=== PATIENT | female | born 1995 | race Caucasian/White ===

== ENCOUNTER 2022-12-05 21:29 | Outpatient (REF) | payer OTHER, SELFPAY ==
[2022-12-10 13:07] LABS: Age Gdln ACOG Testing Note (.); HPV Aptima Negative (Negative); IGP, rfx Aptima HPV ASCU Note (.)
== END 2022-12-05 21:30 | disposition home or self-care (01) ==
LOC: LAB 21:29
PROVIDERS: Obstetrics & Gynecology; PCP Family Medicine; Visit Provider Family Medicine
DX: Z01.419 Encounter for gynecological examination (general) (routine) without abnormal findings (principal)
CPT/HCPCS: G0145

== ENCOUNTER 2023-05-31 14:45 | Emergency (ER) | payer OTHER, SELFPAY ==
[2023-05-31 14:54] VITALS: BP 122/94; PULSE 83; RESP 22; TEMP 36.9; O2SAT 100; BMI 24.6
--- NOTE | 2023-05-31 15:04 | US_ITS ---
The [address] [address] Patient Name: NIDHI BOLANOS MRN: [id number] date: 1995 Sex: F Assigned Patient Location: ER Current Patient Location: ER Accession/Order Number: [id number] Exam Date: 05/31/2023 15:30 Report Date: 05/31/2023 16:03 At the request of: ROCIO DUEÑAS Procedure: US OB transvaginal OB ultrasound <14 weeks 05/31/2023 3:30 PM EST: Indication: Vaginal bleeding Comparison: None Findings: Transabdominal images were performed for more global assessment of the pelvis. Transvaginal images were obtained for more detailed assessment of the uterus, ovaries and adnexa. No uterine masses identified. No intrauterine is identified. Cervical length is 3.9 cm. Right ovary measures 2.9 x 1.9 x 1.2 cm and is unremarkable. Left ovary measures 1.5 x 2.1 x 2.0 cm and is unremarkable. Color flow is detected to both ovaries. No additional adnexal masses. Moderate free fluid with debris. US/US OB transvaginal IMPRESSION: 1. An intrauterine is not identified and there is moderate free fluid in the pelvis. Differential considerations include an early intrauterine , missed or ectopic . Recommend follow up Beta-HCGs and/or ultrasounds to further evaluate, as clinically warranted. Electronically authenticated by: CARROLL RICARDO Date: 05/31/2023 16:03
--- NOTE | 2023-05-31 15:05 | ED.PREGNANC1 ---
HPI - General Chief complaint: OB/Uterine Contractions Stated complaint: ABDOMINAL PAIN Time Seen by Provider: 05/31/23 14:54 Source: patient Mode of arrival: walk-in History of Present Illness HPI Narrative: Patient is a 28-year-old female G2, P1 who presents to the emergency department with concern for miscarriage. She states she is about 5 weeks . She had no issues with her first . She states she had some cramping last night but today while at work had vaginal bleeding. She has had no fevers, vomiting. She has no severe pain at this time. No medications taken prior to arrival. Related Data Allergies Allergy/AdvReac Type Severity Reaction Status Date / Time No Known Drug Allergies Allergy Verified 05/31/23 14:59 Review of Systems ROS Constitutional Denies: fever or chills Ears, nose, mouth, and throat Denies: throat pain or nasal congestion Cardiovascular Denies: chest pain Respiratory Denies: shortness of breath or cough Gastrointestinal Reports: abdominal pain; Denies: nausea, vomiting or diarrhea Musculoskeletal Denies: back pain Integumentary/Breast Denies: rash Neurological Denies: headache Hematologic/Lymphatic Denies: easy bruising or easy bleeding Exam Narrative Exam Narrative: Gen.: Awake, alert, in no distress Head: Normocephalic, atraumatic ENT: Moist mucous membranes Respiratory: No respiratory distress Gastrointestinal: Abdomen is soft, nondistended and nontender to palpation Extremities: Moves extremities equally Psych: Tearful Neuro: No focal neuro deficit Skin: Warm, dry, intact Constitutional Vital Signs, click to edit/add: Last Vital Signs Temp 98.4 F 05/31/23 14:54 Pulse 83 05/31/23 14:54 Resp 05/31/23 14:54 BP 122/94 H 05/31/23 14:54 Pulse Ox 100 05/31/23 14:54 O2 Del Method Room Air 05/31/23 14:54 Course Vital Signs Vital signs: Vital Signs Temperature 98.4 F 05/31/23 14:54 Pulse Rate 83 05/31/23 14:54 Respiratory Rate 05/31/23 14:54 Blood Pressure 122/94 H 05/31/23 14:54 Pulse Oximetry 100 05/31/23 14:54 Oxygen Delivery Method Room Air 05/31/23 14:54 Temperature 98.4 F 05/31/23 14:54 Pulse Rate 83 02/14/24 14:54 Respiratory Rate 22 05/31/23 14:54 Blood Pressure 122/94 H 05/31/23 14:54 Pulse Oximetry 100 05/31/23 14:54 Oxygen Delivery Method Room Air 05/31/23 14:54 MDM - OB/Uterine Contractions MDM Narrative Medical decision making narrative: Lab studies show a positive blood type, quantitative hCG level is 11. Ultrasound shows no evidence of intrauterine or ectopic with free fluid, possible incomplete . Patient given instructions for miscarriage for home, she can be seen in the [facility] office tomorrow, she was instructed to call at 8 AM to be scheduled for follow-up. Return to the ER if symptoms change or worsen. Medical Records Attestation: I reviewed the patient's medical records. Lab Data Labs: Lab Results 05/31/23 05/31/23 Range/Units 15:15 15:46 WBC 8.0 (4.0-11.0) 10^3/uL RBC 3.96 L (4.20-5.40) 10^6/uL Hgb 12.6 (12.0-16.0) g/dL Hct 37.8 (36.0-48.0) % MCV 95.5 (81.0-99.0) fL MCH 31.8 (26.7-34.0) pg MCHC 33.3 (29.9-35.2) g/dL RDW 11.4 (11.0-15.0) % Plt Count 252 (150-450) 10^3/uL MPV 10.9 (9.5-13.5) fL Neut % (Auto) 66.9 (43.0-75.0) % Lymph % (Auto) 23.6 (20.5-60.0) % Randolph % (Auto) 8.1 (1.7-12.0) % Eos % (Auto) 0.6 L (0.9-7.0) % Baso % (Auto) 0.7 (0.2-2.0) % Neut # (Auto) 5.4 (1.4-6.5) 10^3/uL Lymph # (Auto) 1.9 (1.2-3.8) 10^3/uL Randolph # (Auto) 0.7 (0.3-0.8) 10^3/uL Eos # (Auto) 0.1 (0.0-0.7) 10^3/uL Baso # (Auto) 0.1 (0.0-0.1) 10^3/uL Abs Immat Gran (auto) 0.01 (0.00-0.03) 10^3/uL Imm/Tot Granulo (auto) 0.1 (0.0-0.5) % HCG, Quant 11 mIU/mL Urine Color Lt. yellow (YELLOW) Urine Clarity Clear (CLEAR) Urine pH 6.0 (5.0-9.0) Ur Specific [place] <=1.005 A (1.005-1.025) Urine Protein Negative (NEG/TRACE) mg/dL Urine Glucose (UA) Negative (NEGATIVE) mg/dL Urine Ketones Negative (NEGATIVE) mg/dL Urine Occult Blood Large A (NEGATIVE) Urine Nitrite Negative (NEGATIVE) Urine Bilirubin Negative (NEGATIVE) Urine Urobilinogen 0.2 (0.2-1.0) EU/dL Ur Leukocyte Esterase Negative (NEGATIVE) Blood Type A Positive Imaging Data US - abdomen: Attestation: I have reviewed the pertinent imaging results. Radiologist's impression: ITS Impressions Transvaginal US 05/31/23 15:04 IMPRESSION: 1. An intrauterine is not identified and there is moderate free fluid in the pelvis. Differential considerations include an early intrauterine , missed or ectopic . Recommend follow up Beta-HCGs and/or ultrasounds to further evaluate, as clinically warranted. Electronically authenticated by: CARROLLPRACHI MARTINISRAEL Date: 05/31/2023 16:03 Discharge Plan Discharge Chief Complaint: OB/Uterine Contractions Clinical Impression: Vaginal bleeding affecting early Patient Disposition: Home, Self-Care Time of Disposition Decision: 16:23 Condition: Good Instructions: Threatened Miscarriage (ED) Additional Instructions: Please call Dr. Ojeda's office tomorrow morning at 8am, Dr. Ojeda or Aida will see you tomorrow for a follow up appointment Stand Alone Forms: Portal Instructions Referrals: Zen Ojeda DO [Physician] - 06/01/23 Gal Ambrocio MD [Primary Care Provider] - 1 week
[2023-05-31 15:24] LABS: Basophils Absolute Auto 0.1 10^3/uL (0.0-0.1); Basophils Percent Auto 0.7 % (0.2-2.0); Eosinophils Absolute Auto 0.1 10^3/uL (0.0-0.7); Eosinophils Percent Auto 0.6 % (0.9-7.0); Hematocrit 37.8 % (36.0-48.0); Hemoglobin 12.6 g/dL (12.0-16.0); Immature Granulocytes Abs Auto 0.01 10^3/uL (0.00-0.03); Immature Granulocytes Pct Auto 0.1 % (0.0-0.5); Lymphocytes Absolute Auto 1.9 10^3/uL (1.2-3.8); Lymphocytes Percent Auto 23.6 % (20.5-60.0); Mean Corpuscular HGB Conc 33.3 g/dL (29.9-35.2); Mean Corpuscular Hemoglobin 31.8 pg (26.7-34.0); Mean Corpuscular Volume 95.5 fL (81.0-99.0); Mean Platelet Volume 10.9 fL (9.5-13.5); Monocytes Absolute Auto 0.7 10^3/uL (0.3-0.8); Monocytes Percent Auto 8.1 % (1.7-12.0); Neutrophils Absolute Auto 5.4 10^3/uL (1.4-6.5); Neutrophils Percent Auto 66.9 % (43.0-75.0); Platelet Count 252 10^3/uL (150-450); Red Blood Count 3.96 10^6/uL (4.20-5.40); Red Cell Distribution Width 11.4 % (11.0-15.0)
[2023-05-31 15:51] LABS: HCG Quantitative 11 mIU/mL
[2023-05-31 16:17] LABS: Bilirubin Urine NEGATIVE (NEGATIVE); Blood Urine LARGE (NEGATIVE); Clarity Urine CLEAR (CLEAR); Color Urine LT. YELLOW (YELLOW); Glucose Urine UA NEGATIVE (NEGATIVE); Ketones Urine NEGATIVE (NEGATIVE); Leukocyte Esterase Urine NEGATIVE (NEGATIVE); Nitrite Urine NEGATIVE (NEGATIVE); Protein Urine NEGATIVE (NEG/TRACE); Specific Gravity Urine <=1.005 (1.005-1.025); Urobilinogen Urine 0.2 EU/dL (0.2-1.0)
[2023-05-31 16:21] LABS: Urine Microscopic Indicated YES
[2023-05-31 16:28] LABS: Bacteria Urine NONE SEEN #/HPF (NONE SEEN); Cast Seen? NONE SEEN #/LPF (NONE SEEN); Crystals Seen? None Seen #/HPF (None Seen); Mucus Urine NONE SEEN (NONE SEEN); Squamous Epithelial Cell Urine RARE #/LPF (NONE/RARE); Urine Culture Indicated NO; WBC Urine NONE SEEN #/HPF (NONE SEEN)
== END 2023-05-31 16:34 | disposition home or self-care (01) ==
PROVIDERS: Physician Assistant; Emergency Provider Emergency Medicine; PCP Family Medicine
DX: O20.9 Hemorrhage in early pregnancy, unspecified (principal); Z3A.01 Less than 8 weeks gestation of pregnancy
CPT/HCPCS: 36415; 76817; 81001; 84702; 85025; 86900; 86901; 99285

== ENCOUNTER 2023-06-07 10:34 | Outpatient (OUT) | payer OTHER, SELFPAY ==
--- OUTSIDE RECORDS SUMMARY | 2023-06-07 10:37 | XMS_ITS | CCD ---
Demographics Address [address] [place] [address] Preferred Language en Marital Status Single Moravian Affiliation Unknown Race White Ethnic Group Not or Lati no Author Name Unknown Address [address] [facility] [address] [place] [address] Organization [facility] Care Team Providers Care Manager Transition Name Role Phone Veronica Murphy Primary Care Physician NGUYỄN, DR SAFIA Pichardo Admitting Unavailable WEST, DR SAFIA Pichardo Attending Unavailable HOY ., DR MARTIN Primary Care Unavailable WEST, DR SAFIA Pichardo Consulting Unavailable WEST, DR SAFIA Pichardo Admitting Unavailable WEST, DR SAFIA Pichardo Attending Unavailable HOY ., DR MARTIN Primary Care Unavailable WEST, DR SAFIA Pichardo Consulting Unavailable LOLLY ., DR MARTIN Admitting Unavailable HOY ., DR MARTIN Attending Unavailable HOY ., DR MARTIN Primary Care Unavailable HOY ., DR MARTIN Consulting Unavailable GABRIELLE SESAY Attending Unavailable Problems Active Problems Problem Classification Problem Date Documented Da te Episodic/Chronic Mood disorders (2 sources) Mood disorder 09-22-2021 Chronic Other and unspecified benign neoplasm (1 source) Melanocytic nevus; Translations: [Melanocytic nevi, unspecified] Onset: 10-06-2021 Episodic Other nervous system disorders (3 sources) Skin sensation disturbance; Translations: [Unspecified disturbances of skin sensation] Onset: 10-06-2021 Episodic Other skin disorders (2 sources) Change in skin lesion 10-06-2021 Episodic Unclassified (2 sources) Body mass index 20-24 - normal 10-06-2021 Unclassified (3 sources) COUGH, UNSPECIFIED; Translations: [COUGH, UNSPECIFIED] Onset: 04-03-2022 Unclassified (1 source) CONTACT W/AND (SUSP) EXPOS COVID-19; Translations: [CONTACT W/AND (SUSP) EXPOS COVID-19] Onset: 04-03-2022 Past or Other Problems Problem Classification Problem Date Documented Da te Episodic/Chronic Unclassified (1 source) COUGH, UNSPECIFIED; Translations: [COUGH, UNSPECIFIED] Onset: 03-31-2022 Results Test Name Value Interpretation Reference Range Facil ity [facility]-17 SARS-CoV-2 (COVID-19) RNA LYNDSEY+probe Ql (Unsp spec) Not detected Normal NOT DETECTED [facility] Comment on above: Result Comment: This test is not yet approved or cleared by the [place] FDA. When there are no FDA-approved or cleared tests available, and other criteria are met, FDA can make tests available under an emergency access mechanism called an Emergency Use Authorization (EUA). The EUA for this test is supported by the Dental Hygienist of Health and Human Service's (HHS's) declaration that circumstances exist to justify the emergency use of in vitro diagnostics for the detection and/or diagnosis of the virus that causes COVID-19. This EUA will remain in effect (meaning this test can be used) for the duration of the COVID-19 declaration justifying emergency of IVDs, unless it is terminated or revoked by FDA (after which the test may no longer be used). When diagnostic testing is negative, the possibility of a false negative should be considered in the context of a patient's recent exposures and the presence of clinical signs and symptoms consistent with SARS-CoV-2. Performed By: #### C VDTBH #### [facility] [address] [place] [address] Dr. Radha Rucker INFLUENZA A AND B AGon 03-31 [facility] SEE BELOW Normal [facility] Comment on above: Result Comment: Nega tive for Flu A protein angiten. Infection due to Flu A cannot be ruled out. Flu A angiten in the sample may be below the detection limit of the test. Performed By: #### I NFLUAB #### [facility] [address] [place] [address] Dr. [facility] Normal [facility] Comment on above: Result Comment: Nega tive for Flu B protein antigen. Infection due to Flu B cannot be ruled out. Flu B antigen in the sample may be below the detection limit of the test. Performed By: #### I NFLUAB #### [facility] [address] [place] [address] Dr. Radha Rucker INFLUENZA A AG Negative Normal NEGATIVE SEE COMMENT [facility] Comment on above: Performed By: #### I NFLUAB #### [facility] [address] [address] [address] Radha Rucker INFLUENZA B AG Negative Normal NEGATIVE SEE COMMENT [facility] Comment on above: Performed By: #### I NFLUAB #### [facility] [address] [address] [address] Radha Rucker INTERNAL CONTROLS Within Normal Limits Normal Wi thin Normal Limits [facility] Comment on above: Performed By: #### I NFLUAB #### [facility] [address] [address] [address] Radha Rucker General Surgery Office/Clini c Noteon 11-01-2021 General Surgery Office/Clinic Note Chief Complaint in-office excisional biopsy HPI Staff Presents for in-office excisional biopsy LLQ abdomen. History of Present Illness patient here for excisional biopsy LLQ/flank skin lesion; no changes since recent evaluation. Review of Systems ROS - Provider Constitutional: no fever, no sweats, no weight loss. Eyes: no glasses, no blurred vision, no visual loss. ENMT: no dentures, no hoarseness, no swallowing difficulties, no hearing loss, no ear infection(s), no nose bleeds. Cardiovascular: normal blood pressure, no chest pain, regular heartbeat, no heart murmur. Respiratory: no shortness of breath, no cough, no asthma, no wheezing. Gastrointestinal: no nausea, no vomiting, no diarrhea, no constipation, no blood in stool, no change in bowel habits, no abdominal pain, no hepatitis. Genitourinary: no kidney stones, no urine infection, no dysuria. Musculoskeletal: no pain, no weakness. Skin: no changing moles, no rash, yes skin lumps. Neurologic: no seizures, no epilepsy, no headache. Psychiatric: no emotional or psychiatric problem. Heme/Lymph: no bleeding problems, no anemia, no blood clots, no transfusions. Allergy/Immunologic: no swollen lymph nodes/glands, no IV drug abuse. Other: Additional ROS info: Except as noted in the above Review of Systems and in the History of Present Illness, all other systems have been reviewed and are negative or noncontributory. Physical Exam skin: left flank with 7 x 4 mm pigmented lesion with central raised component, no ulceration or bleeding. Procedure patient brought to the procedure room, placed in supine position, area prepped and draped in sterile fashion; anesthetized with 1 % lidocaine; lesion excised in elliptical fashion down to subcutaneous fat; total length 1.2 cm; closed with interrupted 4-0 nylon sutures; tolerated well; ebl < 2 ml; sterile dressing applied. Assessment/Plan 1. Changing nevus (D22.9: Melanocytic nevi, unspecified) excised under local anesthesia, tolerated well; suture removal in 7-10 days, call with problems/questions. Follow-up No qualifying data available Problem List/Past Medical History Ongoing BMI 24.0-24.9, adult Changing nevus Disturbance of skin sensation Mood disorder Historical No qualifying data Procedure/Surgical History Tonsillectomy. Medications No active medications Allergies No Known Allergies No Known Medication Allergies Social History Alcohol - Denies Alcohol Use, 10/06/2021 Substance Abuse - Denies Substance Abuse, 10/06/2021 Tobacco Never (less than 100 in lifetime) Tobacco Use:. Never Smokeless Tobacco Use:., 10/06/2021 Family History Cardiac arrhythmia: Father. Normal [facility] Comment on above: Result Comment: Elec tronically Signed By: ROSLYN DIAMOND, Philippe Ramirez\.br\Date and Time Signed: 11/01/21 09:55 EDT Pathology Noteon 11-01-2021 Pathology Note [id number] .00CD:127 Normal [facility] Ambulatory Visit Summaryon 0 10-27-2021 Ambulatory Visit Summary ROXANALARRY NIDHI JAY :1995 Visit Date:10/27/2021 Ambulatory Visit Instructions Your Care Team Attending Physician - ROSLYN DIAMOND, Philippe Ramirez Primary Care Physician - Veronica Murphy MD Procedures Performed Tonsillectomy. Allergies No Known Allergies No Known Medication Allergies Problems Ongoing - Any problem that you are currently receiving treatment for. BMI 24.0-24.9, adult Changing nevus Disturbance of skin sensation Mood disorder [facility] Pre-Certification Formon Pre-Certification Form [id number]# 1.00CD:127 [facility] Ambulatory Visit Summaryon 0 10-06-2021 Ambulatory Visit Summary NIDHI BOLANOS :1995 Visit Date:10/06/2021 Ambulatory Visit Instructions Your Care Team Attending Physician - Philippe MCGOWAN MD Primary Care Physician - Lolly DIAMOND, Veronica Procedures Performed Tonsillectomy. Discharge Vitals Heart Rate (Peripheral) 72 Respiratory Rate 16 Blood Pressure 106/66 Height 162.5 cm Height 162.5 cm Weight 64.0 kg Weight 64 kg BMI 24.24 What to do next Scheduled Follow-Up Appointments Monday 1:40 PM EDT With: ROSLYN DIAMOND, Philippe Ramirez Where: General Surgery Nill/Said [facility] Physician Referralon 022 Physician Referral [id number] .00CD:127 [facility] Vital Signs Date Time Vital Sign Value Performing Clinician Debrai ivan 10-06-2021 15:25-0400 Blood Pressure Location Philippe MCGOWAN [facility] [place] 10-06-2021 15:25-0400 Diastolic blood pressure 66 mm[Hg] Philippe MCGOWAN General Surgery [facility] 10-06-2021 15:25-0400 Heart rate 72 /min Philippe MCCARTNEYL General Surgery [facility] 10-06-2021 15:25-0400 Respiratory rate 16 /min Philippe MCCARTNEYL [facility] [place] 10-06-2021 15:25-0400 Systolic blood pressure 106 mm[Hg] Philippe MCGOWAN General Surgery [facility] Encounters Encounter Date Encounter Type Care Provider Facility Start: 05-08-2023 End: 05-08-2023 ambulatory GABRIELLE SESAY Not Available Start: 06-09-[address] SAFIA ADRIAN Facilit y:[facility] Start: 03-31-2022 End: 03-31-[address] VERONICA MUPRHY . Facility:[facility] Start: 10-27-2021 End: 10-27-2021 Patient encounter procedure Philippe James NILL General Surgery Nill/Said [facility] Start: 10-06-2021 End: 10-06-2021 Patient encounter procedure Philippe Ramirez NILL General Surgery Nill/Said [place] Start: 06-28-2021 End: 10-21-[address] SAFIA ADRIAN Facility:[facility] Procedures Date Procedure Procedure Detail Performing Clinician Tonsillectomy Philippe SHERRILLTahir Payers Date Payer Category Payer Medicaid [id number] 1995 Unknown [id number] [id number] 1995 Unknown [id number] [id number] [id number] 1995 Unknown [id number] [id number] [id number] 1995 Unknown [id number] [id number] 1961 Self-pay [id number] 1961 Unknown [id number] Social History Date Type Detail Facility Start: 10-06-2021 Tobacco smoking status Never s moked tobacco (finding) [facility] [place] Tobacco smoking status Never Gener al [facility] [place] Sex Assigned At Female Genera l Surgery [facility] Functional Status Date Assessment Result Facility 10-06-2021 Functional Status N/A General [facility] [place] Clinical Note 10-06-2021 Note Date & Type Note Facility 10-06-2021 Note Chief Complaint consultation for nevus HPI Staff 26 year old female presents on consultation from Dr. Murphy for nevus. Reports long standing history of nevus to left flank. Over the past one-two years, has increased in size and became tender with friction from clothing. History of Present Illness 26 yo female with h/o enlarging, irritated nevus left lower quadrant; present for many years, but has increased in size over last year and become more raised, no ulceration or bleeding; no personal or fmhx of skin cancer or melanoma; no asa or NSAID use; no tobacco use. Review of Systems PHQ Score Initial Depression Screen Score: 0 ROS - Provider Constitutional: no fever, no sweats, no weight loss. Eyes: no glasses, no blurred vision, no visual loss. ENMT: no dentures, no hoarseness, no swallowing difficulties, no hearing loss, no ear infection(s), no nose bleeds. Cardiovascular: normal blood pressure, no chest pain, regular heartbeat, no heart murmur. Respiratory: no shortness of breath, no cough, no asthma, no wheezing. Gastrointestinal: no nausea, no vomiting, no diarrhea, no constipation, no blood in stool, no change in bowel habits, no abdominal pain, no hepatitis. Genitourinary: no kidney stones, no urine infection, no dysuria. Musculoskeletal: no pain, no weakness. Skin: yes changing moles, no rash, no skin lumps. Neurologic: no seizures, no epilepsy, no headache. Psychiatric: no emotional or psychiatric problem. Heme/Lymph: no bleeding problems, no anemia, no blood clots, no transfusions. Allergy/Immunologic: no swollen lymph nodes/glands, no IV drug abuse. Other: Additional ROS info: Except as noted in the above Review of Systems and in the History of Present Illness, all other systems have been reviewed and are negative or noncontributory. Physical Exam Vitals & Measurements HR: 72(Peripheral) RR: 16 BP: 106/66 HT: 162.5 cm HT: 162.5 cm WT: 64.0 kg WT: 64 kg BMI: 24.24 HEENT: normal conjunctiva, sclera clear, no scleral icterus, EOM intact, PERRLA, oral mucosa moist without lesions. Neck: trachea midline, no mass, symmetric, no thyromegaly or nodules, no adenopathy Lymphatic: no cervical adenopathy, Musculoskeletal: normal gait, digits and nails without infection, nodes, cyanosis, clubbing. Skin: no rashes, 7 x 4 mm nevus with 4 mm raised area; no ulceration, uniform border and pigmentaiton, no ulcers, no subcutaneous nodules, induration. Psychiatric/Neuro: oriented to time, place, person, judgement normal, affect appropriate for age, insight intact, no focal deficits. Tests: review of old records completed, Discussed surgical options, risks, and possible complications with patient.! Assessment/Plan 1. Changing nevus (D22.9: Melanocytic nevi, unspecified) plan excisional biopsy under local anesthesia in the office for definitive diagnosis and treatment, informed consent obtained. 2. Disturbance of skin sensation (R20.9: Unspecified disturbances of skin sensation) see # 1 Follow-up No qualifying data available Problem List/Past Medical History Ongoing BMI 24.0-24.9, adult Changing nevus Disturbance of skin sensation Mood disorder Historical No qualifying data Procedure/Surgical History Tonsillectomy. Medications No active medications Allergies No Known Allergies No Known Medication Allergies Social History Alcohol - Denies Alcohol Use, 10/06/2021 Substance Abuse - Denies Substance Abuse, 10/06/2021 Tobacco Never (less than 100 in lifetime) Tobacco Use:. Never Smokeless Tobacco Use:., 10/06/2021 Family History Cardiac arrhythmia: Father. [facility] Comment on above: Result Comment: Elec tronically Signed By: Philippe MCGOWAN MD\.br\Date and Time Signed: 10/06/21 16:57 EDT Evaluation + Plan note Note Date & Type Note Facility Evaluation + Plan note Future Appointments Appointment Date:10/27/2021 01:40:00 PM Scheduled Provider:Philippe MCGOWAN MD Location:[facility] Appointment Type: Procedure 30 General [facility] [place] Hospital course Narrative Note Date & Type Note Facility Hospital course Narrative No data available for this section General Surgery [place] [facility] Discharge instructions Note Date & Type Note Facility Hospital Discharge instructions No data available for this section General Surgery [place] Progress note Note Date & Type Note Facility Progress note No data available for this section General Surgery [facility] Summary Purpose Family History No Family History Records FoundNo Family History Records FoundNo Family History Records Found Advance Directives No Advanced Directives Records FoundNo Advanced Directives Records FoundNo Advanced Directives Records Found Additional Source Comments Care Team (unrecognized sect ion and content) Personnel Name: Veronica Murphy MD Address: [address] [place] [address] Personnel Name: Veronica Murphy MD Address: [address] [place], [place] [id number]- INFORMATION SOURCE (unrecogn ized section and content) DATE CREATED AUTHOR [facility]/02/2021 [facility] DATE CREATED AUTHOR AUTHOR'S ORGANIZ ATION 06/10/2022 [facility] DATE CREATED AUTHOR AUTHOR'S ORGANIZ ATION 05/09/2023 [facility] EPIC FOR RECORDS PERTAINING TO PATIENTS WHO ARE OR HAVE BEEN ENROLLED IN A CHEMICAL DEPENDENCY/SUBSTANCEABUSE PROGRAM, SOME INFORMATION MAY BE OMITTED. This clinical summary was aggregated from multiple sources. Caution should be exercised in using it in the provision of clinical care. This summary normalizes information from multiple sources, and as a consequence, information in this document may materially change the coding, format and clinical context of patient data. In addition, data may be omitted in some cases. CLINICAL DECISIONS SHOULD BE BASED ON THE PRIMARY CLINICAL RECORDS. [facility]. provides no warranty or guarantee of the accuracy or completeness of information in this document.
[2023-06-07 11:42] LABS: HCG Quantitative <1 mIU/mL
== END 2023-06-07 10:35 | disposition home or self-care (01) ==
PROVIDERS: PCP Family Medicine; Visit Provider Obstetrics & Gynecology
DX: O20.9 Hemorrhage in early pregnancy, unspecified (principal)
CPT/HCPCS: 36415; 84702

== ENCOUNTER 2023-11-11 10:21 | Outpatient (OUT) | payer OTHER, SELFPAY ==
--- OUTSIDE RECORDS SUMMARY | 2023-11-11 10:24 | XMS_ITS | CCD ---
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 Name Role Phone Veronica Murphy Primary Care Physician NGUYỄN, DR SAFIA Pichardo Admitting Unavailable WEST, DR SAFIA Pichardo Attending Unavailable HOY ., DR MARTIN Primary Care Unavailable WEST, DR SAFIA Pichardo Consulting Unavailable WEST, DR SAFIA Pichardo Admitting Unavailable WEST, DR SAFIA Pichardo Attending Unavailable HOY ., DR MARTIN Primary Care Unavailable WEST, DR SAFIA Pichardo Consulting Unavailable GISSELLEY ., DR MARTIN Admitting Unavailable HOY ., [...] Interpretation Reference Range Facil ity Covid-19 PCR (CVDTB)on 03-17 SARS-CoV-2 (COVID-19) RNA LYNDSEY+probe Ql (Unsp spec) Not detected Normal NOT DETECTED [facility] Comment on above: Result Comment: This test is not yet approved or cleared by the [place] FDA. When there are no FDA-approved or cleared tests available, and other criteria are met, FDA can make tests available under an emergency access mechanism called an Emergency Use Authorization (EUA). The EUA for this test is supported by the [place] of Health and Human Service's (HHS's) declaration [...] SARS-CoV-2. Performed By: #### C VDTBH #### [facility] [address] [place] [address] Dr. Radha Rucker INFLUENZA A AND B AGon 03-31 [facility] SEE BELOW Normal [facility] Comment on above: Result Comment: Nega tive for Flu A protein angiten. Infection due to Flu A cannot be ruled out. Flu A angiten in the sample may be below the detection limit of the test. Performed By: #### I NFLUAB #### [facility] [address] [place] [address] Dr. Rad[facility]ucker [facility] SEE BELOW Normal [facility] Comment on above: Result Comment: Nega tive for Flu B protein antigen. Infection due to Flu B cannot be ruled out. Flu B antigen in the sample may be below the detection limit of the test. Performed By: #### I NFLUAB #### [facility] [address] [place] [address] Dr. Radha Rucker INFLUENZA A AG Negative Normal NEGATIVE SEE COMMENT [facility] Comment on above: Performed By: #### I NFLUAB #### [facility] [address] [address] [address] Radha Rucker INFLUENZA B AG Negative Normal NEGATIVE SEE COMMENT [facility] Comment on above: Performed By: #### I NFLUAB #### [facility] [address] [address] [address] Radha Rucker INTERNAL CONTROLS Within Normal Limits Normal Wi thin Normal Limits [facility] Comment on above: Performed By: #### I NFLUAB #### [facility] [address] [address] [address] Radha Rucker General Surgery Office/Clini c [...] 10/06/2021 Family History Cardiac arrhythmia: Father. Normal [facility] Comment on above: Result Comment: Elec tronically Signed By: ROSLYN DIAMOND, Philippe Ramirez\.br\Date and Time Signed: 11/01/21 09:55 EDT Pathology Noteon 11-01-2021 Pathology Note [id number] .00CD:127 Normal [facility] Ambulatory Visit Summaryon 0 10-27-2021 Ambulatory Visit Summary NIDHI BOLANOS :1995 Visit Date:10/27/2021 Ambulatory Visit Instructions Your Care Team Attending Physician - ROSLYN DIAMOND, Philippe Ramirez Primary Care Physician - Veronica Murphy MD Procedures Performed Tonsillectomy. Allergies No Known Allergies No Known Medication Allergies Problems Ongoing - Any problem that you are currently receiving treatment for. BMI 24.0-24.9, adult Changing nevus Disturbance of skin sensation Mood disorder [facility] Pre-Certification Formon Pre-Certification Form [id number]# 1.00CD:127 [facility] Ambulatory Visit Summaryon 0 10-06-2021 Ambulatory Visit Summary NIDHI BOLANOS :1995 Visit Date:10/06/2021 Ambulatory Visit Instructions Your Care Team Attending Physician - ROSLYN DIAMOND, Philippe Ramirez Primary Care Physician - Lolly DIAMOND, Veronica Procedures Performed Tonsillectomy. Discharge Vitals Heart Rate (Peripheral) 72 Respiratory Rate 16 Blood Pressure 106/66 Height 162.5 cm Height 162.5 cm Weight 64.0 kg Weight 64 kg BMI 24.24 What to do next Scheduled Follow-Up Appointments Monday 1:40 PM EDT With: ROSLYN DIAMOND, Philippe Ramirez Where: General Surgery Nill/Said [place] [facility] Physician Referralon 022 Physician Referral [id number] .00CD:127 [facility] Vital Signs Date Time Vital Sign Value Performing Clinician Day [place] 10-06-2021 15:25-0400 Blood Pressure Location Philippe NILL [facility] [place] 10-06-2021 15:25-0400 Diastolic blood pressure 66 mm[Hg] Philippe NILL [facility] [place] 10-06-2021 15:25-0400 Heart rate 72 /min Philippe NILL General [facility] [place] 10-06-2021 15:25-0400 Respiratory rate 16 /min Philippe NILL General Surgery [place] 10-06-2021 15:25-0400 Systolic blood pressure 106 mm[Hg] Philippe NILL General Surgery [place] Encounters Encounter Date Encounter Type Care Provider Facility Start: 05-08-2023 End: 05-08-2023 ambulatory GABRIELLE SHAMA Not Available Start: 06-09-[address] SAFIA ADRIAN Facilit y:[facility] Start: 03-31-2022 End: 03-31-[address] VERONICA MURPHY . Facility:[facility] Start: 10-27-2021 End: 10-27-2021 Patient encounter procedure Philippe MCGOWAN General Surgery Nill/Said [place] Start: 10-06-2021 End: 10-06-2021 Patient encounter procedure Philippe MCGOWAN General Surgery N[place]/Said [place] Start: 06-28-2021 End: 10-21-[address] SAFIA ADRIAN Facility:[facility] Procedures Date Procedure Procedure Detail Performing Clinician Tonsillectomy Philippe MCGOWAN Payers Date Payer Category Payer Medicaid [id number] 1995 Unknown [id number] 2.16.84 [id number] 1995 Unknown [id number] 2.16.84 [id number] 1995 Unknown [id number] 2.16.84 [id number] 1995 Unknown [id number] 2.16.84 [id number] 1961 Self-pay [id number] 1961 Unknown [id number] Social History Date Type Detail Facility Start: 10-06-2021 Tobacco smoking status Never s moked tobacco (finding) General Surgery [place] Tobacco smoking status Never Gener al Surgery [place] Sex Assigned At Female Genera l Surgery [place] Functional Status Date Assessment Result Facility 10-06-2021 Functional Status N/A General [facility] [place] Clinical Note 10-06-2021 Note Date & Type [...] Use:., 10/06/2021 Family History Cardiac arrhythmia: Father. [facility] Comment on above: Result Comment: Elec tronically Signed By: Philippe MCGOWAN MD\.br\Date and Time Signed: 10/06/21 16:57 EDT Evaluation + Plan note Note Date & Type Note Facility Evaluation + Plan note Future Appointments Appointment Date:10/27/2021 01:40:00 PM Scheduled Provider:Philippe MCGOWAN MD Location:[facility] Appointment Type: Procedure 30 General Surgery [place] Hospital course Narrative Note Date & Type Note Facility Hospital course Narrative No data available for this section General Surgery [place] Hospital Discharge instructions Note Date & Type Note Facility Hospital Discharge instructions No data available for this section General Surgery [place] Progress note Note Date & Type Note [...] content) Personnel Name: Veronica Murphy MD Address: [address] [place] [address] Personnel Name: Veronica Murphy MD Address: [address] [place] [address] INFORMATION SOURCE (unrecogn ized section and content) DATE CREATED AUTHOR 11/02/2021 [facility] DATE CREATED AUTHOR AUTHOR'S ORGANIZ ATION 06/10/2022 [facility] DATE CREATED AUTHOR AUTHOR'S ORGANIZ ATION 05/09/2023 [facility]ists EPIC FOR RECORDS PERTAINING TO PATIENTS [...] BE BASED ON THE PRIMARY CLINICAL RECORDS. [facility]. provides no warranty or guarantee of the accuracy or completeness of information in this document.
[2023-11-11 11:23] LABS: HCG Quantitative 45647 mIU/mL
== END 2023-11-11 10:22 | disposition home or self-care (01) ==
LOC: LAB 10:21
PROVIDERS: PCP Family Medicine; Visit Provider Obstetrics & Gynecology
DX: N92.6 Irregular menstruation, unspecified (principal)
CPT/HCPCS: 36415; 84702

== ENCOUNTER 2023-11-13 08:57 | Outpatient (OUT) | payer OTHER, SELFPAY ==
--- OUTSIDE RECORDS SUMMARY | 2023-11-13 09:02 | XMS_ITS | CCD ---
Demographics Address [address] [place] [address] Preferred Language en Marital Status Single Judaism Affiliation Unknown Race White Ethnic Group Not or Lati no Author Organization [facility] Care Team Providers Care Wrapper Caser Name Role Phone Veronica Murphy Primary Care [...] spec) Not detected Normal NOT DETECTED [facility] Comment on above: Result Comment: This test is not yet approved or cleared by the [place] FDA. When there are no FDA-approved or cleared tests available, and other criteria are met, FDA can make tests available under an emergency access mechanism called an Emergency Use Authorization (EUA). The EUA for this test is supported by the [place] of Health and Human Service's (HHS's) declaration [...] SARS-CoV-2. Performed By: #### C VDTBH #### [facility] [address] [place] [address] Dr. Radha Rucker INFLUENZA A AND B AGon 03-31 [facility] SEE BELOW Normal [facility] Comment on above: Result Comment: Nega tive for Flu A protein angiten. Infection due to Flu A cannot be ruled out. Flu A angiten in the sample may be below the detection limit of the test. Performed By: #### I NFLUAB #### [facility] [address] [place] [address] Dr. [facility] Normal [facility] Comment on above: Result Comment: Nega tive for Flu B protein antigen. Infection due to Flu B cannot be ruled out. Flu B antigen in the sample may be below the detection limit of the test. Performed By: #### I NFLUAB #### [facility] [address] [place] [address] Dr. Radha Rucker INFLUENZA A AG Negative Normal NEGATIVE SEE COMMENT [facility] Comment on above: Performed By: #### I NFLUAB #### [facility] [address] [address] [address] Radha Rucker INFLUENZA B AG Negative Normal NEGATIVE SEE COMMENT [facility] Comment on above: Performed By: #### I NFLUAB #### [facility] [address] [address] [address] Radha Rucker INTERNAL CONTROLS Within Normal Limits Normal Wi thin Normal Limits [facility] Comment on above: Performed By: #### I NFLUAB #### [facility] [address] [address] [address] Radha Rucker General Surgery Office/Clini c [...] History Cardiac arrhythmia: Father. Normal [facility] Comment on above: Result Comment: Elec tronically Signed By: ROSLYN DIAMOND, Philippe Ramirez\.br\Date and Time Signed: 11/01/21 09:55 EDT Pathology Noteon 11-01-2021 Pathology Note [id number] .00CD:[address] [facility] Ambulatory Visit Summaryon 0 10-27-2021 Ambulatory [...] nevus Disturbance of skin sensation Mood disorder [facility] Pre-Certification Formon Pre-Certification Form [id number]# 1.00CD:127 [facility] Ambulatory Visit Summaryon 0 10-06-2021 Ambulatory Visit [...] DIAMOND, Philippe Ramirez Where: General Surgery Nill/Said [place] [facility] Physician Referralon 022 Physician Referral [id number] .00CD:127 [facility] Vital Signs Date Time Vital Sign Value Performing Clinician Day love 10-06-2021 15:25-0400 Blood Pressure Location Philippe NILL General [facility] [place] 10-06-2021 15:25-0400 Diastolic blood pressure 66 mm[Hg] Philippe NILL General Surgery [place] 10-06-2021 15:25-0400 Heart rate 72 /min Philippe NILL General Surgery [place] 10-06-2021 15:25-0400 Respiratory rate 16 /min Philippe NILL General Surgery [place] 10-06-2021 15:25-0400 Systolic blood pressure 106 mm[Hg] Philippe NILL General Surgery [place] Encounters Encounter Date Encounter Type Care Provider [...] MCGOWAN Payers Date Payer Category Payer Medicaid [id number] 1995 Unknown [id number] 2.16.84 [id number] 1995 Unknown [id number] 2.16.84 [id number] 1995 Unknown [id number] 2.16.84 [id number] 1995 Unknown [id number] 2.16.84 [id number] 1961 Self-pay [id number] 1961 Unknown [id number] Social History Date Type Detail Facility Start: 10-06-2021 Tobacco smoking status Never s moked tobacco (finding) General Surgery [place] Tobacco smoking status Never Gener al Surgery [place] Sex Assigned At Female Genera l Surgery [place] Functional Status Date Assessment Result Facility 10-06-2021 [...] Family History Cardiac arrhythmia: Father. [facility] Comment on above: Result Comment: Elec tronically Signed By: Philippe MCGOWAN MD\.br\Date and Time Signed: 10/06/21 16:57 EDT Evaluation + Plan note Note Date & Type Note Facility Evaluation + Plan note Future Appointments Appointment Date:10/27/2021 01:40:00 PM Scheduled Provider:Philippe MCGOWAN MD Location:[facility] Appointment Type: Procedure 30 General Surgery [place] Hospital course Narrative Note Date & Type Note Facility Hospital course Narrative No data available for this section General Surgery [place] Hospital Discharge instructions Note Date & Type Note Facility Hospital Discharge instructions No data available for this section General Surgery [place] Progress note Note Date & Type Note [...] content) Personnel Name: Veronica Murphy MD Address: [address] [place] [address] Personnel Name: Veronica Murphy MD Address: [address] [place] [address] INFORMATION SOURCE (unrecogn ized section and content) DATE CREATED AUTHOR 11/02/2021 [facility] DATE CREATED AUTHOR AUTHOR'S ORGANIZ ATION 06/10/2022 [facility] DATE CREATED AUTHOR AUTHOR'S ORGANIZ ATION 05/09/2023 [facility] EPIC FOR RECORDS PERTAINING TO [...] BE BASED ON THE PRIMARY CLINICAL RECORDS. [facility] [employer] [facility]. provides no warranty or guarantee of the accuracy or completeness of information in this document.
[2023-11-13 10:32] LABS: HCG Quantitative 58194 mIU/mL
== END 2023-11-13 08:58 | disposition home or self-care (01) ==
LOC: LAB 08:58
PROVIDERS: PCP Family Medicine; Visit Provider Obstetrics & Gynecology
DX: N92.6 Irregular menstruation, unspecified (principal)
CPT/HCPCS: 36415; 84702

== ENCOUNTER 2023-11-15 09:35 | Outpatient (OUT) | payer OTHER, SELFPAY ==
--- OUTSIDE RECORDS SUMMARY | 2023-11-15 09:53 | XMS_ITS | CCD ---
Demographics Address [address] [place] [address] Preferred Language en Marital Status Single Jainism Affiliation Unknown Race White Ethnic Group Not or Lati no Author Organization [facility] Care Team Providers Care Supervisor Border Department Name Role Phone Veronica Murphy Primary Care Physician [phone] NGUYỄN, DR SAFIA Pichardo Admitting Unavailable WEST, [...] spec) Not detected Normal NOT DETECTED [facility] Comment on above: Result Comment: This test is not yet approved or cleared by the [place] FDA. When there are no FDA-approved or cleared tests available, and other criteria are met, FDA can make tests available under an emergency access mechanism called an Emergency Use Authorization (EUA). The EUA for this test is supported by the [place] of Health and Human Service's (HHS's) declaration [...] SARS-CoV-2. Performed By: #### C VDTBH #### [facility] [address] [place] [address] Dr. Radha Rucker INFLUENZA A AND B AGon 03-31 [facility] SEE BELOW Normal [facility] Comment on above: Result Comment: Nega tive for Flu A protein angiten. Infection due to Flu A cannot be ruled out. Flu A angiten in the sample may be below the detection limit of the test. Performed By: #### I NFLUAB #### [facility] [address] [place] [address] Dr. [facility] Normal [facility] Comment on above: Result Comment: Nega tive for Flu B protein antigen. Infection due to Flu B cannot be ruled out. Flu B antigen in the sample may be below the detection limit of the test. Performed By: #### I NFLUAB #### [facility] [address] [place] [address] Dr. Radha Rucker INFLUENZA A AG Negative Normal NEGATIVE SEE COMMENT [facility] Comment on above: Performed By: #### I NFLUAB #### [facility] [address] [address] [address] Radha Rucker INFLUENZA B AG Negative Normal NEGATIVE SEE COMMENT [facility] Comment on above: Performed By: #### I NFLUAB #### [facility] [address] [address] [address] Radha Rucker INTERNAL CONTROLS Within Normal Limits Normal Wi thin Normal Limits [facility] Comment on above: Performed By: #### I NFLUAB #### [facility] [address] [address] [address] Radha Rucker General Surgery Office/Clini c [...] 10/06/2021 Family History Cardiac arrhythmia: Father. Normal [facility] Comment on above: Result Comment: Elec tronically Signed By: ROSLYN DIAMOND, Philippe Ramirez\.br\Date and Time Signed: 11/01/21 09:55 EDT Pathology Noteon 11-01-2021 Pathology Note [id number] .00CD:[address] [facility] Ambulatory Visit Summaryon 0 10-27-2021 Ambulatory [...] nevus Disturbance of skin sensation Mood disorder [facility] Pre-Certification Formon Pre-Certification Form [id number]# 1.00CD:127 [facility] Ambulatory Visit Summaryon 0 10-06-2021 Ambulatory [...] DIAMOND, Philippe Ramirez Where: General Surgery Nill/Said [place] [facility] Physician Referralon 022 Physician Referral [id number] .00CD:127 [facility] Vital Signs Date Time Vital Sign Value Performing Clinician Day love 10-06-2021 15:25-0400 Blood Pressure Location Philippe NILL General [facility] [place] 10-06-2021 15:25-0400 Diastolic blood pressure 66 mm[Hg] Philippe NILL General Surgery [place] 10-06-2021 15:25-0400 Heart rate 72 /min Philippe NILL General Surgery [place] 10-06-2021 15:25-0400 Respiratory rate 16 /min Philippe NILL General Surgery [place] 10-06-2021 15:25-0400 Systolic blood pressure 106 mm[Hg] Philippe NILL General Surgery [place] Encounters Encounter Date Encounter Type Care Provider [...] MCGOWAN Payers Date Payer Category Payer Medicaid [id number] 1995 Unknown [id number] 2.16.84 [id number] 1995 Unknown [id number] 2.16.84 [id number] 1995 Unknown [id number] 2.16.84 [id number] 1995 Unknown [id number] 2.16.84 [id number] 1961 Self-pay [id number] 1961 Unknown [id number] Social History Date Type Detail Facility Start: 10-06-2021 Tobacco smoking status Never s moked tobacco (finding) General Surgery [place] Tobacco smoking status Never Gener al Surgery [place] Sex Assigned At Female Genera l Surgery [place] Functional Status Date Assessment Result Facility 10-06-2021 [...] Use:., 10/06/2021 Family History Cardiac arrhythmia: Father. [facility] Comment on above: Result Comment: Elec tronically Signed By: Philippe MCGOWAN MD\.br\Date and Time Signed: 10/06/21 16:57 EDT Evaluation + Plan note Note Date & Type Note Facility Evaluation + Plan note Future Appointments Appointment Date:10/27/2021 01:40:00 PM Scheduled Provider:Philippe MCGOWAN MD Location:[facility] Appointment Type: Procedure 30 General Surgery [place] Hospital course Narrative Note Date & Type Note Facility Hospital course Narrative No data available for this section General Surgery [place] [facility] Discharge instructions Note Date & Type Note Facility Hospital Discharge instructions No data available for this section General Surgery [place] Progress note Note Date & Type Note [...] content) Personnel Name: Veronica Murphy MD Address: [address] [place] [address] Personnel Name: Veronica Murphy MD Address: [address] [place] [address] INFORMATION SOURCE (unrecogn ized section and content) DATE CREATED AUTHOR 11/02/2021 [facility] DATE CREATED AUTHOR AUTHOR'S ORGANIZ ATION 06/10/2022 [facility] DATE CREATED AUTHOR AUTHOR'S ORGANIZ ATION 05/09/2023 [facility] dical Specialists EPIC FOR RECORDS PERTAINING TO [...] BE BASED ON THE PRIMARY CLINICAL RECORDS. [facility] [employer] [facility]. provides no warranty or guarantee of the accuracy or completeness of information in this document.
[2023-11-15 11:02] LABS: HCG Quantitative 73469 mIU/mL
== END 2023-11-15 09:36 | disposition home or self-care (01) ==
LOC: LAB 09:36
PROVIDERS: PCP Family Medicine; Visit Provider Obstetrics & Gynecology
DX: N92.6 Irregular menstruation, unspecified (principal)
CPT/HCPCS: 36415; 84702

== ENCOUNTER 2023-11-17 08:53 | Outpatient (OUT) | payer OTHER, SELFPAY ==
--- NOTE | 2023-11-17 08:55 | US_ITS ---
[address] [address] Patient Name: NIDHI BOLANOS MRN: [id number] date: 1995 Sex: F Assigned Patient Location: [facility] Current Patient Location: [facility] Accession/Order Number: [id number] Exam Date: 11/17/2023 08:55 Report Date: 11/17/2023 09:53 At the request of: DARIEN PELAYO Procedure: US OB transvaginal EXAMINATION: US OB transvaginal HISTORY: MISSED MENSES COMPARISON: No relevant comparison available. FINDINGS: GESTATIONAL SAC: Present and normal appearing. YOLK SAC: Present and normal appearing. POLE: Present and normal appearing. CARDIAC: Present. UTERUS: Small subchorionic hematoma. OVARIES: Right: Normal. Left: Normal. CERVIX: 4.7 cm in length and closed. CUL-DE-SAC: Normal. OTHER: None. AGE BY LMP: Unknown LMP CLARITZA BY LMP: AGE BY US CRL: 8 weeks 0 days CLARITZA BY US CRL: 06/28/2024 US/US OB transvaginal IMPRESSION: 1. Single live intrauterine 8 weeks 0 days by today's ultrasound. Electronically authenticated by: SANDRA HERNANDEZ Date: 11/17/2023 09:53
--- OUTSIDE RECORDS SUMMARY | 2023-11-17 08:59 | XMS_ITS | CCD ---
Demographics Address [address] [place] [address] Preferred Language en Marital Status Single Catholic Affiliation Unknown Race White Ethnic Group Not or Lati no Author Organization [facility] Care Team Providers Care Motion Picture Cameraman Name Role Phone Veronica Murphy Primary Care [...] spec) Not detected Normal NOT DETECTED [facility] Comment on above: Result Comment: This test is not yet approved or cleared by the [place] FDA. When there are no FDA-approved or cleared tests available, and other criteria are met, FDA can make tests available under an emergency access mechanism called an Emergency Use Authorization (EUA). The EUA for this test is supported by the Cytopathology Technologist of Health and Human Service's (HHS's) declaration [...] SARS-CoV-2. Performed By: #### C VDTBH #### [facility] [address] [place] [address] Dr. Radha Rucker INFLUENZA A AND B AGon 03-31 [facility] SEE BELOW Normal [facility] Comment on above: Result Comment: Nega tive for Flu A protein angiten. Infection due to Flu A cannot be ruled out. Flu A angiten in the sample may be below the detection limit of the test. Performed By: #### I NFLUAB #### [facility] [address] [place] [address] Dr. [facility] Normal [facility] Comment on above: Result Comment: Nega tive for Flu B protein antigen. Infection due to Flu B cannot be ruled out. Flu B antigen in the sample may be below the detection limit of the test. Performed By: #### I NFLUAB #### [facility] [address] [place] [address] Dr. Radha Rucker INFLUENZA A AG Negative Normal NEGATIVE SEE COMMENT [facility] Comment on above: Performed By: #### I NFLUAB #### [facility] [address] [address] [address] Radha Rucker INFLUENZA B AG Negative Normal NEGATIVE SEE COMMENT [facility] Comment on above: Performed By: #### I NFLUAB #### [facility] [address] [address] [address] Radha Rucker INTERNAL CONTROLS Within Normal Limits Normal Wi thin Normal Limits [facility] Comment on above: Performed By: #### I NFLUAB #### [facility] [address] [address] [address] Radha Rucker General Surgery Office/Clini c [...] 10/06/2021 Family History Cardiac arrhythmia: Father. Normal [facility] Comment on above: Result Comment: Elec tronically Signed By: ROSLYN DIAMOND, Philippe Ramirez\.br\Date and Time Signed: 11/01/21 09:55 EDT Pathology Noteon 11-01-2021 Pathology Note [id number] .00CD:127 Normal [facility] Ambulatory Visit Summaryon 0 10-27-2021 Ambulatory [...] nevus Disturbance of skin sensation Mood disorder [facility] Pre-Certification Formon Pre-Certification Form [id number]# 1.00CD:127 [facility] Ambulatory Visit Summaryon 0 10-06-2021 Ambulatory [...] DIAMOND, Philippe Ramirez Where: General Surgery Nill/Said [place] [facility] Physician Referralon 022 Physician Referral [id number] .00CD:127 [facility] Vital Signs Date Time Vital Sign Value Performing Clinician Day love 10-06-2021 15:25-0400 Blood Pressure Location Philippe NILL General Surgery [place] 10-06-2021 15:25-0400 Diastolic blood pressure 66 mm[Hg] Philippe NILL General Surgery [place] 10-06-2021 15:25-0400 Heart rate 72 /min Philippe NILL General Surgery [place] 10-06-2021 15:25-0400 Respiratory rate 16 /min Philippe NILL General Surgery [place] 10-06-2021 15:25-0400 Systolic blood pressure 106 mm[Hg] Philippe NILL General Surgery [place] Encounters Encounter Date Encounter Type Care Provider Facility Start: 05-08-2023 End: 05-08-2023 ambulatory GABRIELLE SHAMA Not Available Start: 06-09-[address] SAFIA ADRIAN Facilit y:[facility]1 Start: 03-31-2022 End: 03-31-[address] VERONICA MURPHY . Facility:[facility]1 Start: 10-27-2021 End: 10-27-2021 Patient encounter procedure Philippe MCGOWAN General Surgery Nill/Said [place] Start: 10-06-2021 End: 10-06-2021 Patient encounter procedure Philippe MCGOWAN General Surgery Nill/Said [place] Start: 06-28-2021 End: 10-21-[address] SAFIA ADRIAN Facility:[facility]1 Procedures Date Procedure Procedure Detail Performing Clinician Tonsillectomy Philpipe MCGOWAN Payers Date Payer Category Payer Medicaid [id number] 1995 Unknown [id number] 2.16.84 [id number] 1995 Unknown [id number] 2.16.84 [id number] 1993 Unknown [id number] 2.16.84 [id number] 1993 Unknown [id number] 2.16.84 [id number] 1961 Self-pay [id number] 1961 Unknown [id number] Social History Date Type Detail Facility Start: 10-06-2021 Tobacco smoking status Never s moked tobacco (finding) General Surgery [place] Tobacco smoking status Never Gener al Surgery [place] Sex Assigned At Female Genera l Surgery [...] Use:., 10/06/2021 Family History Cardiac arrhythmia: Father. [facility] Comment on above: Result Comment: Elec tronically Signed By: Philippe MCGOWAN MD\.br\Date and Time Signed: 10/06/21 16:57 EDT Evaluation + Plan note Note Date & Type Note Facility Evaluation + Plan note Future Appointments Appointment Date:10/27/2021 01:40:00 PM Scheduled Provider:Philippe MCGOWAN MD Location:[facility] Appointment Type: Procedure 30 General Surgery [place] Hospital course Narrative Note Date & Type Note Facility Hospital course Narrative No data available for this section General Surgery [place] [facility] Discharge instructions Note Date & Type Note Facility Hospital Discharge instructions No data available for this section General Surgery [place] Progress note Note Date & Type Note [...] content) Personnel Name: Veronica Murphy MD Address: [address] [place] [address] Personnel Name: Veronica Murphy MD Address: [address] [place] [address] INFORMATION SOURCE (unrecogn ized section and content) DATE CREATED AUTHOR 11/02/2021 [facility] DATE CREATED AUTHOR AUTHOR'S ORGANIZ ATION 06/10/2022 [facility] DATE CREATED AUTHOR AUTHOR'S ORGANIZ ATION 05/09/2023 [facility] EPIC FOR RECORDS PERTAINING [...] BE BASED ON THE PRIMARY CLINICAL RECORDS. [facility] [employer] [facility]. provides no warranty or guarantee of the accuracy or completeness of information in this document.
== END 2023-11-17 08:54 | disposition home or self-care (01) ==
LOC: NOMS 08:54
PROVIDERS: PCP Family Medicine; Visit Provider Obstetrics & Gynecology
DX: Z34.91 Encounter for supervision of normal pregnancy, unspecified, first trimester (principal); Z3A.08 8 weeks gestation of pregnancy; N92.6 Irregular menstruation, unspecified
CPT/HCPCS: 76817

== ENCOUNTER 2023-12-01 11:14 | Outpatient (OUT) | payer OTHER, SELFPAY ==
--- OUTSIDE RECORDS SUMMARY | 2023-12-01 11:20 | XMS_ITS | CCD ---
Author Organization [facility] Care Team Providers Care Slide Fasteners Inspector Name Role Phone Veronica Murphy Primary Care Physician NGUYỄN, DR SAFIA Pichardo Admitting Unavailable WEST, DR SAFIA Pichardo Attending Unavailable GISSELLEY ., DR MARTIN Primary Care Unavailable WEST, [...] Interpretation Reference Range Facil ity Covid-19 PCR (CVDTBH)on 03-17 SARS-CoV-2 (COVID-19) RNA LYNDSEY+probe Ql (Unsp spec) Not detected Normal NOT DETECTED [facility] Comment on above: Result Comment: This test is not yet approved or cleared by the [place] FDA. When there are no FDA-approved or cleared tests available, and other criteria are met, FDA can make tests available under an emergency access mechanism called an Emergency Use Authorization (EUA). The EUA for this test is supported by the Manager Fraud of Health and Human Service's (HHS's) declaration [...] SARS-CoV-2. Performed By: #### C VDTBH #### [facility] [address] [place] [address] Dr. Radha Rucker INFLUENZA A AND B AGon 03-31 [facility] SEE BELOW Normal [facility] Comment on above: Result Comment: Nega tive for Flu A protein angiten. Infection due to Flu A cannot be ruled out. Flu A angiten in the sample may be below the detection limit of the test. Performed By: #### I NFLUAB #### [facility] [address] [place] [address] Dr. [facility] SEE BEL[facility] Normal [facility] Comment on above: Result Comment: Nega tive for Flu B protein antigen. Infection due to Flu B cannot be ruled out. Flu B antigen in the sample may be below the detection limit of the test. Performed By: #### I NFLUAB #### [facility] [address] [place] [address] Dr. Radha Rucker INFLUENZA A AG Negative Normal NEGATIVE SEE COMMENT [facility] Comment on above: Performed By: #### I NFLUAB #### [facility] [address] [address] [address] Radha Rucker INFLUENZA B AG Negative Normal NEGATIVE SEE COMMENT [facility] Comment on above: Performed By: #### I NFLUAB #### [facility] [address] [place], [place] [address] Dr. Radha Rucker INTERNAL CONTROLS Within Normal Limits Normal Wi thin Normal Limits [facility] Comment on above: Performed By: #### I NFLUAB #### [facility] [address] [address] [address] Radha Rucker General Surgery Office/Clini c [...] Cardiac arrhythmia: Father. [facility] Comment on above: Result Comment: Elec tronically Signed By: ROSLYN DIAMOND, Philippe Ramirez\.shelly\Date and Time Signed: 11/01/21 09:55 EDT Pathology Noteon 11-01-2021 Pathology Note [id number] .00CD:[address] [facility] Ambulatory Visit Summaryon 0 10-27-2021 Ambulatory Visit Summary CICI NIDHI ANN :1995 Visit Date:10/27/2021 Ambulatory Visit Instructions Your Care Team Attending Physician - ROSLYN DIAMOND, Philippe Ramirez Primary Care Physician - Lolly DIAMOND, Veronica Procedures Performed Tonsillectomy. Allergies No Known Allergies No Known Medication Allergies Problems Ongoing - Any problem that you are currently receiving treatment for. BMI 24.0-24.9, adult Changing nevus Disturbance of skin sensation Mood disorder [facility] Pre-Certification Formon Pre-Certification Form [id number]# 1.00CD:[address] [facility] Ambulatory Visit Summaryon 0 10-06-2021 Ambulatory [...] DIAMOND, Philippe Ramirez Where: General Surgery Nill/Said [place] [facility] Physician Referralon 022 Physician Referral [id number] .00CD:[address] [facility] Vital Signs Date Time Vital Sign [...] pressure 106 mm[Hg] Philippe NILL General Surgery [place] Encounters Encounter Date Encounter Type Care Provider Facility Start: 11-17-2023 End: 11-17-2023 ambulatory GABRIELLE SESAY Not Available Start: 05-08-2023 End: 05-08-2023 ambulatory GABRIELLE SESAY Not Available Start: 06-09-[address] SAFIA ADRIAN Facilit y:[facility]1 Start: 03-31-2022 End: 03-31-[address] VERONICA MURPHY . Facility:[facility]1 Start: 10-27-2021 End: 10-27-2021 Patient encounter procedure Philippe R NILL General Surgery Nill/Said [place] Start: 10-06-2021 End: 10-06-2021 Patient encounter procedure Philippe Ramirez NILL General Surgery Nill/Said [place] Start: 06-28-2021 End: 10-21-[address] SAFIA ADRIAN Facility:[facility]1 Procedures Date Procedure Procedure Detail Performing Clinician Tonsillectomy Philippe MCCARTNEYTahir Payers Date Payer Category Payer Medicaid [id number] 1995 Unknown [id number] 2.16.84 [id number] 1995 Unknown [id number] 2.16.84 [id number] 1993 Unknown [id number] 2.16.84 [id number] 1993 Unknown [id number] 2.16.84 [id number] 1993 Unknown [id number] 2.16.84 [id number] 1961 Self-pay [id number] 1961 Unknown [id number] Social History Date Type Detail Facility Start: 10-06-2021 Tobacco smoking status Never s moked tobacco (finding) General Surgery [facility] Tobacco smoking status Never Gener al Surgery [facility] Sex Assigned At Female Genera l Surgery [facility] Functional Status Date Assessment Result Facility 10-06-2021 Functional Status N/A General Moon ashlee [facility] Clinical Note 10-06-2021 Note Date & Type [...] Use:., 10/06/2021 Family History Cardiac arrhythmia: Father. [facility] Comment on above: Result Comment: Elec tronically Signed By: Philippe MCGOWAN MD\.br\Date and Time Signed: 10/06/21 16:57 EDT Evaluation + Plan note Note Date & Type Note Facility Evaluation + Plan note Future Appointments Appointment Date:10/27/2021 01:40:00 PM Scheduled Provider:Philippe MCGOWAN MD Location:[facility] Appointment Type: Procedure 30 General Surgery [facility] course Narrative Note Date & Type Note Facility Hospital course Narrative No data available for this section [facility] Discharge instructions Note Date & Type Note Facility Hospital Discharge instructions No data available for this section General Surgery [place] Progress note Note Date & Type Note [...] content) Personnel Name: Veronica Murphy MD Address: [address] [place] [address] Personnel Name: Veronica Murphy MD Address: [address] [place] [address]- INFORMATION SOURCE (unrecogn ized section and content) DATE CREATED AUTHOR 11/02/2021 [facility] DATE CREATED AUTHOR AUTHOR'S ORGANIZ ATION 06/10/[address] [facility]ital DATE CREATED AUTHOR AUTHOR'S ORGANIZ ATION 11/19/[address] [facility] dical Specialists EPIC FOR RECORDS PERTAINING [...] BE BASED ON THE PRIMARY CLINICAL RECORDS. [facility] [employer] provides no warranty or guarantee of the accuracy or completeness of information in this document.
[2023-12-01 12:01] LABS: Basophils Absolute Auto 0.1 10^3/uL (0.0-0.1); Basophils Percent Auto 0.7 % (0.2-2.0); Eosinophils Absolute Auto 0.1 10^3/uL (0.0-0.7); Eosinophils Percent Auto 1.3 % (0.9-7.0); Hematocrit 36.7 % (36.0-48.0); Hemoglobin 12.5 g/dL (12.0-16.0); Immature Granulocytes Abs Auto 0.02 10^3/uL (0.00-0.03); Immature Granulocytes Pct Auto 0.3 % (0.0-0.5); Lymphocytes Absolute Auto 1.8 10^3/uL (1.2-3.8); Lymphocytes Percent Auto 23.1 % (20.5-60.0); Mean Corpuscular HGB Conc 34.1 g/dL (29.9-35.2); Mean Corpuscular Hemoglobin 32.1 pg (26.7-34.0); Mean Corpuscular Volume 94.1 fL (81.0-99.0); Mean Platelet Volume 11.3 fL (9.5-13.5); Monocytes Absolute Auto 0.5 10^3/uL (0.3-0.8); Monocytes Percent Auto 6.2 % (1.7-12.0); Neutrophils Absolute Auto 5.2 10^3/uL (1.4-6.5); Neutrophils Percent Auto 68.4 % (43.0-75.0); Platelet Count 239 10^3/uL (150-450); Red Cell Distribution Width 11.5 % (11.0-15.0); White Blood Count 7.6 10^3/uL (4.0-11.0)
[2023-12-01 12:31] LABS: Estimated Average Glucose 85 mg/dL; Glycohemoglobin A1C 4.6 % (4.5-6.2)
[2023-12-02 06:14] LABS: HBsAg Screen Negative (Negative); HCV Ab Non Reactive (Non Reactive); HIV Ab/p24 Ag Screen Non Reactive (Non Reactive); Rubella Antibodies, IgG 3.99 index (Immune >0.99)
[2023-12-02 10:16] LABS: Rapid Plasma Reagin, Quant Non Reactive titer (NonRea<1:1)
== END 2023-12-01 11:15 | disposition home or self-care (01) ==
PROVIDERS: PCP Family Medicine; Visit Provider Obstetrics & Gynecology
DX: Z36.0 Encounter for antenatal screening for chromosomal anomalies (principal); N92.6 Irregular menstruation, unspecified
CPT/HCPCS: 36415; 83036; 85025; 86592; 86762; 86803; 86850; 86900; 86901; 87086; 87340; 87389

== ENCOUNTER 2024-01-08 20:58 | Outpatient (REF) | payer OTHER, SELFPAY ==
--- OUTSIDE RECORDS SUMMARY | 2024-01-08 21:02 | XMS_ITS | CCD ---
Author Organization [facility] Care Team Providers Care Office Worker Name Role Phone Veronica Murphy Primary Care Physician NGUYỄN, DR SAFIA Pichardo Admitting Unavailable WEST, DR SAFIA Pichardo Attending Unavailable GISSELLEY ., DR MARTIN Primary Care Unavailable WEST, DR SAFIA [employer] Consulting Unavailable WEST, DR SAFIA Pichardo Admitting Unavailable WEST, DR SAFIA Pichardo Attending Unavailable HOY ., DR MARTIN Primary Care Unavailable WEST, DR SAFIA Pichardo Consulting Unavailable LOLLY ., DR MARTIN Admitting Unavailable HOY ., DR MARTIN Attending Unavailable HOY ., DR MARTIN Primary Care Unavailable HOY ., DR MARTIN Consulting Unavailable GABRIELLE SESAY Attending Unavailable DARIEN PELAYO Attending Unavailable Problems Active Problems Problem Classification [...] spec) Not detected Normal NOT DETECTED [facility] Comment on above: Result Comment: This test is not yet approved or cleared by the [place] FDA. When there are no FDA-approved or cleared tests available, and other criteria are met, FDA can make tests available under an emergency access mechanism called an Emergency Use Authorization (EUA). The EUA for this test is supported by the Channel Manager of Health and Human Service's (HHS's) declaration [...] SARS-CoV-2. Performed By: #### C VDTBH #### [facility] [address] [place] [address] Dr. Radha Rucker INFLUENZA A AND B AGon 03-31 [facility] SEE BELOW Normal [facility] Comment on above: Result Comment: Nega tive for Flu A protein angiten. Infection due to Flu A cannot be ruled out. Flu A angiten in the sample may be below the detection limit of the test. Performed By: #### I NFLUAB #### [facility] [address] [place] [address] Dr. Rad[facility] SEE BEL[facility] Normal [facility] Comment on above: Result Comment: Nega tive for Flu B protein antigen. Infection due to Flu B cannot be ruled out. Flu B antigen in the sample may be below the detection limit of the test. Performed By: #### I NFLUAB #### [facility] [address] [place] [address] Dr. Radha Rucker INFLUENZA A AG Negative Normal NEGATIVE SEE COMMENT [facility] Comment on above: Performed By: #### I NFLUAB #### [facility] [address] [address] [address] Radha Rucker INFLUENZA B AG Negative Normal NEGATIVE SEE COMMENT [facility] Comment on above: Performed By: #### I NFLUAB #### [facility] [address] [address] [address] Radha Rucker INTERNAL CONTROLS Within Normal Limits Normal Wi thin Normal Limits [facility] Comment on above: Performed By: #### I NFLUAB #### [facility] [address] [address] [address] Radha Rucker General Surgery Office/Clini c [...] 10/06/2021 Family History Cardiac arrhythmia: Father. Normal [facility] Comment on above: Result Comment: Elec tronically Signed By: ROSLYN DIAMOND, Philippe Ramirez\.br\Date and Time Signed: 11/01/21 09:55 EDT Pathology Noteon 11-01-2021 Pathology Note [id number] .00CD:127 Normal [facility] Ambulatory Visit Summaryon 0 10-27-2021 Ambulatory [...] nevus Disturbance of skin sensation Mood disorder [facility] Pre-Certification Formon Pre-Certification Form [id number]# 1.00CD:127 [facility] Ambulatory Visit Summaryon 0 10-06-2021 [...] Philippe Ramirez Where: General Surgery Nill/Said [place] [facility] Physician Referralon 022 Physician Referral [id number] .00CD:127 [facility] Vital Signs Date Time Vital Sign Value Performing Clinician Day love 10-06-2021 15:25-0400 Blood Pressure Location Philippe NILL General Surgery [place] 10-06-2021 15:25-0400 Diastolic blood pressure 66 mm[Hg] Philippe NILL General Surgery [place] 10-06-2021 15:25-0400 Heart rate 72 /min Philippe NILL General Surgery [place] 10-06-2021 15:25-0400 Respiratory rate 16 /min Philippe NILL General Surgery [place] 10-06-2021 15:25-0400 Systolic blood pressure 106 mm[Hg] Philippe NILL General Surgery [place] Encounters Encounter Date Encounter Type Care Provider Facility Start: 12-11-2023 End: 12-11-2023 ambulatory DARIEN ZAYASO Not Available Start: 11-17-2023 End: 11-17-2023 ambulatory GABRIELLE SESAY Not Available Start: 05-08-2023 End: 05-08-2023 ambulatory GABRIELLE SESAY Not Available Start: 06-09-[address] SAFIA ADRIAN Facilit y:[facility]1 Start: 03-31-2022 End: 03-31-[address] VERONICA MURPHY . Facility:[facility]1 Start: 10-27-2021 End: 10-27-2021 Patient encounter procedure Philippe MCGOWAN General Surgery Nill/Said [place] Start: 10-06-2021 End: 10-06-2021 Patient encounter procedure Philippe Ramirez NILTahir General Surgery Nill/Said [place] Start: 06-28-2021 End: 10-21-[address] SAFIA ADRIAN Facility:[facility]1 Procedures Date Procedure Procedure Detail Performing Clinician Tonsillectomy Philippe MCCARTNEYTahir Payers Date Payer Category Payer Medicaid [id number] 1995 Unknown [id number] 2.16.84 [id number] 1995 Unknown [id number] 2.16.84 [id number] 1993 Unknown [id number] 2.16.84 [id number] 1993 Unknown [id number] 2.16.84 [id number] 1993 Unknown [id number] 2.16.84 [id number] 1993 Unknown [id number] 2.16.84 [id number] 1961 Self-pay [id number] 1961 Unknown [id number] Social History Date Type Detail Facility Start: 10-06-2021 Tobacco smoking status Never s moked tobacco (finding) General Surgery [place] Tobacco smoking status Never Gener al Surgery [employer] Sex Assigned At Female Lia l Surgery [employer] Functional Status Date Assessment Result Facility 10-06-2021 Functional Status N/A General Moon rgery [employer] Clinical Note 10-06-2021 Note Date & Type [...] Use:., 10/06/2021 Family History Cardiac arrhythmia: Father. [facility] Comment on above: Result Comment: Elec tronically Signed By: ROSLYN DIAMOND, Philippe Green\Date and Time Signed: 10/06/21 16:57 EDT Evaluation + Plan note Note Date & Type Note Facility Evaluation + Plan note Future Appointments Appointment Date:10/27/2021 01:40:00 PM Scheduled Provider:Philippe MCGOWAN MD Location:[facility] Appointment Type: Procedure 30 General Surgery [facility] Hospital course Narrative Note Date & Type Note Facility Hospital course Narrative No data available for this section General Surgery [facility] Hospital Discharge instructions Note Date & Type [...] content) Personnel Name: Veronica Murphy MD Address: [address] [place] [address] Personnel Name: Veronica Murphy MD Address: [address] [place] [address] INFORMATION SOURCE (unrecogn ized section and content) DATE CREATED AUTHOR 11/02/2021 [facility] DATE CREATED AUTHOR AUTHOR'S ORGANIZ ATION 06/10/2022 [facility] DATE CREATED AUTHOR AUTHOR'S ORGANIZ ATION 12/12/2023 [facility] Specialists EPIC FOR RECORDS PERTAINING TO [...] BE BASED ON THE PRIMARY CLINICAL RECORDS. [facility] [employer] provides no warranty or guarantee of the accuracy or completeness of information in this document.
== END 2024-01-08 20:59 | disposition home or self-care (01) ==
LOC: LAB 20:58
PROVIDERS: PCP Family Medicine; Visit Provider Obstetrics & Gynecology
DX: Z01.419 Encounter for gynecological examination (general) (routine) without abnormal findings (principal)
CPT/HCPCS: 87624; 88175

== ENCOUNTER 2024-01-17 09:54 | Outpatient (OUT) | payer OTHER, SELFPAY ==
--- OUTSIDE RECORDS SUMMARY | 2024-01-17 10:03 | XMS_ITS | CCD ---
Author Organization [facility] Care Team Providers Care Blindmaker Name Role Phone Veronica Murphy Primary Care [...] SESAY Attending Unavailable DARIEN PELAYO Attending Unavailable DARIEN PELAYO Attending Unavailable Problems [...] Results Test Name Value Interpretation Reference Range Blanca gagnon Covid-19 PCR (CVDTBH)on 03-17 SARS-CoV-2 (COVID-19) RNA LYNDSEY+probe Ql (Unsp spec) Not detected Normal NOT DETECTED [facility] Comment on above: Result Comment: This test is not yet approved or cleared by the [place] FDA. When there are no FDA-approved or cleared tests available, and other criteria are met, FDA can make tests available under an emergency access mechanism called an Emergency Use Authorization (EUA). The EUA for this test is supported by the Court Bailiff Or Sheriff of Health and Human Service's (HHS's) declaration [...] SARS-CoV-2. Performed By: #### C VDTBH #### [facility] [address] [place] [address] Dr. Radha Rucker INFLUENZA A AND B AGon 03-31 [facility] SEE BELOW Normal [facility] Comment on above: Result Comment: Nega tive for Flu A protein angiten. Infection due to Flu A cannot be ruled out. Flu A angiten in the sample may be below the detection limit of the test. Performed By: #### I NFLUAB #### [facility] [address] [place] [address] Dr. [facility] SEE BEL[facility] Normal [facility] Comment on above: Result Comment: Nega tive for Flu B protein antigen. Infection due to Flu B cannot be ruled out. Flu B antigen in the sample may be below the detection limit of the test. Performed By: #### I NFLUAB #### [facility] [address] [place] [address] Dr. Radha Rucker INFLUENZA A AG Negative Normal NEGATIVE SEE COMMENT [facility] Comment on above: Performed By: #### I NFLUAB #### [facility] [address] [address] [address] Radha Rucker INFLUENZA B AG Negative Normal NEGATIVE SEE COMMENT [facility] Comment on above: Performed By: #### I NFLUAB #### [facility] [address] [address] [address] Radha Rucker INTERNAL CONTROLS Within Normal Limits Normal Wi thin Normal Limits [facility] Comment on above: Performed By: #### I NFLUAB #### [facility] [address] [address] [address] Radha Rucker General Surgery Office/Clini c [...] 10/06/2021 Family History Cardiac arrhythmia: Father. Normal [facility] Comment on above: Result Comment: Elec tronically Signed By: ROSLYN DIAMOND, Philippe Ramirez\.br\Date and Time Signed: 11/01/21 09:55 EDT Pathology Noteon 11-01-2021 Pathology Note [id number] .00CD:127 Normal [facility] Ambulatory Visit Summaryon 0 10-27-2021 Ambulatory [...] nevus Disturbance of skin sensation Mood disorder [facility] Pre-Certification Formon Pre-Certification Form [id number]# 1.00CD:127 [facility] Ambulatory Visit Summaryon 0 10-06-2021 Ambulatory [...] DIAMOND, Philippe Ramirez Where: General Surgery Nill/Said [place] [facility] Physician Referralon 022 Physician Referral [id number] .00CD:127 [facility] Vital Signs Date Time Vital Sign Value Performing Clinician Day love 10-06-2021 15:25-0400 Blood Pressure Location Philippe NILL General Surgery [place] 10-06-2021 15:25-0400 Diastolic blood pressure 66 mm[Hg] Philippe NILL [facility] [place] 10-06-2021 15:25-0400 Heart rate 72 /min Philippe NILL General Surgery [place] 10-06-2021 15:25-0400 Respiratory rate 16 /min Philippe NILL General Surgery [place] 10-06-2021 15:25-0400 Systolic blood pressure 106 mm[Hg] Philippe MCCARTNEYL General Surgery [place] Encounters Encounter Date Encounter Type Care Provider Facility Start: 01-08-2024 End: 01-08-2024 ambulatory DARIEN PELAYO Not Available Start: 12-11-2023 End: 12-11-2023 ambulatory DARIEN PELAYO Not Available Start: 11-17-2023 End: 11-17-2023 ambulatory GABRIELLE SESAY Not Available Start: 05-08-2023 End: 05-08-2023 ambulatory GABRIELLE SESAY Not Available Start: 06-09-[address] SAFIA ADRIAN Facilit y:[facility] Start: 03-31-2022 End: 03-31-[address] VERONICA MURPHY . Facility:[facility] Start: 10-27-2021 End: 10-27-2021 Patient encounter procedure Philippe aRmirez NILTahir General Surgery Nill/Said [place] Start: 10-06-2021 End: 10-06-2021 Patient encounter procedure Philippe MCGOWAN General Surgery Nill/Said [place] Start: 06-28-2021 End: 10-21-[address] SAFIA ADRIAN Facility:[facility] Procedures Date Procedure Procedure Detail Performing Clinician Tonsillectomy Philippe MCGOWAN Payers Date Payer Category Payer Medicaid [id number] 1995 Unknown [id number] 2.16.84 [id number] 1995 Unknown [id number] 2.16.84 [id number] 1993 Unknown [id number] 2.16.84 [id number] 1993 Unknown [id number] 2.16.84 [id number] 1993 Unknown [id number] 2.16.84 [id number] 1993 Unknown [id number] 2.16.84 [id number] 1993 Unknown [id number] 2.16.84 [id number] 1961 Self-pay [id number] 1961 Unknown [id number] Social History Date Type Detail Facility Start: 10-06-2021 Tobacco smoking status Never s moked tobacco (finding) General Surgery [facility] Tobacco smoking status Never Gener al Surgery [facility] Sex Assigned At Female Genera l Surgery [facility] Functional Status Date Assessment Result Facility 10-06-2021 Functional Status N/A General Moon rgery [employer] Clinical Note 10-06-2021 Note Date & Type [...] Use:., 10/06/2021 Family History Cardiac arrhythmia: Father. [facility] Comment on above: Result Comment: Elec tronically Signed By: Philippe MCGOWAN MD\.br\Date and Time Signed: 10/06/21 16:57 EDT Evaluation + Plan note Note Date & Type Note Facility Evaluation + Plan note Future Appointments Appointment Date:10/27/2021 01:40:00 PM Scheduled Provider:Philippe MCGOWAN MD Location:[facility] Appointment Type: Procedure 30 General Surgery [place] Hospital course Narrative Note Date & Type Note Facility Hospital course Narrative No data available for this section [facility] Discharge instructions Note Date & Type Note Facility Hospital Discharge instructions No data available for this section General Surgery [place] Progress note Note Date & Type Note Facility Progress note No data available for this section General Surgery [place] Summary Purpose Family History No Family History Records FoundNo Family History Records FoundNo Family History Records Found Advance Directives No Advanced Directives Records FoundNo Advanced Directives Records FoundNo Advanced Directives Records Found Additional Source Comments Care Team (unrecognized sect ion and content) Personnel Name: Veronica Murphy MD Address: [address] [place] [address] Personnel Name: Veronica Murphy MD Address: [address] [place] [address] INFORMATION SOURCE (unrecogn ized section and content) DATE CREATED AUTHOR 11/02/2021 [facility] DATE CREATED AUTHOR AUTHOR'S ORGANIZ ATION 06/10/2022 [facility] DATE CREATED AUTHOR AUTHOR'S ORGANIZ ATION 01/09/[address] [facility] Specialists EPIC FOR RECORDS PERTAINING [...] BE BASED ON THE PRIMARY CLINICAL RECORDS. [employer] [facility]. provides no warranty or guarantee of the accuracy or completeness of information in this document.
--- OUTSIDE RECORDS SUMMARY | 2024-01-17 10:14 | XMS_ITS | CCD ---
Author Organization [facility] Care Team Providers Care Mechanical Project Manager Name Role Phone Veronica Murphy Primary Care [...] spec) Not detected Normal NOT DETECTED [facility] Comment on above: Result Comment: This test is not yet approved or cleared by the [place] FDA. When there are no FDA-approved or cleared tests available, and other criteria are met, FDA can make tests available under an emergency access mechanism called an Emergency Use Authorization (EUA). The EUA for this test is supported by the [employer] Instructor of Health and Human Service's (HHS's) declaration [...] SARS-CoV-2. Performed By: #### C VDTBH #### [facility] [address] [place] [address] Dr. Radha Rucker INFLUENZA A AND B AGon 03-31 [facility] SEE BELOW Normal [facility] Comment on above: Result Comment: Nega tive for Flu A protein angiten. Infection due to Flu A cannot be ruled out. Flu A angiten in the sample may be below the detection limit of the test. Performed By: #### I NFLUAB #### [facility] [address] [place] [address] Dr. [facility] SEE BEL[facility] Normal [facility] Comment on above: Result Comment: Nega tive for Flu B protein antigen. Infection due to Flu B cannot be ruled out. Flu B antigen in the sample may be below the detection limit of the test. Performed By: #### I NFLUAB #### [facility] [address] [place] [address] Dr. Radha Rucker INFLUENZA A AG Negative Normal NEGATIVE SEE COMMENT [facility] Comment on above: Performed By: #### I NFLUAB #### [facility] [address] [address] [address] Radha Rucker INFLUENZA B AG Negative Normal NEGATIVE SEE COMMENT [facility] Comment on above: Performed By: #### I NFLUAB #### [facility] [address] [address] [address] Radha Rucker INTERNAL CONTROLS Within Normal Limits Normal Wi thin Normal Limits [facility] Comment on above: Performed By: #### I NFLUAB #### [facility] [address] [address] [address] Radha Rucker General Surgery Office/Clini c [...] 10/06/2021 Family History Cardiac arrhythmia: Father. Normal [facility] Comment on above: Result Comment: Elec tronically Signed By: ROSLYN DIAMOND, Philippe Ramirez\.br\Date and Time Signed: 11/01/21 09:55 EDT Pathology Noteon 11-01-2021 Pathology Note [id number] .00CD:127 Normal [facility] Ambulatory Visit Summaryon 0 10-27-2021 Ambulatory Visit [...] nevus Disturbance of skin sensation Mood disorder [facility] Pre-Certification Formon Pre-Certification Form [id number]# 1.00CD:127 [facility] Ambulatory Visit Summaryon 0 10-06-2021 [...] DIAMOND, Philippe Ramirez Where: General Surgery Nill/Said [place] [facility] Physician Referralon 022 Physician Referral [id number] .[id number]:127 [facility] Vital Signs Date Time Vital Sign Value Performing Clinician Day love 10-06-2021 15:25-0400 Blood Pressure Location Philippe NILL General Surgery [place] 10-06-2021 15:25-0400 Diastolic blood pressure 66 mm[Hg] Philippe NILL General Surgery [place] 10-06-2021 15:25-0400 Heart rate 72 /min Philippe NILL General Surgery [place] 10-06-2021 15:25-0400 Respiratory rate 16 /min Philippe NILL General Surgery [place] 10-06-2021 15:25-0400 Systolic blood pressure 106 mm[Hg] [...] 10-27-2021 End: 10-27-2021 Patient encounter procedure Philippe Ramirez NILTahir General Surgery Nill/Said [place] Start: 10-06-2021 End: 10-06-2021 Patient encounter procedure Philippe MCGOWAN General Surgery Nill/Said [place] Start: 06-28-2021 End: 10-21-[address] SAFIA ADRIAN Facility:[facility] Procedures Date Procedure Procedure Detail Performing Clinician Tonsillectomy Philippe MCGOWAN Payers Date Payer Category Payer Medicaid [id number] 1995 Unknown [id number] 2.16.84 [id number] 1995 Unknown [id number] 2.16.84 [id number] 1993 Unknown [id number] 2.16.84 [id number] 1993 Unknown [id number] 2.16.84 [id number] 1993 Unknown [id number] 2.16.84 [id number] 1993 Unknown [id number] 2.16.84 [id number] 1993 Unknown [id number] 2.16.84 [id number] 1961 Self-pay [id number] 1961 Unknown [id number] Social History Date Type Detail Facility Start: 10-06-2021 Tobacco smoking status Never s moked tobacco (finding) General Surgery [facility] Tobacco smoking status Never Gener al Surgery [facility] Sex Assigned At Female Genera l Surgery [facility] Functional Status Date Assessment Result Facility 10-06-2021 Functional Status N/A General Moon rgery [employer] Clinical Note 10-06-2021 Note Date & Type [...] Use:., 10/06/2021 Family History Cardiac arrhythmia: Father. [facility] Comment on above: Result Comment: Elec tronically Signed By: Philippe MCGOWAN MD\.br\Date and Time Signed: 10/06/21 16:57 EDT Evaluation + Plan note Note Date & Type Note Facility Evaluation + Plan note Future Appointments Appointment Date:10/27/2021 01:40:00 PM Scheduled Provider:Philippe MCGOWAN MD Location:[facility] Appointment Type: Procedure 30 General Surgery [place] Hospital course Narrative Note Date & Type Note Facility Hospital course Narrative No data available for this section [facility] Discharge instructions Note Date & Type Note Facility Hospital Discharge instructions No data available for this section General Surgery [place] Progress note Note Date & Type Note Facility Progress note No data available for this section General Surgery [place] Summary Purpose Family History No Family History Records FoundNo Family History Records FoundNo Family History Records Found Advance Directives No Advanced Directives Records FoundNo Advanced Directives Records FoundNo Advanced Directives Records Found Additional Source Comments Care Team (unrecognized sect ion and content) Personnel Name: Veronica Murphy MD Address: [address] [place] [address] Personnel Name: Veronica Murphy MD Address: [address] [place] [address] INFORMATION SOURCE (unrecogn ized section and content) DATE CREATED AUTHOR 11/02/2021 [facility] DATE CREATED AUTHOR AUTHOR'S ORGANIZ ATION 06/10/2022 [facility] DATE CREATED AUTHOR AUTHOR'S ORGANIZ ATION 01/09/2024 [facility] dical Specialists EPIC FOR RECORDS PERTAINING [...] BE BASED ON THE PRIMARY CLINICAL RECORDS. [employer] [facility]. provides no warranty or guarantee of the accuracy or completeness of information in this document.
[2024-01-19 01:12] LABS: AFP Value 37.1 ng/mL (.); Gest. Age on Collection Date 16.7 weeks (.); Gestat. Age Based On Ultrasound (.); Insulin Dep Diabetes No (.); Maternal Age At EDD 31.1 yr (.); OSBR Risk 1 IN 10000 (.); Results Report (.)
== END 2024-01-17 09:55 | disposition home or self-care (01) ==
LOC: LAB 09:54
PROVIDERS: PCP Family Medicine; Visit Provider Obstetrics & Gynecology
DX: Z34.92 Encounter for supervision of normal pregnancy, unspecified, second trimester (principal)
CPT/HCPCS: 36415; 82105

== ENCOUNTER 2024-02-02 08:50 | Outpatient (OUT) | payer OTHER, SELFPAY ==
--- OUTSIDE RECORDS SUMMARY | 2024-02-02 08:54 | XMS_ITS | CCD ---
Author Organization [facility] Care Team Providers Care Process Architect Name Role Phone Veronica Ambrocio Primary Care Physician [phone] NGUYỄN, DR SAFIA Pichardo Admitting Unavailable WEST, DR SAFIA Pichardo Attending Unavailable LOLLY ., DR MARTIN Primary Care Unavailable WEST, DR SAFIA Pichardo Consulting Unavailable WEST, DR SAFIA Pichardo Admitting Unavailable WEST, DR SAFIA Pichardo Attending Unavailable LOLLY ., DR MARTIN Primary Care Unavailable WEST, DR SAFIA Pichardo Consulting Unavailable LOLLY ., DR MARTIN Admitting Unavailable LOLLY ., DR MARTIN Attending Unavailable LOLLY ., DR MARTIN Primary Care Unavailable LOLLY ., DR MARTIN Consulting Unavailable GABRIELLE SESAY Attending Unavailable DARIEN OJEDA Attending Unavailable DARIEN OJEDA Attending Unavailable Veronica Ambrocio MD Primary Care Provider [phone] Medications Current Medications Medication Drug Class(es) Dates Sig (Normalized) Sig (Original) MV-Min-Fe Fum-FA-DHA ( 1 PO) (1 source) MV-Min- Fe Fum-FA-DHA ( 1 PO) Take by mouth Active Problems Active Problems Problem Classification Problem Date [...] Results Test Name Value Interpretation Reference Range Facility AFP, SERUM, OPEN SPINA BIFID Aon 01-19-2024 AFP MOM 1.03 . [facility] AFP VALUE 37.1 ng/mL . [facility] COMMENT: Comment . [facility] Comment on above: Gayla Latif , Ph.D., [facility] Director References: Available Upon Request. Multiples Of Median Cutoffs For AFP Elevations Vanessa 2.5 Black 2.8 IDD 2.0 Twins 4.5 Abbreviation Definitions IDD - Insulin Dep Diabetes OSBR - Open Spina Bifida Risk For further inquiries contact [facility] [facility] at [phone]. This test was developed and its performance characteristics determined by [facility]. It has not been cleared or approved by the Food and Drug Administration. Performed at: [facility] [address] [place], [place] [id number] 2Nd Grade Teacher: Uma Butler [facility], Phone: [phone] GEST. AGE ON COLLECTION DATE 16.7 . weeks [facility] GESTAT. AGE BASED ON Ultrasound . [facility] Comment on above: 15.4 on 01/08/2024 Recalculations are not recommended when gestational dating by LMP and ultrasound are within 10 days. INSULIN DEP DIABETES No . [facility] INTERPRETATION Comment . [facility] Comment on above: Interpretation: Scre en Negative This result is screen negative for OSB. The AFP MoM calculated is based on the gestational age provided. MS-AFP can identify up to 80% of open neural tube defects. Closed neural tube defects and some open defects may not be detected by this test. This test does not screen for Down Syndrome or Trisomy 18. If screening for Down Syndrome or Trisomy 18 is desired, contact [facility] to discuss available options. The [place] recommends amniocentesis be offered to women age 35 and older. [age]ARITZA [age] [facility] MULTIPLE GESTATION No . [facility] [place] [address] [place] [id number] . [facility] RACE . [facility] RESULTS Report . [facility] TEST RESULTS: Negative . [facility] care WEIGHT 152 . lbs [facility] PREGNQNCY N N ULTRASOUND [id number] 3 15 N 1 Y 152 N N N N N White/ [facility] [place] Covid-19 PCR ([facility])on 03-17 SARS-CoV-2 (COVID-19) RNA LYNDSEY+probe Ql (Unsp spec) Not detected Normal NOT DETECTED [facility] Comment on above: Result Comment: This test is not yet approved or cleared by the [place] FDA. When there are no FDA-approved or cleared tests available, and other criteria are met, FDA can make tests available under an emergency access mechanism called an Emergency Use Authorization (EUA). The EUA for this test is supported by the [place] of Health and Human Service's (HHS's) declaration [...] SARS-CoV-2. Performed By: #### C VDTBH #### [facility] [address] [place] [address] Dr. Radha Rucker INFLUENZA A AND B AGon 03-31 [facility] SEE BELOW Normal [facility] Comment on above: Result Comment: Nega tive for Flu A protein angiten. Infection due to Flu A cannot be ruled out. Flu A angiten in the sample may be below the detection limit of the test. Performed By: #### I NFLUAB #### [facility] [address] [address] [address] Rad[facility] SEE BELOW Normal [facility] Comment on above: Result Comment: Nega tive for Flu B protein antigen. Infection due to Flu B cannot be ruled out. Flu B antigen in the sample may be below the detection limit of the test. Performed By: #### I NFLUAB #### [facility] [address] [place] [address] Dr. Radha Rucker INFLUENZA A AG Negative Normal NEGATIVE SEE COMMENT [facility] Comment on above: Performed By: #### I NFLUAB #### [facility] [address] [address] [address] Radha Rucker INFLUENZA B AG Negative Normal NEGATIVE SEE COMMENT [facility] Comment on above: Performed By: #### I NFLUAB #### [facility] [address] [place] [address] Dr. Radha Rucker INTERNAL CONTROLS Within Normal Limits Normal Wi thin Normal Limits [facility] Comment on above: Performed By: #### I NFLUAB #### [facility] [address] [place] [address] Dr. Radha Rucker General Surgery Office/Clini c [...] 10/06/2021 Family History Cardiac arrhythmia: Father. Normal [facility] Comment on above: Result Comment: Elec tronically Signed By: YANIRA DIAMOND, Philippe Ramirez\.br\Date and Time Signed: 11/01/21 09:55 EDT Pathology Noteon 11-01-2021 Pathology Note [id number] .00CD:[address] [facility] Ambulatory Visit Summaryon 0 10-27-2021 Ambulatory Visit Summary NIDHI COOK :1995 Visit Date:10/27/2021 Ambulatory Visit Instructions Your Care Team Attending Physician - YANIRA DIAMOND, Philippe Ramirez Primary Care Physician - Hoy MD, Veronica Procedures Performed Tonsillectomy. Allergies No Known Allergies No Known Medication Allergies Problems Ongoing - Any problem that you are currently receiving treatment for. BMI 24.0-24.9, adult Changing nevus Disturbance of skin sensation Mood disorder [facility] Pre-Certification Formon Pre-Certification Form [id number] 1.00CD:127 [facility] Ambulatory Visit Summaryon 0 10-06-2021 Ambulatory Visit Summary NIDHI COOK JAY :1995 Visit Date:10/06/2021 Ambulatory Visit Instructions Your Care Team Attending Physician - YANIRA DIAMOND, Philippe Ramirez Primary Care Physician - Lolly DIAMOND, Veronica Procedures Performed Tonsillectomy. Discharge Vitals Heart Rate (Peripheral) 72 Respiratory Rate 16 Blood Pressure 106/66 Height 162.5 cm Height 162.5 cm Weight 64.0 kg Weight 64 kg BMI 24.24 What to do next Scheduled Follow-Up Appointments Monday 1:40 PM EDT With: YANIRA DIAMOND, Philippe Ramirez Where: General Surgery [facility] [place] [facility] Physician Referralon 022 Physician Referral [id number] .00CD:127 [facility] Vital Signs Date Time Vital Sign Value Performing Clinician Day love 10-06-2021 15:25-0400 Blood Pressure Location Philippe MCGOWAN General Surgery [facility] 10-06-2021 15:25-0400 Diastolic blood pressure 66 mm[Hg] Philippe MCGOWAN General Surgery [facility] 10-06-2021 15:25-0400 Heart rate 72 /min Philippe MCGOWAN General Surgery [facility] 10-06-2021 15:25-0400 Respiratory rate 16 /min Philippe MCGOWAN General Surgery [facility] 10-06-2021 15:25-0400 Systolic blood pressure 106 mm[Hg] Philippe YANIRA General Surgery [facility] Encounters Encounter Date Encounter Type Care Provider Facility Start: 01-17-2024 End: 01-19-2024 [facility] Result Encounter Darien Lynette DO Work Phone: [facility] Unsolicited Start: 01-17-2024 End: 01-19-2024 [facility] Result Encounter Darien Lynette DO Work Phone: [facility] Unsolicited Start: 01-08-2024 End: 01-08-2024 ambulatory DARIEN LYNETTE Not Available Start: 12-11-2023 End: 12-11-2023 ambulatory DARIEN LYNETTE Not Available Start: 11-17-2023 End: 11-17-2023 ambulatory GABRIELLE SHAMA Not Available Start: 05-08-2023 End: 05-08-2023 ambulatory GABRIELLE SHAMA Not Available Start: 06-09-[address] SAFIA ADRIAN Facilit y:[facility]1 Start: 03-31-2022 End: 03-31-[address] VERONICA AMBROCIO . Facility: Start: 10-27-2021 End: 10-27-2021 Patient encounter procedure Philippe Ramirez YANIRA General Surgery [facility] Start: 10-06-2021 End: 10-06-2021 Patient encounter procedure Philippe James MCGOWAN General Surgery [facility] Start: 06-28-2021 End: 10-21-[address] SAFIA ADRIAN Facility:[facility] Procedures Date Procedure Procedure Detail Performing Clinician Start: 01-17-2024 AFP, SERUM, OPEN SPI NA BIFIDA Darien Lynette DO Work Phone: Tonsillectomy Philippe YANIRA Plan of Treatment Date Care Activity Detail Author Start: 02-06-2024 End: 02-06-2024 Patient encounter procedure 02/06/2024 10:20 AM EDT Routine [facility] [address] [facility] [address] [place] [address] Darien Ojeda DO [address] [place] [address] [facility] Payers Date Payer Category Payer Medicaid [employer] [place] [id number] 2022-Present [address] [place] [address] [id number] 2022 Medicaid [id number] 1995 Unknown [id number] 1995 Unknown [id number] 1993 Unknown [id number] 1993 Unknown [id number] 1993 Unknown [id number] 1993 Unknown [id number] 1993 Unknown [id number] 1961 Self-pay [id number] 1961 Unknown [id number] Social History Date Type Detail Facility Start: 10-06-2021 End: 11-30-2022 Tobacco smoking status Never smoked tobacco (finding) [facility] Tobacco smoking status Never Gener [facility] Start: 05-08-2023 Sex Assigned At Female G eneral [facility] Start: 11-30-2022 Tobacco use and exposure Smokeless tobacco non-user [facility] Start: 01-08-2024 Alcoholic beverage intake Lifetime non-drinker (finding) [facility] Start: 05-08-2023 History of Social function [facility] Start: 10-06-2023 [facility] Start: 1995 Sex assigned at Female [facility] Start: 10-26-2022 Gender identity Identifies as female gender (finding) [facility] Functional Status Date Assessment Result Facility 10-06-2021 Functional Status N/A General [facility] Clinical Note 10-06-2021 Note Date & Type Note Facility 10-06-2021 Note Chief Complaint consultation for nevus HPI Staff 26 year old female presents on consultation from Dr. Ambrocio for nevus. Reports long standing history of [...] Use:., 10/06/2021 Family History Cardiac arrhythmia: Father. [facility] Comment on above: Result Comment: Elec tronically Signed By: YANIRA DIAMOND, Philippe Ramirez\.br\Date and Time Signed: 10/06/21 16:57 EDT Evaluation + Plan note Note Date & Type Note Facility Evaluation + Plan note Future Appointments Appointment Date:10/27/2021 01:40:00 PM Scheduled Provider:Philippe MCGOWAN MD Location:[facility] Appointment Type: Procedure 30 General Surgery [facility] Hospital course Narrative Note Date & Type Note Facility Hospital course Narrative No data available for this section [facility] Discharge instructions Note Date & Type Note Facility Hospital Discharge instructions No data available for this section General [facility] Progress note Note Date & Type Note Facility Progress note No data available for this section [facility] Summary Purpose Family History No Family History Records FoundNo Family History Records FoundNo Family History Records Found Advance Directives No Advanced Directives Records FoundNo Advanced Directives Records FoundNo Advanced Directives Records Found Additional Source Comments Care Team (unrecognized sect ion and content) Process Architect Relationship Specialty Start Date End Date Veronica Ambrocio MD [address] [place] [address] PCP - General Family Medicine 12/05/22 INFORMATION SOURCE (unrecogn ized section and content) DATE CREATED AUTHOR 11/02/2021 [facility] DATE CREATED AUTHOR AUTHOR'S ORGANIZ ATION 06/10/2022 [facility] DATE CREATED AUTHOR AUTHOR'S ORGANIZ ATION 01/09/2024 [facility] EPIC FOR RECORDS PERTAINING TO [...] BE BASED ON THE PRIMARY CLINICAL RECORDS. [facility]. provides no warranty or guarantee of the accuracy or completeness of information in this document.
--- NOTE | 2024-02-02 08:59 | US_ITS ---
[address] [address] Patient Name: NIDHI BOLANOS MRN: [id number] date: 1995 Sex: F Assigned Patient Location: US Current Patient Location: US Accession/Order Number: [id number] Exam Date: 02/02/2024 09:05 Report Date: 02/02/2024 12:05 At the request of: DARIEN PELAYO Procedure: US OB cervical length EXAMINATION: US OB anatomy, US OB cervical length HISTORY: anatomic screening COMPARISON: No relevant comparison available. TECHNIQUE: Transabdominal sonographic examination was performed for obstetrical and evaluation. FINDINGS: Number: 1 Heart Rate: 142.86 bpm H.B. /min Amniotic Fluid Volume: Subjectively normal presentation: Cephalic presentation, longitudinal lie Placental Location: POSTERIOR, grade 0. The placental edge is 2.2 cm from the internal os Cervix Length: 5.66 cm , closed Normal anatomy: Lateral ventricles, cerebellum, posterior fossa, nose, lips, orbits, four-chamber heart, RVOT, LVOT, diaphragm, stomach, kidneys, abdominal cord insertion, bladder, umbilical arteries, three-vessel cord, spine, extremities BIOMETRY: BPD: 4.34 cm; 19 weeks 1 day; 57 % HC: 15.85 cm; 18 weeks 5 days; 28.80 % AC: 14.13 cm; 19 weeks 3 days; 62.90 % FL: 3.07 cm; 19 weeks 4 days; 61.80 % EFW:290.89 g; 70.10 %, 10 ounces FL/AC: 21.70 FL/BPD: 70.56 HC/AC: 1.12 GESTATIONAL AGE: Age by EDC: 19 weeks 0 days CLARITZA by EDC: 2024-06-28 Age by current US: 19 weeks 2 days CLARITZA by current US: 2024-06-26 US/US OB cervical length IMPRESSION: Low lying placenta, otherwise normal anatomy scan Closed cervix measuring 5.7 cm in length *Reference: [employer] Practice Guideline for the performance of Obstetric Ultrasound Examinations, January 15, 2007. Electronically authenticated by: SAFIA ADRIAN Date: 02/02/2024 12:05
--- NOTE | 2024-02-02 08:59 | US_ITS ---
[address] [address] Patient Name: NIDHI BOLANOS MRN: [id number] date: 1995 Sex: F Assigned Patient Location: US Current Patient Location: US Accession/Order Number: [id number] Exam Date: 02/02/2024 09:05 Report Date: 02/02/2024 12:05 At the request of: DARIEN PELAYO Procedure: US OB anatomy EXAMINATION: US OB anatomy, US OB cervical length HISTORY: anatomic screening COMPARISON: No relevant comparison available. TECHNIQUE: Transabdominal sonographic examination was performed for obstetrical and evaluation. FINDINGS: Number: 1 Heart Rate: 142.86 bpm H.B. /min Amniotic Fluid Volume: Subjectively normal presentation: Cephalic presentation, longitudinal lie Placental Location: POSTERIOR, grade 0. The placental edge is 2.2 cm from the internal os Cervix Length: 5.66 cm , closed Normal anatomy: Lateral ventricles, cerebellum, posterior fossa, nose, lips, orbits, four-chamber heart, RVOT, LVOT, diaphragm, stomach, kidneys, abdominal cord insertion, bladder, umbilical arteries, three-vessel cord, spine, extremities BIOMETRY: BPD: 4.34 cm; 19 weeks 1 day; 57 % HC: 15.85 cm; 18 weeks 5 days; 28.80 % AC: 14.13 cm; 19 weeks 3 days; 62.90 % FL: 3.07 cm; 19 weeks 4 days; 61.80 % EFW:290.89 g; 70.10 %, 10 ounces FL/AC: 21.70 FL/BPD: 70.56 HC/AC: 1.12 GESTATIONAL AGE: Age by EDC: 19 weeks 0 days CLARITZA by EDC: 2024-06-28 Age by current US: 19 weeks 2 days CLARITZA by current US: 2024-06-26 US/US OB anatomy IMPRESSION: Low lying placenta, otherwise normal anatomy scan Closed cervix measuring 5.7 cm in length *Reference: [employer] Practice Guideline for the performance of Obstetric Ultrasound Examinations, January 15, 2007. Electronically authenticated by: SAFIA ADRIAN Date: 02/02/2024 12:05
== END 2024-02-02 08:51 | disposition home or self-care (01) ==
LOC: US 08:50
PROVIDERS: PCP Family Medicine; Visit Provider Obstetrics & Gynecology
DX: O44.42 Low lying placenta NOS or without hemorrhage, second trimester (principal); Z36.89 Encounter for other specified antenatal screening; Z3A.19 19 weeks gestation of pregnancy
CPT/HCPCS: 76805; 76817

== ENCOUNTER 2024-03-01 10:52 | Outpatient (OUT) | payer OTHER, SELFPAY ==
--- NOTE | 2024-03-01 10:56 | US_ITS ---
[address] [address] Patient Name: NIDHI BOLANOS MRN: [id number] date: 1995 Sex: F Assigned Patient Location: US Current Patient Location: Accession/Order Number: [id number] Exam Date: 03/01/2024 11:03 Report Date: 03/02/2024 06:23 At the request of: DARIEN PELAYO Procedure: US OB placenta EXAMINATION: US OB placenta, US OB cervical length HISTORY: Low Lying Placenta COMPARISON: Ultrasound OB anatomy 02/02/2024 FINDINGS: PLACENTA: Posterior fundal with lower margin 5.2 cm from internal os. Grade 0. CERVIX LENGTH: 4.1 cm, closed. HEART RATE: 142 bpm OTHER: Amniotic fluid is subjectively normal. US/US OB placenta IMPRESSION: 1. Single live intrauterine . 2. Posterior-fundal placenta which is no longer low-lying. Electronically authenticated by: SANDRA HERNANDEZ Date: 03/02/2024 06:23
--- NOTE | 2024-03-01 11:26 | US_ITS ---
[address] [address] Patient Name: NIDHI BOLANOS MRN: [id number] date: 1995 Sex: F Assigned Patient Location: US Current Patient Location: Accession/Order Number: [id number] Exam Date: 03/01/2024 11:27 Report Date: 03/02/2024 06:23 At the request of: DARIEN PELAYO Procedure: US OB cervical length EXAMINATION: US OB placenta, US OB cervical length HISTORY: Low Lying Placenta COMPARISON: Ultrasound OB anatomy 02/02/2024 FINDINGS: PLACENTA: Posterior fundal with lower margin 5.2 cm from internal os. Grade 0. CERVIX LENGTH: 4.1 cm, closed. HEART RATE: 142 bpm OTHER: Amniotic fluid is subjectively normal. US/US OB cervical length IMPRESSION: 1. Single live intrauterine . 2. Posterior-fundal placenta which is no longer low-lying. Electronically authenticated by: SANDRA HERNANDEZ Date: 03/02/2024 06:23
== END 2024-03-01 10:53 | disposition home or self-care (01) ==
LOC: US 10:53
PROVIDERS: PCP Family Medicine; Visit Provider Obstetrics & Gynecology
DX: O44.43 Low lying placenta NOS or without hemorrhage, third trimester (principal)
CPT/HCPCS: 76815; 76817

== ENCOUNTER 2024-03-20 08:54 | Outpatient (OUT) | payer OTHER, SELFPAY ==
[2024-03-20 10:12] LABS: Basophils Percent Auto 0.4 % (0.2-2.0); Eosinophils Absolute Auto 0.1 10^3/uL (0.0-0.7); Eosinophils Percent Auto 1.1 % (0.9-7.0); Hematocrit 34.9 % (36.0-48.0); Hemoglobin 11.8 g/dL (12.0-16.0); Immature Granulocytes Abs Auto 0.06 10^3/uL (0.00-0.03); Immature Granulocytes Pct Auto 0.6 % (0.0-0.5); Lymphocytes Absolute Auto 1.9 10^3/uL (1.2-3.8); Lymphocytes Percent Auto 20.6 % (20.5-60.0); Mean Corpuscular HGB Conc 33.8 g/dL (29.9-35.2); Mean Corpuscular Hemoglobin 32.9 pg (26.7-34.0); Mean Corpuscular Volume 97.2 fL (81.0-99.0); Mean Platelet Volume 10.5 fL (9.5-13.5); Monocytes Absolute Auto 0.6 10^3/uL (0.3-0.8); Monocytes Percent Auto 6.7 % (1.7-12.0); Neutrophils Absolute Auto 6.7 10^3/uL (1.4-6.5); Neutrophils Percent Auto 70.6 % (43.0-75.0); Platelet Count 208 10^3/uL (150-450); Red Blood Count 3.59 10^6/uL (4.20-5.40); Red Cell Distribution Width 12.6 % (11.0-15.0); White Blood Count 9.4 10^3/uL (4.0-11.0)
[2024-03-20 10:27] LABS: Glucose 1 Hour 100 mg/dL (<130)
== END 2024-03-20 08:55 | disposition home or self-care (01) ==
LOC: LAB 08:54
PROVIDERS: PCP Family Medicine; Visit Provider Obstetrics & Gynecology
DX: Z13.1 Encounter for screening for diabetes mellitus (principal)
CPT/HCPCS: 36415; 82950; 85025

== ENCOUNTER 2024-06-03 08:48 | Outpatient (OUT) | payer OTHER, SELFPAY ==
--- NOTE | 2024-06-03 08:53 | US_ITS ---
The [address] [address] Patient Name: NIDHI BOLANOS MRN: [id number] date: 1995 Sex: F Assigned Patient Location: US Current Patient Location: US Accession/Order Number: [id number] Exam Date: 06/03/2024 09:00 Report Date: 06/03/2024 19:10 At the request of: GABRIELLE SESAY Procedure: US OB growth OBSTETRICAL ULTRASOUND HISTORY: size in consistent COMPARISON: Initial ultrasound dated 11/17/2023. TECHNIQUE: Transabdominal obstetrical ultrasound was performed. INTERPRETATION: Number: There is a live single intrauterine fetus. Presentation: The fetus is in cephalic position. Heart Rate: 138 beats per minute with a normal rhythm. Amniotic Fluid: Normal. 13.8 with largest pocket of fluid measuring 5.6 cm. Gestational Age Assessment: Biparietal Diameter: 8.56 cm 34 w 4 d Head Circumference: 31.48 cm 35 w 2 d Abdominal Circumference: 30.90 cm 34 w 6 d Femur Length: 6.88 cm 35 w 2 d Average gestational age based on current ultrasound: 35 w 0 d. Estimated Weight: 2563 gm +/- 384 gm, 17.7 percentile based on clinical dating. Growth assessment: Size is appropriate for dates. US/US OB growth IMPRESSION: 1. Single live intrauterine gestation with cardiac activity. Gestational age based on today's ultrasound is 35 weeks 0 days. There has been appropriate growth when compared to the original dating ultrasound. 2. CHATO is within normal limits measuring 13.8 cm. Electronically authenticated by: TIARA ROJO Date: 06/03/2024 19:10
--- OUTSIDE RECORDS SUMMARY | 2024-06-03 09:08 | XMS_ITS | CCD ---
Author Organization [facility] Care Team Providers Care Pharmaceutical Worker Name Role Phone Veronica Ambrocio Primary Care Physician [phone] NGUYỄN, DR SAFIA Pichardo Admitting Unavailable WEST, DR SAFIA Pichardo Attending Unavailable LOLLY ., DR MARTIN Primary Care Unavailable WEST, DR SAFIA Pichardo Consulting Unavailable WEST, DR SAFIA Pichardo Admitting Unavailable WEST, DR SAFIA Pichardo Attending Unavailable GISSELLEY ., DR MARTIN Primary Care Unavailable WEST, DR SAFIA Pichardo Consulting Unavailable LOLLY ., DR MARTIN Admitting Unavailable LOLLY ., DR MARTIN Attending Unavailable HOY ., DR MARTIN Primary Care Unavailable GISSELLEY ., DR MARTIN Consulting Unavailable Veronica Ambrocio MD Primary Care Provider [phone] AIDA SESAY Attending Unavailable DARIEN OJEDA Attending Unavailable DARIEN OJEDA Attending Unavailable DARIEN OJEDA Attending Unavailable AIDA SESAY Attending Unavailable AIDA SESAY Attending Unavailable DARIEN OJEDA Attending Unavailable Medications Current Medications Medication Drug Class(es) Dates Sig (Normalized) Sig (Original) MV-Min-Fe Fum-FA-DHA ( 1 PO) (20 sources) MV-Min- Fe Fum-FA-DHA ( 1 PO) Take by mouth Active Completed/Discontinued Medications Medication Drug Class(es) Dates Sig (Normalized) Sig (Original) azithromycin 250 mg oral tablet (5 sources) Macrolide Antimicrobial Start: 04-03-2024 End: 04-25-2024 azithromycin (Zithromax Z-Justin) 250 MG tablet Indications: Sinus congestion As directed 6 tablet 04/03/2024 04/25/2024 Discontinued Problems Active Problems Problem Classification Problem Date Documented Date Episodic/Chronic Immunizations and screening for infectious disease (2 sources) Exposure to sexually transmissible disorder; Translations: [Contact with and (suspected) exposure to infections with a predominantly sexual mode of transmission] 01-08-2024 Episodic Mood disorders (2 sources) Mood disorder 09-22-2021 Chronic Other and unspecified benign neoplasm (1 source) Melanocytic nevus; Translations: [Melanocytic nevi, unspecified] Onset: 10-06-2021 Episodic Other complications of (2 sources) size does not accord with dates; Translations: [Uterine size-date discrepancy, unspecified trimester] 05-16-2024 Episodic Other female genital disorders (2 sources) Vaginal discharge; Translations: [Other specified noninflammatory disorders of vagina] 01-08-2024 Episodic Other nervous system disorders (3 sources) Skin sensation disturbance; Translations: [Unspecified disturbances of skin sensation] Onset: 10-06-2021 Episodic Other and delivery including normal (10 sources) Second trimester ; Translations: [Encounter for supervision of normal , unspecified, second trimester] 02-06-2024 Episodic Other screening for suspected conditions (not mental disorders or infectious disease) (4 sources) Patient encounter status; Translations: [Encounter for screening for diabetes mellitus] 03-06-2024 Episodic Other skin disorders (2 sources) Change in skin lesion 10-06-2021 Episodic Other upper respiratory disease (2 sources) Congestion of nasal sinus; Translations: [Nasal congestion] 04-03-2024 Episodic Residual codes; unclassified (2 sources) Gestation period, 19 weeks; Translations: [19 weeks gestation of ] 02-06-2024 Episodic Residual codes; unclassified (2 sources) Gestation period, 23 weeks; Translations: [23 weeks gestation of ] 03-06-2024 Episodic Residual codes; unclassified (2 sources) Gestation period, 27 weeks; Translations: [27 weeks gestation of ] 04-03-2024 Episodic Residual codes; unclassified (2 sources) Gestation period, 15 weeks; Translations: [15 weeks gestation of ] 01-08-2024 Episodic Residual codes; unclassified (2 sources) Gestation period, 30 weeks; Translations: [30 weeks gestation of ] 04-25-2024 Episodic Residual codes; unclassified (2 sources) Gestation period, 33 weeks; Translations: [33 weeks gestation of ] 05-16-2024 Episodic Unclassified (2 sources) Body mass index 20-24 - normal 10-06-2021 Unclassified (3 sources) COUGH, UNSPECIFIED; Translations: [COUGH, UNSPECIFIED] Onset: 04-03-2022 Unclassified (1 source) CONTACT W/AND (SUSP) EXPOS COVID-19; Translations: [CONTACT W/AND (SUSP) EXPOS COVID-19] Onset: 04-03-2022 Past or Other Problems Problem Classification Problem Date Documented Da te Episodic/Chronic Residual codes; unclassified (2 sources) Gestation period, 11 weeks; Translations: [11 weeks gestation of ] 12-11-2023 Episodic Unclassified (1 source) COUGH, UNSPECIFIED; Translations: [COUGH, UNSPECIFIED] Onset: 03-31-2022 Results Test Name Value Interpretation Reference Range Facility Urinalysis macro (dipstick) panel (U)on 05-16-2024 Bilirubin, UA Negative Negative - 4(70) +++ mg/dL [facility] Blood, UA Negative Negative - 50 Zenon/mcL [facility] Clarity, UA Clear [facility] re Color, UA Yellow [facility] Glucose, UA Negative Negative - 1999(110) ++++ mg/dL [facility] Interpretation and review of laboratory results Abnormal [facility] Ketones, UA Negative Negative - 160(16) ++++ mg/dL [facility] Leukocytes, UA Many Negative - 500+++ Viral/mcL [facility] Nitrite, UA Negative Negative - Positive [facility] pH, UA 7 5 - 9 [facility] e Protein, UA Trace Negative - 1999(20) ++++ mg/dL [facility] Spec Grav, UA 1.025 1 - 1.03 [facility] care Urobilinogen, UA 1.0 0.2 - 12 mg/dL [facility] Urinalysis macro (dipstick) panel (U)on 04-25-2024 Bilirubin, UA Negative Negative - 4(70) +++ mg/dL [facility] Blood, UA Negative Negative - 50 Zenon/mcL [facility] Clarity, UA Clear [facility] Color, UA Yellow [facility] Glucose, UA Negative Negative - 1999(110) ++++ mg/dL [facility] Interpretation and review of laboratory results Abnormal [facility] Ketones, UA Negative Negative - 160(16) ++++ mg/dL [facility] Leukocytes, UA Positive Negative - 500+++ Viral/mcL [facility] Comment on above: small Nitrite, UA Negative Negative - Positive [facility] pH, UA 6 5 - 9 [facility] Protein, UA Positive Negative - 1999(20) ++++ mg/dL [facility] Comment on above: 30 Spec Grav, UA 1.025 1 - 1.03 [facility] Urobilinogen, UA 1.0 0.2 - 12 mg/dL [facility] Urinalysis macro (dipstick) panel (U)on 04-03-2024 Bilirubin, UA Negative Negative - 4(70) +++ mg/dL [facility] Blood, UA Negative Negative - 50 Zenon/mcL [facility] Clarity, UA [facility] re Color, UA Yellow [facility] Glucose, UA Negative Negative - 1999(110) ++++ mg/dL [facility] Interpretation and review of laboratory results Abnormal [facility] Ketones, UA Negative Negative - 160(16) ++++ mg/dL [facility] Leukocytes, UA Trace Negative - 500+++ Viral/mcL [facility] Nitrite, UA Negative Negative - Positive [facility] pH, UA 6 5 - 9 [facility] Protein, UA Negative Negative - 1999(20) ++++ mg/dL [facility] Spec Grav, UA 1.02 1 - 1.03 [facility] Urobilinogen, UA 0.2 0.2 - 12 mg/dL [facility] ALL CBC WITH AUTO DIFFon BASOPHILS ABSOLUTE AUTO 0 [facility] Basophils/100 WBC (Bld) 0.4 % 0.2 - 2.0 % [facility] Eosinophils/100 WBC (Bld) 1.1 % 0.9 - 7.0 % [facility] Erythrocyte distribution width (RBC) [Ratio] 12.6 % 11.0 - 15.0 % [facility] Hematocrit (Bld) [Volume fraction] 34.9 % Low 36.0 - 48.0 % [facility] Hemoglobin (Bld) [Mass/Vol] 11.8 g/dL Low 12.0 - 16.0 g/dL [facility] IMMATURE GRANULOCYTES ABS AUTO 0.06 High [facility] Immature granulocytes/100 WBC (Bld) 0.6 % High 0.0 - 0.5 % [facility] Interpretation and review of laboratory results Abnormal [facility] LYMPHOCYTES ABSOLUTE AUTO 1.9 [facility] Lymphocytes/100 WBC (Bld) 20.6 % 20.5 - 60.0 % [facility] MCH (RBC) [Entitic mass] 32.9 pg 26.7 - 34.0 pg [facility] MCHC (RBC) [Mass/Vol] 33.8 g/dL 29.9 - 35.2 g/dL [facility] MCV (RBC) [Entitic vol] 97.2 fL 81.0 - 99.0 fL [facility] MONOCYTES ABSOLUTE AUTO 0.6 [facility] Monocytes/100 WBC (Bld) 6.7 % 1.7 - 12.0 % [facility] NEUTROPHILS ABSOLUTE AUTO 6.7 High [facility] Neutrophils/100 WBC (Bld) 70.6 % 43.0 - 75.0 % [facility] Platelet mean volume (Bld) [Entitic vol] 10.5 fL 9.5 - 13.5 fL [facility] EO # 0.1 [facility] TB PLT 208 [facility] e TB RBC 3.59 Low [facility] TB WBC 9.4 [facility] Urinalysis macro (dipstick) panel (U)on 03-06-2024 Bilirubin, UA Negative Negative - 4(70) +++ mg/dL [facility] Blood, UA Negative Negative - 50 Zenon/mcL [facility] Clarity, UA [facility] re Color, UA Yellow [facility] Glucose, UA Negative Negative - 1999(110) ++++ mg/dL [facility] Interpretation and review of laboratory results Abnormal [facility] Ketones, UA Negative Negative - 160(16) ++++ mg/dL [facility] Leukocytes, UA Moderate Negative - 500+++ Viral/mcL [facility] Nitrite, UA Negative Negative - Positive [facility] pH, UA 7 5 - 9 [facility] Protein, UA Negative Negative - 1999(20) ++++ mg/dL [facility] Spec Grav, UA 1.025 1 - 1.03 [facility] Urobilinogen, UA 0.2 0.2 - 12 mg/dL [facility] Urinalysis macro (dipstick) panel (U)on 02-06-2024 Bilirubin, UA Negative Negative - 4(70) +++ mg/dL [facility] Blood, UA Negative Negative - 50 Zenon/mcL [facility] Clarity, UA [facility] re Color, UA Yellow [facility] Glucose, UA Negative Negative - 1999(110) ++++ mg/dL [facility] Interpretation and review of laboratory results Abnormal [facility] Ketones, UA Negative Negative - 160(16) ++++ mg/dL [facility] Leukocytes, UA Trace Negative - 500+++ Viral/mcL [facility] Nitrite, UA Negative Negative - Positive [facility] pH, UA 6.5 5 - 9 [facility] e Protein, UA Negative Negative - 1999(20) ++++ mg/dL [facility] Spec Grav, UA 1.025 1 - 1.03 [facility] Urobilinogen, UA 1.0 0.2 - 12 mg/dL [facility] AFP, SERUM, OPEN SPINA BIFID Aon 01-19-2024 AFP MOM 1.03 . [facility] AFP VALUE 37.1 ng/mL . [facility] COMMENT: Comment . [facility] Comment on above: Gayla Latif , Ph.D., [facility] Director References: Available Upon Request. Multiples Of Median Cutoffs For AFP Elevations Vanessa 2.5 Black 2.8 IDD 2.0 Twins 4.5 Abbreviation Definitions IDD - Insulin Dep Diabetes OSBR - Open Spina Bifida Risk For further inquiries contact [facility] at [phone]. This test was developed and its performance characteristics determined by [employer]. It has not been cleared or approved by the Food and Drug Administration. Performed at: [facility] [address] [place], [place] [id number] Electronic Page Makeup System Operator: Uma Butler [facility], Phone: [phone] GEST. AGE ON COLLECTION DATE 16.7 . weeks [facility] GESTAT. AGE BASED ON Ultrasound . [facility] Comment on above: 15.4 on 01/08/2024 Recalculations are not recommended when gestational dating by LMP and ultrasound are within 10 days. INSULIN DEP DIABETES No . [facility] Healthcare INTERPRETATION Comment . [facility]alt [facility] Comment on above: Interpretation: Scre en [...] Customer Services to discuss available options. The [employer] recommends amniocentesis be offered to women age 35 and older. [age] [facility] MULTIPLE GESTATION No . [facility] [place] [address] [place] [phone] . [facility]alt [facility] RACE . [facility] RESULTS Report . [facility] TEST RESULTS: Negative . [facility] care WEIGHT 152 . lbs [facility] PREGNQNCY N N ULTRASOUND [id number] 3 15 N 1 Y 152 N N N N N White/ [facility] IGP,APTIMA HPV,AGE GDLNon AGE GDLN ACOG TESTING Note . [facility] Comment on above: TESTS RESULT FLAG U NITS REF RANGE LAB Clinician Provided Cytology Information Source.............Cervix No. of containers..01 ThinPrep Vial Age Algo ACOG Gisela... FLAG LEGEND: L-Low Normal,H-High Normal,LL-Alert Low,HH-Alert High <-Panic Low,>-Panic High,A-Abnormal,AA-Critical Abnormal Performed at: 01 =G [address] [place] [address] Chayito Suarez MD, HPV APTIMA Negative Negative [facility] Comment on above: This nucleic acid am plification test detects fourteen high- risk HPV types (16,18,31,33,35,39,45,51,52,56,58,59,66,68) without differentiation. Performed at: = - [address], [place] [id number] Electronic Page Makeup System Operator: Chayito Suarez MD, Phone: [phone] Performed at: [facility] [address], [place] [id number] Electronic Page Makeup System Operator: Chayito Suarez MD, Phone: [phone] IGP, APTIMA HPV, RFX 16/18,45 Note . [facility] Comment on above: TESTS RESULT FLAG UN ITS REF RANGE LAB DIAGNOSIS: 02 NEGATIVE FOR INTRAEPITHELIAL LESION OR MALIGNANCY. Specimen adequacy: 02 Satisfactory for evaluation. No endocervical component is identified. Performed by: Yohannes Sykes, Scrap Stripper Hand (ASCP) . 02 Note: Note 02 The Pap smear is a screening test designed to aid in the detection of premalignant and malignant conditions of the uterine cervix. It is not a diagnostic procedure and should not be used as the sole means of detecting cervical cancer. Both false-positive and false-negative reports do occur. Test Methodology: Note 02 This liquid based ThinPrep(R) pap test was screened with the use of an image guided system. HPV Genotype Reflex Note 02 Criteria not met, HPV Genotype not performed. FLAG LEGEND: L-Low Normal,H-High Normal,LL-Alert Low,HH-Alert High <-Panic Low,>-Panic High,A-Abnormal,AA-Critical Abnormal Performed at: [address] [place] [address] Chayito Suarez MD, SPATULA-ALONE CERVIX [facility] Urinalysis macro (dipstick) panel (U)on 01-08-2024 Bilirubin, UA Negative Negative - 4(70) +++ mg/dL [facility] Blood, UA Positive Negative - 50 Zenon/mcL [facility] Healthcare Comment on above: trace-itact Clarity, UA Clear [facility] re Color, UA Yellow [facility] Glucose, UA Negative Negative - 1999(110) ++++ mg/dL [facility] Interpretation and review of laboratory results Abnormal [facility] Ketones, UA Negative Negative - 160(16) ++++ mg/dL [facility] Leukocytes, UA Negative Negative - 500+++ Viral/mcL [facility] Nitrite, UA Negative Negative - Positive [facility] pH, UA 6.0 5 - 9 [facility] Protein, UA Negative Negative - 1999(20) ++++ mg/dL [facility] Spec Grav, UA 1.015 1 - 1.03 [facility] Urobilinogen, UA 0.2 0.2 - 12 mg/dL [facility] Urinalysis macro (dipstick) panel (U)on 12-11-2023 Bilirubin, UA Negative Negative - 4(70) +++ mg/dL [facility] Blood, UA Negative Negative - 50 Zenon/mcL [facility] Healthcare Clarity, UA Clear [facility] Color, UA Yellow [facility] Glucose, UA Negative Negative - 1999(110) ++++ mg/dL [facility] Interpretation and review of laboratory results Abnormal [facility] Ketones, UA Negative Negative - 160(16) ++++ mg/dL [facility] Leukocytes, UA Positive Negative - 500+++ Viral/mcL [facility] Comment on above: small Nitrite, UA Negative Negative - Positive [facility] pH, UA 7.0 5 - 9 [facility] Protein, UA Negative Negative - 2000(20) ++++ mg/dL [facility] Spec Grav, UA 1.025 1 - 1.03 [facility] Urobilinogen, UA 0.2 0.2 - 12 mg/dL [facility] Covid-19 PCR ([facility])on 03-17 SARS-CoV-2 (COVID-19) RNA LYNDSEY+probe Ql (Unsp spec) Not detected Normal NOT DETECTED [facility] Comment on above: Result Comment: This test is not yet approved or cleared by the [place] FDA. When there are no FDA-approved or cleared tests available, and other criteria are met, FDA can make tests available under an emergency access mechanism called an Emergency Use Authorization (EUA). The EUA for this test is supported by the [place] of Health and Human Service's (HHS's) declaration [...] SARS-CoV-2. Performed By: #### C VDTBH #### [facility] [address] [place] [address] Dr. Radha Rucker INFLUENZA A AND B AGon 03-31 INFLUANEGH SEE BELOW Normal [facility] Comment on above: Result Comment: Nega tive for Flu A protein angiten. Infection due to Flu A cannot be ruled out. Flu A angiten in the sample may be below the detection limit of the test. Performed By: #### I NFLUAB #### [facility] [address] [place] [address] Dr. Radha Rucker INFLUBNEGH SEE BELOW Normal [facility] Comment on above: Result Comment: Nega tive for Flu B protein antigen. Infection due to Flu B cannot be ruled out. Flu B antigen in the sample may be below the detection limit of the test. Performed By: #### I NFLUAB #### [facility] [address] [address] [address] Radha Rucker INFLUENZA A AG Negative Normal NEGATIVE SEE COMMENT [facility] Comment on above: Performed By: #### I NFLUAB #### [facility] [address] [address] [address] Radha Rucker INFLUENZA B AG Negative Normal NEGATIVE SEE COMMENT [facility] Comment on above: Performed By: #### I NFLUAB #### [facility] [address] [place] [address] Dr. Radha Rucker INTERNAL CONTROLS Within Normal Limits Normal Wi thin Normal Limits [facility] Comment on above: Performed By: #### I NFLUAB #### [facility] [address] [place] [address] Dr. Radha Rucker General Surgery Office/Clini c [...] 10/06/2021 Family History Cardiac arrhythmia: Father. Normal [facility] Comment on above: Result Comment: Elec tronically Signed By: Philippe MCGOWAN MD\.br\Date and Time Signed: 11/01/21 09:55 EDT Pathology Noteon 11-01-2021 Pathology Note [id number] .00CD:127 Normal [facility] Ambulatory Visit Summaryon 0 10-27-2021 Ambulatory Visit Summary ROXANATIERRA JUAREZRA THOMPSON :1995 Visit Date:10/27/2021 Ambulatory Visit Instructions Your Care Team Attending Physician - YANIRA DIAMOND, Philippe Ramirez Primary Care Physician - Lolly DIAMOND, Veronica Procedures Performed Tonsillectomy. Allergies No Known Allergies No Known Medication Allergies Problems Ongoing - Any problem that you are currently receiving treatment for. BMI 24.0-24.9, adult Changing nevus Disturbance of skin sensation Mood disorder [facility] Pre-Certification Formon Pre-Certification Form [id number] 1.00CD:127 [facility] Ambulatory Visit Summaryon 0 10-06-2021 Ambulatory Visit Summary NIDHI COOK :1995 Visit Date:10/06/2021 Ambulatory Visit Instructions Your [...] Ramirez Where: General Surgery Yanira/Jose Cruz Ratl[facility] Physician Referralon 022 Physician Referral [id number] .00CD:127 [facility] Vital Signs Date Time Vital Sign Value Performing Clinician Facility 05-16-2024 08:35-0500 Body mass index (BMI) [Ratio] 29.21 kg/m2 Aida MAYES Work Phone: [facility] 05-16-2024 08:35-0500 Body weight 77.2 kg Aida MAYES Work Phone: [facility] 05-16-2024 08:35-0500 Diastolic blood pressure 62 mm[Hg] Aida MAYES Work Phone: [facility] 05-16-2024 08:35-0500 Systolic blood pressure 98 mm[Hg] Aida MAYES Work Phone: [facility] 04-25-2024 09:02-0500 Body mass index (BMI) [Ratio] 28.84 kg/m2 Darien Lynette DO Work Phone: [facility] 04-25-2024 09:02-0500 Body weight 76.2 kg Darien Lynette DO Work Phone: [facility] 04-25-2024 09:02-0500 Diastolic blood pressure 60 mm[Hg] Darien Lynette DO Work Phone: [facility] 04-25-2024 09:02-0500 Systolic blood pressure 102 mm[Hg] Darien Lynette DO Work Phone: [facility] 04-03-2024 11:27-0500 Body mass index (BMI) [Ratio] 27.66 kg/m2 Aida Chesterfield PA Work Phone: [facility] 04-03-2024 11:27-0500 Body weight 73.08 kg Aida Chesterfield PA Work Phone: [facility] 04-03-2024 11:27-0500 Diastolic blood pressure 70 mm[Hg] Aida Chesterfield PA Work Phone: [facility] 04-03-2024 11:27-0500 Systolic blood pressure 120 mm[Hg] Aida Ksenia PA Work Phone: [facility] 03-06-2024 09:26-0500 Body mass index (BMI) [Ratio] 27.29 kg/m2 Aida Ksenia PA Work Phone: [facility] 03-06-2024 09:26-0500 Body weight 72.12 kg Aida Chesterfield PA Work Phone: [facility] 03-06-2024 09:26-0500 Diastolic blood pressure 68 mm[Hg] Aida Chesterfield PA Work Phone: [facility] 03-06-2024 09:26-0500 Systolic blood pressure 110 mm[Hg] Aida Ksenia PA Work Phone: [facility] 02-06-2024 10:23-0400 Body mass index (BMI) [Ratio] 26.78 kg/m2 Darien Lynette DO Work Phone: [facility] 02-06-2024 10:23-0400 Body weight 70.76 kg Darien Lynette DO Work Phone: [facility] 02-06-2024 10:23-0400 Diastolic blood pressure 60 mm[Hg] Darien Lynette DO Work Phone: [facility] 02-06-2024 10:23-0400 Systolic blood pressure 108 mm[Hg] Darien Lynette DO Work Phone: [facility] 01-08-2024 10:31-0400 Body mass index (BMI) [Ratio] 26.16 kg/m2 Darien Lynette DO Work Phone: [facility] 01-08-2024 10:31-0400 Body weight 69.13 kg Darien Lynette DO Work Phone: [facility] 01-08-2024 10:31-0400 Diastolic blood pressure 60 mm[Hg] Darien Lynette DO Work Phone: [facility] 01-08-2024 10:31-0400 Systolic blood pressure 104 mm[Hg] Darien Lynette DO Work Phone: [facility] 12-11-2023 11:26-0400 Body mass index (BMI) [Ratio] 25.58 kg/m2 Darien Lynette DO Work Phone: [facility] 12-11-2023 11:26-0400 Body weight 67.59 kg Darien Lynette DO Work Phone: [facility] 12-11-2023 11:26-0400 Diastolic blood pressure 58 mm[Hg] Darien Lynette DO Work Phone: [facility] 12-11-2023 11:26-0400 Systolic blood pressure 100 mm[Hg] Darien Lynette DO Work Phone: [facility] 10-06-2021 15:25-0400 Blood Pressure Location [facility] General Surgery [place] 10-06-2021 15:25-0400 Diastolic blood pressure 66 mm[Hg] Philippe MCCARTNEYL [facility] [place] 10-06-2021 15:25-0400 Heart rate 72 /min Philippe NILL [facility] [place] 10-06-2021 15:25-0400 Respiratory rate 16 /min Philippe NILL [facility] [place] 10-06-2021 15:25-0400 Systolic blood pressure 106 mm[Hg] Philippe NILL [facility] [place] Encounters Encounter Date Encounter Type Care Provider Facility Start: 05-16-2024 End: 05-16-2024 Bamboo flowsheet Aida MAYES Work Phone: [facility] Start: 05-16-2024 End: 05-16-2024 Bamboo flowsheet Aida MAYES Work Phone: [facility] Start: 05-16-2024 End: 05-16-2024 Office outpatient visit 15 minutes Aida MAYES Work Phone: [facility] Comment on above: Third trimester preg anaya; 33 weeks gestation of ; size inconsistent with dates Start: 05-16-2024 End: 05-16-2024 ambulatory AIDA SESAY Not Available Start: 04-25-2024 End: 04-25-2024 Bamboo flowsheet Darien Lynette DO Work Phone: [facility] Start: 04-25-2024 End: 04-25-2024 Bamboo flowsheet Darien Lynette DO Work Phone: [facility] Start: 04-25-2024 End: 04-25-2024 Office outpatient visit 15 minutes Darien Lynette DO Work Phone: [facility] Comment on above: 30 weeks gestation o f ; Third trimester Start: 04-25-2024 End: 04-25-2024 ambulatory DARIEN LYNETTE Not Available Start: 04-03-2024 End: 04-03-2024 Bamboo flowsheet Aida MAYES Work Phone: [facility] Start: 04-03-2024 End: 04-03-2024 Bamboo flowsheet Aida MAYES Work Phone: [facility] Start: 04-03-2024 End: 04-03-2024 flow sheet Aida MAYES Work Phone: [facility] Comment on above: 27 weeks gestation o f ; Second trimester ; Sinus congestion Start: 04-03-2024 End: 04-03-2024 ambulatory AIDA SESAY Not Available Start: 03-20-2024 End: 03-20-2024 Clinisync Result Encounter Darien Lynette DO Work Phone: [facility] External Department Unsolicited Start: 03-20-2024 End: 03-20-2024 Clinisync Result Encounter Darien Lynette DO Work Phone: [facility] External Department Unsolicited Start: 03-06-2024 End: 03-06-2024 Bamboo flowsheet Aida MAYES Work Phone: [facility] Start: 03-06-2024 End: 03-06-2024 Bamboo flowsheet Aida MAYES Work Phone: [facility] Start: 03-06-2024 End: 03-06-2024 Office outpatient visit 15 minutes Aida MAYES Work Phone: [facility] Comment on above: Second trimester pre gnancy; 23 weeks gestation of ; Diabetes mellitus screening Start: 03-06-2024 End: 03-06-2024 ambulatory AIDA SESAY Not Available Start: 02-06-2024 End: 02-06-2024 Bamboo flowsheet Darien Lynette DO Work Phone: [facility] Start: 02-06-2024 End: 02-06-2024 Bamboo flowsheet Darien Lynette DO Work Phone: [facility] Start: 02-06-2024 End: 02-06-2024 Office outpatient visit 15 minutes Darien Lynette DO Work Phone: [facility] Comment on above: 19 weeks gestation o f ; Second trimester Start: 02-06-2024 End: 02-06-2024 ambulatory DARIEN LYNETTE Not Available Start: 01-17-2024 End: 01-19-2024 Clinisync Result Encounter Darien Lynette DO Work Phone: [facility] Unsolicited Start: 01-17-2024 End: 01-19-2024 Clinisync Result Encounter Darien Lynette DO Work Phone: [facility] Unsolicited Start: 01-08-2024 End: 01-08-2024 Bamboo flowsheet Darien Lynette DO Work Phone: [facility] Start: 01-08-2024 End: 01-15-2024 Bamboo flowsheet Darien Lynette DO Work Phone: [facility] Start: 01-08-2024 End: 01-15-2024 Clinisync Result Encounter Darien Lynette DO Work Phone: [facility] Unsolicited Start: 01-08-2024 End: 01-08-2024 Patient encounter procedure Darien Lynette DO Work Phone: [facility] Healthcare Start: 01-08-2024 End: 01-08-2024 Periodic preventive med est patient 18-39 yrs Darien Lynette DO Work Phone: [facility] Comment on above: 15 weeks gestation o f ; Well woman exam with routine gynecological exam; Exposure to STD; Vaginal discharge; Screening, , for anatomic survey Start: 01-08-2024 End: 01-08-2024 ambulatory DARIEN LYNETTE Not Available Start: 12-11-2023 End: 12-11-2023 flow sheet Darien Lynette DO Work Phone: [facility] Comment on above: 11 weeks gestation o f Start: 12-11-2023 End: 12-11-2023 ambulatory DARIEN ZAYASO Not Available Start: 11-17-2023 End: 11-17-2023 ambulatory AIDA SESAY Not Available Start: 06-09-[address] SAFIA ADRIAN Facilit y:[facility] Start: 03-31-2022 End: 03-31-[address] VERONICA AMBROCIO . Facility:[facility] Start: 10-27-2021 End: 10-27-2021 Patient encounter procedure Philippe R NILL [facility] [place] Start: 10-06-2021 End: 10-06-2021 Patient encounter procedure Philippe R NILL [facility] [place] Start: 06-28-2021 End: 10-21-[address] SAFIA ADRIAN Facility:[facility] Procedures Date Procedure Procedure Detail Performing Clinician Start: 05-16-2024 Urnls dip stick/tabl et rgnt non-auto w/o micrscp Aida MAYES Work Phone: Start: 04-25-2024 Urnls dip stick/tabl et rgnt non-auto w/o micrscp Darien Lynette DO Work Phone: Start: 04-03-2024 Urnls dip stick/tabl et rgnt non-auto w/o micrscp Aida MAYES Work Phone: Start: 03-20-2024 ALL CBC WITH AUTO DIFF Darien Lynette DO Work Phone: Start: 03-06-2024 Urnls dip stick/tabl et rgnt non-auto w/o micrscp Aida MAYES Work Phone: Start: 02-06-2024 Urnls dip stick/tabl et rgnt non-auto w/o micrscp Darien Lynette DO Work Phone: Start: 01-17-2024 AFP, SERUM, OPEN SPI NA BIFIDA Darien Lynette DO Work Phone: Start: 01-08-2024 Urnls dip stick/tabl et rgnt non-auto w/o micrscp Darien Lynette DO Work Phone: Start: 01-08-2024 IGP,APTIMA HPV,AGE GDLN Darien Lynette DO Work Phone: Start: 12-11-2023 Urnls dip stick/tabl et rgnt non-auto w/o micrscp Darien Lynette DO Work Phone: Tonsillectomy Philippe MCGOWAN Plan of Treatment Date Care Activity Detail Author Start: 05-30-2024 End: 05-30-2024 Patient encounter procedure 05/30/2024 11:40 AM EST Routine [facility] [address] [place] [address] Darien Ojeda, DO [address] [place] [address] [facility] Start: 05-30-2024 End: 05-30-2024 Professional / ancillary services management 05/30/2024 11:00 AM EST Ancillary Procedure [facility] [address] [place] [address] [facility] Start: 05-16-2024 End: 05-16-2025 US for US OB follow up transabdominal approach Imaging Routine size inconsistent with dates Expected: 05/16/2024, Expires: 05/16/2025 [facility] Work Phone: Comment on above: Expected: 05/16/2024 , Expires: 05/16/2025 Start: 05-16-2024 End: 05-16-2024 Patient encounter procedure [facility] Comment on above: Arrived Start: 04-25-2024 End: 04-25-2024 Patient encounter procedure [facility] Comment on above: Arrived Start: 04-03-2024 End: 04-03-2024 Patient encounter procedure [facility] Comment on above: Arrived Start: 03-06-2024 End: 03-06-2025 CBC panel - Blood by Automated count CBC Lab Routine Diabetes mellitus screening Expected: 03/06/2024 (Approximate), Expires: 03/06/2025 [facility] Work Phone: Comment on above: Expected: 03/06/2024 (Approximate), Expires: 03/06/2025 Start: 03-06-2024 End: 03-06-2025 Measurement of glucose 1 hour after glucose challenge for glucose tolerance test Glucose tolerance, 1 hour Lab Routine Diabetes mellitus screening Expected: 03/06/2024 (Approximate), Expires: 03/06/2025 [facility] Comment on above: Expected: 03/06/2024 (Approximate), Expires: 03/06/2025 Start: 03-06-2024 End: 03-06-2024 Patient encounter procedure [facility] Comment on above: Arrived Start: 02-06-2024 End: 02-06-2024 Patient encounter procedure [facility] Comment on above: Arrived Start: 01-08-2024 End: 02-07-2024 Alpha fetoprotein, maternal Alpha fetoprotein, maternal Lab Routine 15 weeks gestation of Expected: 01/08/2024 (Approximate), Expires: 02/07/2024 [facility] Comment on above: Expected: 01/08/2024 (Approximate), Expires: 02/07/2024 Start: 01-08-2024 End: 01-07-2025 US for US OB ANATOMY SINGLE W US OB CERVICAL LENGTH Imaging Routine Screening, , for anatomic survey Expected: 01/08/2024 (Approximate), Expires: 01/07/2025 [facility] Comment on above: Expected: 01/08/2024 (Approximate), Expires: 01/07/2025 Start: 01-08-2024 End: 01-08-2024 Patient encounter procedure [facility] Comment on above: Arrived CHLAMYDIA TRACHOMATI S (GENITO/STI) CHLAMYDIA TRACHOMATIS (GENITO/STI) Lab Routine Exposure to STD Ordered: 01/08/2024 [facility] Comment on above: Ordered: 01/08/2024 Cytology Cervical or vaginal smear or scraping study Pap Smear Pathology and Cytology Routine Well woman exam with routine gynecological exam Ordered: 01/08/2024 [facility] Comment on above: Ordered: 01/08/2024 Human papilloma viru s DNA [Presence] in Unspecified specimen by Probe with amplification HPV DNA probe, amplified Microbiology Routine Well woman exam with routine gynecological exam Ordered: 01/08/2024 [facility] Comment on above: Ordered: 01/08/2024 Neisseria gonorrhoea e DNA [Presence] in Unspecified specimen by LYNDSEY with probe detection Neisseria gonorrhea DNA probe, direct Lab Routine Exposure to STD Ordered: 01/08/2024 [facility] Comment on above: Ordered: 01/08/2024 SURESWAB(R) ADVANCED VAGINITIS PLUS, TMA SURESWAB(R) ADVANCED VAGINITIS PLUS, TMA Pathology and Cytology Routine Vaginal discharge Ordered: 01/08/2024 [facility] Work Phone: Comment on above: Ordered: 01/08/2024 Payers Date Payer Category Payer Medicaid [employer] [place] [id number] 2022-Present [address] [place] [address] [id number] 2022 Private Health Insurance [employer] [id number] 2022 Medicaid [id number] 1993 Unknown [id number] 593 1993 Unknown [id number]. 593 1993 Unknown [id number]. 593 1993 Unknown [id number]. 1259 1993 Unknown [id number] [id number]. 1259 1993 Unknown [id number] [id number]. 1259 1993 Unknown [id number]. 1259 1993 Unknown [id number] [id number]. 1259 1993 Unknown [id number] [id number]. 1259 1993 Unknown [id number] [id number]. 1259 1993 Unknown [id number]. 1259 1959 Self-pay [id number] 1959 Unknown [id number] Social History Date Type Detail Facility Start: 10-06-2021 End: 11-30-2022 Tobacco smoking status Never smoked tobacco (finding) [facility] Tobacco smoking status Never [facility] Start: 05-08-2023 Sex Assigned At Female [facility] Start: 11-30-2022 Tobacco use and exposure Smokeless tobacco non-user [facility] Start: 01-08-2024 End: 04-25-2024 Alcoholic beverage intake Lifetime non-drinker (finding) [facility] Start: 05-08-2023 History of Social function [facility] Start: 10-06-2023 [facility] Start: 1995 Sex assigned at Female [facility] Start: 10-26-2022 Gender identity Identifies as female gender (finding) [facility] Functional Status Date Assessment Result Facility 10-06-2021 Functional Status N/A [facility] [place] Clinical Notes 10-06-2021 to 05-16-2024 GERBER Dorsey - 05/16/2024 8:30 AM Emma Melchor LPN - 04/25/2024 9:00 AM GERBER Guaman - 04/03/2024 11:20 AM Juana Menendez MA - 03/06/2024 9:20 AM EST Note Date & Type Note Facility 05-16-2024 History of Present illness Narrative Reason for Appointment: Patient ID: Nidhi Cook is a 29 y.o. female who presents for Routine Visit Patient presents today for Return OB appointment. MEDICATIONS Current Outpatient Medications Medication Instructions MV-Min-Fe Fum-FA-DHA ( 1 PO) Take by mouth ALLERGIES No Known Allergies PROBLEMS Active Ambulatory Problems Diagnosis Date Noted No Active Ambulatory Problems Resolved Ambulatory Problems Diagnosis Date Noted No Resolved Ambulatory Problems No Additional Past Medical History HISTORY PAST MEDICAL HISTORY SOCIAL HISTORY No past medical history on file. Social History Tobacco Use Smoking status: Never Smokeless tobacco: Never Substance Use Topics Alcohol use: Never Drug use: Never FAMILY HISTORY No family history on file. SURGICAL HISTORY Past Surgical History: Procedure Laterality Date SECTION, LOW TRANSVERSE 2019 OTHER SURGICAL HISTORY lesion removal PAP SMEAR 06/25/2020 negative REVIEW OF SYSTEMS Review of Systems: Review of Systems Constitutional: Negative. HENT: Negative. Eyes: Negative. Respiratory: Negative. Cardiovascular: Negative. Gastrointestinal: Negative. Genitourinary: Negative. Musculoskeletal: Negative. Skin: Negative. Neurological: Negative. All other systems reviewed and are negative. Hematological: Negative. Endocrine: Negative. Allergic/Immunologic: Negative. OBJECTIVE Objective: Physical Exam Constitutional: Appearance: Normal appearance. She is normal weight. HENT: Head: Normocephalic. Cardiovascular: Rate and Rhythm: Normal rate. Pulses: Normal pulses. Pulmonary: Effort: Pulmonary effort is normal. Breath sounds: Normal breath sounds. Abdominal: Palpations: Abdomen is soft. Musculoskeletal: General: Normal range of motion. Neurological: General: No focal deficit present. Mental Status: She is alert and oriented to person, place, and time. Psychiatric: Mood and Affect: Mood normal. Behavior: Behavior normal. Thought Content: Thought content normal. Judgment: Judgment normal. Vitals and nursing note reviewed. Vitals: Estimated body mass index is 29.21 kg/m as calculated from the following: Height as of 01/30/23: 5' 4 . Weight as of this encounter: 170 lb 3.2 oz. BP: 98/62 No LMP recorded. Patient is . ASSESSMENT & PLAN ICD-10-CM 1. Third trimester Z34.93 POCT urinalysis dipstick manually resulted 2. 33 weeks gestation of Z3A.33 3. size inconsistent with dates O26.849 US OB follow up transabdominal approach Return OB: Patient presents today for a routine obstetrics appointment. Patient is currently 33w6d . Patient states she is doing well but has complaints of being tired due to current . Patient has verbalizes frequent movement. labor precautions was discussed/given and patient was instructed to perform kick counts three times a day. Orders Placed This Encounter Procedures US OB follow up transabdominal approach POCT urinalysis dipstick manually resulted Follow Up: Patient is to return to office in 2 week for routine OB appointment. Documented by GERBER Dorsey on behalf of: GERBER Dorsey documented in this encounter [facility] 04-25-2024 History of Present illness Narrative Reason for Appointment: Patient ID: Nidhi Cook is a 28 y.o. female who presents for No chief complaint on file. Patient presents today for Return OB appointment. MEDICATIONS Current Outpatient Medications Medication Instructions MV-Min-Fe Fum-FA-DHA ( 1 PO) Take by mouth ALLERGIES No Known Allergies PROBLEMS Active Ambulatory Problems Diagnosis Date Noted No Active Ambulatory Problems Resolved Ambulatory Problems Diagnosis Date Noted No Resolved Ambulatory Problems No Additional Past Medical History HISTORY PAST MEDICAL HISTORY SOCIAL HISTORY History reviewed. No pertinent past medical history. Social History Tobacco Use Smoking status: Never Smokeless tobacco: Never Substance Use Topics Alcohol use: Never Drug use: Never FAMILY HISTORY No family history on file. SURGICAL HISTORY Past Surgical History: Procedure Laterality Date SECTION, LOW TRANSVERSE 2019 OTHER SURGICAL HISTORY lesion removal PAP SMEAR 06/25/2020 negative REVIEW OF SYSTEMS Review of Systems: Review of Systems All other systems reviewed and are negative. OBJECTIVE Objective: Physical Exam Constitutional: Appearance: Normal appearance. She is well-developed. Cardiovascular: Rate and Rhythm: Normal rate and regular rhythm. Pulmonary: Effort: Pulmonary effort is normal. Breath sounds: Normal breath sounds. Abdominal: General: Bowel sounds are normal. There is no distension. Palpations: Abdomen is soft. Tenderness: There is no abdominal tenderness. There is no guarding or rebound. Musculoskeletal: General: No swelling. Normal range of motion. Right lower leg: No edema. Left lower leg: No edema. Neurological: Mental Status: She is alert and oriented to person, place, and time. Skin: General: Skin is warm and dry. Psychiatric: Mood and Affect: Mood normal. Behavior: Behavior normal. Vitals and nursing note reviewed. Exam conducted with a digital measurement advisor present. Vitals: Estimated body mass index is 28.84 kg/m as calculated from the following: Height as of 01/30/23: 5' 4 . Weight as of this encounter: 168 lb. BP: 102/60 No LMP recorded. Patient is . ASSESSMENT & PLAN ICD-10-CM 1. 30 weeks gestation of Z3A.30 POCT urinalysis dipstick manually resulted 2. Third trimester Z34.93 POCT urinalysis dipstick manually resulted Patient presents today for a routine obstetrics appointment. Patient is currently 30w6d with a Estimated Date of Delivery: 06/28/24. Patient to return to clinic in 2 weeks. Documented by Rita Melchor LPN on behalf of: Darien Ojeda DO documented in this encounter [facility] 04-03-2024 History of Present illness Narrative Reason for Appointment: Patient ID: Nidhi Cook is a 28 y.o. female who presents for Routine Visit Patient presents today for Return OB appointment. MEDICATIONS Current Outpatient Medications Medication Instructions azithromycin (Zithromax Z-Justin) 250 MG tablet As directed MV-Min-Fe Fum-FA-DHA ( 1 PO) Take by mouth ALLERGIES No Known Allergies PROBLEMS Active Ambulatory Problems Diagnosis Date Noted No Active Ambulatory Problems Resolved Ambulatory Problems Diagnosis Date Noted No Resolved Ambulatory Problems No Additional Past Medical History HISTORY PAST MEDICAL HISTORY SOCIAL HISTORY History reviewed. No pertinent past medical history. Social History Tobacco Use Smoking status: Never Smokeless tobacco: Never Substance Use Topics Alcohol use: Never Drug use: Never FAMILY HISTORY No family history on file. SURGICAL HISTORY Past Surgical History: Procedure Laterality Date SECTION, LOW TRANSVERSE 2019 OTHER SURGICAL HISTORY lesion removal PAP SMEAR 06/25/2020 negative REVIEW OF SYSTEMS Review of Systems: Review of Systems HENT: Positive for congestion and sore throat. All other systems reviewed and are negative. OBJECTIVE Objective: Physical Exam Constitutional: Appearance: Normal appearance. She is normal weight. HENT: Head: Normocephalic. Mouth/Throat: Mouth: Mucous membranes are moist. Pharynx: Oropharynx is clear. Cardiovascular: Rate and Rhythm: Normal rate. Pulses: Normal pulses. Pulmonary: Effort: Pulmonary effort is normal. Breath sounds: Normal breath sounds. Abdominal: Palpations: Abdomen is soft. Musculoskeletal: General: Normal range of motion. Neurological: General: No focal deficit present. Mental Status: She is alert and oriented to person, place, and time. Psychiatric: Mood and Affect: Mood normal. Behavior: Behavior normal. Thought Content: Thought content normal. Judgment: Judgment normal. Vitals and nursing note reviewed. Vitals: Estimated body mass index is 27.66 kg/m as calculated from the following: Height as of 01/30/23: 5' 4 . Weight as of this encounter: 161 lb 1.9 oz. BP: 120/70 No LMP recorded. Patient is . ASSESSMENT & PLAN ICD-10-CM 1. 27 weeks gestation of Z3A.27 POCT urinalysis dipstick manually resulted 2. Second trimester Z34.92 POCT urinalysis dipstick manually resulted 3. Sinus congestion R09.81 azithromycin (Zithromax Z-Justin) 250 MG tablet Return OB: Patient presents today for a routine obstetrics appointment. Patient is currently 27w5d . Patient states she is doing well but has complaints of being tired due to current . Patient has verbalizes frequent movement. labor precautions was discussed/given and patient was instructed to perform kick counts three times a day. Complaints of sore throat and congestion will be traveling over the Hol. She is afebrile and other olguin and well appearing and Lung sounds clear throughout. Prescription sent for azithromycin should symptoms increase over the holiday. Orders Placed This Encounter Procedures POCT urinalysis dipstick manually resulted Follow Up: Patient is to return to office in 2 week for routine OB appointment. Documented by GERBER Dorsey on behalf of: GERBER Dorsey documented in this encounter [facility] 03-06-2024 History of Present illness Narrative Reason for Appointment: Patient ID: Nidhi Cook is a 28 y.o. female who presents for Routine Visit Patient presents today for Return OB appointment. MEDICATIONS Current Outpatient Medications Medication Instructions MV-Min-Fe Fum-FA-DHA ( 1 PO) Take by mouth ALLERGIES No Known Allergies PROBLEMS Active Ambulatory Problems Diagnosis Date Noted No Active Ambulatory Problems Resolved Ambulatory Problems Diagnosis Date Noted No Resolved Ambulatory Problems No Additional Past Medical History HISTORY PAST MEDICAL HISTORY SOCIAL HISTORY No past medical history on file. Social History Tobacco Use Smoking status: Never Smokeless tobacco: Never Substance Use Topics Alcohol use: Never Drug use: Never FAMILY HISTORY No family history on file. SURGICAL HISTORY Past Surgical History: Procedure Laterality Date SECTION, LOW TRANSVERSE 2019 OTHER SURGICAL HISTORY lesion removal PAP SMEAR 06/25/2020 negative REVIEW OF SYSTEMS Review of Systems: Review of Systems OBJECTIVE Objective: OBGyn Exam Vitals: Estimated body mass index is 27.29 kg/m as calculated from the following: Height as of 01/30/23: 5' 4 . Weight as of this encounter: 159 lb. BP: 110/68 No LMP recorded. Patient is . ASSESSMENT & PLAN ICD-10-CM 1. Second trimester Z34.92 POCT urinalysis dipstick manually resulted 2. 23 weeks gestation of Z3A.23 3. Diabetes mellitus screening Z13.1 CBC Glucose tolerance, 1 hour CBC Glucose tolerance, 1 hour Return OB: Patient presents today for a routine obstetrics appointment. Patient is currently 23w5d . Patient states she is doing well but has complaints of being tired due to current . Patient has verbalizes frequent movement. labor precautions was discussed/given and patient was instructed to perform kick counts three times a day. Patient was also given her 1 hour glucose/CBC order to have done next week. Orders Placed This Encounter Procedures CBC Glucose tolerance, 1 hour POCT urinalysis dipstick manually resulted Follow Up: Patient is to return to office in 2 week for routine OB appointment. Documented by Liyah Menendez MA on behalf of: GERBER Dorsey Reason for Appointment: Patient ID: Nidhi Cook is a 28 y.o. female who presents for Routine Visit Patient presents today for Return OB appointment. MEDICATIONS Current Outpatient Medications Medication Instructions MV-Min-Fe Fum-FA-DHA ( 1 PO) Take by mouth ALLERGIES No Known Allergies PROBLEMS Active Ambulatory Problems Diagnosis Date Noted No Active Ambulatory Problems Resolved Ambulatory Problems Diagnosis Date Noted No Resolved Ambulatory Problems No Additional Past Medical History HISTORY PAST MEDICAL HISTORY SOCIAL HISTORY No past medical history on file. Social History Tobacco Use Smoking status: Never Smokeless tobacco: Never Substance Use Topics Alcohol use: Never Drug use: Never FAMILY HISTORY No family history on file. SURGICAL HISTORY Past Surgical History: Procedure Laterality Date SECTION, LOW TRANSVERSE 2019 OTHER SURGICAL HISTORY lesion removal PAP SMEAR 06/25/2020 negative REVIEW OF SYSTEMS Review of Systems: Review of Systems All other systems reviewed and are negative. OBJECTIVE Objective: Physical Exam Constitutional: Appearance: Normal appearance. She is normal weight. HENT: Head: Normocephalic. Cardiovascular: Rate and Rhythm: Normal rate. Pulses: Normal pulses. Pulmonary: Effort: Pulmonary effort is normal. Breath sounds: Normal breath sounds. Abdominal: Palpations: Abdomen is soft. Musculoskeletal: General: Normal range of motion. Neurological: General: No focal deficit present. Mental Status: She is alert and oriented to person, place, and time. Psychiatric: Mood and Affect: Mood normal. Behavior: Behavior normal. Thought Content: Thought content normal. Judgment: Judgment normal. Vitals and nursing note reviewed. Vitals: Estimated body mass index is 27.29 kg/m as calculated from the following: Height as of 01/30/23: 5' 4 . Weight as of this encounter: 159 lb. BP: 110/68 No LMP recorded. Patient is . ASSESSMENT & PLAN ICD-10-CM 1. Second trimester Z34.92 POCT urinalysis dipstick manually resulted 2. 23 weeks gestation of Z3A.23 3. Diabetes mellitus screening Z13.1 CBC Glucose tolerance, 1 hour CBC Glucose tolerance, 1 hour Documented by GERBER Dorsey on behalf of: GERBER Dorsey documented in this encounter [facility] 02-06-2024 History of Present illness Narrative Reason for Appointment: Patient ID: Nidhi Cook is a 28 y.o. female who presents for Routine Visit Patient presents today for Return OB appointment. MEDICATIONS Current Outpatient Medications Medication Instructions MV-Min-Fe Fum-FA-DHA ( 1 PO) Take by mouth ALLERGIES No Known Allergies PROBLEMS Active Ambulatory Problems Diagnosis Date Noted No Active Ambulatory Problems Resolved Ambulatory Problems Diagnosis Date Noted No Resolved Ambulatory Problems No Additional Past Medical History HISTORY PAST MEDICAL HISTORY SOCIAL HISTORY History reviewed. No pertinent past medical history. Social History Tobacco Use Smoking status: Never Smokeless tobacco: Never Substance Use Topics Alcohol use: Never Drug use: Never FAMILY HISTORY No family history on file. SURGICAL HISTORY Past Surgical History: Procedure Laterality Date SECTION, LOW TRANSVERSE 2019 OTHER SURGICAL HISTORY lesion removal PAP SMEAR 06/25/2020 negative REVIEW OF SYSTEMS Review of Systems: Review of Systems Constitutional: Negative. HENT: Negative. Eyes: Negative. Respiratory: Negative. Cardiovascular: Negative. Gastrointestinal: Negative. Genitourinary: Negative. Musculoskeletal: Negative. Skin: Negative. Neurological: Negative. All other systems reviewed and are negative. Hematological: Negative. Endocrine: Negative. Allergic/Immunologic: Negative. OBJECTIVE Objective: Physical Exam Constitutional: Appearance: Normal appearance. She is well-developed. Cardiovascular: Rate and Rhythm: Normal rate and regular rhythm. Pulmonary: Effort: Pulmonary effort is normal. Breath sounds: Normal breath sounds. Abdominal: General: Bowel sounds are normal. There is no distension. Palpations: Abdomen is soft. Tenderness: There is no abdominal tenderness. There is no guarding or rebound. Musculoskeletal: General: No swelling. Normal range of motion. Right lower leg: No edema. Left lower leg: No edema. Neurological: Mental Status: She is alert and oriented to person, place, and time. Skin: General: Skin is warm and dry. Psychiatric: Mood and Affect: Mood normal. Behavior: Behavior normal. Vitals and nursing note reviewed. Exam conducted with a digital measurement advisor present. Vitals: Estimated body mass index is 26.78 kg/m as calculated from the following: Height as of 01/30/23: 5' 4 . Weight as of this encounter: 156 lb. BP: 108/60 No LMP recorded. Patient is . ASSESSMENT & PLAN ICD-10-CM 1. 19 weeks gestation of Z3A.19 POCT urinalysis dipstick manually resulted 2. Second trimester Z34.92 POCT urinalysis dipstick manually resulted Patient presents today for a routine obstetrics appointment. Patient is currently 19w4d with a Estimated Date of Delivery: 06/28/24. Pt has to repeat ultrasound d/t placenta location 2.2cm away. Pt to return in 4 weeks. Documented by Nena Mckinley LPN on behalf of: Darien Ojeda DO documented in this encounter [facility] 01-08-2024 History of Present illness Narrative Reason for Appointment: Patient ID: Nidhi Cook is a 28 y.o. female who presents for Well Women Visit, Routine Visit, and STI Screening Patient presents today for Return OB appointment. MEDICATIONS Current Outpatient Medications Medication Instructions MV-Min-Fe Fum-FA-DHA ( 1 PO) Oral ALLERGIES No Known Allergies PROBLEMS Active Ambulatory Problems Diagnosis Date Noted No Active Ambulatory Problems Resolved Ambulatory Problems Diagnosis Date Noted No Resolved Ambulatory Problems No Additional Past Medical History HISTORY PAST MEDICAL HISTORY SOCIAL HISTORY History reviewed. No pertinent past medical history. Social History Tobacco Use Smoking status: Never Smokeless tobacco: Never Substance Use Topics Alcohol use: Never Drug use: Never FAMILY HISTORY No family history on file. SURGICAL HISTORY Past Surgical History: Procedure Laterality Date SECTION, LOW TRANSVERSE 2019 OTHER SURGICAL HISTORY lesion removal PAP SMEAR 06/25/2020 negative REVIEW OF SYSTEMS Review of Systems: Review of Systems All other systems reviewed and are negative. OBJECTIVE Objective: Physical Exam Constitutional: Appearance: Normal appearance. She is well-developed. Genitourinary: Vulva normal. Breasts: Breasts are soft. Right: Normal. Left: Normal. Cardiovascular: Rate and Rhythm: Normal rate and regular rhythm. Pulmonary: Effort: Pulmonary effort is normal. Breath sounds: Normal breath sounds. Abdominal: General: Bowel sounds are normal. There is no distension. Palpations: Abdomen is soft. Tenderness: There is no abdominal tenderness. There is no guarding or rebound. Musculoskeletal: General: No swelling. Normal range of motion. Right lower leg: No edema. Left lower leg: No edema. Neurological: Mental Status: She is alert and oriented to person, place, and time. Skin: General: Skin is warm and dry. Psychiatric: Mood and Affect: Mood normal. Behavior: Behavior normal. Vitals and nursing note reviewed. Exam conducted with a digital measurement advisor present. Vitals: Estimated body mass index is 26.16 kg/m as calculated from the following: Height as of 01/30/23: 5' 4 . Weight as of this encounter: 152 lb 6.4 oz. BP: 104/60 No LMP recorded. Patient is . ASSESSMENT & PLAN ICD-10-CM 1. 15 weeks gestation of Z3A.15 POCT urinalysis dipstick manually resulted Alpha fetoprotein, maternal Alpha fetoprotein, maternal 2. Well woman exam with routine gynecological exam Z01.419 Pap Smear HPV DNA probe, amplified 3. Exposure to STD Z20.2 CHLAMYDIA TRACHOMATIS (GENITO/STI) Neisseria gonorrhea DNA probe, direct 4. Vaginal discharge N89.8 SURESWAB(R) ADVANCED VAGINITIS PLUS, TMA 5. Screening, , for anatomic survey Z36.89 US OB ANATOMY SINGLE W US OB CERVICAL LENGTH Return OB/Annual Exam: Patient presents today for an annual exam/routine obstetrics appointment. Patient is currently 15w3d . Patient is doing well and states she has no complaints. Pap/cultures was obtained without difficulty and [facility]. Discussed baby aspirin and if patient desires to take. Orders Placed This Encounter Procedures HPV DNA probe, amplified US OB ANATOMY SINGLE W US OB CERVICAL LENGTH CHLAMYDIA TRACHOMATIS (GENITO/STI) Neisseria gonorrhea DNA probe, direct Alpha fetoprotein, maternal POCT urinalysis dipstick manually resulted Follow Up: Patient is to return to our office in 4 weeks for routine OB appointment Documented by Rita Melchor LPN on behalf of: Darien Ojeda DO documented in this encounter [facility] 12-11-2023 History of Present illness Narrative Reason for Appointment: Patient ID: Nidhi Cook is a 28 y.o. female who presents for Routine Visit Patient presents today for Return OB appointment. MEDICATIONS Current Outpatient Medications Medication Instructions MV-Min-Fe Fum-FA-DHA ( 1 PO) Oral ALLERGIES No Known Allergies PROBLEMS Active Ambulatory Problems Diagnosis Date Noted No Active Ambulatory Problems Resolved Ambulatory Problems Diagnosis Date Noted No Resolved Ambulatory Problems No Additional Past Medical History HISTORY PAST MEDICAL HISTORY SOCIAL HISTORY History reviewed. No pertinent past medical history. Social History Tobacco Use Smoking status: Never Smokeless tobacco: Never Substance Use Topics Alcohol use: Never Drug use: Never FAMILY HISTORY No family history on file. SURGICAL HISTORY Past Surgical History: Procedure Laterality Date SECTION, LOW TRANSVERSE 2019 OTHER SURGICAL HISTORY lesion removal PAP SMEAR 06/25/2020 negative REVIEW OF SYSTEMS Review of Systems: Review of Systems All other systems reviewed and are negative. OBJECTIVE Objective: Physical Exam Constitutional: Appearance: Normal appearance. She is well-developed. Cardiovascular: Rate and Rhythm: Normal rate and regular rhythm. Pulmonary: Effort: Pulmonary effort is normal. Breath sounds: Normal breath sounds. Abdominal: General: Bowel sounds are normal. There is no distension. Palpations: Abdomen is soft. Tenderness: There is no abdominal tenderness. There is no guarding or rebound. Musculoskeletal: General: No swelling. Normal range of motion. Right lower leg: No edema. Left lower leg: No edema. Neurological: Mental Status: She is alert and oriented to person, place, and time. Skin: General: Skin is warm and dry. Psychiatric: Mood and Affect: Mood normal. Behavior: Behavior normal. Vitals and nursing note reviewed. Exam conducted with a digital measurement advisor present. Vitals: Estimated body mass index is 25.58 kg/m as calculated from the following: Height as of 01/30/23: 5' 4 . Weight as of this encounter: 149 lb. BP: 100/58 No LMP recorded. Patient is . ASSESSMENT & PLAN ICD-10-CM 1. 11 weeks gestation of Z3A.11 POCT urinalysis dipstick manually resulted New OB: Patient presents today for 1st time obstetrics appointment with provider. Patient is currently 11w3d . Patients history has been reviewed in great detail including any potential risks. Patient stated she currently has no complaints. Expectations throughout regarding labs, ultrasounds, and appointments have been discussed with the patient in detail. It was reiterated that the patient is to drink 6-8 glasses of water a day, eat 6 small meals a day, do not consume raw or undercooked meat, and stay away from [facility]. Patient has been consulted regarding any further do's and don'ts of . Patient voiced understanding and all questions and concerns were answered. Patient given gender envelope prior to leaving office. Results were confirmed by 2 nurses prior to placing results in envelope. Orders Placed This Encounter Procedures POCT urinalysis dipstick manually resulted Follow Up: Patient is to return in 4 weeks for routine OB appointment. Documented by Rita Melchor LPN on behalf of: Aida Sesay PA-C documented in this encounter [facility] 10-06-2021 Note Chief Complaint consultation for nevus [...] Use:., 10/06/2021 Family History Cardiac arrhythmia: Father. [facility] Comment on above: Result Comment: Elec tronically Signed By: YANIRA DIAMOND, Philippe Ramirez\.br\Date and Time Signed: 10/06/21 16:57 EDT Evaluation + Plan note Future Appointments Appointment Date:10/27/2021 01:40:00 PM Scheduled Provider:Philippe MCGOWAN MD Location:[facility] Appointment Type: Procedure 30 [facility] Evaluation note Diagnosis 19 weeks gestation of Second trimester state, incidental [facility] Diagnosis Second trimester state, incidental 23 weeks gestation of Diabetes mellitus screening Screening for diabetes mellitus [facility] Diagnosis 11 weeks gestation of [facility] Diagnosis 27 weeks gestation of Second trimester state, incidental Sinus congestion Other diseases of nasal cavity and sinuses [facility] Diagnosis 15 weeks gestation of Well woman exam with routine gynecological exam Routine gynecological examination Exposure to STD Vaginal discharge Leukorrhea, not specified as infective Screening, , for anatomic survey Encounter for anatomic survey [facility] Diagnosis 30 weeks gestation of Third trimester state, incidental [facility] Diagnosis Third trimester state, incidental 33 weeks gestation of size inconsistent with dates [facility] Narrative No data available for this section [facility] Discharge instructions No data available for this section [facility] Progress note No data available for this section [facility] Summary Purpose Family History No Family History Records FoundNo Family History Records FoundNo Family History Records Found Advance Directives No Advanced Directives Records FoundNo Advanced Directives Records FoundNo Advanced Directives Records Found Additional Source Comments Care Team (unrecognized sect ion and content) Pharmaceutical Worker Relationship Specialty Start Date End Date Veronica Ambrocio MD [address] [place] [id number] PCP - General Family Medicine 12/05/22 Pharmaceutical Worker Relationship Specialty Start Date End Date Veronica Ambrocio MD [address] [place] [facility] [place] [phone] PCP - General Family Medicine 12/05/22 Pharmaceutical Worker Relationship Specialty Start Date End Date Veronica Ambrocio MD [address] [facility] [place] [address] PCP - General Family Medicine 12/05/22 Pharmaceutical Worker Relationship Specialty Start Date End Date Veronica Ambrocio MD [address] [facility] [place] [phone] PCP - General Family Medicine 12/05/22 Pharmaceutical Worker Relationship Specialty Start Date End Date Veronica Ambrocio MD [address] [facility] [place] [address] PCP - General Family Medicine 12/05/22 Pharmaceutical Worker Relationship Specialty Start Date End Date Veronica Ambrocio MD [address] [facility] [place] [facility] [place] [phone] PCP - General Family Medicine 12/05/22 Pharmaceutical Worker Relationship Specialty Start Date End Date Veronica Ambrocio MD [address] [facility] [place] [phone] PCP - General Family Medicine 12/05/22 INFORMATION SOURCE (unrecogn ized section and content) DATE CREATED AUTHOR 11/02/2021 [facility] DATE CREATED AUTHOR AUTHOR'S ORGANIZ ATION 06/10/2022 [facility] DATE CREATED AUTHOR AUTHOR'S ORGANIZ ATION 05/18/2024 [facility] EPIC Reason for Visit (unrecogniz ed section and content) Reason Comments Routine Visit Reason Comments Well Women Visit Routine Visit STI Screening FOR RECORDS PERTAINING TO PATIENTS WHO ARE [...] BE BASED ON THE PRIMARY CLINICAL RECORDS. [facility] [employer] [facility]. provides no warranty or guarantee of the accuracy or completeness of information in this document.
== END 2024-06-03 08:49 | disposition home or self-care (01) ==
LOC: US 08:49
PROVIDERS: PCP Family Medicine; Visit Provider Physician Assistant
DX: O26.843 Uterine size-date discrepancy, third trimester (principal); Z3A.35 35 weeks gestation of pregnancy
CPT/HCPCS: 76816

== ENCOUNTER 2024-06-04 20:29 | Outpatient (REF) | payer OTHER, SELFPAY ==
--- OUTSIDE RECORDS SUMMARY | 2024-06-04 20:32 | XMS_ITS | CCD ---
Author Organization [facility] Care Team Providers Care Ski Technician Name Role Phone Veronica Ambrocio Primary Care Physician NGUYỄN, DR SAFIA Pichardo [...] Unavailable Veronica Ambrocio MD Primary Care Provider [phone] AIDA SESAY Attending Unavailable DARIEN OJEDA Attending [...] UA Negative Negative - 4(70) +++ mg/dL [facility] Blood, UA Negative Negative - 50 Zenon/mcL [facility] Clarity, UA Clear [facility] re Color, UA Yellow [facility] Glucose, UA Negative Negative - 1999(110) ++++ mg/dL [facility] Interpretation and review of laboratory results Abnormal [facility] Ketones, UA Negative Negative - 160(16) ++++ mg/dL [facility] Leukocytes, UA Many Negative - 500+++ Viral/mcL [facility] Nitrite, UA Negative Negative - Positive [facility] pH, UA 7 5 - 9 [facility] e Protein, UA Trace Negative - 1999(20) ++++ mg/dL [facility] Spec Grav, UA 1.025 1 - 1.03 [facility] care Urobilinogen, UA 1.0 0.2 - 12 mg/dL [facility] Urinalysis macro (dipstick) panel (U)on 04-25-2024 Bilirubin, UA Negative Negative - 4(70) +++ mg/dL [facility] Blood, UA Negative Negative - 50 Zenon/mcL [facility] Clarity, UA Clear [facility] re Color, UA Yellow [facility] Glucose, UA Negative Negative - 1999(110) ++++ mg/dL [facility] Interpretation and review of laboratory results Abnormal [facility] Ketones, UA Negative Negative - 160(16) ++++ mg/dL [facility] Leukocytes, UA Positive Negative - 500+++ Viral/mcL [facility] Comment on above: small Nitrite, UA Negative Negative - Positive [facility] pH, UA 6 5 - 9 [facility] Protein, UA Positive Negative - 1999(20) ++++ mg/dL [facility] Comment on above: 30 Spec Grav, UA 1.025 1 - 1.03 [facility] Urobilinogen, UA 1.0 0.2 - 12 mg/dL [facility] Urinalysis macro (dipstick) panel (U)on 04-03-2024 Bilirubin, UA Negative Negative - 4(70) +++ mg/dL [facility] Blood, UA Negative Negative - 50 Zenon/mcL [facility] Clarity, UA Clear [facility] re Color, UA Yellow [facility] Glucose, UA Negative Negative - 1999(110) ++++ mg/dL [facility] Interpretation and review of laboratory results Abnormal [facility] Ketones, UA Negative Negative - 160(16) ++++ mg/dL [facility] Leukocytes, UA Trace Negative - 500+++ Viral/mcL [facility] Nitrite, UA Negative Negative - Positive [facility] pH, UA 6 5 - 9 [facility] Protein, UA Negative Negative - 1999(20) ++++ mg/dL [facility] Spec Grav, UA 1.02 1 - 1.03 [facility] Urobilinogen, UA 0.2 0.2 - 12 mg/dL [facility] e ALL CBC WITH AUTO DIFFon BASOPHILS ABSOLUTE AUTO 0 [facility] Basophils/100 WBC (Bld) 0.4 % 0.2 - 2.0 % [facility] Eosinophils/100 WBC (Bld) 1.1 % 0.9 - 7.0 % [facility] Erythrocyte distribution width (RBC) [Ratio] 12.6 % 11.0 - 15.0 % [facility] Hematocrit (Bld) [Volume fraction] 34.9 % Low 36.0 - 48.0 % [facility] Hemoglobin (Bld) [Mass/Vol] 11.8 g/dL Low 12.0 - 16.0 g/dL [facility] IMMATURE GRANULOCYTES ABS AUTO 0.06 High [facility] Immature granulocytes/100 WBC (Bld) 0.6 % High 0.0 - 0.5 % [facility] Interpretation and review of laboratory results Abnormal [facility] LYMPHOCYTES ABSOLUTE AUTO 1.9 [facility] Lymphocytes/100 WBC (Bld) 20.6 % 20.5 - 60.0 % [facility] MCH (RBC) [Entitic mass] 32.9 pg 26.7 - 34.0 pg [facility] MCHC (RBC) [Mass/Vol] 33.8 g/dL 29.9 - 35.2 g/dL [facility] MCV (RBC) [Entitic vol] 97.2 fL 81.0 - 99.0 fL [facility] MONOCYTES ABSOLUTE AUTO 0.6 [facility] Monocytes/100 WBC (Bld) 6.7 % 1.7 - 12.0 % [facility] NEUTROPHILS ABSOLUTE AUTO 6.7 High [facility] Neutrophils/100 WBC (Bld) 70.6 % 43.0 - 75.0 % [facility] Platelet mean volume (Bld) [Entitic vol] 10.5 fL 9.5 - 13.5 fL [facility] EO # 0.1 [facility] TB PLT 208 [facility] e TB RBC 3.59 Low [facility] TB WBC 9.4 [facility] Urinalysis macro (dipstick) panel (U)on 03-06-2024 Bilirubin, UA Negative Negative - 4(70) +++ mg/dL [facility] Blood, UA Negative Negative - 50 Zenon/mcL [facility] Clarity, UA Clear [facility] re Color, UA Yellow [facility] Glucose, UA Negative Negative - 1999(110) ++++ mg/dL [facility] Interpretation and review of laboratory results Abnormal [facility] Ketones, UA Negative Negative - 160(16) ++++ mg/dL [facility] Leukocytes, UA Moderate Negative - 500+++ Viral/mcL [facility] Nitrite, UA Negative Negative - Positive [facility] pH, UA 7 5 - 9 [facility] Protein, UA Negative Negative - 1999(20) ++++ mg/dL [facility] Spec Grav, UA 1.025 1 - 1.03 [facility] Urobilinogen, UA 0.2 0.2 - 12 mg/dL [facility] Urinalysis macro (dipstick) panel (U)on 02-06-2024 Bilirubin, UA Negative Negative - 4(70) +++ mg/dL [facility] Blood, UA Negative Negative - 50 Zenon/mcL [facility] Clarity, UA Clear [facility] re Color, UA Yellow [facility] Glucose, UA Negative Negative - 1999(110) ++++ mg/dL [facility] Interpretation and review of laboratory results Abnormal [facility] Ketones, UA Negative Negative - 160(16) ++++ mg/dL [facility] Leukocytes, UA Trace Negative - 500+++ Viral/mcL [facility] Nitrite, UA Negative Negative - Positive [facility] pH, UA 6.5 5 - 9 [facility] e Protein, UA Negative Negative - 1999(20) ++++ mg/dL [facility] Spec Grav, UA 1.025 1 - 1.03 [facility] Urobilinogen, UA 1.0 0.2 - 12 mg/dL [facility] AFP, SERUM, OPEN SPINA BIFID Aon 01-19-2024 AFP MOM 1.03 . [facility] AFP VALUE 37.1 ng/mL . [facility] COMMENT: Comment . [facility] Comment on above: Gayla Latif , Ph.D., [facility] Director References: Available Upon Request. Multiples Of Median Cutoffs For AFP Elevations Vanessa 2.5 Black 2.8 IDD 2.0 Twins 4.5 Abbreviation Definitions IDD - Insulin Dep Diabetes OSBR - Open Spina Bifida Risk For further inquiries contact [facility] at [phone]. This test was developed and its performance characteristics determined by [employer]. It has not been cleared or approved by the Food and Drug Administration. Performed at: [facility] [address] [place], [place] [id number] Ticket Taker: Uma Butler [facility], Phone: [phone] GEST. AGE ON COLLECTION DATE 16.7 . weeks [facility] GESTAT. AGE BASED ON Ultrasound . [facility] Comment on above: 15.4 on 01/08/2024 Recalculations are not recommended when gestational dating by LMP and ultrasound are within 10 days. INSULIN DEP DIABETES No . [facility] Healthcare INTERPRETATION Comment . [facility] Healt hcare Comment on above: Interpretation: [...] Customer Services to discuss available options. The [employer] recommends amniocentesis be offered to women age 35 and older. [age] [facility] MULTIPLE GESTATION No . [facility] [place] [phone] . [facility] Healt hcare RACE . [facility] [employer] RESULTS Report . [facility] [employer] TEST RESULTS: Negative . [facility] care WEIGHT 152 . lbs [facility] [employer] PREGNQNCY N N ULTRASOUND [id number] 3 15 N 1 Y 152 N N N N N White/ [facility] [employer] IGP,APTIMA HPV,AGE GDLNon AGE GDLN ACOG TESTING Note . [facility] Comment on above: TESTS RESULT FLAG U NITS REF RANGE LAB Clinician Provided Cytology Information Source.............Cervix No. of containers..01 ThinPrep Vial Age Algo ACOG Gisela... FLAG LEGEND: L-Low Normal,H-High Normal,LL-Alert Low,HH-Alert High <-Panic Low,>-Panic High,A-Abnormal,AA-Critical Abnormal Performed at: 01 =G [address] [place] [address] Chayito Suarez MD, HPV APTIMA Negative Negative [facility] Comment on above: This nucleic acid am plification test detects fourteen high- risk HPV types (16,18,31,33,35,39,45,51,52,56,58,59,66,68) without differentiation. Performed at: = - [address], [place] [id number] Ticket Taker: Chayito Suarez MD, Phone: [phone] Performed at: [facility] [address], [place] [id number] Ticket Taker: Chayito Suarez MD, Phone: [phone] IGP, APTIMA HPV, RFX 16/18,45 Note . [facility] Comment on above: TESTS RESULT FLAG UN ITS REF RANGE LAB DIAGNOSIS: 02 NEGATIVE FOR INTRAEPITHELIAL LESION OR MALIGNANCY. Specimen adequacy: 02 Satisfactory for evaluation. No endocervical component is identified. Performed by: Yohannes Sykes, Analyst [employer] Intelligence (ASCP) . 02 Note: Note 02 The [...] <-Panic Low,>-Panic High,A-Abnormal,AA-Critical Abnormal Performed at: [address] [place] [address] Chayito Suarez MD, SPATULA-ALONE CERVIX [facility] Urinalysis macro (dipstick) panel (U)on 01-08-2024 Bilirubin, UA Negative Negative - 4(70) +++ mg/dL [facility] Blood, UA Positive Negative - 50 Zenon/mcL [facility] Healthcare Comment on above: trace-itact Clarity, UA Clear [facility] re Color, UA Yellow [facility] Glucose, UA Negative Negative - 1999(110) ++++ mg/dL [facility] Interpretation and review of laboratory results Abnormal [facility] Ketones, UA Negative Negative - 160(16) ++++ mg/dL [facility] Leukocytes, UA Negative Negative - 500+++ Viral/mcL [facility] Nitrite, UA Negative Negative - Positive [facility] pH, UA 6.0 5 - 9 [facility] Protein, UA Negative Negative - 1999(20) ++++ mg/dL [facility] Spec Grav, UA 1.015 1 - 1.03 [facility] Urobilinogen, UA 0.2 0.2 - 12 mg/dL [facility] Urinalysis macro (dipstick) panel (U)on 12-11-2023 Bilirubin, UA Negative Negative - 4(70) +++ mg/dL [facility] Blood, UA Negative Negative - 50 Zenon/mcL [facility] Healthcare Clarity, UA Clear [facility] Color, UA Yellow [facility] Glucose, UA Negative Negative - 1999(110) ++++ mg/dL [facility] Interpretation and review of laboratory results Abnormal [facility] Ketones, UA Negative Negative - 160(16) ++++ mg/dL [facility] Leukocytes, UA Positive Negative - 500+++ Viral/mcL [facility] Comment on above: small Nitrite, UA Negative Negative - Positive [facility] pH, UA 7.0 5 - 9 [facility] Protein, UA Negative Negative - 2000(20) ++++ mg/dL [facility] Spec Grav, UA 1.025 1 - 1.03 [facility] Urobilinogen, UA 0.2 0.2 - 12 mg/dL [facility] Covid-19 PCR ([facility])on 03-17 SARS-CoV-2 (COVID-19) RNA LYNDSEY+probe Ql (Unsp spec) Not detected Normal NOT DETECTED [facility] Comment on above: Result Comment: This test is not yet approved or cleared by the [place] FDA. When there are no FDA-approved or cleared tests available, and other criteria are met, FDA can make tests available under an emergency access mechanism called an Emergency Use Authorization (EUA). The EUA for this test is supported by the [place] of Health and Human Service's (HHS's) declaration [...] SARS-CoV-2. Performed By: #### C VDTBH #### [facility] Laboratory [address] [place] [address] Dr. Radha Rucker INFLUENZA A AND B AGon 03-31 INFLUANEGH SEE BELOW Normal [facility] Comment on above: Result Comment: Nega tive for Flu A protein angiten. Infection due to Flu A cannot be ruled out. Flu A angiten in the sample may be below the detection limit of the test. Performed By: #### I NFLUAB #### [facility] [address] [place] [address] Dr. Radha Rucker INFLUBNEGH SEE BELOW Normal [facility] Comment on above: Result Comment: Nega tive for Flu B protein antigen. Infection due to Flu B cannot be ruled out. Flu B antigen in the sample may be below the detection limit of the test. Performed By: #### I NFLUAB #### [facility] [address] [address] [address] Radha Rucker INFLUENZA A AG Negative Normal NEGATIVE SEE COMMENT [facility] Comment on above: Performed By: #### I NFLUAB #### [facility] [address] [address] [address] Radha Rucker INFLUENZA B AG Negative Normal NEGATIVE SEE COMMENT [facility] Comment on above: Performed By: #### I NFLUAB #### [facility] [address] [place] [address] Dr. Radha Rucker INTERNAL CONTROLS Within Normal Limits Normal Wi thin Normal Limits [facility] Comment on above: Performed By: #### I NFLUAB #### [facility] [address] [place] [address] Dr. Radha Rucker General Surgery Office/Clini c [...] 10/06/2021 Family History Cardiac arrhythmia: Father. Normal [facility] Comment on above: Result Comment: Elec tronically Signed By: Philippe MCGOWAN MD\.br\Date and Time Signed: 11/01/21 09:55 EDT Pathology Noteon 11-01-2021 Pathology Note [id number] .00CD:127 Normal [facility] Ambulatory Visit Summaryon 0 10-27-2021 Ambulatory [...] nevus Disturbance of skin sensation Mood disorder [facility] Pre-Certification Formon Pre-Certification Form [id number] 1.00CD:127 [facility] Ambulatory Visit Summaryon 0 10-06-2021 [...] Ramirez Where: General Surgery Yanira/[facility] [place] [facility] Physician Referralon 022 Physician Referral [id number] .00CD:127 [facility] Vital Signs Date Time Vital Sign Value Performing Clinician Facility 05-16-2024 08:35-0500 Body mass index (BMI) [Ratio] 29.21 kg/m2 Aida MAYES Work Phone: [facility] 05-16-2024 08:35-0500 Body weight 77.2 kg Aida MAYES Work Phone: [facility] 05-16-2024 08:35-0500 Diastolic blood pressure 62 mm[Hg] Aida MAYES Work Phone: [facility] 05-16-2024 08:35-0500 Systolic blood pressure 98 mm[Hg] Aida MAYES Work Phone: [facility] 04-25-2024 09:02-0500 Body mass index (BMI) [Ratio] 28.84 kg/m2 Darien Lynette DO Work Phone: [facility] 04-25-2024 09:02-0500 Body weight 76.2 kg Darien Lynette DO Work Phone: [facility] 04-25-2024 09:02-0500 Diastolic blood pressure 60 mm[Hg] Darien Lynette DO Work Phone: [facility] 04-25-2024 09:02-0500 Systolic blood pressure 102 mm[Hg] Darien Lynette DO Work Phone: [facility] 04-03-2024 11:27-0500 Body mass index (BMI) [Ratio] 27.66 kg/m2 Aida [place] PA Work Phone: [facility] 04-03-2024 11:27-0500 Body weight 73.08 kg Aida [place] PA Work Phone: [facility] 04-03-2024 11:27-0500 Diastolic blood pressure 70 mm[Hg] Aida [place] PA Work Phone: [facility] 04-03-2024 11:27-0500 Systolic blood pressure 120 mm[Hg] Aida Ksenia PA Work Phone: [facility] 03-06-2024 09:26-0500 Body mass index (BMI) [Ratio] 27.29 kg/m2 Aida Ksenia PA Work Phone: [facility] 03-06-2024 09:26-0500 Body weight 72.12 kg Aida [place] PA Work Phone: [facility] 03-06-2024 09:26-0500 Diastolic blood pressure 68 mm[Hg] Aida [place] PA Work Phone: [facility] 03-06-2024 09:26-0500 Systolic blood pressure 110 mm[Hg] Aida Ksenia PA Work Phone: [facility] 02-06-2024 10:23-0400 Body mass index (BMI) [Ratio] 26.78 kg/m2 Darien Lynette DO Work Phone: [facility] 02-06-2024 10:23-0400 Body weight 70.76 kg Darien Lynette DO Work Phone: [facility] 02-06-2024 10:23-0400 Diastolic blood pressure 60 mm[Hg] Darien Lynette DO Work Phone: [facility] 02-06-2024 10:23-0400 Systolic blood pressure 108 mm[Hg] Darien Lynette DO Work Phone: [facility] 01-08-2024 10:31-0400 Body mass index (BMI) [Ratio] 26.16 kg/m2 Darien Lynette DO Work Phone: [facility] 01-08-2024 10:31-0400 Body weight 69.13 kg Darien Lynette DO Work Phone: [facility] 01-08-2024 10:31-0400 Diastolic blood pressure 60 mm[Hg] Darien Lynette DO Work Phone: [facility] 01-08-2024 10:31-0400 Systolic blood pressure 104 mm[Hg] Darien Lynette DO Work Phone: [facility] 12-11-2023 11:26-0400 Body mass index (BMI) [Ratio] 25.58 kg/m2 Darien Lynette DO Work Phone: [facility] 12-11-2023 11:26-0400 Body weight 67.59 kg Darien Lynette DO Work Phone: [facility] 12-11-2023 11:26-0400 Diastolic blood pressure 58 mm[Hg] Darien Lynette DO Work Phone: [facility] 12-11-2023 11:26-0400 Systolic blood pressure 100 mm[Hg] Darien Lynette DO Work Phone: [facility] 10-06-2021 15:25-0400 Blood Pressure Location [facility] General Surgery [facility] 10-06-2021 15:25-0400 Diastolic blood pressure 66 mm[Hg] Philippe MCCARTNEYL General Surgery [facility] 10-06-2021 15:25-0400 Heart rate 72 /min Philippe NILL [facility] [place] 10-06-2021 15:25-0400 Respiratory rate 16 /min Philippe NILL [facility] [place] 10-06-2021 15:25-0400 Systolic blood pressure 106 mm[Hg] Philippe NILL [facility] [place] Encounters Encounter Date Encounter Type Care Provider [...] Result Encounter Darien Lynette DO Work Phone: [facility] External Department Unsolicited Start: 03-20-2024 End: 03-20-2024 [facility] Result Encounter Darien Lynette DO Work Phone: [facility] External Department Unsolicited Start: 03-06-2024 End: [...] 15 minutes Darien Lynette DO Work Phone: [facility] Comment on above: 19 [...] Bamboo flowsheet Darien Lynette DO Work Phone: [facility] Start: 01-08-2024 End: 01-15-2024 Bamboo flowsheet Darien Lynette DO Work Phone: [facility] Start: 01-08-2024 End: 01-15-2024 [facility] Result Encounter Darien Lynette DO Work Phone: [facility] External Department Unsolicited Start: 01-08-2024 End: 01-08-2024 Patient encounter procedure Darien Lynette DO Work Phone: [facility] Healthcare Start: 01-08-2024 End: 01-08-2024 Periodic preventive med est patient 18-39 yrs Darien Lynette DO Work Phone: [facility] Comment on above: 15 [...] procedure Philippe R NILL General Surgery Nill/Said [facility] Start: 10-06-2021 End: 10-06-2021 Patient encounter procedure Philippe R NILL General Surgery Nill/Said [place] Start: 06-28-2021 End: 10-21-[address] SAFIA [...] Routine [facility] [address] [place] [address] Darien Ojeda, DO [address] [place] [address] [facility] Start: 05-30-2024 End: 05-30-2024 Professional / ancillary services management 05/30/2024 11:00 AM EST Ancillary Procedure [facility] [address] [place] [address] [facility] Start: 05-16-2024 End: [...] exam with routine gynecological exam Ordered: 01/08/2024 [facility] Comment on above: Ordered: 01/08/2024 Human papilloma viru s DNA [Presence] in Unspecified specimen by Probe with amplification HPV DNA probe, amplified Microbiology Routine Well woman exam with routine gynecological exam Ordered: 01/08/2024 [facility] Comment on above: Ordered: 01/08/2024 Neisseria gonorrhoea e DNA [Presence] in Unspecified specimen by LYNDSEY with probe detection Neisseria gonorrhea DNA probe, direct Lab Routine Exposure to STD Ordered: 01/08/2024 [facility] Comment on above: Ordered: 01/08/2024 SURESWAB(R) ADVANCED VAGINITIS PLUS, TMA SURESWAB(R) ADVANCED VAGINITIS PLUS, TMA Pathology and Cytology Routine Vaginal discharge Ordered: 01/08/2024 [facility] Work Phone: Comment on above: Ordered: 01/08/2024 Payers Date Payer Category Payer Medicaid [employer] [place] [id number] 2022-Present [address] [place] [address] [id number] 2022 Private Health Insurance [employer]ICAID [id number] 2022 Medicaid [id number] 1993 Unknown [id number] [id number]. 593 1993 Unknown [id number] [id number]. 593 1993 Unknown [id number] [id number]. 593 1993 Unknown [id number] 2.16.840.1.169804.3.579.2. 1259 1993 Unknown [id number] 2.16.840.1.659661.3.579.2. 1259 1993 Unknown [id number] 2.16.840.1.459701.3.579.2. 1259 1993 Unknown [id number] 2.16.840.1.018539.3.579.2. 1259 1993 Unknown [id number] 2.16.840.1.785122.3.579.2. 1259 1993 Unknown [id number] 2.16.840.1.704824.3.579.2. 1259 1993 Unknown [id number] 2.16.840.1.934670.3.579.2. 1259 1993 Unknown [id number] [id number]. 1259 1959 Self-pay [id number] 1961 Unknown [id number] Social History Date Type Detail Facility Start: 10-06-2021 End: 11-30-2022 Tobacco smoking status Never smoked tobacco (finding) [facility] Tobacco smoking status Never Gener al Surgery [facility] Start: 05-08-2023 Sex Assigned At Female G eneral Surgery [facility] Start: 11-30-2022 Tobacco use and exposure Smokeless tobacco non-user [facility] Start: 01-08-2024 End: 04-25-2024 Alcoholic beverage intake Lifetime non-drinker (finding) [facility] Start: 05-08-2023 History of Social function [facility] Start: 10-06-2023 [facility] Start: 1995 Sex assigned at Female N [...] of: GERBER Dorsey documented in this encounter [facility] 04-25-2024 History of Present [...] nursing note reviewed. Exam conducted with a hard candy spinner present. Vitals: Estimated body mass index is [...] Darien Ojeda DO documented in this encounter [facility] 04-03-2024 History of Present [...] of: GERBER Dorsey documented in this encounter [facility] 03-06-2024 History of Present [...] of: GERBER Dorsey documented in this encounter [facility] 02-06-2024 History of Present [...] nursing note reviewed. Exam conducted with a hard candy spinner present. Vitals: Estimated body mass index is [...] Darien Ojeda DO documented in this encounter [facility] 01-08-2024 History of Present [...] nursing note reviewed. Exam conducted with a hard candy spinner present. Vitals: Estimated body mass index is [...] obtained without difficulty [facility] Discussed baby aspirin [...] Darien Ojeda DO documented in this encounter [facility] 12-11-2023 History of Present [...] nursing note reviewed. Exam conducted with a hard candy spinner present. Vitals: Estimated body mass index is [...] or undercooked meat, and stay away from [facility]. Patient has been consulted regarding any [...] Aida Sesay PA-C documented in this encounter [facility] 10-06-2021 Note Chief Complaint [...] Use:., 10/06/2021 Family History Cardiac arrhythmia: Father. [facility] Comment on above: Result Comment: Elec tronically Signed By: YANIRA DIAMOND, Philippe Ramirez\.br\Date and Time Signed: 10/06/21 16:57 EDT Evaluation + Plan note Future Appointments Appointment Date:10/27/2021 01:40:00 PM Scheduled Provider:Philippe MCGOWAN MD Location:[facility] Appointment Type: Procedure 30 General Surgery [facility] Evaluation note Diagnosis 19 weeks gestation of [...] data available for this section [facility] Discharge instructions No data available for this section [facility] Progress note No data available for this section [facility] Summary Purpose Family History No Family History Records FoundNo Family History Records FoundNo Family History Records Found Advance Directives No Advanced Directives Records FoundNo Advanced Directives Records FoundNo Advanced Directives Records Found Additional Source Comments Care Team (unrecognized sect ion and content) Ski Technician Relationship Specialty Start Date End Date Veronica Ambrocio MD [address] [place] [id number] PCP - General Family Medicine 12/05/22 Ski Technician Relationship Specialty Start Date End Date Veronica Ambrocio MD [address] [place] [facility] [phone] PCP - General Family Medicine 12/05/22 Ski Technician Relationship Specialty Start Date End Date Veronica Ambrocio MD [address] [place] [facility] [phone] PCP - General Family Medicine 12/05/22 Ski Technician Relationship Specialty Start Date End Date Veronica Ambrocio MD [address] [place] [facility] [phone] PCP - General Family Medicine 12/05/22 Ski Technician Relationship Specialty Start Date End Date Veronica Ambrocio MD [address] [place] [facility] [phone] PCP - General Family Medicine 12/05/22 Ski Technician Relationship Specialty Start Date End Date Veronica Ambrocio MD [address] [place] [facility] [phone] PCP - General Family Medicine 12/05/22 Ski Technician Relationship Specialty Start Date End Date Veronica Ambrocio MD [address] [place] [facility] [phone] PCP - General Family Medicine 12/05/22 INFORMATION SOURCE (unrecogn ized section and content) DATE CREATED AUTHOR 11/02/2021 [facility] DATE CREATED AUTHOR AUTHOR'S ORGANIZ ATION 06/10/[address] [facility] DATE CREATED AUTHOR AUTHOR'S ORGANIZ ATION 05/18/2024 [facility] EPIC Reason for Visit (unrecogniz [...] BE BASED ON THE PRIMARY CLINICAL RECORDS. [facility] [employer] [facility]. provides no warranty or guarantee of the accuracy or completeness of information in this document.
== END 2024-06-04 20:30 | disposition home or self-care (01) ==
LOC: LAB 20:29
PROVIDERS: PCP Family Medicine; Visit Provider Obstetrics & Gynecology
DX: Z34.93 Encounter for supervision of normal pregnancy, unspecified, third trimester (principal)
CPT/HCPCS: 36415; 87081

== ENCOUNTER 2024-06-20 09:23 | Inpatient (IN) | payer OTHER, SELFPAY ==
[2024-06-20] VITALS (32 sets, daily range): BP systolic 100–124; BP diastolic 51–77; PULSE 66–96; TEMP 36.2–36.8; O2SAT 97–99
--- OUTSIDE RECORDS SUMMARY | 2024-06-20 09:38 | XMS_ITS | CCD ---
Author Organization [facility] Care Team Providers Care Printer Helper Name Role Phone Veronica Ambrocio Primary Care Physician [phone] NGUYỄN, DR SAFIA Pichardo Admitting Unavailable WEST, DR SAFIA Pichardo Attending Unavailable LOLLY ., DR MARTIN Primary Care Unavailable WEST, DR SAFIA Pichardo Consulting Unavailable WEST, DR SAFIA Pichardo Admitting Unavailable WEST, DR SAFIA Pichardo Attending Unavailable HOY ., DR MARTIN Primary Care Unavailable WEST, DR SAFIA Pichardo Consulting Unavailable LOLLY ., DR MARTIN Admitting Unavailable GISSELLEY ., DR MARTIN Attending Unavailable HOY ., DR MARTIN Primary Care Unavailable GISSELLEY ., DR MARTIN Consulting Unavailable Veronica Ambrocio MD Primary Care Provider [phone] AIDA SESAY Attending Unavailable LYNETTE, DARIEN Attending Unavailable SHAMA, AIDA Attending Unavailable LYNETTE, DARIEN Attending Unavailable LYNETTE, DARIEN Attending Unavailable LYNETTE, DARIEN Attending Unavailable LYNETTE, DARIEN Attending Unavailable SHAMA, AIDA Attending Unavailable SHAMA, AIDA Attending Unavailable LYNETTE, DARIEN Attending Unavailable Medications Current Medications Medication Drug [...] 10-06-2021 Episodic Other and delivery including normal (16 sources) Second trimester ; Translations: [Encounter for [...] [33 weeks gestation of ] 05-16-2024 Episodic Residual codes; unclassified (2 sources) Gestation period, 35 weeks; Translations: [35 weeks gestation of ] 06-04-2024 Episodic Residual codes; unclassified (2 sources) Gestation period, 37 weeks; Translations: [37 weeks gestation of ] 06-11-2024 Episodic Residual codes; unclassified (2 sources) Gestation period, 38 weeks; Translations: [38 weeks gestation of ] 06-18-2024 Episodic Unclassified (2 sources) Body mass index [...] Range Facility Urinalysis macro (dipstick) panel (U)on 06-18-2024 Bilirubin, UA Negative Negative - 4(70) +++ mg/dL [facility] Blood, UA Positive Negative - 50 Zenon/mcL [facility] Comment on above: trace Clarity, UA Clear [facility] re Color, UA Yellow [facility] e Glucose, UA Negative Negative - 1999(110) ++++ mg/dL [facility] Interpretation and review of laboratory results Abnormal [facility] Ketones, UA Negative Negative - 160(16) ++++ mg/dL [facility] Leukocytes, UA Moderate Negative - 500+++ Viral/mcL [facility] Nitrite, UA Negative Negative - Positive [facility] pH, UA 6 5 - 9 [facility] e Protein, UA Negative Negative - 1999(20) ++++ mg/dL [facility] Spec Grav, UA 1.015 1 - 1.03 [facility] Urobilinogen, UA 0.2 0.2 - 12 mg/dL [facility] e ALL MISCELLANEOUS TESTon MISCELLANEOUS TEST COMMENT . [facility] Comment on above: Test Ordered: [id number] Strep Gp B Culture+Rflx Strep Gp B Culture+Rflx Positive [A ] CB Reference Range: Negative Centers for Disease Control and Prevention (CDC) and [employer] Gynecologists (ACOG) guidelines for prevention of group B streptococcal (GBS) disease specify co-collection of a vaginal and rectal swab specimen to maximize sensitivity of GBS detection. Per the CDC and ACOG, swabbing both the lower vagina and rectum substantially increases the yield of detection compared with sampling the vagina alone. Penicillin G, ampicillin, or cefazolin are indicated for intrapartum prophylaxis of GBS colonization. Reflex susceptibility testing should be performed prior to use of clindamycin only on GBS isolates from penicillin- allergic women who are considered a high risk for anaphylaxis. Treatment with vancomycin without additional testing is warranted if resistance to clindamycin is noted. Organism Identification Comment CB Reference Range: . Beta hemolytic Streptococcus, group B Clindamycin Resistant [A ] CB Reference Range: . Testing for inducible clindamycin resistance was performed using erythromycin and clindamycin in the D-zone test. Per the Centers for Disease Control and Prevention (CDC), erythromycin is no longer an acceptable alternative for intrapartum group B Streptococcus (GBS) prophylaxis for penicillin-allergic women at high risk for anaphylaxis. Performed at: - [facility] [id number] Digital Engineer: Jn Nielson PhD, Phone: [phone] GROUP B STREP [id number] CULTURE, GROUP B STREP WITH SUSCEPTIBILITY [facility] e Urinalysis macro (dipstick) panel (U)on 06-04-2024 Bilirubin, UA Negative Negative - 4(70) +++ mg/dL [facility] Blood, UA Negative Negative - 50 Zenon/mcL [facility] Clarity, UA Clear [facility] re Color, UA Yellow [facility] e Glucose, UA Negative Negative - 2000(110) ++++ mg/dL [facility] Interpretation and review of laboratory results Abnormal [facility] Ketones, UA Negative Negative - 160(16) ++++ mg/dL [facility] Leukocytes, UA Positive Negative - 500+++ Viral/mcL [facility] Comment on above: small Nitrite, UA Negative Negative - Positive [facility] pH, UA 6.5 5 - 9 [facility] Protein, UA Negative Negative - 1999(20) ++++ mg/dL [facility] Spec Grav, UA 1.01 1 - 1.03 [facility] Urobilinogen, UA 0.2 0.2 - 12 mg/dL [facility] OB GROWTHon 06-03-2024 [place] [address] Ultrasound Report Signed Patient: NIDHI COOK MR#: [id number] : 1995 Acct:[id number] Age/Sex: 29 / F ADM Date: 06/03/24 Loc: Attending Dr: Aida Sesay Ordering Physician: Aida Sesay Date of Service: 06/03/24 Procedure(s): US OB growth Accession Number(s): [id number] cc: Aida Sesay; Veronica Ambrocio M.D. [address] [address] Patient Name: NIDHI COOK MRN: [id number] date: 1995 Sex: F Assigned Patient Location: Current Patient Location: Accession/Order Number: [id number] Exam Date: 06/03/2024 09:00 Report Date: 06/03/2024 19:10 At the request of: AIDA SESAY Procedure: US OB growth OBSTETRICAL ULTRASOUND HISTORY: size in consistent COMPARISON: Initial ultrasound dated 11/17/2023. TECHNIQUE: Transabdominal obstetrical ultrasound was performed. INTERPRETATION: Number: There is a live single intrauterine fetus. Presentation: The fetus is in cephalic position. Heart Rate: 138 beats per minute with a normal rhythm. Amniotic Fluid: Normal. 13.8 with largest pocket of fluid measuring 5.6 cm. Gestational Age Assessment: Biparietal Diameter: 8.56 cm 34 w 4 d Head Circumference: 31.48 cm 35 w 2 d Abdominal Circumference: 30.90 cm 34 w 6 d Femur Length: 6.88 cm 35 w 2 d Average gestational age based on current ultrasound: 35 w 0 d. Estimated Weight: 2563 gm +/- 384 gm, 17.7 percentile based on clinical dating. Growth assessment: Size is appropriate for dates. US/US OB growth IMPRESSION: 1. Single live intrauterine gestation with cardiac activity. Gestational age based on today's ultrasound is 35 weeks 0 days. There has been appropriate growth when compared to the original dating ultrasound. 2. CHATO is within normal limits measuring 13.8 cm. Electronically authenticated by: REBA MCKEON Date: 06/03/2024 19:10 Dictated By: Reba Mckeon M.D. Signed By: 06/03/241912 DD/ 09 TD/TT: Military Source Operations Specialist: [facility] Radiology, Radiologist, MD - 06/03/2024 [place] [address] Ultrasound Report Signed Patient: NIDHI COOK MR#: [id number] : 1995 Acct:[id number] Age/Sex: 29 / F ADM Date: 06/03/24 Loc: US Attending Dr: Aida Sesay Ordering Physician: Aida Sesay Date of Service: 06/03/24 Procedure(s): US OB growth Accession Number(s): [id number] cc: Aida Sesay; Veronica Ambrocio M.D. The [address] [address] Patient Name: NIDHI COOK MRN: [facility]:[id number] date: 1995 Sex: F Assigned Patient Location: US Current Patient Location: US Accession/Order Number: [id number] Exam Date: 06/03/2024 09:00 Report Date: 06/03/2024 19:10 At the request of: AIDA SESAY Procedure: US OB growth OBSTETRICAL ULTRASOUND HISTORY: size in consistent COMPARISON: Initial ultrasound dated 11/17/2023. TECHNIQUE: Transabdominal obstetrical ultrasound was performed. INTERPRETATION: Number: There is a live single intrauterine fetus. Presentation: The fetus is in cephalic position. Heart Rate: 138 beats per minute with a normal rhythm. Amniotic Fluid: Normal. 13.8 with largest pocket of fluid measuring 5.6 cm. Gestational Age Assessment: Biparietal Diameter: 8.56 cm 34 w 4 d Head Circumference: 31.48 cm 35 w 2 d Abdominal Circumference: 30.90 cm 34 w 6 d Femur Length: 6.88 cm 35 w 2 d Average gestational age based on current ultrasound: 35 w 0 d. Estimated Weight: 2563 gm +/- 384 gm, 17.7 percentile based on clinical dating. Growth assessment: Size is appropriate for dates. US/US OB growth IMPRESSION: 1. Single live intrauterine gestation with cardiac activity. Gestational age based on today's ultrasound is 35 weeks 0 days. There has been appropriate growth when compared to the original dating ultrasound. 2. CHATO is within normal limits measuring 13.8 cm. Electronically authenticated by: REBA MCKEON Date: 06/03/2024 19:10 Dictated By: Reba Mckeon M.D. Signed By: 06/03/241912 DD/ 09 TD/TT: Military Source Operations Specialist: [facility] Radiology Study observation (narrative) [facility] OB GROWTHOrdered By: Shaina ologyannick Radiology on 06-03-2024 [facility] [employer] e Work Phone: Urinalysis macro (dipstick) panel (U)on 05-16-2024 Bilirubin, UA Negative Negative - 4(70) +++ mg/dL [facility] Blood, UA Negative Negative - 50 Zenon/mcL [facility] Clarity, UA Clear [facility] re Color, UA Yellow [facility] e Glucose, UA Negative Negative - 1999(110) ++++ mg/dL [facility] Interpretation and review of laboratory results Abnormal [facility] Ketones, UA Negative Negative - 160(16) ++++ mg/dL [facility] Leukocytes, UA Many Negative - 500+++ Viral/mcL [facility] Nitrite, UA Negative Negative - Positive [facility] pH, UA 7 5 - 9 [facility] e Protein, UA Trace Negative - 1999(20) ++++ mg/dL [facility] Spec Grav, UA 1.025 1 - 1.03 [facility] Urobilinogen, UA 1.0 0.2 - 12 mg/dL [facility] Urinalysis macro (dipstick) panel (U)on 04-25-2024 Bilirubin, UA Negative Negative - 4(70) +++ mg/dL [facility] Blood, UA Negative Negative - 50 Zenon/mcL [facility] Healthcare Clarity, UA Clear [facility] re Color, UA Yellow [facility] Health[facility] e Glucose, UA Negative Negative - 1999(110) ++++ mg/dL [facility] Interpretation and review of laboratory results Abnormal [facility] Ketones, UA Negative Negative - 160(16) ++++ mg/dL [facility] Leukocytes, UA Positive Negative - 500+++ Viral/mcL [facility] Comment on above: small Nitrite, UA Negative Negative - Positive [facility] pH, UA 6 5 - 9 [facility] Protein, UA Positive Negative - 1999(20) ++++ mg/dL [facility] Comment on above: 30 Spec Grav, UA 1.025 1 - 1.03 [facility] Urobilinogen, UA 1.0 0.2 - 12 mg/dL [facility] Urinalysis macro (dipstick) panel (U)on 04-03-2024 Bilirubin, UA Negative Negative - 4(70) +++ mg/dL [facility] Blood, UA Negative Negative - 50 Zenon/mcL [facility] Clarity, UA Clear [facility] re Color, UA Yellow [facility] Glucose, UA Negative Negative - 1999(110) ++++ mg/dL [facility] Interpretation and review of laboratory results Abnormal [facility] Ketones, UA Negative Negative - 160(16) ++++ mg/dL [facility] Leukocytes, UA Trace Negative - 500+++ Viral/mcL [facility] Nitrite, UA Negative Negative - Positive [facility] pH, UA 6 5 - 9 [facility] e Protein, UA Negative Negative - 1999(20) ++++ mg/dL [facility] Spec Grav, UA 1.02 1 - 1.03 [facility] Urobilinogen, UA 0.2 0.2 - 12 mg/dL [facility] ALL CBC WITH AUTO DIFFon BASOPHILS ABSOLUTE AUTO 0 [facility] Basophils/100 WBC (Bld) 0.4 % 0.2 - 2.0 % [facility] Eosinophils/100 WBC (Bld) 1.1 % 0.9 - 7.0 % [facility] Erythrocyte distribution width (RBC) [Ratio] 12.6 % 11.0 - 15.0 % [facility] Hematocrit (Bld) [Volume fraction] 34.9 % Low 36.0 - 48.0 % [facility] Hemoglobin (Bld) [Mass/Vol] 11.8 g/dL Low 12.0 - 16.0 g/dL [facility] IMMATURE GRANULOCYTES ABS AUTO 0.06 High [facility] Immature granulocytes/100 WBC (Bld) 0.6 % High 0.0 - 0.5 % [facility] Interpretation and review of laboratory results Abnormal [facility] LYMPHOCYTES ABSOLUTE AUTO 1.9 [facility] Lymphocytes/100 WBC (Bld) 20.6 % 20.5 - 60.0 % [facility] MCH (RBC) [Entitic mass] 32.9 pg 26.7 - 34.0 pg [facility] MCHC (RBC) [Mass/Vol] 33.8 g/dL 29.9 - 35.2 g/dL [facility] MCV (RBC) [Entitic vol] 97.2 fL 81.0 - 99.0 fL [facility] MONOCYTES ABSOLUTE AUTO 0.6 [facility] Monocytes/100 WBC (Bld) 6.7 % 1.7 - 12.0 % [facility] NEUTROPHILS ABSOLUTE AUTO 6.7 High [facility] Neutrophils/100 WBC (Bld) 70.6 % 43.0 - 75.0 % [facility] Platelet mean volume (Bld) [Entitic vol] 10.5 fL 9.5 - 13.5 fL [facility] # 0.1 [facility] TB PLT 208 [facility] TB RBC 3.59 Low [facility] TB WBC 9.4 [facility] e Urinalysis macro (dipstick) panel (U)on 03-06-2024 Bilirubin, UA Negative Negative - 4(70) +++ mg/dL [facility] Blood, UA Negative Negative - 50 Zenon/mcL [facility] Clarity, UA Clear [facility] re Color, UA Yellow [facility] e Glucose, UA Negative Negative - 2000(110) ++++ mg/dL [facility] Interpretation and review of laboratory results Abnormal [facility] Ketones, UA Negative Negative - 160(16) ++++ mg/dL [facility] Leukocytes, UA Moderate Negative - 500+++ Viral/mcL [facility] Nitrite, UA Negative Negative - Positive [facility] pH, UA 7 5 - 9 [facility] e Protein, UA Negative Negative - 1999(20) ++++ mg/dL [facility] Spec Grav, UA 1.025 1 - 1.03 [facility] Urobilinogen, UA 0.2 0.2 - 12 mg/dL [facility] Urinalysis macro (dipstick) panel (U)on 02-06-2024 Bilirubin, UA Negative Negative - 4(70) +++ mg/dL [facility] Blood, UA Negative Negative - 50 Zenon/mcL [facility] Clarity, UA Clear [facility] re Color, UA Yellow [facility] Glucose, UA Negative Negative - 1999(110) ++++ mg/dL [facility] Interpretation and review of laboratory results Abnormal [facility] Ketones, UA Negative Negative - 160(16) ++++ mg/dL [facility] Leukocytes, UA Trace Negative - 500+++ Viral/mcL [facility] Nitrite, UA Negative Negative - Positive [facility] pH, UA 6.5 5 - 9 [facility] e Protein, UA Negative Negative - 1999(20) ++++ mg/dL [facility] Spec Grav, UA 1.025 1 - 1.03 [facility] Urobilinogen, UA 1.0 0.2 - 12 mg/dL [facility] AFP, SERUM, OPEN SPINA BIFID Aon 01-19-2024 AFP MOM 1.03 . [facility] e AFP VALUE 37.1 ng/mL . [facility] e COMMENT: Comment . [facility] e Comment on above: Gayla Latif , Ph.D., [facility] Director References: Available Upon Request. Multiples Of Median Cutoffs For AFP Elevations Vanessa 2.5 Black 2.8 IDD 2.0 Twins 4.5 Abbreviation Definitions IDD - Insulin Dep Diabetes OSBR - Open Spina Bifida Risk For further inquiries contact [employer] [facility] at [phone]. This test was developed and its performance characteristics determined by [email or web address]. It has not been cleared or approved by the Food and Drug Administration. Performed at: [facility] [address], [facility], [place] [id number] Digital Engineer: Uma Butler [facility], Phone: [phone] GEST. AGE ON COLLECTION DATE 16.7 . weeks [facility] GESTAT. AGE BASED ON Ultrasound . [facility] Comment on above: 15.4 on 01/08/2024 Recalculations are not recommended when gestational dating by LMP and ultrasound are within 10 days. INSULIN DEP DIABETES No . [facility] INTERPRETATION Comment . [facility] Sage espinoza Comment on above: Interpretation: Scre en Negative [...] Customer Services to discuss available options. The [place] [employer] recommends amniocentesis be offered to women age 35 and older. [age] [facility] MULTIPLE GESTATION No . [facility] [place] [id number] . [facility] Sage espinoza RACE . [facility] [employer] e RESULTS Report . [facility] [employer] e TEST RESULTS: Negative . [facility] WEIGHT 152 . lbs [facility] [employer] e PREGNQNCY N N ULTRASOUND [id number] 3 15 N 1 Y 152 N N N N N White/ [facility] [employer] e IGP,APTIMA HPV,AGE GDLNon AGE GDLN ACOG TESTING Note . [facility] Comment on above: TESTS RESULT FLAG U NITS REF RANGE LAB Clinician Provided Cytology Information Source.............Cervix No. of containers..01 ThinPrep Vial Age Algo ACOG Gisela... 30- FLAG LEGEND: L-Low Normal,H-High Normal,LL-Alert Low,HH-Alert High <-Panic Low,>-Panic High,A-Abnormal,AA-Critical Abnormal Performed at: [address] [address] Chayito Suarez MD, HPV APTIMA Negative Negative [facility] Comment on above: This nucleic acid am plification test detects fourteen high- risk HPV types (16,18,31,33,35,39,45,51,52,56,58,59,66,68) without differentiation. Performed at: =[facility] [id number] Digital Engineer: Chayito Suarez MD, Phone: [phone] Performed at: [facility] [id number] Digital Engineer: Chayito Suarez MD, Phone: [phone] IGP, APTIMA HPV, RFX 16/18,45 Note . [facility] Comment on above: TESTS RESULT FLAG UN ITS REF RANGE LAB DIAGNOSIS: 02 NEGATIVE FOR INTRAEPITHELIAL LESION OR MALIGNANCY. Specimen adequacy: 02 Satisfactory for evaluation. No endocervical component is identified. Performed by: 02 Tracy Sykes Underwriting Technician (ASCP) . 02 Note: Note 02 The [...] <-Panic Low,>-Panic High,A-Abnormal,AA-Critical Abnormal Performed at: 02 [address] [facility] [address] [address] Chayito Suarez MD, SPATULA-ALONE CERVIX [facility] Urinalysis macro (dipstick) panel (U)on 01-08-2024 Bilirubin, UA Negative Negative - 4(70) +++ mg/dL [facility] Blood, UA Positive Negative - 50 Zenon/mcL [facility] Comment on above: trace-itact Clarity, UA Clear [facility] [employer] re Color, UA Yellow [facility] [employer] e Glucose, UA Negative Negative - 1999(110) ++++ mg/dL [facility] Interpretation and review of laboratory results Abnormal [facility] Ketones, UA Negative Negative - 160(16) ++++ mg/dL [facility] Leukocytes, UA Negative Negative - 500+++ Viral/mcL [facility] Nitrite, UA Negative Negative - Positive [facility] pH, UA 6.0 5 - 9 [facility] [employer] e Protein, UA Negative Negative - 1999(20) ++++ mg/dL [facility] Spec Grav, UA 1.015 1 - 1.03 [facility] care Urobilinogen, UA 0.2 0.2 - 12 mg/dL [facility] Urinalysis macro (dipstick) panel (U)on 12-11-2023 Bilirubin, UA Negative Negative - 4(70) +++ mg/dL [facility] Blood, UA Negative Negative - 50 Zenon/mcL [facility] Clarity, UA Clear [facility] re Color, UA Yellow [facility] Glucose, UA Negative Negative - 1999(110) ++++ mg/dL [facility] Interpretation and review of laboratory results Abnormal [facility] Ketones, UA Negative Negative - 160(16) ++++ mg/dL [facility] Leukocytes, UA Positive Negative - 500+++ Viral/mcL [facility] Comment on above: small Nitrite, UA Negative Negative - Positive [facility] pH, UA 7.0 5 - 9 [facility] e Protein, UA Negative Negative - 1999(20) ++++ mg/dL [facility] Spec Grav, UA 1.025 1 - 1.03 [facility] Urobilinogen, UA 0.2 0.2 - 12 mg/dL [facility] Covid-[facility] PCR ([facility])on 03-17 SARS-CoV-2 (COVID-19) RNA LYNDSEY+probe Ql (Unsp spec) Not detected Normal NOT DETECTED [facility] Comment on above: Result Comment: This test is not yet approved or cleared by the [place] FDA. When there are no FDA-approved or cleared tests available, and other criteria are met, FDA can make tests available under an emergency access mechanism called an Emergency Use Authorization (EUA). The EUA for this test is supported by the Group Segment Consultant of Health and Human Service's (HHS's) declaration [...] consistent with SARS-CoV-2. Performed By: #### C [facility] #### [facility] [address] [place] [address] Dr. Radha Rucker INFLUENZA A AND B AGon 03-31 [facility] SEE BELOW Normal [facility] Comment on above: Result Comment: Nega tive for Flu A protein angiten. Infection due to Flu A cannot be ruled out. Flu A angiten in the sample may be below the detection limit of the test. Performed By: #### I [facility] #### [facility] [address] [place] [address] Dr. Radha Rucker [facility] SEE BEL[facility] Normal [facility] Comment on above: Result Comment: Nega tive for Flu B protein antigen. Infection due to Flu B cannot be ruled out. Flu B antigen in the sample may be below the detection limit of the test. Performed By: #### I NFLUAB #### [facility] [address] [place] [address] Dr. Radha Rucker INFLUENZA A AG Negative Normal NEGATIVE SEE COMMENT [facility] Comment on above: Performed By: #### I NFLUAB #### [facility] [address] [place] [address] Dr. Radha Rucker INFLUENZA B AG Negative Normal NEGATIVE SEE COMMENT [facility] Comment on above: Performed By: #### I NFLUAB #### [facility] [address] [place] [address] Dr. Radha Rucker INTERNAL CONTROLS Within Normal Limits Normal Wi thin Normal Limits [facility] Comment on above: Performed By: #### I NFLUAB #### [facility] [address] [place] [address] Dr. Radha Rucker General Surgery Office/Clini c [...] 10/06/2021 Family History Cardiac arrhythmia: Father. Normal [facility] Comment on above: Result Comment: Elec tronically Signed By: YANIRA DIAMOND, Philippe Green\Date and Time Signed: 11/01/21 09:55 EDT Pathology Noteon 11-01-2021 Pathology Note [id number]:127 [facility] Ambulatory Visit Summaryon 0 10-27-2021 Ambulatory [...] nevus Disturbance of skin sensation Mood disorder [facility] Pre-Certification Formon Pre-Certification Form [id number] 1.00CD:127 [facility] Ambulatory Visit Summaryon 0 10-06-2021 Ambulatory [...] Follow-Up Appointments Monday 1:40 PM EDT With: Philippe MCGOWAN MD Where: General Surgery [facility] [place] [facility] Physician Referralon 022 Physician Referral [id number] .[id number]:127 [facility] Vital Signs Date Time Vital Sign Value Performing Clinician Facility 06-18-2024 09:10-0500 Body mass index (BMI) [Ratio] 29.87 kg/m2 [employer] Work Phone: [facility] 06-18-2024 09:10-0500 Body weight 78.93 kg Darien Lynette DO Work Phone: [facility] 06-18-2024 09:10-0500 Diastolic blood pressure 70 mm[Hg] Darien Lynette DO Work Phone: [facility] 06-18-2024 09:10-0500 Systolic blood pressure 110 mm[Hg] Darien Lynette DO Work Phone: [facility] 06-11-2024 09:56-0500 Body mass index (BMI) [Ratio] 29.87 kg/m2 Aida Shama PA Work Phone: [facility] 06-11-2024 09:56-0500 Body weight 78.93 kg Aida Shama PA Work Phone: [facility] 06-11-2024 09:56-0500 Diastolic blood pressure 70 mm[Hg] Aida Shama PA Work Phone: [facility] 06-11-2024 09:56-0500 Systolic blood pressure 108 mm[Hg] Aida Shama PA Work Phone: [facility] 06-04-2024 13:44-0500 Body mass index (BMI) [Ratio] 29.7 kg/m2 Darien Lynette DO Work Phone: [facility] 06-04-2024 13:44-0500 Body weight 78.47 kg Darien Lynette DO Work Phone: [facility] 06-04-2024 13:44-0500 Diastolic blood pressure 72 mm[Hg] Darien Lynette DO Work Phone: [facility] 06-04-2024 13:44-0500 Systolic blood pressure 110 mm[Hg] Darien Lynette DO Work Phone: [facility] 05-16-2024 08:35-0500 Body mass index (BMI) [Ratio] 29.21 kg/m2 Aida Shama PA Work Phone: [facility] 05-16-2024 08:35-0500 Body weight 77.2 kg Aida Shama PA Work Phone: [facility] 05-16-2024 08:35-0500 Diastolic blood pressure 62 mm[Hg] Aida Ringsted PA Work Phone: [facility] 05-16-2024 08:35-0500 Systolic blood pressure 98 mm[Hg] Aida Shama PA Work Phone: [facility] 04-25-2024 09:02-0500 Body mass index (BMI) [Ratio] 28.84 kg/m2 Darien Lynette DO Work Phone: [facility] 04-25-2024 09:02-0500 Body weight 76.2 kg Darien Lynette DO Work Phone: [facility] 04-25-2024 09:02-0500 Diastolic blood pressure 60 mm[Hg] Darien Lynette DO Work Phone: [facility] 04-25-2024 09:02-0500 Systolic blood pressure 102 mm[Hg] Darien Lynette DO Work Phone: [facility] 04-03-2024 11:27-0500 Body mass index (BMI) [Ratio] 27.66 kg/m2 Aida Ringsted PA Work Phone: [facility] 04-03-2024 11:27-0500 Body weight 73.08 kg Aida Shama PA Work Phone: [facility] 04-03-2024 11:27-0500 Diastolic blood pressure 70 mm[Hg] Aida Ringsted PA Work Phone: [facility] 04-03-2024 11:27-0500 Systolic blood pressure 120 mm[Hg] Aida Ringsted PA Work Phone: [facility] 03-06-2024 09:26-0500 Body mass index (BMI) [Ratio] 27.29 kg/m2 Aida Shama PA Work Phone: [facility] 03-06-2024 09:26-0500 Body weight 72.12 kg Aida Ringsted PA Work Phone: [facility] 03-06-2024 09:26-0500 Diastolic blood pressure 68 mm[Hg] Aida MAYES Work Phone: [facility] 03-06-2024 09:26-0500 Systolic blood pressure 110 mm[Hg] Aida MAYES Work Phone: [facility] 02-06-2024 10:23-0400 Body mass index (BMI) [Ratio] 26.78 kg/m2 Darien Lynette DO Work Phone: [facility] 02-06-2024 10:23-0400 Body weight 70.76 kg Darien Lynette DO Work Phone: [facility] 02-06-2024 10:23-0400 Diastolic blood pressure 60 mm[Hg] Darien Lynette DO Work Phone: [facility] 02-06-2024 10:23-0400 Systolic blood pressure 108 mm[Hg] Darien Lynette DO Work Phone: [facility] 01-08-2024 10:31-0400 Body mass index (BMI) [Ratio] 26.16 kg/m2 Darien Lynette DO Work Phone: [facility] 01-08-2024 10:31-0400 Body weight 69.13 kg Darien Lynette DO Work Phone: [facility] 01-08-2024 10:31-0400 Diastolic blood pressure 60 mm[Hg] Darien Lynette DO Work Phone: [facility] 01-08-2024 10:31-0400 Systolic blood pressure 104 mm[Hg] Darien Lynette DO Work Phone: [facility] 12-11-2023 11:26-0400 Body mass index (BMI) [Ratio] 25.58 kg/m2 Darien Lynette DO Work Phone: [facility] 12-11-2023 11:26-0400 Body weight 67.59 kg Darien Lynette DO Work Phone: [facility] 12-11-2023 11:26-0400 Diastolic blood pressure 58 mm[Hg] Darien Lynette DO Work Phone: [facility] 12-11-2023 11:26-0400 Systolic blood pressure 100 mm[Hg] Darien Lynette DO Work Phone: [facility] 10-06-2021 15:25-0400 Blood Pressure Location Philippe NILL [facility] 10-06-2021 15:25-0400 Diastolic blood pressure 66 mm[Hg] Philippe NILL [facility] 10-06-2021 15:25-0400 Heart rate 72 /min Philippe NILL [facility] 10-06-2021 15:25-0400 Respiratory rate 16 /min Philippe NILL [facility] 10-06-2021 15:25-0400 Systolic blood pressure 106 mm[Hg] Philippe NILL General [facility] Encounters Encounter Date Encounter Type Care Provider Facility Start: 06-18-2024 End: 06-18-2024 Bamboo flowsheet Darien Lynette DO Work Phone: [facility] Start: 06-18-2024 End: 06-18-2024 Bamboo flowsheet Darien Lynette DO Work Phone: [facility] Start: 06-18-2024 End: 06-18-2024 Office outpatient visit 15 minutes Darien Lynette DO Work Phone: [facility] Comment on above: Third trimester preg anaya; 38 weeks gestation of Start: 06-18-2024 End: 06-18-2024 ambulatory DARIEN LYNETTE Not Available Start: 06-11-2024 End: 06-11-2024 Bamboo flowsheet Aida MAYES Work Phone: [facility] Start: 06-11-2024 End: 06-11-2024 Bamboo flowsheet Aida MAYES Work Phone: [facility] Start: 06-11-2024 End: 06-11-2024 Office outpatient visit 15 minutes Aida MAYES Work Phone: [facility] Comment on above: Third trimester preg anaya; 37 weeks gestation of Start: 06-11-2024 End: 06-11-2024 ambulatory AIDA SESAY Not Available Start: 06-04-2024 End: 06-04-2024 Bamboo flowsheet Darien Lynette DO Work Phone: [facility] Start: 06-04-2024 End: 06-11-2024 Bamboo flowsheet Darien Lynette DO Work Phone: [facility] Start: 06-04-2024 End: 06-11-2024 Clinisync Result Encounter Darien Lynette DO Work Phone: [facility] Unsolicited Start: 06-04-2024 End: 06-04-2024 Office outpatient visit 15 minutes Darien Lynette DO Work Phone: [facility] Comment on above: Third trimester preg anaya; 35 weeks gestation of Start: 06-04-2024 End: 06-04-2024 ambulatory DARIEN LYNETTE Not Available Start: 06-03-2024 End: 06-03-2024 Clinisync Result Encounter Aida MAYES Work Phone: [facility] Start: 06-03-2024 End: 06-03-2024 Clinisync Result Encounter Aida MAYES Work Phone: [facility] Start: 05-16-2024 End: 05-16-2024 Bamboo flowsheet Aida [...] 04-03-2024 flow sheet Aida MAYES Work Phone: [facility] Comment on above: 27 weeks gestation o f ; Second trimester ; Sinus congestion Start: 04-03-2024 End: 04-03-2024 ambulatory AIDA SESAY Not Available Start: 03-20-2024 End: 03-20-2024 Clinisync Result Encounter Darien Lynette DO Work Phone: [facility] External Department Unsolicited Start: 03-20-2024 End: 03-20-2024 Clinisync Result Encounter Darien Lynette DO Work Phone: [facility] External Department Unsolicited Start: 03-06-2024 End: [...] Phone: [facility] Comment on above: 19 weeks [...] [facility] Start: 01-08-2024 End: 01-15-2024 Bamboo flowsheet Darien Lynette DO Work Phone: [facility] Start: 01-08-2024 End: 01-15-2024 Clinisync Result Encounter Darien Bearo DO Work Phone: [facility] Start: 01-08-2024 End: 01-08-2024 Patient encounter procedure Darien Bearo DO Work Phone: [facility] Start: 01-08-2024 End: 01-08-2024 Periodic preventive med est patient 18-39 yrs Darien Bearo DO Work Phone: [facility] Comment on above: 15 weeks gestation o f ; Well woman exam with routine gynecological exam; Exposure to STD; Vaginal discharge; Screening, , for anatomic survey Start: 01-08-2024 End: 01-08-2024 ambulatory DARIEN LYNETTE Not Available Start: 12-11-2023 End: 12-11-2023 flow sheet Darien Bearo DO Work Phone: [facility] Comment on above: 11 weeks gestation o f Start: 12-11-2023 End: 12-11-2023 ambulatory DARIEN LYNETTE Not Available Start: 11-17-2023 End: 11-17-2023 ambulatory AIDA SESAY Not Available Start: 06-09-[address] SAFIA ADRIAN Facilit y:[facility] Start: 03-31-2022 End: 03-31-[address] VERONICA AMBROCIO . Facility:[facility] Start: 10-27-2021 End: 10-27-2021 Patient encounter procedure Philippe MCGOWAN General Surgery [facility] Start: 10-06-2021 End: 10-06-2021 Patient encounter procedure Philippe MCGOWAN General Surgery [facility] Start: 06-28-2021 End: 10-21-[address] SAFIA ADRIAN Facility:[facility] Procedures Date Procedure Procedure Detail Performing Clinician Start: 06-18-2024 Urnls dip stick/tabl et rgnt non-auto w/o micrscp Darien Lynette DO Work Phone: Start: 06-04-2024 Urnls dip stick/tabl et rgnt non-auto w/o micrscp Darien Lynette DO Work Phone: Start: 06-04-2024 ALL MISCELLANEOUS TEST Darien Lynette DO Work Phone: Start: 06-03-2024 US OB GROWTH Aida MAYES Work Phone: Start: 05-16-2024 Urnls dip stick/tabl et rgnt [...] Treatment Date Care Activity Detail Author Start: 06-27-2024 End: 06-27-2024 Patient encounter procedure 06/27/2024 11:00 AM EDT Office Visit [facility] [address] [facility] [facility] [id number] Aida Sesay PA [address] [place], [place] [id number] [facility] Start: 06-18-2024 End: 06-18-2024 Patient encounter procedure [facility] Comment on above: Arrived Start: 06-11-2024 End: 06-11-2024 Patient encounter procedure [facility] Comment on above: Arrived Start: 06-04-2024 End: 06-04-2025 CULTURE, GROUP B STREP WITH SUSCEPTIBLITY CULTURE, GROUP B STREP WITH SUSCEPTIBLITY Lab Routine Third trimester Expected: 06/04/2024, Expires: 06/04/2025 [facility] Work Phone: Comment on above: Expected: 06/04/2024 , Expires: 06/04/2025 Start: 06-04-2024 End: 06-04-2024 Patient encounter procedure [facility] Comment on above: Arrived Start: 05-30-2024 End: 05-30-2024 Patient encounter procedure 05/30/2024 11:40 AM EST Routine [facility] [address] [place] [id number] Darien Ojeda DO [address] [place] [address] [facility] Start: 05-30-2024 End: 05-30-2024 Professional / ancillary services management 05/30/2024 11:00 AM EST Ancillary Procedure [facility] [address] [facility] [address] [facility] Start: 05-16-2024 End: 05-16-2025 US for US OB follow up transabdominal approach Imaging Routine size inconsistent with dates Expected: 05/16/2024, Expires: 05/16/2025 [facility] Work Phone: Comment on above: Expected: [...] mellitus screening Expected: 03/06/2024 (Approximate), Expires: 03/06/2025 [facility] Comment on above: Expected: 03/06/2024 (Approximate), Expires: 03/06/2025 Start: 03-06-2024 End: 03-06-2024 Patient encounter procedure [facility] Comment on above: Arrived Start: 02-06-2024 End: 02-06-2024 Patient encounter procedure [facility] Comment on above: Arrived Start: 01-08-2024 End: 02-07-2024 Alpha fetoprotein, maternal Alpha fetoprotein, maternal Lab Routine 15 weeks gestation of Expected: 01/08/2024 (Approximate), Expires: 02/07/2024 [facility] Comment on above: Expected: 01/08/2024 (Approximate), Expires: 02/07/2024 Start: 01-08-2024 End: 01-07-2025 US for US OB ANATOMY SINGLE W US OB CERVICAL LENGTH Imaging Routine Screening, , for anatomic survey Expected: 01/08/2024 (Approximate), Expires: 01/07/2025 [facility] Comment on above: Expected: 01/08/2024 (Approximate), Expires: 01/07/2025 Start: 01-08-2024 End: 01-08-2024 Patient encounter procedure [facility] Comment on above: Arrived CHLAMYDIA TRACHOMATI S (GENITO/STI) CHLAMYDIA TRACHOMATIS (GENITO/STI) Lab Routine Exposure to STD Ordered: 01/08/2024 [facility] Comment on above: Ordered: 01/08/2024 Cytology Cervical or vaginal smear or scraping study Pap Smear Pathology and Cytology Routine Well woman exam with routine gynecological exam Ordered: 01/08/2024 [facility] Comment on above: Ordered: 01/08/2024 Human papilloma viru s DNA [Presence] in Unspecified specimen by Probe with amplification HPV DNA probe, amplified Microbiology Routine Well woman exam with routine gynecological exam Ordered: 01/08/2024 [facility] Comment on above: Ordered: 01/08/2024 Neisseria gonorrhoea e DNA [Presence] in Unspecified specimen by LYNDSEY with probe detection Neisseria gonorrhea DNA probe, direct Lab Routine Exposure to STD Ordered: 01/08/2024 [facility] Comment on above: Ordered: 01/08/2024 SURESWAB(R) ADVANCED VAGINITIS PLUS, TMA SURESWAB(R) ADVANCED VAGINITIS PLUS, TMA Pathology and Cytology Routine Vaginal discharge Ordered: 01/08/2024 [facility] Work Phone: Comment on above: Ordered: 01/08/2024 Payers Date Payer Category Payer Medicaid [facility] MEDICAID [employer] MEDICAID [place] [id number] 2022-Present [address] [place] [address] [id number] 2022 Private Health Insurance [facility] MEDICAID [id number] 2022 Medicaid [id number] 1993 Unknown [id number] [id number]. 593 1993 Unknown [id number] 2.16.840.1.312953.3.579.2. 59 1993 Unknown [id number] 2.16.840.1.636997.3.579.2. 59 1993 Unknown [id number] 2.16.840.1.517911.3.579.2. 1258 1993 Unknown [id number] 2.16.840.1.842497.3.579.2. 1258 1993 Unknown [id number] 2.16.840.1.467546.3.579.2. 1258 1993 Unknown [id number] 2.16.840.1.740514.3.579.2. 1258 1993 Unknown [id number] 2.16.840.1.380145.3.579.2. 1258 1993 Unknown [id number] 2.16.840.1.643893.3.579.2. 1258 1993 Unknown [id number] 2.16.840.1.302312.3.579.2. 1258 1993 Unknown [id number] 2.16.840.1.400859.3.579.2. 1258 1993 Unknown [id number] 2.16.840.1.953063.3.579.2. 1258 1993 Unknown [id number] 2.16.840.1.665293.3.579.2. 9 1993 Unknown [id number] 2.16.840.1.460029.3.579.2. 1259 1959 Self-pay [id number] 1959 Unknown [id number] Social History Date Type Detail Facility Start: 10-06-2021 End: 11-30-2022 Tobacco smoking status Never smoked tobacco (finding) [facility] Tobacco smoking status Never [facility] Start: 05-08-2023 End: 11-17-2023 Sex Assigned At Female [facility] Start: 11-30-2022 Tobacco use and exposure Smokeless tobacco non-user [facility] Start: 01-08-2024 End: 06-18-2024 Alcoholic beverage intake Lifetime non-drinker (finding) [facility] Start: 05-08-2023 End: 11-17-2023 History of Social function [facility] Start: 10-06-2023 [facility] Start: 1995 Sex assigned at Female [facility] Start: 10-26-2022 Gender identity Identifies as female gender (finding) [facility] Functional Status Date Assessment Result Facility 10-06-2021 Functional Status N/A [facility] Clinical Notes 10-06-2021 to 06-18-2024 Rita Melchor LPN - 06/18/2024 9:00 AM [facility] - 06/11/2024 9:50 AM David Mckinley LPN - 06/04/2024 1:30 PM [facility] - 05/16/2024 8:30 AM [facility] - 04/03/2024 11:20 AM EST Note Date & Type Note Facility 06-18-2024 History of Present illness Narrative Reason for [...] nursing note reviewed. Exam conducted with a health care coordinator present. Vitals: Estimated body mass index is 29.87 kg/m as calculated from the following: Height as of 01/30/23: 5' 4 . Weight as of this encounter: 174 lb. BP: 110/70 No LMP recorded. Patient is . ASSESSMENT & PLAN ICD-10-CM 1. Third trimester Z34.93 POCT urinalysis dipstick manually resulted 2. 38 weeks gestation of Z3A.38 Patient presents today for a routine obstetrics appointment. Patient is currently 38w4d with a Estimated Date of Delivery: 06/28/24. Patient complaints of discomfort and contractions. Patient advised on when to seek medical attention. Patient goes for her partners today to obtain wash for upcoming on Monday06/21/24. Patient to return to clinic for 1 week post operative appointment. Documented by Rita Melchor LPN on behalf of: Darien Ojeda DO documented in this encounter [facility] 06-11-2024 History of Present illness Narrative Reason for [...] reviewed. Vitals: Estimated body mass index is 29.87 kg/m as calculated from the following: Height as of 01/30/23: 5' 4 . Weight as of this encounter: 174 lb. BP: 108/70 No LMP recorded. Patient is . ASSESSMENT & PLAN ICD-10-CM 1. Third trimester Z34.93 2. 37 weeks gestation of Z3A.37 Return OB: Patient presents today for a routine obstetrics appointment. Patient is currently 37w4d . Patient states she is doing well but has complaints of being tired due to current . Patient has verbalizes frequent movement. labor precautions was discussed/given and patient was instructed to perform kick counts three times a day. No orders of the defined types were placed in this encounter. Follow Up: Patient is to return to office in 1 week for routine OB appointment. Documented by GERBER Dorsey on behalf of: GERBER Dorsey documented in this encounter [facility] 06-04-2024 History of Present illness Narrative Reason for [...] appearance. She is well-developed. Genitourinary: Vulva normal. Cardiovascular: Rate and Rhythm: Normal rate and [...] nursing note reviewed. Exam conducted with a health care coordinator present. Vitals: Estimated body mass index is 29.7 kg/m as calculated from the following: Height as of 01/30/23: 5' 4 . Weight as of this encounter: 173 lb. BP: 110/72 No LMP recorded. Patient is . ASSESSMENT & PLAN ICD-10-CM 1. Third trimester Z34.93 POCT urinalysis dipstick manually resulted CULTURE, GROUP B STREP WITH SUSCEPTIBLITY CULTURE, GROUP B STREP WITH SUSCEPTIBLITY 2. 35 weeks gestation of Z3A.35 Patient is doing well but has complaints of being tired and having maternal discomfort due to . Patient verbalized frequent movement and was instructed to perform kick counts three times per day. labor precautions were given, LARC consent was signed/declined, and GBS was obtained. Cervical check was performed and patient is 2cm dilated. Orders Placed This Encounter Procedures CULTURE, GROUP B STREP WITH SUSCEPTIBLITY POCT urinalysis dipstick manually resulted Follow Up: Patient is to return to office in 1 week for routine OB appointment Documented by Nena Mckinley LPN on behalf of: Darien Ojeda DO documented in this encounter [facility] 05-16-2024 History of Present illness Narrative Reason [...] History: Procedure Laterality Date SECTION, LOW TRANSVERSE 2020 OTHER SURGICAL HISTORY lesion removal PAP SMEAR [...] of: GERBER Dorsey documented in this encounter [facility] 04-25-2024 History of Present illness Narrative Reason [...] nursing note reviewed. Exam conducted with a health care coordinator present. Vitals: Estimated body mass index is [...] Darien Ojeda DO documented in this encounter [facility] 04-03-2024 History of Present illness Narrative Reason [...] and congestion will be traveling over the Holiday. She is afebrile and other olguin and well appearing and Lung sounds clear throughout. Prescription sent for azithromycin should symptoms increase over the holiday. Orders Placed This Encounter Procedures POCT urinalysis dipstick manually resulted Follow Up: Patient is to return to office in 2 week for routine OB appointment. Documented by GERBER Dorsey on behalf of: GERBER Dorsey documented in this encounter [facility] 03-06-2024 History of Present illness Narrative Reason [...] of: GERBER Dorsey documented in this encounter [facility] 02-06-2024 History of Present illness Narrative Reason [...] History: Procedure Laterality Date SECTION, LOW TRANSVERSE 2020 OTHER SURGICAL HISTORY lesion removal PAP SMEAR [...] nursing note reviewed. Exam conducted with a health care coordinator present. Vitals: Estimated body mass index is [...] Darien Ojeda DO documented in this encounter [facility] 01-08-2024 History of Present illness Narrative Reason [...] nursing note reviewed. Exam conducted with a health care coordinator present. Vitals: Estimated body mass index is [...] obtained without difficulty and patient was given [facility] order to have obtained. Discussed baby aspirin [...] Darien Ojeda DO documented in this encounter [facility] 12-11-2023 History of Present illness Narrative Reason for Appointment: Patient ID: Nidih Cook is a 28 y.o. female who [...] nursing note reviewed. Exam conducted with a health care coordinator present. Vitals: Estimated body mass index is [...] meat, and stay away from formerly [facility]. Patient has been consulted regarding any [...] Aida Sesay PA-C documented in this encounter [facility] 10-06-2021 Note Chief Complaint consultation for nevus [...] Use:., 10/06/2021 Family History Cardiac arrhythmia: Father. [facility] Comment on above: Result Comment: Elec tronically Signed By: Philippe MCGOWAN MD\.br\Date and Time Signed: 10/06/21 16:57 EDT Evaluation + Plan note Future Appointments Appointment Date:10/27/2021 01:40:00 PM Scheduled Provider:Philippe MCGOWAN MD Location:[facility] Appointment Type: Procedure 30 [facility] Evaluation note Diagnosis 19 weeks gestation of Second trimester state, incidental [facility] Diagnosis Second trimester state, incidental 23 weeks gestation of Diabetes mellitus screening Screening for diabetes mellitus documented in this encounter [facility]* Diagnosis 11 weeks gestation of [...] with dates documented in this [facility]* Diagnosis Third trimester state, incidental 35 weeks gestation of documented in this encounter [facility]* Diagnosis Third trimester state, incidental 37 weeks gestation of documented in [facility]* Diagnosis Third trimester state, incidental 38 weeks gestation of [facility] Narrative No data available for this section [facility] Discharge instructions No data available for this section General [facility] Progress note No data available for this section General Surgery [facility] Summary Purpose Family History No Family History Records FoundNo Family History Records FoundNo Family History Records Found Advance Directives No Advanced Directives Records FoundNo Advanced Directives Records FoundNo Advanced Directives Records Found Additional Source Comments Care Team (unrecognized sect ion and content) Printer Helper Relationship Specialty Start Date End Date Veronica Ambrocio MD [address] [place] [address] PCP - General Family Medicine 12/05/22 Printer Helper Relationship Specialty Start Date End Date Veronica Ambrocio MD [address] [place] [address] PCP - General Family Medicine 12/05/22 Printer Helper Relationship Specialty Start Date End Date Veronica Ambrocio MD [address] [place] [address] PCP - General Family Medicine 12/05/22 Printer Helper Relationship Specialty Start Date End Date Veronica Ambrocio MD [address] [place] [address] PCP - General Family Medicine 12/05/22 Printer Helper Relationship Specialty Start Date End Date Veronica Ambrocio MD [address] [facility] [place] [address] PCP - General Family Medicine 12/05/22 Printer Helper Relationship Specialty Start Date End Date Veronica Ambrocoi MD [address] [facility] [place] [address] PCP - General Family Medicine 12/05/22 Printer Helper Relationship Specialty Start Date End Date Veronica Ambrocio MD [address] [facility] [place] [address] PCP - General Family Medicine 12/05/22 Printer Helper Relationship Specialty Start Date End Date Veronica Ambrocio MD [address] [facility] [place] [address] PCP - General Family Medicine 12/05/22 INFORMATION SOURCE (unrecogn ized section and content) DATE CREATED AUTHOR 11/02/2021 [facility] DATE CREATED AUTHOR AUTHOR'S ORGANIZ ATION 06/10/2022 [facility] DATE CREATED AUTHOR AUTHOR'S ORGANIZ ATION 06/19/2024 [facility] EPIC Reason for Visit (unrecogniz [...] BE BASED ON THE PRIMARY CLINICAL RECORDS. [employer] [facility]. provides no warranty or guarantee of the accuracy or completeness of information in this document.
--- NOTE | 2024-06-20 10:24 | PC.NURSE ---
Patient arrives with c/o contractions since last night and increased vaginal pressure. To room 251 for evaluation. M applied for NST. 1025: sve- cervix posterior, amd head -1 station, unable to reach cervix r/t patient tolerance of exam.
[2024-06-20 11:21] LABS: Hematocrit 34.2 % (36.0-48.0); Hemoglobin 11.8 g/dL (12.0-16.0); Lymphocytes Percent Auto 18.5 % (20.5-60.0); Mean Corpuscular HGB Conc 34.5 g/dL (29.9-35.2); Mean Corpuscular Hemoglobin 32.2 pg (26.7-34.0); Mean Corpuscular Volume 93.4 fL (81.0-99.0); Mean Platelet Volume 10.9 fL (9.5-13.5); Monocytes Percent Auto 8.3 % (1.7-12.0); Neutrophils Percent Auto 71.9 % (43.0-75.0); Platelet Count 193 10^3/uL (150-450); Red Blood Count 3.66 10^6/uL (4.20-5.40); White Blood Count 9.1 10^3/uL (4.0-11.0)
[2024-06-20 11:22] LABS: Basophils Percent Auto 0.3 % (0.2-2.0); Eosinophils Absolute Auto 0.1 10^3/uL (0.0-0.7); Eosinophils Percent Auto 0.7 % (0.9-7.0); Immature Granulocytes Abs Auto 0.03 10^3/uL (0.00-0.03); Immature Granulocytes Pct Auto 0.3 % (0.0-0.5); Lymphocytes Absolute Auto 1.7 10^3/uL (1.2-3.8); Monocytes Absolute Auto 0.8 10^3/uL (0.3-0.8); Neutrophils Absolute Auto 6.5 10^3/uL (1.4-6.5)
[2024-06-20 11:23] LABS: Bilirubin Urine NEGATIVE (NEGATIVE); Blood Urine MODERATE (NEGATIVE); Clarity Urine SL CLOUDY (CLEAR); Color Urine YELLOW (YELLOW); Glucose Urine UA NEGATIVE (NEGATIVE); Ketones Urine NEGATIVE (NEGATIVE); Leukocyte Esterase Urine MODERATE (NEGATIVE); Nitrite Urine NEGATIVE (NEGATIVE); Protein Urine TRACE mg/dL (NEG/TRACE); Specific Gravity Urine 1.025 (1.005-1.025); Urobilinogen Urine 0.2 EU/dL (0.2-1.0)
[2024-06-20] MEDS: 0.9 % SODIUM CHLORIDE 1,000 ML 1000 ML IV ×2 (11:25→12:25)
[2024-06-20 11:30] LABS: Bacteria Urine MODERATE #/HPF (NONE SEEN); Mucus Urine TRACE (NONE SEEN); RBC Urine 20-50 #/HPF (0-2); WBC Urine 20-50 #/HPF (NONE SEEN)
[2024-06-20 11:31] LABS: Cast Seen? NONE SEEN #/LPF (NONE SEEN); Crystals Seen? None Seen #/HPF (None Seen); Squamous Epithelial Cell Urine MODERATE #/LPF (NONE/RARE); Urine Culture Indicated YES-LC
[2024-06-20 11:33] LABS: Amphetamine Screen Urine NEGATIVE (NEGATIVE); Barbiturates Screen Urine NEGATIVE (NEGATIVE); Benzodiazepines Screen Urine NEGATIVE (NEGATIVE); Buprenorphine Screen Urine NEGATIVE (NEGATIVE); Cannabinoid Screen Urine NEGATIVE (NEGATIVE); Cocaine Screen Urine NEGATIVE (NEGATIVE); Methadone Screen Urine NEGATIVE (NEGATIVE); Methamphetamines Screen Urine NEGATIVE (NEGATIVE); Opiate Screen Urine NEGATIVE (NEGATIVE); Oxycodone Screen Urine NEGATIVE (NEGATIVE); Phencyclidine Screen Urine NEGATIVE (NEGATIVE); Tricyclic Antidepressant Urine NEGATIVE (NEGATIVE)
[2024-06-20] MEDS: CITRIC ACID/SODIUM CITRATE 30 ML SOLUTION ORACIT SHOHL'S SOLN PO (14:07)
[2024-06-20] MEDS: METOCLOPRAMIDE HCL 10 MG/2 ML VIAL IVP (14:07)
[2024-06-20] MEDS: FAMOTIDINE/PF 20 MG/2 ML VIAL IV (14:07)
[2024-06-20] MEDS: CEFAZOLIN SODIUM/DEXTROSE,ISO 2 GM/50 ML PIGGYBACK IV ×2 (14:43→21:50)
[2024-06-20] MEDS: LACTATED RINGER'S SOLUTION 1,000 ML 50 ML IV (15:00)
--- NOTE | 2024-06-20 15:37 | P.ON_ITS ---
Brief Operative Note Date of procedure: 06/20/24 Pre-op diagnosis general: iup at 38 6/7wks, early labor, previous c/s Post-op diagnosis: same as pre-op Procedure: NAME OF PROCEDURE: [ section ] PROCEDURE: Patient was taken back to the Operating Room where she was given a spinal anesthesia with Duramorph without difficulty. She was prepped and draped in the normal sterile fashion. A Pfannenstiel skin incision was then made 2 cm above the symphysis pubis and carried down to underlying rectus fascia using a Bovie. The fascia was incised in the midline and extended laterally using Dominguez scissors. Two Reginald clamps were placed on the superior aspect of the fascia and dissected off the underlying rectus muscles. The same was performed on the inferior aspect as well. The muscles were then in the midline. Periton eum was identified and entered bluntly. The peritoneum was then extended superiorly and inferiorly with good visualization of the bladder. The bladder blade was inserted. A low transverse incision was made on the patient's uterus and extended laterally digitally. The was then delivered atraumatically after the bladder blade was removed in the cephalic position. The cord was clamped and cut. Cord blood was obtained. The infant was handed off to awaiting team. The patient's placenta was spontaneously delivered. The uterus was then exteriorized. The uterus was cleared of all clots and debris. The bladder blade was reinserted. The patient's uterine incision was closed using #0 Vicryl in a running lock fashion. Excellent hemostasis was assured. The uterus was then returned to the patient's abdomen. The patient's abdomen was copiously irrigated using warm saline. Peritoneal gutters were cleared of all clots and debris. Again excellent hemostasis was assured. The patient's peritoneum was closed using 3-0 Vicryl in a running fashion. The patient's fascia was closed using #0 Vicryl in a running fashion. The patient's skin was closed using 4-0 Vicryl subcuticularly. The patient tolerated the procedure well. Sponge, lap, and needle counts were correct x2. The patient was taken to the Recovery Room in stable condition. Anesthesia: spinal Surgeon: Zen Ojeda Continuous Process Machine Operator: Mireille Mao Estimated blood loss (mL): 575 Pathology: none sent Condition: stable Disposition: floor Urinary Catheter Management Urinary Catheter Management Urethral: Cath placed during this visit: no
--- NOTE | 2024-06-20 15:42 | PM.OBPRCCS ---
Procedure Pre-op/Post-op diagnoses: Pre-Op/Post-Op Diagnoses Operation Date: 06/20/24 13:40 <No data on this case meets the specified criteria> Procedure: Procedures Operation Date: 06/20/24 13:40 Actual Procedure Side Surgeon p REPEAT Not Applicable Zen Ojeda DO Merchandise Stocker: Mireille Mao Estimated blood loss (mL): 575 Disposition: floor Anesthesia type: Spinal
[2024-06-20] MEDS: OXYCODONE HCL/ACETAMINOPHEN 5MG/325MG 2 TAB PO (17:24)
[2024-06-20] MEDS: KETOROLAC TROMETHAMINE 30 MG/ML VIAL IVP (21:50)
[2024-06-21 00:38] VITALS: BP 103/63; O2SAT 97
[2024-06-21] MEDS: KETOROLAC TROMETHAMINE 30 MG/ML VIAL IVP ×2 (04:00→11:14)
[2024-06-21 04:02] VITALS: BP 98/55; PULSE 68
[2024-06-21] MEDS: ENOXAPARIN SODIUM 40 MG/0.4 ML SYRINGE SUBQ (06:06)
[2024-06-21 06:37] LABS: Basophils Percent Auto 0.4 % (0.2-2.0); Eosinophils Absolute Auto 0.2 10^3/uL (0.0-0.7); Eosinophils Percent Auto 2.1 % (0.9-7.0); Hematocrit 28.7 % (36.0-48.0); Hemoglobin 9.5 g/dL (12.0-16.0); Immature Granulocytes Abs Auto 0.02 10^3/uL (0.00-0.03); Immature Granulocytes Pct Auto 0.2 % (0.0-0.5); Lymphocytes Percent Auto 21.7 % (20.5-60.0); Mean Corpuscular HGB Conc 33.1 g/dL (29.9-35.2); Mean Corpuscular Volume 96.6 fL (81.0-99.0); Mean Platelet Volume 11.1 fL (9.5-13.5); Monocytes Absolute Auto 0.9 10^3/uL (0.3-0.8); Monocytes Percent Auto 9.9 % (1.7-12.0); Neutrophils Absolute Auto 6.1 10^3/uL (1.4-6.5); Neutrophils Percent Auto 65.7 % (43.0-75.0); Platelet Count 180 10^3/uL (150-450); Red Blood Count 2.97 10^6/uL (4.20-5.40); Red Cell Distribution Width 13.2 % (11.0-15.0); White Blood Count 9.4 10^3/uL (4.0-11.0)
[2024-06-21 08:10] VITALS: TEMP 36.4
[2024-06-21 08:13] VITALS: BP 95/53; PULSE 72
[2024-06-21] MEDS: DOCUSATE SODIUM 100 MG CAPSULE PO ×2 (08:14→21:04)
--- NOTE | 2024-06-21 08:42 | PM.OBPN ---
OB - PN: Subj Subjective Patient comments: no complaints and pain well controlled [employer] status: doing well Exam Constitutional Vital Signs, click to edit/add: Last Vital Signs Temp 98.2 F 06/20/24 19:46 Pulse 72 06/21/24 08:13 Resp 33 H 06/20/24 18:30 BP 95/53 06/21/24 08:13 Pulse Ox 97 06/21/24 00:38 O2 Del Method Room Air 06/21/24 04:00 Documenting provider has reviewed patient's vital signs: yes Common normals: no apparent distress Respiratory Common normals: normal respiratory effort and clear to auscultation bilaterally Cardio Common normals: regular rate and regular rhythm GI Common normals: Normal to inspection, nondistended, normoactive bowel sounds present Extremity Common normals: normal to inspection and no calf tenderness Results Labs Labs: Short CBC 06/20/24 06/21/24 Range/Units 11:15 06:07 WBC 9.1 9.4 (4.0-11.0) 10^3/uL Hgb 11.8 L 9.5 L (12.0-16.0) g/dL Hct 34.2 L 28.7 L (36.0-48.0) % Plt Count 193 180 (150-450) 10^3/uL Urine 06/20/24 Range/Units 10:30 Urine Color Yellow (YELLOW) Urine Clarity Sl cloudy (CLEAR) Urine pH 6.0 (5.0-9.0) Ur Specific Cordell 1.025 (1.005-1.025) Urine Protein Trace (NEG/TRACE) mg/dL Urine Glucose (UA) Negative (NEGATIVE) mg/dL Urinary Catheter Management Urinary Catheter Management Urethral: Cath placed during this visit: yes, but has since been removed by the nurse Removal date: 06/21/24 Removal time: 04:00 OB - PN: A/P Plan - day: 1 Plan: routine postop care Time Spent with Patient Time: Total time spent is greater than 50% in coordination of care (as documented) at patient's floor/unit and/or counseling patient: Total time spent with greater than 50% in coordination of care (as documented) at patient's floor/unit and/or counseling patient: less than 15 minutes
[2024-06-21] MEDS: OXYCODONE HCL/ACETAMINOPHEN 5MG/325MG 1 TAB PO (14:28)
[2024-06-21 17:03] VITALS: BP 117/58; PULSE 84
[2024-06-21] MEDS: IBUPROFEN 400 MG TABLET 800 MG PO (17:09)
[2024-06-22 00:56] VITALS: BP 104/58; PULSE 83; TEMP 36.6
[2024-06-22] MEDS: IBUPROFEN 400 MG TABLET 800 MG PO ×2 (00:56→09:48)
[2024-06-22] MEDS: OXYCODONE HCL/ACETAMINOPHEN 5MG/325MG 1 TAB PO (03:03)
[2024-06-22] MEDS: ENOXAPARIN SODIUM 40 MG/0.4 ML SYRINGE SUBQ (06:19)
[2024-06-22] MEDS: DOCUSATE SODIUM 100 MG CAPSULE PO (09:48)
--- NOTE | 2024-06-22 09:50 | P.DS_ITS ---
DS: Providers Provider Date of admission: 06/20/24 09:23 Primary care physician: Gal Ambrocio MD Admitting clinician: Zen Ojeda Attending physician on discharge: Kalpana Varghese Anticipated date of discharge: 06/22/24 DS: Diagnosis Discharge Diagnosis (1) Status post repeat low transverse section: Assessment and plan: REQUESTING DISCHARGE. CLINICAL EXAM NONFOCAL. VOICES NO PROBLEMS. BABY DOING WELL. BOTTLE FEEDING. HAS GOOD SUPPORTS AT HOME. Plan DISCHARGE HOME. FOLLOW UP APPOINTMENTS FOR BABY AND MOM EXPLAINED OB - DS: Summary Hospital Course Hospital Course: UNCOMPLICATED Time spent discussing smoking cessation with patient: 3 to 10 minutes Peripartum Data - Procedures: Procedures Operation Date: 06/20/24 13:40 Actual Procedure Side Surgeon p REPEAT Not Applicable Zen Ojeda DO Peripartum Data - Vaginal Delivery Procedures: Procedures Operation Date: 06/20/24 13:40 Actual Procedure Side Surgeon p REPEAT Not Applicable Zen Ojeda DO Complications complications: none Infant Delivery method: section Gender: female Discharge plan: home Status at Discharge Cognitive/behavioral status at discharge: WNL Functional status at discharge: independent ambulation Overall status at discharge: patient is progressing back to baseline Time Spent with Patient Time attestation: Total time spent providing and/or coordinating discharge services: Time spent: less than 30 minutes Specific discharge activities: MAY CLIMB STAIRS, NO BATHTUB 4 WEEKS, MAY SHOWER, LIMIT TIME IN CAR FOR FOUR WEEKS, INCISION CHECK IN ONE WEEK, WALKING ONLY EXERCISE SIX WEEKS, SPORTS BRA 07/11 TO INHIBIT MILK PRODUCTION BOTTLE FEEDING Exam Narrative Exam Narrative: VOICES NO COMPLAINTS Constitutional Vital Signs, click to edit/add: Last Vital Signs Temp 97.8 F 06/22/24 00:56 Pulse 83 06/22/24 00:56 Resp 14 06/21/24 08:10 BP 104/58 06/22/24 00:56 Pulse Ox 97 06/21/24 00:38 O2 Del Method Room Air 06/22/24 01:26 Documenting provider has reviewed patient's vital signs: yes Common normals: no apparent distress, average body habitus, oriented x3, no limitations, healthy appearing, alert and well nourished HENIA Common normals: normocephalic Head and scalp: atraumatic Eye Common normals: PERRL Pupil: accommodation reflex normal Neck & C-Spine Common normals: full ROM and supple Respiratory Common normals: normal respiratory effort Cardio Common normals: regular rate and regular rhythm GI Common normals: Normal to inspection, nondistended, normoactive bowel sounds present, soft to palpation and non-tender Common normals: no CVA tenderness Back & Pelvis Common normals: no thoracic nor lumbar tenderness Extremity Common normals: normal to inspection, full ROM and no calf tenderness Neuro Common normals: oriented x3, CN's II-XII intact bilaterally, moves all extremities, no focal motor deficits and no sensory deficits noted Psych Common normals: mental status grossly normal, thought process normal, cooperative, affect normal, speech normal and activity/motor behavior normal DS: Data Data Completed and Pending Labs on day of discharge: Preliminary micro results at discharge 06/20/24 10:30 Urine Culture - Preliminary Urine,Clean Catch Discharge Plan Discharge Disposition: Home, Self-Care Condition: Good Assessment: AMBULATING, EATING, ELIMINATING NORMALLY. BOTTLE FEEDING. AFEBRILE VSS. BABY DOING WELL. HEMOGLOBIN 9 PLUS. Health Concerns: NONE Plan of Treatment: DISCHARGE HOME, FOLLOW UP EXPLAINED Discharge Medications: Continued uonwnmrr-gld-Dc-FA 1 mg tablet PO DAILY Activity: increase activity as tolerated Activity Detail: DISCUSSED Diet: regular diet Print Language: Albanian Patient Instructions: (DC) Forms: Portal Instructions Follow Up Appointments: INCISION CHECK IN ONE WEEK, BABY TO SEE CENTRAL OFFICE OPERATOR IN ONE WEEK Discharge location: HOME
[2024-06-22 09:51] VITALS: BP 113/64; PULSE 77; TEMP 36.3
== END 2024-06-22 11:15 | disposition home or self-care (01) | DRG 540 ==
PROVIDERS: Admitting Provider Obstetrics & Gynecology; PCP Family Medicine; Visit Provider Obstetrics & Gynecology
PROC: 10D00Z1 Extraction of Products of Conception, Low, Open Approach (ICD-10-PCS; CPT 59514; principal; 2024-06-20 13:40)
DX: O75.82 Onset (spontaneous) of labor after 37 completed weeks of gestation but before 39 completed weeks gestation, with delivery by (planned) cesarean section (principal); O34.211 Maternal care for low transverse scar from previous cesarean delivery; O99.824 Streptococcus B carrier state complicating childbirth; Z3A.38 38 weeks gestation of pregnancy; Z37.0 Single live birth
CPT/HCPCS: 36415; 59050; 80307; 81001; 85025; 86850; 86900; 86901; 87086; 94667; 94668; J0690; J1650; J1885; J2274; J2371; J2405; J2590; J2765; J3490

== ENCOUNTER 2024-11-27 12:18 | Outpatient (REF) | payer OTHER, SELFPAY ==
--- OUTSIDE RECORDS SUMMARY | 2024-08-09 04:05 | XMS_ITS ---
Author Organization [facility] in [place] Address [address] [place] [address] Care Team Providers Care Sales Operations Lead Name Role Phone Augustine Ambrocio Primary Care Provider REASON FOR VISIT Ears no better Encounters Encounter Location Date Provider Diagnosis [facility] [address] [place] [address] 08/09/2024 Augustine Ambrocio Plan Of Treatment No Information Progress Notes * Alexa BOLANOS ADOB: 4 (29 yo F)Acc No.[id number]:08/09/2024 Patient: Joana MCGREGOR Alexa Taveras :1995 A ge:29 Y S ex:Female Address:[address] [place] [address], [address] * true * Date: Generated for Paul madera/Pedro/eTransmitting on: 0 11/27/2024 12:20 PM EDT
--- OUTSIDE RECORDS SUMMARY | 2024-08-09 06:15 | XMS_ITS ---
Author Organization [facility] in [place] Address [address] [place] [address] Care Team Providers Care Email Marketing Manager Name Role Phone Augustine Ambrocio Primary Care Provider Allergies No Known Allergies REASON FOR VISIT Presents to office alone for c/o ears still being plugged Medications Medication SIG (Take, Route, Fr equency, Duration) Notes Start Date End Date Status Azithromycin 250 MG 2 tabs today then 1 tab Orally daily for 5 days 08/05/2024 Active Pristiq 50 MG 1 tablet Orally Once a day for 30 days 11/08/2023 Active predniSONE 20 MG 3 tablets Orally Onc e a day for 5 days 08/09/2024 Active Social History Tobacco Use: Social History Observation Description Date Details (start date - stop date) Never Smoker NA - NA Tobacco Control (Standard) Question Answer Notes Tobacco use: Nonsmoker AUDIT-C (Standard) Question Answer Notes Did you have a drink containing alcohol in the p ast year? No Points 0 Interpretation Negative Problems Problem Type SNOMED Code ICD Code Onset Dates Problem Status W/U Status Risk Notes Problem Serous otitis media (88663819) Serous otitis media (H65.90) Active confirmed Vital Signs Weight 152.4 lbs 08/09/2024 Height 64 in 08/09/2024 Blood pressure systolic 118 mm Hg 08/10/19 Blood pressure diastolic 62 mm Hg 025 Temperature 99.2 degrees Fahrenheit 08/10/19 BMI 26.16 kg/m2 08/09/2024 Encounters Encounter Location Date Provider Diagnosis [facility] [address] [place] [address] 08/09/2024 Augustine Ambrocio Serous otitis media H65.90 and Bilateral serous otitis media H65.93 Assessments Encounter Date Diagnosis (ICD Code) Assessment Notes Treatment Notes Treatment Clinical Notes Section Notes 08/09/2024 Serous otitis media (ICD-10 - H65.90) 08/09/2024 Bilateral serous otitis media (ICD-10 - H65.93) Plan Of Treatment Medication Medication Name Sig Start Date Stop Date Notes predniSONE 20 MG 3 tablets Orally Once a day for 5 days Progress Notes * Alexa BOLANOS ADOB: 4 (29 yo F)Acc No.[id number]:08/09/2024 Progress Note Patient: Alexa LAKE Provider: Amy Ambrocio ([facility])MD :1995 A ge:29 Y S ex:Female Date:08/09/2024 Address:[address] [place], [place] [id number] Check In:10:07 AM ESTCheck O ut:10:22 AM EST Subjective: * Chief Complaints: * P resents to office alone for c/o ears still being plugged * Active Problem List R87.610 Atypical squamous ce lls of undetermined significance on cytologic smear of cervix (ASC-US) Modified On:12/12/2022/U Status:confirmed G47.00 Insomnia Modified On:11/08/2023/U Status:confirmed F41.9 Anxiety Modified On:11/08/2023/U Status:confirmed F32.9 Major depression Modified On:07/04/2024/U Status:confirmed H65.90 Serous otitis media Modified On:08/09/2024/U Status:confirmed * Medical History: * Surgical History: * Hospitalization/Major Diagno stic Procedure: * Family History: F ather: alive, diagnosed with Other malignant neoplasm of unspecified site. M other: alive. 1 brother(s) , 2 sister(s) - healthy. 2 daughter(s) . . * Social History: T obacco Use: T obacco Control (Standard) T obacco use: N onsmoker D rug/Alcohol: A VERONA-C (Standard) D id you have a drink containing alcohol in the past year? N o P oints 0 I nterpretation N egative * Medications: T akingAzithromycin 250 MG Tablet 2 tabs today then 1 tab Orally daily Pristiq(Desvenlafaxine Succinate ER) 50 MG Tablet Extended Release 24 Hour 1 tablet Orally Once a day Taking Azithromycin 250 MG Tablet 2 tabs today then 1 tab Orally daily Taking Pristiq(Desvenlafaxine Succinate ER) 50 MG Tablet Extended Release 24 Hour 1 tablet Orally Once a day DiscontinuedAmoxicillin-Pot Clavulanate 875-125 MG Tablet 1 tablet Orally every 12 hrs Medication List reviewed and reconciled with the patientDiscontinued Amoxicillin-Pot Clavulanate 875-125 MG Tablet 1 tablet Orally every 12 hrs Medication List reviewed and reconciled with the patient * Allergies: N .K.D.A.no[Allergies Verified] Objective: * Vitals: W t:152.4lbs, Ht: 64 in, BP:118/62mm Hg, Temp:99.2F, BMI:26.16Index, Ht-cm: 162.56 cm, Wt-k.13 kg. * Examination: A bdomen Exam:: b ilatear ANDREA. Assessment: * Assessment: 1. S erous otitis media - H65.90 (Primary) 2 . B ilateral serous otitis media - H65.93 Plan: * Treatment: * Procedure Codes: * Preventive Medicine: Screenings/Counseling: B IN ACTION PLAN Above Normal BMI Follow-up D ietary management education, guidance, and counseling See treatment section of progress note for complete details of management plan. * * Sign off status: Completed Visit Status: C HK (Check Out) true * Provider: Amy Ambrocio ([facility])MD Date: 0 08/09/2024 Generated for Paul madera/Pedro/eTransmitting on: 0 11/27/2024 12:21 PM EDT History and Physical Notes * Examination Category Sub-Category Detail Notes Category Not es Abdomen Exam: bilatear ANDREA
--- OUTSIDE RECORDS SUMMARY | 2024-08-19 11:45 | XMS_ITS ---
Author Organization [facility] in [place] Address [address] [place] [address] Care Team Providers Care Automatic Pilot Mechanic Name Role Phone Lolly Augustine Primary Care Provider [phone] Allergies No Known Allergies REASON FOR VISIT bilateral ear pain, states sounds muffled Medications Medication SIG (Take, Route, Fr equency, Duration) Notes Start Date End Date Status Pristiq 50 MG 1 tablet Orally Once a day for 30 days 11/08/2023 Active predniSONE 10 MG 5 tabs per day for 3 days, 4 tabs per day for 3 ays, 3 tabs perday for 3 days, 2 tabs per day for 3 days, 1 tab a day for 3 days, 1/2 tab a day for 4 days Orally Once a day for 19 days 08/19/2024 Active Social History Tobacco Use: Social History Observation Description Date Details (start date - stop date) Never Smoker NA - NA Tobacco Control (Standard) Question Answer Notes Tobacco use: Nonsmoker AUDIT-C (Standard) Question Answer Notes Did you have a drink containing alcohol in the p ast year? No Points 0 Interpretation Negative Vital Signs Weight 161 lbs 08/19/2024 Height 64 in 08/19/2024 Blood pressure systolic 112 mm Hg 08/20/19 25 Blood pressure diastolic 64 mm Hg 025 BMI 27.63 kg/m2 08/19/2024 Encounters Encounter Location Date Provider Diagnosis [facility] [address] [place] [address] 08/19/2024 Augustine Ambrocio Serous otitis media H65.90 and JOSE (secretory otitis media), bilateral H65.93 Assessments Encounter Date Diagnosis (ICD Code) Assessment Notes Treatment Notes Treatment Clinical Notes Section Notes 08/19/2024 Serous otitis media (ICD-10 - H65.90) 08/19/2024 JOSE (secretory otitis media), bilateral (ICD-10 - H65.93) Plan Of Treatment Medication Medication Name Sig Start Date Stop Date Notes predniSONE 10 MG 5 tabs per day for 3 days, 4 tabs per day for 3 ays, 3 tabs perday for 3 days, 2 tabs per day for 3 days, 1 tab a day for 3 days, 1/2 tab a day for 4 days Orally Once a day for 19 days 08/19/2024 Progress Notes * Alexa BOLANOS ADOB: 4 (29 yo F)Acc No.[id number]:08/19/2024 Progress Note Patient: Alexa LAKE Provider: Amy Ambrocio ([facility])MD :1995 A ge:29 Y S ex:Female Date:08/19/2024 Address:[address] [place], [place] [id number] Check In:03:41 PM ESTCheck O ut:04:11 PM EST Subjective: * Chief Complaints: * B ilateral ear pain, states sounds muffled * Active Problem List R87.317 Atypical squamous ce lls of undetermined significance on cytologic smear of cervix (ASC-US) Modified On:12/12/2022/U Status:confirmed G47.00 Insomnia Modified On:11/08/2023/U Status:confirmed F41.9 Anxiety Modified On:11/08/2023/U Status:confirmed F32.9 Major depression Modified On:07/04/2024/U Status:confirmed H65.90 Serous otitis media Modified On:08/09/2024/U Status:confirmed * Medical History: * Surgical History: 2 c sections * Hospitalization/Major Diagno stic Procedure: N o Hospitalization History. * Family History: F ather: alive, diagnosed [...] I nterpretation N egative * Medications: T akingPristiq(Desvenlafaxine Succinate ER) 50 MG Tablet Extended Release 24 Hour 1 tablet Orally Once a day Medication List reviewed and reconciled with the patientTaking Pristiq(Desvenlafaxine Succinate ER) 50 MG Tablet Extended Release 24 Hour 1 tablet Orally Once a day Medication List reviewed and reconciled with the patient * Allergies: N .K.D.A.no[Allergies Verified] Objective: * Vitals: W t:161lbs, Ht: 64 in, BP:112/64mm Hg, BMI:27.63Index, Ht-cm: 162.56 cm, Wt-k.03 kg. * Examination: A bdomen Exam:: B ilateral jose. Assessment: * Assessment: 1. S erous otitis media - H65.90 (Primary) 2 . S OM (secretory otitis media), bilateral - H65.93 Plan: * Treatment: * Procedure Codes: * Preventive Medicine: Screenings/Counseling: B [place] ACTION PLAN Above Normal BMI Follow-up D ietary management education, guidance, and counseling * * Sign off status: Completed Visit Status: C HK (Check Out) true * Provider: Amy Amborcio ([facility])MD Date: 0 08/19/2024 Generated for Paul madera/Pedro/eTransmitting on: 0 11/27/2024 12:20 PM EDT History and Physical Notes * Examination Category Sub-Category Detail Notes Category Not es Abdomen Exam: Bilateral jose
--- OUTSIDE RECORDS SUMMARY | 2024-11-21 16:10 | XMS_ITS | Encounter Summary ---
Author Organization [facility] Address [address] [place] [address] Care Team Providers Care Upkeep Mechanic Name Role Phone Gal Ambrocio MD Primary Care Provider [phone] Reason for Visit * Reason Comments Follow-up Encounter Details Date Type Department Care Team (Latest Contact Info) Description 11/21/2024 4:10 PM EDT Clinical Support [facility] [address] [facility] [address] [place] [address] Agustin Pittman, DPM 3[address] [facility] 5 [place] [address] Metatarsal deformity, right (Primary Dx); Capsulitis of metatarsophalangeal (MTP) joint of right foot; Verruca plantaris; Foot pain, right Social History Tobacco Use Types Packs/Day Years Used Date Smoking Tobacco: Never Smokeless Tobacco: Never Tobacco Cessation:Counseling Given: Yes Alcohol Use Standard Drinks/Week Comments Never 0 (1 standard drink = 0.6 oz pur e alcohol) Comments Unknown Sex and Gender Information Value Date Recorded Sex Assigned at Female 10/26/2022 8:52 AM EDT Legal Sex Female 11:01 PM EDT Gender Identity Female 10/26/2022 8:52 AM EDT Sexual Orientation Not on file documented as of this encounter Last Filed Vital Signs Vital Sign Reading Time Taken Comments Blood Pressure - - Pulse - - Temperature - - Respiratory Rate 16 11/21/2024 4:14 PM EDT Oxygen Saturation - - Inhaled Oxygen Concentration - - Weight 64.9 kg (143 lb) 11/21/2024 4:14 PM EDT Height 162.6 cm (5' 4 ) 11/21/2024 4:14 PM EDT Body Mass Index 24.55 11/21/2024 4:14 PM EDT documented in this encounter Progress Notes * Agustin Pittman, DPM - 11/21/2024 4:10 PM EDT Patient: Alexa Cook : 1995 PCP: Gal Ambrocio MD SUBJECTIVE Patient presents today for follow up of capsulitis and synovitis to the right 3rd MPJ Currently they rate their pain on a 1-10 scale a 1 States prior treatments of steroid injection and nsaids with improved to her feet States pain is aggrevated with WB. Patient presents today for follow up of skin lesion/neoplasm of unknown origin to the right foot Pt states that previous treatment of acid tx with some improvement Pt rates pain the pain on a 1-10 scale an intensity of 4 Pt presents today for followup. Patient also has metatarsal deformity to the right 3rd metatarsal Patient is currently covered by insurance for custom orthotics at this time. Allergies: No Known Allergies Past Medical History: No past medical history on file. Medications: Current Outpatient Medications: ibuprofen 800 MG tablet, Take 800 mg by mouth every 8 (eight) hours, Disp: , Rfl: MV-Min-Fe Fum-FA-DHA ( 1 PO), Take by mouth, Disp: , Rfl: Social History: Social History Socioeconomic History Marital status: Unmarried Spouse name: Not on file Number of children: Not on file Years of education: Not on file Highest education level: Not on file Occupational History Not on file Tobacco Use Smoking status: Never Smokeless tobacco: Never Substance and Sexual Activity Alcohol use: Never Drug use: Never Sexual activity: Yes control/protection: None Other Topics Concern Not on file Social History Narrative Not on file Social Drivers of Health Financial Resource Strain: Not on file Food Insecurity: Not on file Transportation Needs: Not on file Physical Activity: Not on file Stress: Not on file Social Connections: Not on file Intimate Partner Violence: Not on file Housing Stability: Not on file ROS: General: denies fever, chills, fatigue, malaise Gastrointestinal: denies abdominal pain, ulcers, or changes in appetite or bowel habits Musculoskeletal: denies arthritis, denies loss of strength, pain to hip, knees, back Cardiovascular: denies CP, palpitations, irregular rhythms OBJECTIVE LE EXAM: DERM: Positive hair growth to b/l feet with good skin turgor noted. Negative openings in skin. Nummular lesion measuring at the distal aspect of the right 3rd toe measuring 0.3 cm x 0.2 cm. VASC: Palpable pedal pulsed b/l with warm to cool tibia to toes b/l NEURO: Gross sensation intact digits 1-10 and b/l feet ORTHO: +5/5 DF/PF/IN/EV right, +5/5 DF/PF/IN/EV left. 20 degrees inversion and 10 degrees eversion STJ b/l. Ankle ROM less than 10 degrees b/l. Greatly diminished pain on palpation to right 3rd MPJ capsule with negative Ronaldo test Positive pain on palpation to right 3rd toe lesion Plantar flexed right 3rd metatarsal XRAY: ASSESSMENT 1. Metatarsal deformity, right 2. Capsulitis of metatarsophalangeal (MTP) joint of right foot 3. Verruca plantaris 4. Foot pain, right PLAN Application of salinocaine acid medication to lesion/lesions located at right foot Informed pt of risks and benefits of procedure including high reoccurence rate, infection, pain andconsent given. Application of DSD post procedure. Patient to continue with oral anti - inflammatories as needed for pain and recommended OTC medications such as tylenol or Ibuprofen Pt presents today for casting of a removable foot inserts/orthotics today that was accomplished with scanning of feet and sent to orthotics lab.(L3020 right and L3020 left foot). Pt to have signed ABN for device if needed. It was explained to the patient of a break in period for the devices. The patient is ambulatory maybenefit functionally for this device. It may be used for the following conditions as noted per EMR. Agustin Pittman DPM documented in this encounter Plan of Treatment Upcoming Encounters Date Type Department Care Team (Late st Contact Info) Description 12/12/2024 4:00 PM EDT [facility] Visit [facility] [address] [facility] [address] [place] [address] Agustin Pittman DPM 3006 [facility] 5 [place] [address] 12/01/2025 11:00 AM EDT Procedure Visit [facility] [address] [facility] [place] [address] Aida Mccormack PA [address] [facility] [place] [address] documented as of this encounter Visit Diagnoses Diagnosis Metatarsal deformity, right- Primary Capsulitis of metatarsophalangeal (MTP) joint of right foot Verruca plantaris Plantar wart Foot pain, right Pain in soft tissues of limb documented in this encounter Care Teams Upkeep Mechanic Relationship Specialty Start Date End Date Gal Ambrocio MD [address] [facility] [place] [phone] PCP - General Family Medicine 12/05/22 documented as of this encounter
--- OUTSIDE RECORDS SUMMARY | 2024-11-27 10:00 | XMS_ITS | Encounter Summary ---
Author Organization [facility] Address [address] [address] Care Team Providers Care Engineering Drawings Checker Name Role Phone Gal Ambrocio MD Primary Care Provider [phone] Reason for Visit * Reason Comments Well Women Visit Encounter Details Date Type Department Care Team (Latest Contact Info) Description 11/27/2024 10:00 AM EDT Procedure [facility] [place] [facility] [address] [place] [address] Kristi Turpin NP [address] [facility] [place] [address] Well woman exam with routine gynecological exam; Burning with urination Social History Tobacco Use Types Packs/Day Years Used Date Smoking Tobacco: Never Smokeless Tobacco: Never Alcohol Use Standard Drinks/Week Comments Never 0 [...] Sign Reading Time Taken Comments Blood Pressure 104/78 11/27/2024 10:02 AM EDT Pulse - - Temperature - - Respiratory Rate - - Oxygen Saturation - - Inhaled Oxygen Concentration - - Weight 62.5 kg (137 lb 12.8 oz) 025 10:02 AM EDT Height - - Body Mass Index 23.65 11/21/2024 4:14 PM EDT documented in this encounter Progress Notes * Kristi Turpin NP - 11/27/2024 10:00 AM EDT Reason for Appointment: Patient ID: Alexa Cook is a 29 y.o. female who presents for Well Women Visit Patient presents today for Annual Exam. MEDICATIONS No current outpatient medications ALLERGIES No Known Allergies PROBLEMS Active Ambulatory Problems Diagnosis Date Noted ??? No Active Ambulatory Problems Resolved Ambulatory Problems Diagnosis Date Noted ??? No Resolved Ambulatory Problems No Additional Past Medical History HISTORY PAST MEDICAL HISTORY SOCIAL HISTORY History reviewed. No pertinent past medical history. Social History Tobacco Use ??? Smoking status: Never ??? Smokeless tobacco: Never Substance Use Topics ??? Alcohol use: Never ??? Drug use: Never FAMILY HISTORY No family history on file. SURGICAL HISTORY Past Surgical History: Procedure Laterality Date ??? SECTION, CLASSIC 06/20/2024 ??? SECTION, LOW TRANSVERSE 2019 ??? OTHER SURGICAL HISTORY lesion removal ??? PAP SMEAR 06/25/2020 negative REVIEW OF SYSTEMS Review of Systems: Review of Systems Constitutional: Negative. HENT: Negative. Eyes: Negative. Respiratory: Negative. Cardiovascular: Negative. Gastrointestinal: Negative. Genitourinary: Positive for dysuria. Musculoskeletal: Negative. Skin: Negative. Neurological: Negative. All other systems reviewed and are negative. Hematological: Negative. Endocrine: Negative. Allergic/Immunologic: Negative. OBJECTIVE Objective: Physical Exam Constitutional: Appearance: Normal appearance. Genitourinary: Right Adnexa: not tender and no mass present. Left Adnexa: not tender and no mass present. No cervical discharge. Breasts: Breasts are soft. Right: Normal. Left: Normal. HENT: Head: Normocephalic. Nose: Nose normal. Mouth/Throat: Mouth: Mucous membranes are moist. Cardiovascular: Rate and Rhythm: Normal rate. Pulmonary: Effort: Pulmonary effort is normal. Abdominal: General: Bowel sounds are normal. Palpations: Abdomen is soft. Musculoskeletal: General: Normal range of motion. Cervical back: Normal range of motion. Neurological: General: No focal deficit present. Mental Status: She is alert. Skin: General: Skin is warm and dry. Psychiatric: Mood and Affect: Mood normal. Vitals and nursing note reviewed. Exam conducted with a senior media planner present. Vitals: Estimated body mass index is 23.65 kg/m?? as calculated from the following: Height as of 8/7/25: 5' 4 . Weight as of this encounter: 137 lb 12.8 oz. BP: 104/78 Patient's last menstrual period was 11/18/2024. ASSESSMENT & PLAN ICD-10-CM 1. Well woman exam with routine gynecological exam Z01.419 Pap Smear HPV DNA probe, amplified 2. Burning with urination R30.0 POCT urinalysis dipstick manually resulted Annual Exam: Patient presents today for an annual exam. Patient states she is doing well and has no complaints. Pap was obtained without difficulty. Patient does have some urination with burning and we will send script for her and her urine is sent for culture and sensitivity. Orders Placed This Encounter Procedures ??? HPV DNA probe, amplified ??? POCT urinalysis dipstick manually resulted Follow Up: Patient is to return in one year for annual unless needed otherwise. Documented by Giuliana Walker LPN on behalf of: Kristi Turpin NP documented in this encounter Plan of Treatment Upcoming Encounters Date Type Department Care Team (Late st Contact Info) Description 12/12/2024 4:00 PM EDT Office Visit [facility] [address] [facility] 120 [place] [address] Agustin Pittman DPM 3006 [facility] 5 [place] [address] 12/01/2025 11:00 AM EDT Procedure Visit [facility] [address] [facility] [place] [address] Aida Mccormack PA [address] [facility] [address] [place], [place] [id number] Scheduled Orders Name Type Priority Associated Diagnoses Orde r Schedule Pap Smear Pathology and Cytology Routine Well woman exam with routine gynecological exam Ordered: 11/27/2024 HPV DNA probe, amplified Microbiology Routine Well woman exam with routine gynecological exam Ordered: 11/27/2024 Urine culture Microbiology Routine Burning with urination Ordered: 11/27/2024 documented as of this encounter Procedures Procedure Name Priority Date/Time Associated Diagnosis Comments POCT URINALYSIS DIPSTICK Routine 11/27/2024 10:06 AM EDT Burning with urination documented in this encounter Results * (ABNORMAL) POCT urinalysis dipstick manually resulted (11/27/2024 10:06 AM EDT) Color, UA Yellow Clarity, UA Clear Glucose, UA Negative Negative - 2000(110) ++++ mg/dL Bilirubin, UA Negative Negative - 4(70) +++ mg/dL Ketones, UA Negative Negative - 160(16) ++++ mg/dL Spec Grav, UA 1.030 1 - 1.03 Blood, UA Positive Negative - 50 Zenon/mcL pH, UA 6.0 5 - 9 Protein, UA Positive Negative - 2000(20) ++++ mg/dL Urobilinogen, UA 1.0 0.2 - 12 mg/dL Leukocytes, UA Positive Negative - 500+++ Viral/mcL Nitrite, UA Negative Negative - Positive Urine 11/27/2024 10:0 6 AM EDT Kristi Turpin MORTGAGE LOAN INTERVIEWER POINT OF CARE TEST ENTER/EDIT ORDERABLES Final Result documented in this encounter Visit Diagnoses Diagnosis Well woman exam with routine gynecological exam Routine gynecological examination Burning with urination Dysuria documented in this encounter Care Teams Engineering Drawings Checker Relationship Specialty Start Date End Date Gal Ambrocio MD [address] [place] [address] PCP - General Family Medicine 12/05/22 documented as of this encounter
--- OUTSIDE RECORDS SUMMARY | 2024-11-27 12:20 | XMS_ITS | Encounter Summary ---
Author Organization [facility] Address [address] [place] [address] Care Team Providers Care Supervisor Histology Name Role Phone Gal Ambrocio MD Primary Care Provider [phone] Encounter Details Date Type Department Care Team (Late Contact Info) Description 11/23/2023 Abstract [facility] [address] [place] [address] Zen Ojeda DO [address] [place] [address] Social History Tobacco Use Types Packs/Day Years Used Date Smoking Tobacco: Never Smokeless Tobacco: Never Alcohol Use Standard Drinks/Week Comments Never 0 (1 standard drink = 0.6 oz pur e alcohol) Comments Yes Sex and Gender Information Value Date Recorded Sex Assigned at Female 10/26/2022 8:52 AM EDT Legal Sex Female 11:01 PM EDT Gender Identity Female 10/26/2022 8:52 AM EDT Sexual Orientation Not on file documented as of this encounter Plan of Treatment Upcoming Encounters Date Type Department Care Team (Late Contact Info) Description 12/12/2024 4:00 PM EDT Office Visit [facility] 112 [facility] 120 [place] [address] Agustin Pittman, DPNeville 3006 [facility] 5 [place] [address] 12/01/2025 11:00 AM EDT Procedure Visit [facility] [address] [place] [address] Aida Mccormack PA [address] [place] [address] [place] [address] documented as of this encounter Visit Diagnoses Not on filedocumented in this encounter Care Teams Supervisor Histology Relationship Specialty Start Date End Date Gal Ambrocio MD [address] [facility] [place] [address] PCP - General Family Medicine 12/05/22 documented as of this encounter
--- OUTSIDE RECORDS SUMMARY | 2024-11-27 12:20 | XMS_ITS | Encounter Summary ---
Author Organization [facility] Address [address] [facility] [place] [address] Care Team Providers Care Special Needs Librarian Name Role Phone Gal Ambrocio MD Primary Care Provider [phone] Encounter Details Date Type Department Care Team (Late Contact Info) Description 09/10/2022 Abstract [facility] [address] [place] [address] Zen Ojeda DO [address] [place] [address] Social History Tobacco Use Types Packs/Day Years Used Date Smoking Tobacco: Never Tobacco Cessation:Counseling Given: Not Answered Alcohol Use Standard Drinks/Week Comments Never 0 [...] EDT Office Visit [facility] 112 [facility] 120 [place] [address] Agustin Pittman DPM 3006 [facility] 5 [place] [address] 12/01/2025 11:00 AM EDT Procedure Visit [facility] [address] [place] [address] Aida Mccormack PA [address] [place] [address] [place], [place] [id number] documented as of this encounter Visit Diagnoses Not on filedocumented in this encounter Care Teams Special Needs Librarian Relationship Specialty Start Date End Date Gal Ambrocio MD [address] [facility] [place] [address] PCP - General Family Medicine 12/05/22 documented as of this encounter
--- OUTSIDE RECORDS SUMMARY | 2024-11-27 12:20 | XMS_ITS | Encounter Summary ---
Author Organization [facility] Address [address] [facility] [place] [address] Care Team Providers Care Community Product Specialist Name Role Phone Gal Ambrocio MD Primary Care Provider [phone] Encounter Details Date Type Department Care Team (Late Contact Info) Description 03/02/2024 Clinisync Result Encounter [facility] External Department Unsolicited Darien Ojeda DO [address] [facility] [address] [place], [facility] Social History Tobacco Use Types Packs/Day Years [...] EDT Office Visit [facility] [address] [facility] 120 [place] [address] Agustin Pittman, DPM [address] [facility] 5 [place] [address] 12/01/2025 11:00 AM EDT Procedure Visit [facility] OBRICHARD [address] [facility] [place] [address] Aida Mccormack PA [address] [facility] [place] [address] [phone] (work) documented as of this encounter Procedures Procedure Name Priority Date/Time Associated Diagnosis Comments US OB PLACENTA 03/02/2024 6:23 AM EST documented in this encounter Results * US OB PLACENTA (03/02/2024 6:23 AM EST) Anatomical Region Laterality Modality Other 03/02/2024 6:23 AM EST Narrative 03/02/2024 6:26 AM EST [place] [id number] Ultrasound Report Signed Patient: ALEXA BOLANOS MR#: [id number] : 1995 Acct:[id number] Age/Sex: 28 / F ADM Date: 03/01/24 Loc: US Attending Dr: Darien Ojeda D.O. Ordering Physician: Dairen Ojeda D.O. Date of Service: 03/01/24 Procedure(s): US OB placenta Accession Number(s): [id number] cc: Darien Ojeda D.O.; Gal Ambrocio M.D. [address] [address] Patient Name: ALEXA BOLANOS MRN: [id number] date: 1995 Sex: F Assigned Patient Location: US Current Patient Location: Accession/Order Number: [id number] Exam Date: 03/01/2024 11:03 Report Date: 03/02/2024 06:23 At the request of: DARIEN OJEDA Procedure: US OB placenta EXAMINATION: US OB placenta, US OB cervical length HISTORY: Low Lying Placenta COMPARISON: Ultrasound OB anatomy 02/02/2024 FINDINGS: PLACENTA: Posterior fundal with lower margin 5.2 cm from internal os. Grade 0. CERVIX LENGTH: 4.1 cm, closed. HEART RATE: 142 bpm OTHER: Amniotic fluid is subjectively normal. US/US OB placenta IMPRESSION: 1. Single live intrauterine . 2. Posterior-fundal placenta which is no longer low-lying. Electronically authenticated by: VERN FARIAS Date: 03/02/2024 06:23 Dictated By: Vern Farias M.D. Signed By: 03/02/24625 DD/ 2 TD/TT: Territory Account Representative: Procedure Note Radiology, Radiologist, - 03/02/2024 [place] [address] Ultrasound Report Signed Patient: ALEXA BOLANOS AMR#: [id number] : 1995Acct:[id number] Age/Sex: 28 / FADM Date: 03/01/24 Loc: US Attending Dr: Darien Ojeda D.O. Ordering Physician: Darien Ojeda D.O. Date of Service: 03/01/24 Procedure(s): US OB placenta Accession Number(s): [id number] cc: Darien Ojeda D.O.; Gal Ambrocio M.D. The [place] [id number] Patient Name: ALEXA BOLANOS MRN: [id number] date: 1995 Sex: F Assigned Patient Location: US Current Patient Location: Accession/Order Number: [id number] Exam Date: 03/01/2024 11:03 Report Date: 03/02/2024 06:23 At the request of: DARIEN OJEDA Procedure: US OB placenta EXAMINATION: US OB placenta, US OB cervical length HISTORY: Low Lying Placenta COMPARISON: Ultrasound OB anatomy 02/02/2024 FINDINGS: PLACENTA: Posterior fundal with lower margin 5.2 cm from internal os.Grade 0. CERVIX LENGTH: 4.1 cm, closed. HEART RATE: 142 bpm OTHER: Amniotic fluid is subjectively normal. US/US OB placenta IMPRESSION: 1. Single live intrauterine . 2. Posterior-fundal placenta which is no longer low-lying. Electronically authenticated by: VERN FARIAS Date: 03/02/2024 06:23 Dictated By: Vern Farias M.D. Signed By:03/02/24625 DD/ 2 TD/TT: Territory Account Representative: us Darien Lynette DO [facility] Final Result documented in this encounter Visit Diagnoses Not on filedocumented in this encounter Care Teams Community Product Specialist Relationship Specialty Start Date End Date Gal Ambrocio MD [address] [place] [address] PCP - General Family Medicine 12/05/22 documented as of this encounter
--- OUTSIDE RECORDS SUMMARY | 2024-11-27 12:20 | XMS_ITS | Encounter Summary ---
Author Organization [facility] Address [address] [place] [address] Care Team Providers Care Director Of Procurement Name Role Phone Gal Ambrocio MD Primary Care Provider [phone] Encounter Details Date Type Department Care Team (Late Contact Info) Description 12/13/2022 Abstract [facility] [address] [facility] [place] [place] [address] Giuliana Walker LPN [address] [place] [address] Social History Tobacco Use Types Packs/Day [...] EDT Office Visit [facility] 112 [facility] 120 [place] [address] Agustin Pittman, DPNeville 3006 [facility] [address] [place] [address] 12/01/2025 11:00 AM EDT Procedure Visit [facility] [address] [facility] [place] [place] [address] Aida Mccormack PA [address] [place] [address] [place] [address] documented as of this encounter Visit Diagnoses Not on filedocumented in this encounter Care Teams Director Of Procurement Relationship Specialty Start Date End Date Gal Ambrocio MD [address] [facility] [place] [address] PCP - General Family Medicine 12/05/22 documented as of this encounter
--- OUTSIDE RECORDS SUMMARY | 2024-11-27 12:20 | XMS_ITS | Encounter Summary ---
Author Organization [facility] Address [address] [facility] [place] [address] Care Team Providers Care Pari Mutuel Ticket Seller Name Role Phone Gal Ambrocio MD Primary Care Provider [phone] Encounter Details Date Type Department Care Team (Late Contact Info) Description 03/02/2024 Clinisync Result Encounter NOMS External Department Unsolicited Darien Ojeda DO [address] [facility] [address] John [place], [facility]11 Social History Tobacco Use Types Packs/Day Years [...] EDT Office Visit [facility] CI PODIATRY 112 [facility] 120 [place] [address] Agustin Pittman, DPM 3009 [facility] 5 [place] [address] 12/01/2025 11:00 AM EDT Procedure Visit N[facility]S Evy OBRICHARD [address] [facility] [place] [address] Aida Mccormack PA [address] [facility] [place] [address] [phone] (work) documented as of this encounter Procedures Procedure Name Priority Date/Time Associated Diagnosis Comments US OB CERVICAL LENGTH 03/02/2024 6:23 AM EST documented in this encounter Results * US OB CERVICAL LENGTH (03/02/2024 6:23 AM EST) Anatomical Region Laterality Modality Other 03/02/2024 6:23 AM EST Narrative 03/02/2024 6:26 AM EST [place] [id number] Ultrasound Report Signed Patient: ALEXA BOLANOS MR#: [id number] : 1995 Acct:[id number] Age/Sex: 28 / F ADM Date: 03/01/24 Loc: US Attending Dr: Darien Ojeda D.O. Ordering Physician: Darien Ojeda D.O. Date of Service: 03/01/24 Procedure(s): US OB cervical length Accession Number(s): [id number] cc: Darien Ojeda D.O.; Gal Ambrocio M.D. [address] [address] Patient Name: ALEXA BOLANOS MRN: [id number] date: 1995 Sex: F Assigned Patient Location: US Current Patient Location: Accession/Order Number: [id number] Exam Date: 03/01/2024 11:27 Report Date: 03/02/2024 06:23 At the request of: DARIEN OJEDA Procedure: US OB cervical length EXAMINATION: US OB placenta, US OB cervical length HISTORY: Low Lying Placenta COMPARISON: Ultrasound OB anatomy 02/02/2024 FINDINGS: PLACENTA: Posterior fundal with lower margin 5.2 cm from internal os. Grade 0. CERVIX LENGTH: 4.1 cm, closed. HEART RATE: 142 bpm OTHER: Amniotic fluid is subjectively normal. US/US OB cervical length IMPRESSION: 1. Single live intrauterine . 2. Posterior-fundal placenta which is no longer low-lying. Electronically authenticated by: VERN FARIAS Date: 03/02/2024 06:23 Dictated By: Vern Farias M.D. Signed By: 03/02/24625 DD/ 2 TD/TT: Operations And Intelligence Assistant: Procedure Note Radiology, Radiologist, - 03/02/2024 [place] [address] Ultrasound Report Signed Patient: ALEXA BOLANOS AMR#: [id number] : 1995Acct:[id number] Age/Sex: 28 / FADM Date: 03/01/24 Loc: US Attending Dr: Darien Ojeda D.O. Ordering Physician: Darien Ojeda D.O. Date of Service: 03/01/24 Procedure(s): US OB cervical length Accession Number(s): [id number] cc: Darien Ojeda D.O.; Gal Ambrocio M.D. The [place] [address] Patient Name: ALEXA BOLANOS MRN: [id number] date: 1995 Sex: F Assigned Patient Location: US Current Patient Location: Accession/Order Number: [id number] Exam Date: 03/01/2024 11:27 Report Date: 03/02/2024 06:23 At the request of: DARIEN OJEDA Procedure: US OB cervical length EXAMINATION: US OB placenta, US OB cervical length HISTORY: Low Lying Placenta COMPARISON: Ultrasound OB anatomy 02/02/2024 FINDINGS: PLACENTA: Posterior fundal with lower margin 5.2 cm from internal os.Grade 0. CERVIX LENGTH: 4.1 cm, closed. HEART RATE: 142 bpm OTHER: Amniotic fluid is subjectively normal. US/US OB cervical length IMPRESSION: 1. Single live intrauterine . 2. Posterior-fundal placenta which is no longer low-lying. Electronically authenticated by: VERN FARIAS Date: 03/02/2024 06:23 Dictated By: Vern Farias M.D. Signed By:03/02/24625 DD/ 2 TD/TT: Operations And Intelligence Assistant: us Darien Lynette DO [facility] Final Result documented in this encounter Visit Diagnoses Not on filedocumented in this encounter Care Teams Pari Mutuel Ticket Seller Relationship Specialty Start Date End Date Gal Ambrocio MD [address] [place] [address] PCP - General Family Medicine 12/05/22 documented as of this encounter
--- OUTSIDE RECORDS SUMMARY | 2024-11-27 12:20 | XMS_ITS | Encounter Summary ---
Author Organization [facility] Address [address] [facility] [place] [address] Care Team Providers Care Machine Filler Name Role Phone Gal Ambrocio MD Primary Care Provider [phone] Encounter Details Date Type Department Care Team (Late Contact Info) Description 12/13/2022 Abstract [facility]S Forrest MAJOR [address] [place] [address] Giuliana Walker LPN [address] [place] [address] Social History Tobacco Use Types [...] PODIATRY 112 [facility] 120 [place] [address] Agustin Pittman, DPNeville 3006 [facility] 5 [place] [address] 12/01/2025 11:00 AM EDT Procedure Visit N[facility]S Forrest MAJOR [address] [place] [address] Aida Mccormack PA [address] [place] [address] [place] [address] documented as of this encounter Visit Diagnoses Not on filedocumented in this encounter Care Teams Machine Filler Relationship Specialty Start Date End Date Gal Ambrocio MD [address] [facility] [place] [address] PCP - General Family Medicine 12/05/22 documented as of this encounter
--- OUTSIDE RECORDS SUMMARY | 2024-11-27 12:21 | XMS_ITS | Encounter Summary ---
Author Organization [facility] Address [address] [facility] [place] [address] Care Team Providers Care Solutions Sales Executive Name Role Phone Gal Ambrocio MD Primary Care Provider [phone] Encounter Details Date Type Department Care Team (Late Contact Info) Description 11/24/2023 Abstract [facility] Forrest MAJOR [address] [place] [address] Zen Ojeda DO [address] [place] [address] Social History Tobacco Use Types Packs/Day [...] EDT Office Visit [facility] CI PODIATRY 112 [facility] 120 [place] [address] Agustin Pittman, DPNeville 3006 [facility] 5 [place] [address] 12/01/2025 11:00 AM EDT Procedure Visit NOMS Forrest MAJOR [address] [place] [address] Aida Mccormack PA [address] [place] [address] [place] [address] documented as of this encounter Visit Diagnoses Not on filedocumented in this encounter Care Teams Solutions Sales Executive Relationship Specialty Start Date End Date Gal Ambrocio MD 12[address] [facility] [place] [address] PCP - General Family Medicine 12/05/22 documented as of this encounter
--- OUTSIDE RECORDS SUMMARY | 2024-11-27 12:21 | XMS_ITS | Encounter Summary ---
Author Organization [facility] Address [address] [facility] [place] [address] Care Team Providers Care Lumber Sorter Name Role Phone Gal Ambrocio MD Primary Care Provider [phone] Encounter Details Date Type Department Care Team (Late Contact Info) Description 11/17/2023 Clinisync Result Encounter NOMS External Department Unsolicited Darien Ojeda DO [address] [facility] [address] John [place], [facility]11 Social History Tobacco Use Types Packs/Day [...] EDT Office Visit [facility] CI PODIATRY 112 [facility] 120 [place] [address] Agustin Pittman, DPM 3006 [facility] 5 [place] [address] 12/01/2025 11:00 AM EDT Procedure Visit NOMS Evy OBRICHARD [address] [facility] [place] [address] Aida Mccormack PA [address] [facility] [place] [address] [phone] (work) documented as of this encounter Procedures Procedure Name Priority Date/Time Associated Diagnosis Comments US OB TRANSVAGINAL 11/17/2023 9: 53 AM EDT documented in this encounter Results * US OB TRANSVAGINAL (11/17/2023 9:53 AM EDT) Anatomical Region Laterality Modality Other 11/17/2023 9:53 AM EDT Narrative 11/17/2023 9:56 [place] [address] Ultrasound Report Signed Patient: ALEXA BOLANOS MR#: [id number] : 1995 Acct:[id number] Age/Sex: 28 / F ADM Date: 11/17/23 Loc: NOMS Attending Dr: Darien Ojeda D.O. Ordering Physician: Darien Ojeda D.O. Date of Service: 11/17/23 Procedure(s): US OB transvaginal Accession Number(s): [id number] cc: Darien Ojeda D.O.; Gal Ambrocio M.D. [address] [address] Patient Name: ALEXA BOLANOS MRN: [id number] date: 1995 Sex: F Assigned Patient Location: [facility] Current Patient Location: [facility] Accession/Order Number: [id number] Exam Date: 11/17/2023 08:55 Report Date: 11/17/2023 09:53 At the request of: DARIEN OJEDA Procedure: US OB transvaginal EXAMINATION: US OB transvaginal HISTORY: MISSED MENSES COMPARISON: No relevant comparison available. FINDINGS: GESTATIONAL SAC: Present and normal appearing. YOLK SAC: Present and normal appearing. POLE: Present and normal appearing. CARDIAC: Present. UTERUS: Small subchorionic hematoma. OVARIES: Right: Normal. Left: Normal. CERVIX: 4.7 cm in length and closed. CUL-DE-SAC: Normal. OTHER: None. AGE BY LMP: Unknown LMP CLARITZA BY LMP: AGE BY US CRL: 8 weeks 0 days CLARITZA BY US CRL: 06/28/2024 US/US OB transvaginal IMPRESSION: 1. Single live intrauterine 8 weeks 0 days by today's ultrasound. Electronically authenticated by: VERN FARIAS Date: 11/17/2023 09:53 Dictated By: Vern Farias M.D. Signed By: 11/17/23955 DD/ 2 TD/TT: Keypunch Operator: Procedure Note Radiology, Radiologist, MD - 11/17/2023 [place] [address] Ultrasound Report Signed Patient: ALEXA BOLANOS AMR#: [id number] : 1995Acct:[id number] Age/Sex: 28 / FADM Date: 11/17/23 Loc: NOMS Attending Dr: Darien Ojeda D.O. Ordering Physician: Darien Ojeda D.O. Date of Service: 11/17/23 Procedure(s): US OB transvaginal Accession Number(s): [id number] cc: Darien Ojeda D.O.; Gal Ambrocio M.D. The [place] [id number] Patient Name: ALEXA BOLANOS MRN: [id number] date: 1995 Sex: F Assigned Patient Location: [facility] Current Patient Location: [facility] Accession/Order Number: [id number] Exam Date: 11/17/2023 08:55 Report Date: 11/17/2023 09:53 At the request of: DARIEN OJEDA Procedure: US OB transvaginal EXAMINATION: US OB transvaginal HISTORY: MISSED MENSES COMPARISON: No relevant comparison available. FINDINGS: GESTATIONAL SAC: Present and normal appearing. YOLK SAC: Present and normal appearing. POLE: Present and normal appearing. CARDIAC: Present. UTERUS: Small subchorionic hematoma. OVARIES: Right: Normal. Left: Normal. CERVIX: 4.7 cm in length and closed. CUL-DE-SAC: Normal. OTHER: None. AGE BY LMP: Unknown LMP CLARITZA BY LMP: AGE BY US CRL: 8 weeks 0 days CLARITZA BY US CRL: 06/28/2024 US/US OB transvaginal IMPRESSION: 1. Single live intrauterine 8 weeks 0 days by luis. Electronically authenticated by: VERN FARIAS Date: 11/17/2023 09:53 Dictated By: Vern Farias M.D. Signed By:11/17/2356 DD/ TD/TT: Keypunch Operator: us Darien Lynette DO [facility] Final Result documented in this encounter Visit Diagnoses Not on filedocumented in this encounter Care Teams Lumber Sorter Relationship Specialty Start Date End Date Gal Ambrocio MD [address] [place] [phone] PCP - General Family Medicine 12/05/22 documented as of this encounter
--- OUTSIDE RECORDS SUMMARY | 2024-11-27 12:21 | XMS_ITS | Encounter Summary ---
Author Organization [facility] tem Address [facility]-[id number] [address] [place] [address] Care Team Providers Care Contracts Paralegal Name Role Phone Unavailable Primary Care Provider Unavailabl e Encounter Details Date Type Department Care Team (Late st Contact Info) Description 08/05/2020 Orders Only Maternal- Medicine at [facility] [address] [place] [phone] Rocio Pereira, INSURANCE JOB TITLES-[facility] [address] [facility], [address] [place] [address] Screening, , for anatomic survey (Primary Dx) Social History Tobacco Use Types Packs/Day Years Used Date Smoking Tobacco: Never Assessed Comments Unknown Sex and Gender Information Value Date Recorded Sex Assigned at Not on file Legal Sex Female 3:40 PM EDT Gender Identity Not on file Sexual Orientation Not on file documented as of this encounter Plan of Treatment Not on file documented as of this encounter Visit Diagnoses Diagnosis Screening, , for anatomic survey- Primary Encounter for anatomic survey documented in this encounter
--- OUTSIDE RECORDS SUMMARY | 2024-11-27 12:21 | XMS_ITS | Encounter Summary ---
Author Organization [facility] Address [address] [facility] [place] [address] Care Team Providers Care Business And Services Instructor Name Role Phone Gal Ambrocio MD Primary Care Provider [phone] Encounter Details Date Type Department Care Team (Late Contact Info) Description 12/11/2023 Abstract [facility]S Forrest MAJOR [address] [place] [address] Zen Ojeda DO [address] [place] [address] Social History Tobacco Use Types Packs/Day [...] EDT Office Visit [facility] CI PODIATRY 112 [facility] 120 [place] [address] Agustin Pittman, DPNeville 3006 [facility] 5 [place] [address] 12/01/2025 11:00 AM EDT Procedure Visit N[facility]S Forrest MAJOR [address] [place] [address] Aida Mccormack PA [address] [place] [address] [place] [address] documented as of this encounter Visit Diagnoses Not on filedocumented in this encounter Care Teams Business And Services Instructor Relationship Specialty Start Date End Date Gal Ambrocio MD [address] [facility] [place] [address] PCP - General Family Medicine 12/05/22 documented as of this encounter
--- OUTSIDE RECORDS SUMMARY | 2024-11-27 12:21 | XMS_ITS | Encounter Summary ---
Author Organization [facility] Address [address] [place] [address] Care Team Providers Care Real Estate Broker Name Role Phone Gal Ambrocio MD Primary Care Provider [phone] Encounter Details Date Type Department Care Team (Latest Contact Info) Description 11/21/2024 Travel Social History Tobacco Use Types Packs/Day Years [...] EDT Office Visit N[facility]S MAGGY PODIATRY 112 [facility] 120 [place] [address] Agustin Pittman, DPNeville [address] [facility] 5 [place] [address] 12/01/2025 11:00 AM EDT Procedure Visit NOMS Evy MAJOR 102 [facility] [place] [address] Aida Mccormack PA 102 [facility] [place] [address] documented as of this encounter Visit Diagnoses Not on filedocumented in this encounter Care Teams Real Estate Broker Relationship Specialty Start Date End Date Gal Ambrocio MD [address] [place] [phone] PCP - General Family Medicine 12/05/22 documented as of this encounter
--- OUTSIDE RECORDS SUMMARY | 2024-11-27 12:21 | XMS_ITS | Encounter Summary ---
Author Organization [facility] Address [address] [facility] [place] [address] Care Team Providers Care Quality Control Tech Raw Materials Name Role Phone Gal Ambrocio MD Primary Care Provider [phone] Encounter Details Date Type Department Care Team (Late Contact Info) Description 11/20/2023 Abstract [facility] Forrest MAJOR [address] [place] [address] Zen Ojeda DO [address] [place] [address] Social History Tobacco Use Types Packs/Day [...] Office Visit [facility] CI PODIATRY 112 [facility] 120 [place] [address] Agustin Pittman, DPNeville 3006 [facility] 5 [place] [address] 12/01/2025 11:00 AM EDT Procedure Visit N[facility]S Forrest MAJOR [address] [place] [address] Aida Mccormack PA [address] [place] [address] [place] [address] documented as of this encounter Visit Diagnoses Not on filedocumented in this encounter Care Teams Quality Control Tech Raw Materials Relationship Specialty Start Date End Date Gal Ambrocio MD 1265 [facility] [place] [address] PCP - General Family Medicine 12/05/22 documented as of this encounter
--- OUTSIDE RECORDS SUMMARY | 2024-11-27 12:21 | XMS_ITS | Encounter Summary ---
Author Organization [facility] tem Address [id number] [address] [place] [address] Care Team Providers Care Regulatory And Compliance Technician Name Role Phone Unavailable Primary Care Provider Unavailabl e Encounter Details Date Type Department Care Team (Late st Contact Info) Description 08/06/2020 Orders Only Maternal- Medicine at [facility] [address] [place] [address] External, Scanning Provider Social History Tobacco Use Types Packs/Day Years Used Date Smoking Tobacco: Never Alcohol Use Standard Drinks/Week Comments Not Currently 0 (1 standard drink = 0.6 oz pur e alcohol) Comments Yes Sex and Gender Information Value Date Recorded Sex Assigned at Not on file Legal Sex Female 3:40 PM EDT Gender Identity Not on file Sexual Orientation Not on file documented as of this encounter Plan of Treatment Not on file documented as of this encounter Procedures Procedure Name Priority Date/Time Associated Diagnosis Comments US PREG LMTD 1 OR MORE FETUS Routine 04/30/2020 US PREG LMTD 1 OR MORE FETUS Routine 04/08/2020 documented in this encounter Results * Ultrasound limited 1 or more fetus (04/30/2020) Anatomical Region Laterality Modality OB-GLASS MELT OPERATOR Ultrasound Narrative 04/30/2020 see attached report us Scanning Provider External IMG US ORDERABLES Jose jovani Result - Final * Ultrasound limited 1 or more fetus (04/08/2020) Anatomical Region Laterality Modality OB-GLASS MELT OPERATOR Ultrasound Narrative 04/08/2020 see attached report us Scanning Provider External IMG US ORDERABLES Jose jovani Result - Final documented in this encounter Visit Diagnoses Not on filedocumented in this encounter
--- OUTSIDE RECORDS SUMMARY | 2024-11-27 12:21 | XMS_ITS | Encounter Summary ---
Author Organization [facility] Address [address] [facility] [place] [address] Care Team Providers Care Decision Analyst Name Role Phone Gal Ambrocio MD Primary Care Provider [phone] Encounter Details Date Type Department Care Team (Late Contact Info) Description 02/02/2024 Clinisync Result Encounter NOMS External Department Unsolicited Darien Ojeda DO [address] [facility] [address] John [place], [facility]11 Social History Tobacco Use Types [...] Office Visit [facility] CI PODIATRY 112 [facility] 120 [place] [address] Agustin Pittman, DPM 3006 [facility] 5 [place] [address] 12/01/2025 11:00 AM EDT Procedure Visit [facility] Evy OBRICHARD [address] [facility] [place] [address] Aida Mccormack PA [address] [facility] [place] [address] [phone] (work) documented as of this encounter Procedures Procedure Name Priority Date/Time Associated Diagnosis Comments US OB CERVICAL LENGTH 02/02/2024 12:05 PM EDT documented in this encounter Results * US OB CERVICAL LENGTH (02/02/2024 12:05 PM EDT) Anatomical Region Laterality Modality Other 02/02/2024 12:0 5 PM EDT Narrative 02/02/2024 12:08 PM EDT [address] [address] Ultrasound Report Signed Patient: ALEXA BOLANOS MR#: [id number] : 1995 Acct:[id number] Age/Sex: 28 / F ADM Date: 02/02/24 Loc: US Attending Dr: Darien Ojeda D.O. Ordering Physician: Darien Ojeda D.O. Date of Service: 02/02/24 Procedure(s): US OB cervical length Accession Number(s): [id number] cc: Darien Ojeda D.O.; Gal Ambrocio M.D. [address] [address] Patient Name: ALEXA BOLANOS MRN: [id number] date: 1995 Sex: F Assigned Patient Location: US Current Patient Location: US Accession/Order Number: [id number] Exam Date: 02/02/2024 09:05 Report Date: 02/02/2024 12:05 At the request of: DARIEN OJEDA Procedure: US OB cervical length EXAMINATION: US OB anatomy, US OB cervical length HISTORY: anatomic screening COMPARISON: No relevant comparison available. TECHNIQUE: Transabdominal sonographic examination was performed for obstetrical and evaluation. FINDINGS: Number: 1 Heart Rate: 142.86 bpm H.B. /min Amniotic Fluid Volume: Subjectively normal presentation: Cephalic presentation, longitudinal lie Placental Location: POSTERIOR, grade 0. The placental edge is 2.2 cm from the internal os Cervix Length: 5.66 cm , closed Normal anatomy: Lateral ventricles, cerebellum, posterior fossa, nose, lips, orbits, four-chamber heart, RVOT, LVOT, diaphragm, stomach, kidneys, abdominal cord insertion, bladder, umbilical arteries, three-vessel cord, spine, extremities BIOMETRY: BPD: 4.34 cm; 19 weeks 1 day; 57 % HC: 15.85 cm; 18 weeks 5 days; 28.80 % AC: 14.13 cm; 19 weeks 3 days; 62.90 % FL: 3.07 cm; 19 weeks 4 days; 61.80 % EFW:290.89 g; 70.10 %, 10 ounces FL/AC: 21.70 FL/BPD: 70.56 HC/AC: 1.12 GESTATIONAL AGE: Age by EDC: 19 weeks 0 days CLARITZA by EDC: 2024-06-28 Age by current US: 19 weeks 2 days CLARITZA by current US: 2024-06-26 US/US OB cervical length IMPRESSION: Low lying placenta, otherwise normal anatomy scan Closed cervix measuring 5.7 cm in length *Reference: AIUM Practice Guideline for the performance of Obstetric Ultrasound Examinations, January 15, 2007. Electronically authenticated by: SAFIA ADRIAN Date: 02/02/2024 12:05 Dictated By: Safia Adrian M.D. Signed By: 02/02/241207 DD/ 04 TD/TT: Group Counselor: Procedure Note Radiology, Radiologist, - 02/02/2024 [place] [address] Ultrasound Report Signed Patient: [facility]#: [id number] : 1995Acct:[id number] Age/Sex: 28 / FADM Date: 02/02/24 Loc: US Attending Dr: Darien Ojeda D.O. Ordering Physician: Darien Ojeda D.O. Date of Service: 02/02/24 Procedure(s): US OB cervical length Accession Number(s): [id number] cc: Darien Ojeda D.O.; Gal Ambrocio M.D. The [place] [address] Patient Name: ALEXA BOLANOS MRN: [id number] date: 1995 Sex: F Assigned Patient Location: US Current Patient Location: Accession/Order Number: [id number] Exam Date: 02/02/2024 09:05 Report Date: 02/02/2024 12:05 At the request of: DARIEN OJEDA Procedure: US OB cervical length EXAMINATION: US OB anatomy, US OB cervical length HISTORY: anatomic screening COMPARISON: No relevant comparison available. TECHNIQUE: Transabdominal sonographic examination was performed for obstetrical and evaluation. FINDINGS: Number: 1 Heart Rate: 142.86 bpm H.B. /min Amniotic Fluid Volume: Subjectively normal presentation: Cephalic presentation, longitudinal lie Placental Location: POSTERIOR, grade 0. The placental edge is 2.2 cm fromthe internal os Cervix Length: 5.66 cm , closed Normal anatomy: Lateral ventricles, cerebellum, posterior fossa, nose,lips, orbits, four-chamber heart, RVOT, LVOT, diaphragm, stomach, kidneys,abdominal cord insertion, bladder, umbilical arteries, three-vessel cord, spine, extremities BIOMETRY: BPD: 4.34 cm; 19 weeks 1 day; 57 % HC: 15.85 cm; 18 weeks 5 days; 28.80 % AC: 14.13 cm; 19 weeks 3 days; 62.90 % FL: 3.07 cm; 19 weeks 4 days; 61.80 % EFW:290.89 g; 70.10 %, 10 ounces FL/AC: 21.70 FL/BPD: 70.56 HC/AC: 1.12 GESTATIONAL AGE: Age by EDC: 19 weeks 0 days CLARITZA by EDC: 2024-06-28 Age by current US: 19 weeks 2 days CLARITZA by current US: 2024-06-26 US/US OB cervical length IMPRESSION: Low lying placenta, otherwise normal anatomy scan Closed cervix measuring 5.7 cm in length *Reference: AIUM Practice Guideline for the performance of Obstetric Ultrasound Examinations, January 15, 2007. Electronically authenticated by: SAFIA ADRIAN Date: 02/02/2024 12:05 Dictated By: Safia Adrian M.D. Signed By:02/02/241207 DD/ 1205 TD/TT: Group Counselor: us Darien Ojeda DO [facility] Final Result documented in this encounter Visit Diagnoses Not on filedocumented in this encounter Care Teams Decision Analyst Relationship Specialty Start Date End Date Gal Ambrocio MD [address] [place] [address] PCP - General Family Medicine 12/05/22 documented as of this encounter
--- OUTSIDE RECORDS SUMMARY | 2024-11-27 12:21 | XMS_ITS | Clinical Summary ---
Author Organization [employer] [facility] Address [id number] [address] [place] [address] Care Team Providers Care Sawing And Assembly Supervisor Name Role Phone Unavailable Primary Care Provider Unavailabl e Allergies No known active allergies Medications magnesium oxide (MAG-OX) 400 mg tablet Take 400 mg by mouth daily. Active ondansetron (ZOFRAN) 4 mg tablet Take 4 mg by mouth every 6 (six) hours as needed for nausea or vomiting. Active Family History Medical History Relation Name Comments Hypertension Father Stroke Mother Relation Name Status Comments Father Mother Social History Tobacco Use Types Packs/Day Years Used Date Smoking Tobacco: Never Alcohol Use Standard Drinks/Week Comments Not Currently 0 (1 standard drink = 0.6 oz pur e alcohol) Comments No Sex and Gender Information Value Date Recorded Sex Assigned at Not on file Legal Sex Female 3:40 PM EDT Gender Identity Not on file Sexual Orientation Not on file Last Filed Vital Signs Vital Sign Reading Time Taken Comments Blood Pressure - - Pulse - - Temperature - - Respiratory Rate - - Oxygen Saturation - - Inhaled Oxygen Concentration - - Weight - - Height 162.6 cm (5' 4 ) 08/06/2020 11:53 AM EDT Body Mass Index - - Plan of Treatment Health Maintenance Due Date Last Done Comments Depression Screening 2005 Tobacco Screening 2005 Adult BMI Screening 2011 DTaP,Tdap and Td Vaccines (1 - Tdap) 2012 Pap Smear 2014 Influenza Vaccine 12/16/2024 Medical Devices Not on file
--- OUTSIDE RECORDS SUMMARY | 2024-11-27 12:21 | XMS_ITS | Encounter Summary ---
Author Organization [facility] Address [address] [facility] [place] [address] Care Team Providers Care Welt Stitch Cleaner Name Role Phone Gal Ambrocio MD Primary Care Provider [phone] Reason for Visit * Reason Onset Date Comments Casting For Braces Or Orthotics 11/06/2024 Encounter Details Date Type Department Care Team ([facility] st Contact Info) Description 11/06/2024 Telephone [facility] CI PODIATRY 112 [facility] 120 [place] [address] Agustin Pittman, DPNeville 3006 [facility] 5 [place] [address] Casting For Braces Or Orthotics Social History Tobacco Use Types Packs/Day Years [...] on file documented as of this encounter Miscellaneous Notes * Telephone Encounter - ODILIA RANGEL - 11/21/2024 4:31 PM EDT Orthotics scanned and sent 11/21 * Telephone Encounter - ODILIA RANGEL - 11/20/2024 1:16 PM EDT PER CALL W/ luis @ [facility] medicaid alexa HAS AN ACTIVE PLAN WITH AN EFFECTIVE DATE OF 04/17/24 CUSTOM MOLDED ORTHOTICS CODE L3020 DED: n/a OOP: n/a COIN: n/a PRIOR AUTH: no FREQ LIMIT: no EXCL: no COVERED: 100 % REF#[id number] * Telephone Encounter - Agustin Pittman DPM - 11/06/2024 3:53 PM EDT Please precertify for custom orthotics for the 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 [address] Aida Mccormack PA [address] [facility] [address] [place], [place] [id number] documented as of this encounter Visit Diagnoses Not on filedocumented in this encounter Care Teams Welt Stitch Cleaner Relationship Specialty Start Date End Date Gal Ambrocio MD [address] [facility] [place] [address] PCP - General Family Medicine 12/05/22 documented as of this encounter
--- OUTSIDE RECORDS SUMMARY | 2024-11-27 12:21 | XMS_ITS | Encounter Summary ---
Author Organization [facility] Address [address] [facility] [place] [address] Care Team Providers Care Motion Picture Director Name Role Phone Gal Ambrocio MD Primary Care Provider [phone] Encounter Details Date Type Department Care Team (Late Contact Info) Description 12/11/2023 Abstract [facility] Forrest MAJOR [address] [place] [address] Zen Ojeda DO [address] [place] [address] Social History Tobacco Use Types Packs/Day [...] CI PODIATRY 112 [facility] 120 [place] [address] Agustin Pittman, DPNeville [address] [facility] 5 [place] [address] 12/01/2025 11:00 AM EDT Procedure Visit [facility] Forrest MAJOR [address] [place] [address] Aida Mccormack PA [address] [place] [address] [place] [address] documented as of this encounter Visit Diagnoses Not on filedocumented in this encounter Care Teams Motion Picture Director Relationship Specialty Start Date End Date Gal Ambrocio MD 12[address] [facility] [place] [address] PCP - General Family Medicine 12/05/22 documented as of this encounter
--- OUTSIDE RECORDS SUMMARY | 2024-11-27 12:21 | XMS_ITS | Encounter Summary ---
Author Organization [facility] Address [address] [facility] [place] [address] Care Team Providers Care Power House Control Room Operator Name Role Phone Gal Ambrocio MD Primary Care Provider [phone] Encounter Details Date Type Department Care Team (Late Contact Info) Description 02/02/2024 Clinisync Result Encounter NOMS External Department Unsolicited Darien Ojeda DO [address] [facility] [address] [place], [facility]11 Social History Tobacco Use Types [...] EDT Office Visit [facility] CI PODIATRY 112 [facility] 120 [place] [address] Agustin Pittman, DPM 3006 [facility] 5 [place] [address] 12/01/2025 11:00 AM EDT Procedure Visit [facility] Evy OBRICHARD 102 [facility] [address] Aida Mccormack PA [address] [facility] [place] [address] [phone] (work) documented as of this encounter Procedures Procedure Name Priority Date/Time Associated Diagnosis Comments US OB ANATOMY 02/02/2024 12:05 PM EDT documented in this encounter Results * US OB ANATOMY (02/02/2024 12:05 PM EDT) Anatomical Region Laterality Modality Other 02/02/2024 12:0 5 PM EDT Narrative 02/02/2024 12:08 PM EDT [address] [address] Ultrasound Report Signed Patient: ALEXA BOLANOS MR#: [id number] : 1995 Acct:[id number] Age/Sex: 28 / F ADM Date: 02/02/24 Loc: US Attending Dr: Darien Ojeda D.O. Ordering Physician: Darien Ojeda D.O. Date of Service: 02/02/24 Procedure(s): US OB anatomy Accession Number(s): [id number] cc: Darien Ojeda D.O.; Gal Ambrocio M.D. [address] [address] Patient Name: ALEXA BOLANOS MRN: [id number] date: 1995 Sex: F Assigned Patient Location: US Current Patient Location: US Accession/Order Number: [id number] Exam Date: 02/02/2024 09:05 Report Date: 02/02/2024 12:05 At the request of: DARIEN OJEDA Procedure: US OB anatomy EXAMINATION: US OB anatomy, US OB cervical [...] CLARITZA by current US: 2024-06-26 US/US OB anatomy IMPRESSION: Low lying placenta, otherwise normal anatomy scan Closed cervix measuring 5.7 cm in length *Reference: AIUM Practice Guideline for the performance of Obstetric Ultrasound Examinations, January 15, 2007. Electronically authenticated by: SAFIA ADRIAN Date: 02/02/2024 12:05 Dictated By: Safia Adrian M.D. Signed By: 02/02/241207 DD/ 04 TD/TT: Charge Rn: Procedure Note Radiology, Radiologist, MD - 02/02/2024 [place] [address] Ultrasound Report Signed Patient: ALEXA BOLANOS [facility]#: [id number] : 1995Acct:[id number] Age/Sex: 28 / FADM Date: 02/02/24 Loc: US Attending Dr: Darien Ojeda D.O. Ordering Physician: Darien Ojeda D.O. Date of Service: 02/02/24 Procedure(s): US OB anatomy Accession Number(s): [id number] cc: Darien Ojeda D.O.; Gal Ambrocio M.D. The [place] [id number] Patient Name: ALEXA BOLANOS MRN: [id number] date: 1995 Sex: F Assigned Patient Location: US Current Patient Location: US Accession/Order Number: [id number] Exam Date: 02/02/2024 09:05 Report Date: 02/02/2024 12:05 At the request of: DARIEN OJEDA Procedure: US OB anatomy EXAMINATION: US OB anatomy, US OB cervical [...] CLARITZA by current US: 2024-06-26 US/US OB anatomy IMPRESSION: Low lying placenta, otherwise normal anatomy scan Closed cervix measuring 5.7 cm in length *Reference: AIUM Practice Guideline for the performance of Obstetric Ultrasound Examinations, January 15, 2007. Electronically authenticated by: SAFIA ADRIAN Date: 02/02/2024 12:05 Dictated By: Safia Adrian M.D. Signed By:02/02/24 1208 DD/ 04 TD/TT: Charge Rn: us Darien Ojeda DO [facility] Final Result documented in this encounter Visit Diagnoses Not on filedocumented in this encounter Care Teams Power House Control Room Operator Relationship Specialty Start Date End Date Gal Ambrocio MD [address] [place] [address] PCP - General Family Medicine 12/05/22 documented as of this encounter
--- OUTSIDE RECORDS SUMMARY | 2024-11-27 12:21 | XMS_ITS | Encounter Summary ---
Author Organization [facility] Address [address] [facility] [place] [address] Care Team Providers Care Artificial Glass Eye Maker Name Role Phone Gal Ambrocio MD Primary Care Provider [phone] Encounter Details Date Type Department Care Team (Late Contact Info) Description 06/28/2024 Abstract [facility] Forrest MAJOR [address] [place] [address] Zen Ojeda DO [address] [place] [address] Social History Tobacco Use Types Packs/Day [...] EDT Office Visit [facility] CI PODIATRY 112 [facility] 120 [place] [address] Agustin Pittman, DPNeville 3006 [facility] 5 [place] [address] 12/01/2025 11:00 AM EDT Procedure Visit [facility] Forrest MAJOR [address] [place] [address] Aida Mccormack PA [address] [place] [address] [place] [address] documented as of this encounter Visit Diagnoses Not on filedocumented in this encounter Care Teams Artificial Glass Eye Maker Relationship Specialty Start Date End Date Gal Ambrocio MD 12[address] [facility] [place] [address] PCP - General Family Medicine 12/05/22 documented as of this encounter
--- OUTSIDE RECORDS SUMMARY | 2024-11-27 12:21 | XMS_ITS | Encounter Summary ---
Author Organization [facility] Address [address] [facility] [place] [address] Care Team Providers Care Graphotype Operator Name Role Phone Gal Ambrocio MD Primary Care Provider [phone] Encounter Details Date Type Department Care Team (Late Contact Info) Description 11/27/2024 Bamboo flowsheet [facility] Forrest MAJOR [address] [place] [address] Kristi Turpin, ACCOUNT ENGINEER [address] [facility] [place] [address] Social History Tobacco Use Types Packs/Day Years [...] EDT Office Visit [facility] CI PODIATRY 112 [facility] 120 [place] [address] Agustin Pittman DPM 1826 [facility] 5 [place] [address] 12/01/2025 11:00 AM EDT Procedure Visit [facility] Forrest MAJOR [address] [place] [address] Aida Mccormack PA [address] [place] [address] [place] [address] documented as of this encounter Visit Diagnoses Not on filedocumented in this encounter Care Teams Graphotype Operator Relationship Specialty Start Date End Date Gal Ambrocio MD [address] [facility] [place] [address] PCP - General Family Medicine 12/05/22 documented as of this encounter
--- OUTSIDE RECORDS SUMMARY | 2024-11-27 12:21 | XMS_ITS | Encounter Summary ---
Author Organization [facility] Address [address] [facility] [place] [address] Care Team Providers Care Modeling And Simulation Analyst Name Role Phone Gal Ambrocio MD Primary Care Provider [phone] Encounter Details Date Type Department Care Team (Late Contact Info) Description 06/20/2024 Abstract [facility] Forrest MAJOR [address] [place] [address] Zen Ojeda DO [address] [place] [address] Social History Tobacco Use Types Packs/Day [...] EDT Office Visit [facility] CI PODIATRY 112 [facility] 120 [place] [address] Agustin Pittman, DPNeville 3006 [facility] 5 [place] [address] 12/01/2025 11:00 AM EDT Procedure Visit [facility] Forrest MAJOR [address] [place] [address] Aida Mccormack PA [address] [place] [address] [place] [address] documented as of this encounter Visit Diagnoses Not on filedocumented in this encounter Care Teams Modeling And Simulation Analyst Relationship Specialty Start Date End Date Gal Ambrocio MD [address] [facility] [place] [address] PCP - General Family Medicine 12/05/22 documented as of this encounter
--- OUTSIDE RECORDS SUMMARY | 2024-11-27 12:21 | XMS_ITS | Encounter Summary ---
Author Organization [facility] Address [address] [facility] [place] [address] Care Team Providers Care Hat Sprayer Name Role Phone Gal Ambrocio MD Primary Care Provider [phone] Encounter Details Date Type Department Care Team (Late Contact Info) Description 01/15/2024 Orders Only [facility] Forrest MAJOR [address] [employer] [place] [address] Giuliana Walker LPN [address] [place] [address] Social History Tobacco Use Types [...] EDT Office Visit [facility] CI PODIATRY 112 [facility] 120 [place] [address] Agustin Pittman, DPNeville 3006 [facility] 5 [place] [address] 12/01/2025 11:00 AM EDT Procedure Visit [facility] Forrest MAJOR [address] [employer] [place] [address] Aida Mccormack PA [address] [place] [address] [place] [address] documented as of this encounter Procedures Procedure Name Priority Date/Time Associated Diagnosis Comments PAP SMEAR Routine 01/08/2024 12:00 AM EDT documented in this encounter Results * Pap Smear (01/08/2024 12:00 AM EDT) Swab Cervical swab / Unknown Lynette Nurse [facility] Bcp Ob LAB CYTOLOGY ORDERABLES Final Result EXTERNAL LAB documented in this encounter Visit Diagnoses Not on filedocumented in this encounter Care Teams Hat Sprayer Relationship Specialty Start Date End Date Gal Ambrocio MD [address] [facility] [place] [address] PCP - General Family Medicine 12/05/22 documented as of this encounter
--- OUTSIDE RECORDS SUMMARY | 2024-11-27 12:21 | XMS_ITS | Encounter Summary ---
Author Organization [facility] Address [address] [facility] [place] [address] Care Team Providers Care Gluing Machine Offbearer Name Role Phone Gal Ambrocio MD Primary Care Provider [phone] Encounter Details Date Type Department Care Team (Late Contact Info) Description 11/21/2024 Abstract [facility] CI PODIATRY [address] [facility] 120 [place] [address] Agustin Pittman, DPM [address] [address] Social History Tobacco Use Types Packs/Day Years [...] EDT Office Visit [facility] CI PODIATRY [address] [facility] 120 [place] [address] Agustin Pittman, DPM [address] [address] 12/01/2025 11:00 AM EDT Procedure Visit [facility]OMS Evy MAJOR [address] [place] [address] Aida Mccormack PA [address] [place] [address] [place] [address] documented as of this encounter Visit Diagnoses Not on filedocumented in this encounter Care Teams Gluing Machine Offbearer Relationship Specialty Start Date End Date Gal Ambrocio MD [address] [facility] [place] [address] PCP - General Family Medicine 12/05/22 documented as of this encounter
--- OUTSIDE RECORDS SUMMARY | 2024-11-27 12:21 | XMS_ITS | Encounter Summary ---
Author Organization [facility] Address [address] [place] [address] [place] [address] Care Team Providers Care Research Program Internship Name Role Phone Gal Ambrocio MD Primary Care Provider [phone] Encounter Details Date Type Department Care Team (Late Contact Info) Description 11/20/2024 Abstract [facility] CI PODIATRY 112 [facility] 120 [place] [address] Agustin Pittman, DPM [address] [address] Social History Tobacco Use Types [...] Visit [facility] CI PODIATRY [address] [facility] 120 [place] [address] Agustin Pittman, DPM [address] [address] 12/01/2025 11:00 AM EDT Procedure Visit [facility]S Evy MAJOR [address] [place] [address] Aida Mccormack PA [address] [place] [address] [place] [address] documented as of this encounter Visit Diagnoses Not on filedocumented in this encounter Care Teams Research Program Internship Relationship Specialty Start Date End Date Gal Ambrocio MD [address] [place] [address] PCP - General Family Medicine 12/05/22 documented as of this encounter
--- OUTSIDE RECORDS SUMMARY | 2024-11-27 12:21 | XMS_ITS | Encounter Summary ---
Author Organization [facility] Address [address] [place] [address] Care Team Providers Care Center Rep Name Role Phone Gal Ambrocio MD Primary Care Provider [phone] Encounter Details Date Type Department Care Team (Late Contact Info) Description 01/08/2024 Abstract [facility] [address] [place] [address] Zen Ojeda DO [address] [place] [address] Social History Tobacco Use Types Packs/Day [...] EDT Office Visit [facility] [address] [facility] [address] [place] [phone] Agustin Pittman, DPNeville [address] [facility] [address] [place] [address] 12/01/2025 11:00 AM EDT Procedure Visit [facility] [address] [place] [address] Aida Mccormack PA [address] [place] [address] [place] [address] documented as of this encounter Visit Diagnoses Not on filedocumented in this encounter Care Teams Center Rep Relationship Specialty Start Date End Date Gal Ambrocio MD [address] [facility] [address] PCP - General Family Medicine 12/05/22 documented as of this encounter
--- OUTSIDE RECORDS SUMMARY | 2024-11-27 12:21 | XMS_ITS | Clinical Summary ---
Author Organization [facility] Address [address] [place] [address] Care Team Providers Care Rivet Passer Name Role Phone Gal Ambrocio MD Primary Care Provider [phone] Allergies No known active allergies Medications nitrofurantoin , macrocrystal-m onohydrate, (Macrobid) 100 MG capsuleIndicat ions:Burning with urination Take 1 capsule (100 mg) by mouth in the morning and 1 capsule (100 mg) before bedtime. Do all this for 7 days. 14 capsule 5 12/05/19 25 Active MV-Min-Fe Fum-FA-DHA ( 1 PO) Take by mouth 11/28/19 25 Discontinued ibuprofen 800 MG tablet Take 800 mg by mouth every 8 (eight) hours 5 11/28/19 25 Discontinued Active Problems No known active problems Encounters Date Type Department Care Team Description 11/27/2024 10:00 AM EDT Procedure Visit [facility] [address] [place] [address] Kristi Turpin NP Well woman exam with routine gynecological exam; Burning with urination 11/27/2024 Bamboo flowsheet [facility] [address] [place] [address] Kristi Turpin NP 11/21/2024 4:10 PM EDT Clinical Support [facility] [address] [facility] 120 [place] [phone] Agustin Pittman, DPM Metatarsal deformity, right (Primary Dx); Capsulitis of metatarsophalangeal (MTP) joint of right foot; Verruca plantaris; Foot pain, right 11/21/2024 Travel 11/21/2024 Abstract [facility] [address] [place] [address] Agustin Pittman DPM 11/20/2024 Abstract [facility] [address] [phone] Agustin Pittman DPM 11/06/2024 3:40 PM EDT Office Visit [facility] [place] [facility] [address] [place] [address] Agustin Pittman DPM Metatarsal deformity, right (Primary Dx); Capsulitis of metatarsophalangeal (MTP) joint of right foot; Verruca plantaris; Foot pain, right 11/06/2024 Telephone [facility] [address] [phone] Agustin Pittman DPM Casting For Braces Or Orthotics 11/06/2024 Bamboo flowsheet [facility] [place] [facility] [address] [place] [address] Agustin Pittman DPM 09/30/2024 [facility] [place] [facility] [address] [place] [address] [place] [address] Zen Ojeda DO Postoperative visit from Last 3 Months Family History Relation Name Status Comments Father Alive Mother Alive Social History Tobacco Use Types Packs/Day Years [...] AM EDT Sexual Orientation Not on file Last Filed Vital Signs Vital Sign Reading Time Taken Comments Blood Pressure 104/78 11/27/2024 10:02 AM EDT Pulse - - Temperature - - Respiratory Rate 16 11/21/2024 4:14 PM EDT Oxygen Saturation - - Inhaled Oxygen Concentration - - Weight 62.5 kg (137 lb 12.8 oz) 025 10:02 AM EDT Height 162.6 cm (5' 4 ) 11/21/2024 4:14 PM EDT Body Mass Index 23.65 11/21/2024 4:14 PM EDT Plan of Treatment Upcoming Encounters Date Type Department Care Team (Late st Contact Info) Description 12/12/2024 4:00 PM EDT Office Visit [facility] [address] [facility] 120 [place] [phone] Agustin Pittman DPM [address] [facility] [address] [place] [address] 12/01/2025 11:00 AM EDT Procedure Visit [facility] [address] [place] [address] Aida Mccormack PA [address] [facility] [place] [address] Procedures Procedure Name Priority Date/Time Associated Diagnosis Comments POCT URINALYSIS DIPSTICK Routine 11/27/2024 10:06 AM EDT Burning with urination from Last 3 Months Results * (ABNORMAL) POCT urinalysis dipstick manually [...] 11/27/2024 10:0 6 AM EDT Kristi Turpin NP POINT OF CARE TEST ENTER/EDIT ORDERABLES Final Result from Last 3 Months Insurance [address] [place] [address] [employer] Member Subscriber Plan / Payer (Ef fective 2022-Present) Name:Alexa Cook Relation to Subscriber:Self Name:Alexa Cook Payer ID:Not on file Group ID:Not on file Type:Not on file Address: [place] [id number] Care Teams Rivet Passer Relationship Specialty Start Date End Date Gal Ambrocio MD [address] [place] [address] PCP - General Family Medicine 12/05/22
--- OUTSIDE RECORDS SUMMARY | 2024-11-27 12:21 | XMS_ITS | Encounter Summary ---
Author Organization [facility] Address [address] [facility] [place] [address] Care Team Providers Care Water Aerobics Instructor Name Role Phone Gal Ambrocio MD Primary Care Provider [phone] Encounter Details Date Type Department Care Team (Late Contact Info) Description 11/20/2023 Abstract [facility] [address] [place] [address] Zen Ojeda DO [address] [place] [address] Social History Tobacco Use Types Packs/Day [...] 112 [facility] 120 [place] [phone] Agustin Pittman, DPN[place] [address] [facility] 5 [place] [address] 12/01/2025 11:00 AM EDT Procedure Visit [facility] [address] [place] [address] Aida Mccormack PA [address] [place] [address] [place] [address] documented as of this encounter Visit Diagnoses Not on filedocumented in this encounter Care Teams Water Aerobics Instructor Relationship Specialty Start Date End Date Gal Ambrocio MD [address] [facility] [place] [address] PCP - General Family Medicine 12/05/22 documented as of this encounter
--- OUTSIDE RECORDS SUMMARY | 2024-11-27 12:22 | XMS_ITS | Patient Health Record ---
Author Organization The [facility] in [place] Address [address] [place] [address] Care Team Providers Care Lead Caster Helper Name Role Phone Augustine Ambrocio Primary Care Provider Allergies No Known Allergies Results Component Value Reference Range Notes CBC AUTO DIFF Reviewed date:12/03/2023 05:08:01 PM Interpretation: Performing Lab: Notes/Report: [facility] , White Blood Count 7.6 4.0-11.0 10 3/uL Red Blood Count 3.90 4.20-5.40 10 6/uL Hemoglobin 12.5 12.0-16.0 g/dL Hematocrit 36.7 36.0-48.0 % Mean Corpuscular Volume 94.1 81.0-99.0 fL Mean Corpuscular Hemoglobin 32.1 26.7-34.0 pg Mean Corpuscular HGB Conc 34.1 29.9-35.2 g/dL Red Cell Distribution Width 11.5 11.0-15.0 % Platelet Count 239 150-450 10 3/uL Mean Platelet Volume 11.3 9.5-13.5 fL Neutrophils Percent Auto 68.4 43.0-75.0 % Lymphocytes Percent Auto 23.1 20.5-60.0 % Monocytes Percent Auto 6.2 1.7-12.0 % Eosinophils Percent Auto 1.3 0.9-7.0 % Basophils Percent Auto 0.7 0.2-2.0 % Immature Granulocytes Pct Auto 0.3 0.0-0.5 % Neutrophils Absolute Auto 5.2 1.4-6.5 10 3/uL Lymphocytes Absolute Auto 1.8 1.2-3.8 10 3/uL Monocytes Absolute Auto 0.5 0.3-0.8 10 3/uL Eosinophils Absolute Auto 0.1 0.0-0.7 10 3/uL Basophils Absolute Auto 0.1 0.0-0.1 10 3/uL Immature Granulocytes Abs Auto 0.02 0.00-0.03 10 3/uL Performing Lab: see note - [facility] LB GLYCOHEMOGLOBIN A1C Reviewed date:12/03/2023 05:08:01 PM Interpretation: Performing Lab: Notes/Report: [facility] , Glycohemoglobin A1C 4.6 4.5-6.2 % ACTION SUGGESTED ADA THERAPEUTIC TARGET < 7.0 > 7.0 ADA RECOMMENDED LIMIT 4.0 - 6.0 Estimated Average Glucose 85 Performing Lab: see note [facility] LB Type and Screen Reviewed date:12/03/2023 05:08:01 PM Interpretation: Performing Lab: Notes/Report: [facility] , Blood Type A Positive Antibody Screen NEGATIVE Rapid Plasma Reagin, Quant Reviewed date:12/03/2023 05:08:00 PM Interpretation: Performing Lab: Notes/Report: [facility] , Rapid Plasma Reagin, Quant Non Reactive NonRea<1:1 titer treated for syphilis infection. To screen for syphilis screening and diagnosis of syphilis. This test is RPR and Confirmatory Treponema pallidum Antibodies Treponema pallidum (Syphilis) Screening [place] (428901) or ([id number]). infection, a reflex cascade that includes both RPR and a [address] [place] [id number] Please Note: This test does not meet current guidelines for Fur Puller: Jn Nielson PhD, Phone: [phone] Rapid Plasma Reagin (RPR) Test With Reflex to Quantitative Performed at: [facility] intended for following treatment response in patients being treponema-specific assay should be utilized, such as Performing Lab: see note [facility] LB HBsAg Screen Reviewed date:12/03/2023 05:08:01 PM Interpretation: Performing Lab: Notes/Report: [facility] , HBsAg Screen Negative Negative Performed at: [address] [id number] Fur Puller: Jn Nielson PhD, Phone: [phone] Performing Lab: see note [facility] LB Urine Culture, Routine Reviewed date:12/03/2023 05:08:00 PM Interpretation: Performing Lab: Notes/Report: [facility] , Urine Culture, Routine See Below For Report Urine Culture, Routine Urine Culture, Routine Culture shows les s than 10,000 colony forming units of bacteria per Urine Culture, Routine Urine Culture, Routine milliliter of uri ne. This colony count is not generally considered Urine Culture, Routine Urine Culture, Routine to be clinically significant. Urine Culture, Routine Urine Culture, Routine Performed at: [facility] Urine Culture, Routine Urine Culture, Routine [address] [place], [place] [id number] Urine Culture, Routine Urine Culture, Routine Fur Puller: Jose Nielson PhD, Phone: [phone] Urine Culture, Routine Performing Lab: see note - [facility] LB SEE REPORT - Label Printer Id information not found for OBX-specific line producer legend IGP,Aptima HPV,Age Gdln Reviewed date:01/15/2024 06:33:52 PM Interpretation: Performing Lab: Notes/Report: SPATULA-ALONE CERVIX [facility] , Age Gdln ACOG Testing Note . Age Algo ACOG Gisela... 30-65 01 No. of containers..01 ThinPrep Vial TESTS RESULT FLAG UNITS REF RANGE LAB 01 =G [facility] FLAG LEGEND: <-Panic Low,>-Panic High,A-Abnormal,AA-Crit ical Abnormal Chayito Suarez MD, Performed at: Source.............Cerv ix [address] [place] [address] Clinician Provided Cytology Information L-Low Normal,H-High Normal,LL-Alert Low,HH-Alert High IGP, Aptima HPV, rfx 16/18,45 Note . [address] [place] [address] The Pap smear is a screening test designed to aid in the Criteria not met, HPV Genotype not performed. occur. Satisfactory for evaluation. No endocervical component is identified. HPV Genotype Reflex Note 02 Test Methodology: Note 02 detection of premalignant and malignant conditions of the This liquid based ThinPrep(R) pap test was screened with uterine cervix. It is not a diagnostic procedure and 02 [facility] FLAG LEGEND: Tracy Sykes, Water Inspector (ASCP) . 02 DIAGNOSIS: 02 TESTS RESULT FLAG UNITS REF RANGE LAB L-Low Normal,H-High Normal,LL-Alert Low,HH-Alert High Specimen adequacy: 02 NEGATIVE FOR INTRAEPITHELIAL LESION OR MALIGNANCY. Note: Note 02 Chayito Suarez MD, <-Panic Low,>-Panic High,A-Abnormal,AA-Crit ical Abnormal Performed at: Performed by: 02 should not be used as the sole means of detecting cervical cancer. Both false-positive and false-negative reports do the use of an image guided system. HPV Aptima Negative Negative Performed at: = - [facility] Fur Puller: Chayito Suarez MD, Phone: [phone] Performed at: - [facility] Fur Puller: Chayito Suarez MD, Phone: [phone] [address] [place], [place] [id number] [address], [place] [id number] This nucleic acid amplification test detects fourteen high- risk HPV types (16,18,31,33,35,39,45,5 1,52,56,58,59,66,68) without differentiation. Performing Lab: see note - [facility] US OB cervical length Reviewed date:02/03/2024 11:12:59 AM Interpretation: Performing Lab: Notes/Report: Source Facility: [place] [address] Ultrasound Report Signed Patient: NIDHI COOK MR#: [id number] : 1995 Acct:[id number] Age/Sex: 28 / F ADM Date: 02/02/24 Loc: US Attending Dr: Darien Ojeda D.O. Ordering Physician: Darien Ojeda D.O. Date of Service: 02/02/24 Procedure(s): US OB cervical length Accession Number(s): [id number] cc: Darien Ojeda D.O.; Gal Ambrocio M.D. [place] [address] Patient Name: NIDHI COOK MRN: [id number] date: 1995 Sex: F Assigned Patient Location: US Current Patient Location: US Accession/Order Number: [id number] Exam Date: 02/02/2024 09:05 Report Date: 02/02/2024 [...] Dictated By: Safia Adrian M.D. Signed By: 02/02/248 DD/ 04 TD/TT: Machine Burrer: [place] [address] Ultrasound Report Signed Patient: CATHERINE COOK MR#: [id number] : 1995 Acct:[id number] Age/Sex: 28 / F ADM Date: 02/02/24 Loc: US Attending Dr: Darien Ojeda D.O. Ordering Physician: Darien Ojeda D.O. Date of Service: 02/02/24 Procedure(s): US OB cervical length Accession Number(s): [id number] cc: Darien Ojeda D.O. ; Gal Ambrocio M.D. [place] [address] Patient Name: NIDHI COOK MRN: [id number] date: 1995 Sex: F Assigned Patient Location: US Current Patient Location: US Accession/Order Number: [id number] Exam Date: 09:05 Report Date: 02/02/2024 12:05 At the request of: DARIEN OJEDA Procedure: US OB cervical length EXAMINATION: US OB anatomy, US OB cervical length HISTORY: anatomic screening COMPARISON: No relevant comparison available. TECHNIQUE: Transabdominal sonographic examination was performed for obstetrical and evaluation. FINDINGS: Number: 1 Heart Rate: 142.86 bpm H.B. /min Amniotic Fluid Volum e: Subjectively normal presentation: Cephalic presentation, longitudinal lie Placental Location: POSTERIOR, grade 0. The placental edge is 2.2 cm from the internal os Cervix Length: 5.66 cm , closed Normal anatomy: Lateral ventricles, cerebellum, posterior fossa, nose, lips, orbits, four-chamber heart, RVOT, LVOT, diaphragm, stomach, kidneys, abdominal cord insertion, bladder, umbilical arteries, three-vessel cord, spine, extremities BIOMETRY: BPD: 4.34 cm; 19 wee ks 1 day; 57 % HC: 15.85 cm; 18 wee ks 5 days; 28.80 % AC: 14.13 cm; 19 wee ks 3 days; 62.90 % FL: 3.07 cm; 19 week s 4 days; 61.80 % EFW:290.89 g; 70.10 %, 10 ounces FL/AC: 21.70 FL/BPD: 70.56 HC/AC: 1.12 GESTATIONAL AGE: Age by EDC: 19 weeks 0 days CLARITZA by EDC: 2024-06-28 Age by current US: 1 9 weeks 2 days CLARITZA by current US: 2024-06-26 US/US OB cervical length IMPRESSION: Low lying placenta, otherwise normal anatomy scan Closed cervix measuring 5.7 cm in length *Reference: [employer] Practice Guideline for the performance of Obstetric Ultrasound Examinations, Octobe r 1, 2007. Electronically authenticated by: SAFIA ADRIAN Date: 02/02/2024 12:05 Dictated By: Safia Adrian M.D. Signed By: 02/02/24 1208 DD/ 1205 TD/TT: Machine Burrer: US OB anatomy Reviewed date:02/03/2024 11:12:59 AM Interpretation: Performing Lab: Notes/Report: Source Facility: [place] [address] Ultrasound Report Signed Patient: NIDHI COOK MR#: [id number] : 1995 Acct:[id number] Age/Sex: 28 / F ADM Date: 02/02/24 Loc: US Attending Dr: Darien Ojeda D.O. Ordering Physician: Darien Ojeda D.O. Date of Service: 02/02/24 Procedure(s): US OB anatomy Accession Number(s): [id number] cc: Darien Ojeda D.O.; Gal Ambrocio M.D. [place] [address] Patient Name: NIDHI COOK MRN: [id number] date: 1995 Sex: F Assigned Patient Location: Current Patient Location: Accession/Order Number: [id number] Exam Date: 02/02/2024 09:05 Report Date: 02/02/2024 [...] Dictated By: Safia Adrian M.D. Signed By: 02/02/24 120 DD/ 120 TD/TT: Machine Burrer: [place] [address] Ultrasound Report Signed Patient: CATHERINE COOK MR#: [id number] : 1995 Acct:[id number] Age/Sex: 28 / F ADM Date: 02/02/24 Loc: US Attending Dr: Darien Ojeda D.O. Ordering Physician: Darien Ojeda D.O. Date of Service: 02/02/24 Procedure(s): US OB anatomy Accession Number(s): [id number] cc: Darien Ojeda D.O. ; Gal Ambrocio M.D. [address] [address] Patient Name: NIDHI COOK MRN: [id number] date: 1995 Sex: F Assigned Patient Location: US Current Patient Location: US Accession/Order Number: [id number] Exam Date: 09:05 Report Date: 02/02/2024 12:05 At the request of: DARIEN OJEDA Procedure: US OB anatomy EXAMINATION: US OB anatomy, US OB cervical length HISTORY: anatomic screening COMPARISON: No relevant comparison available. TECHNIQUE: Transabdominal sonographic examination was performed for obstetrical and evaluation. FINDINGS: Number: 1 Heart Rate: 142.86 bpm H.B. /min Amniotic Fluid Volum e: Subjectively normal presentation: Cephalic presentation, longitudinal lie Placental Location: POSTERIOR, grade 0. The placental edge is 2.2 cm from the internal os Cervix Length: 5.66 cm , closed Normal anatomy: Lateral ventricles, cerebellum, posterior fossa, nose, lips, orbits, four-chamber heart, RVOT, LVOT, diaphragm, stomach, kidneys, abdominal cord insertion, bladder, umbilical arteries, three-vessel cord, spine, extremities BIOMETRY: BPD: 4.34 cm; 19 wee ks 1 day; 57 % HC: 15.85 cm; 18 wee ks 5 days; 28.80 % AC: 14.13 cm; 19 wee ks 3 days; 62.90 % FL: 3.07 cm; 19 week s 4 days; 61.80 % EFW:290.89 g; 70.10 %, 10 ounces FL/AC: 21.70 FL/BPD: 70.56 HC/AC: 1.12 GESTATIONAL AGE: Age by EDC: 19 weeks 0 days CLARITZA by EDC: 2024-06-28 Age by current US: 1 9 weeks 2 days CLARITZA by current US: 2024-06-26 US/US OB anatomy IMPRESSION: Low lying placenta, otherwise normal anatomy scan Closed cervix measuring 5.7 cm in length *Reference: [employer] Practice Guideline for the performance of Obstetric Ultrasound Examinations, Oct r 2006. Electronically authenticated by: SAFIA ADRIAN Date: 02/02/2024 12:05 Dictated By: Safia Adrian M.D. Signed By: 02/02/241207 DD/ 04 TD/TT: Machine Burrer: CBC AUTO DIFF Reviewed date:06/20/2024 08:53:42 PM Interpretation: Performing Lab: Notes/Report: [facility] , White Blood Count 9.1 4.0-11.0 10 3/uL Red Blood Count 3.66 4.20-5.40 10 6/uL Hemoglobin 11.8 12.0-16.0 g/dL Hematocrit 34.2 36.0-48.0 % Mean Corpuscular Volume 93.4 81.0-99.0 fL Mean Corpuscular Hemoglobin 32.2 26.7-34.0 pg Mean Corpuscular HGB Conc 34.5 29.9-35.2 g/dL Red Cell Distribution Width 13.0 11.0-15.0 % Platelet Count 193 150-450 10 3/uL Mean Platelet Volume 10.9 9.5-13.5 fL Neutrophils Percent Auto 71.9 43.0-75.0 % Lymphocytes Percent Auto 18.5 20.5-60.0 % Monocytes Percent Auto 8.3 1.7-12.0 % Eosinophils Percent Auto 0.7 0.9-7.0 % Basophils Percent Auto 0.3 0.2-2.0 % Immature Granulocytes Pct Auto 0.3 0.0-0.5 % Neutrophils Absolute Auto 6.5 1.4-6.5 10 3/uL Lymphocytes Absolute Auto 1.7 1.2-3.8 10 3/uL Monocytes Absolute Auto 0.8 0.3-0.8 10 3/uL Eosinophils Absolute Auto 0.1 0.0-0.7 10 3/uL Basophils Absolute Auto 0.0 0.0-0.1 10 3/uL Immature Granulocytes Abs Auto 0.03 0.00-0.03 10 3/uL Performing Lab: see note ML - [facility] LB Type and Screen Reviewed date:06/20/2024 08:53:42 PM Interpretation: Performing Lab: Notes/Report: [facility] , Blood Type A Positive Antibody Screen NEGATIVE Urine Culture, Routine Reviewed date:06/25/2024 06:45:43 PM Interpretation: Performing Lab: Notes/Report: [facility] , Urine Culture, Routine See Below For Report Isolated O:LACTSP Urine Culture, Routine Urine Culture, Routine Growth observed. Further testing to rule out possible pathogen(s) Isolated O:LACTSP Urine Culture, Routine Urine Culture, Routine is in progress. Isolated O:LACTSP Urine Culture, Routine Urine Culture, Routine Organism: Lactobacillus species : Isolated O:LACTSP Urine Culture, Routine Urine Culture, Routine 50,000-100,000 co lony forming units per mL Isolated O:LACTSP Urine Culture, Routine Urine Culture, Routine Susceptibility no t normally performed on this organism. Isolated O:LACTSP Urine Culture, Routine Urine Culture, Routine Lactobacillus species Isolated O:LACTSP Urine Culture, Routine Urine Culture, Routine See Below For Report Isolated O:LACTSP Urine Culture, Routine Urine Culture, Routine Performed at: - [facility] [place] Isolated O:LACTSP Urine Culture, Routine Urine Culture, Routine [address] [place], [place] [id number] Isolated O:LACTSP Urine Culture, Routine Urine Culture, Routine Fur Puller: Jose Nielson PhD, Phone: [phone] Isolated O:LACTSP Urine Culture, Routine Performing Lab: see note LC - [facility] LB SEE REPORT - Label Printer Id information not found for OBX-specific line producer legend LAB TESTING Reviewed date:06/11/2024 04:08:00 PM Interpretation: Performing Lab: Notes/Report: GROUP B STREP [id number] CULTURE, GROUP B STREP WITH SUSCEPTIBILITY [facility] , Miscellaneous Test COMMENT . vaginal and rectal swab specimen to maximize sensitivity of using erythromycin and clindamycin in the D-zone test. Per intrapartum prophylaxis of GBS colonization. [address], [place] [id number] Organism Identification Comment CB Strep Gp B Culture+Rflx Positive [A ] CB anaphylaxis. Treatment with vancomycin without additional [place] [employer] ([employer]OG) Reflex susceptibility testing should be performed prior to testing is warranted if resistance to clindamycin is noted. allergic women who are considered a high risk for [facility] Beta hemolytic Streptococcus, group B erythromycin is no longer an acceptable alternative for Clindamycin Resistant [A ] CB lower vagina and rectum substantially increases the yield Centers for Disease Control and Prevention (CDC) and Reference Range: Negative penicillin-allergic women at high risk for anaphylaxis. Test Ordered: [id number] Strep Gp B Culture+Rflx use of clindamycin only on GBS isolates from penicillin- the Centers for Disease Control and Prevention (CDC), Testing for inducible clindamycin resistance was performed Penicillin G, ampicillin, or cefazolin are indicated for streptococcal (GBS) disease specify co-collection of a Reference Range: . intrapartum group B Streptococcus (GBS) prophylaxis for guidelines for prevention of group B of detection compared with sampling the vagina alone. GBS detection. Per the CDC and ACOG, swabbing both the Fur Puller: Jn Nielson PhD, Phone: [phone] Reference Range: . Performing Lab: see note LC - [facility] LB US OB growth Reviewed date:06/04/2024 08:37:21 PM Interpretation: Performing Lab: Notes/Report: Source Facility: [place] [address] [place] [address] Ultrasound Report Signed Patient: NIDHI COOK MR#: [id number] : 1995 Acct:[id number] Age/Sex: 29 / F ADM Date: 06/03/24 Loc: US Attending Dr: Aida Sesay Ordering Physician: Aida Sesay Date of Service: 06/03/24 Procedure(s): US OB growth Accession Number(s): [id number] cc: Aida Sesay; Gal Ambrocio M.D. [place] [address] Patient Name: NIDHI COOK MRN: [id number] date: 1995 Sex: F Assigned Patient Location: Current Patient Location: Accession/Order Number: [id number] Exam Date: 06/03/2024 09:00 Report Date: 06/03/2024 [...] M.D. Signed By: 06/03/241912 DD/ 09 TD/TT: Machine Burrer: [place] [address] Ultrasound Report Signed Patient: CATHERINE COOK MR#: [id number] : 1995 Acct:[id number] Age/Sex: 29 / F ADM Date: 06/03/24 Loc: US Attending Dr: Aida Sesay Ordering Physician: Aida Sesay Date of Service: 06/03/24 Procedure(s): US OB growth Accession Number(s): [id number] cc: Aida Sesay; Gal Ambrocio M.D. [address] [address] Patient Name: NIDHI COOK MRN: [id number] date: 1995 Sex: F Assigned Patient Location: US Current Patient Location: US Accession/Order Number: [id number] Exam Date: 06/03/2024 09:00 Report Date: 06/03/2024 19:10 At the request of: AIDA SESAY Procedure: US OB growth OBSTETRICAL ULTRASOUND HISTORY: size in consistent COMPARISON: Initial ultrasound dated 11/17/2023. TECHNIQUE: Transabdominal obstetrical ultrasound was performed. INTERPRETATION: Number: There is a live single intrauterine fetus. Presentation: The fetus is in cephalic position. Heart Rate: 13 8 beats per minute with a normal rhythm. Amniotic Fluid: Normal. 13.8 with largest pocket of fluid measuring 5.6 cm. Gestational Age Assessment: Biparietal Diameter: 8.56 cm 34 w 4 d Head Circumference: 31.48 cm 35 w 2 d Abdominal Circumference: 30.90 cm 34 w 6 d Femur Length: 6.88 c m 35 w 2 d Average gestational age [...] M.D. Signed By: 06/03/241912 DD/ 09 TD/TT: Machine Burrer: Glucose 1 Hour Reviewed date:03/20/2024 07:19:02 PM Interpretation: Performing Lab: Notes/Report: [facility] , Glucose 1 Hour 100 <130 mg/dL Performing Lab: see note ML - [facility] LB CBC AUTO DIFF Reviewed date:03/20/2024 07:19:02 PM Interpretation: Performing Lab: Notes/Report: [facility] , White Blood Count 9.4 4.0-11.0 10 3/uL Red Blood Count 3.59 4.20-5.40 10 6/uL Hemoglobin 11.8 12.0-16.0 g/dL Hematocrit 34.9 36.0-48.0 % Mean Corpuscular Volume 97.2 81.0-99.0 fL Mean Corpuscular Hemoglobin 32.9 26.7-34.0 pg Mean Corpuscular HGB Conc 33.8 29.9-35.2 g/dL Red Cell Distribution Width 12.6 11.0-15.0 % Platelet Count 208 150-450 10 3/uL Mean Platelet Volume 10.5 9.5-13.5 fL Neutrophils Percent Auto 70.6 43.0-75.0 % Lymphocytes Percent Auto 20.6 20.5-60.0 % Monocytes Percent Auto 6.7 1.7-12.0 % Eosinophils Percent Auto 1.1 0.9-7.0 % Basophils Percent Auto 0.4 0.2-2.0 % Immature Granulocytes Pct Auto 0.6 0.0-0.5 % Neutrophils Absolute Auto 6.7 1.4-6.5 10 3/uL Lymphocytes Absolute Auto 1.9 1.2-3.8 10 3/uL Monocytes Absolute Auto 0.6 0.3-0.8 10 3/uL Eosinophils Absolute Auto 0.1 0.0-0.7 10 3/uL Basophils Absolute Auto 0.0 0.0-0.1 10 3/uL Immature Granulocytes Abs Auto 0.06 0.00-0.03 10 3/uL Performing Lab: see note ML - [facility] LB US OB placenta Reviewed date:03/03/2024 01:51:22 PM Interpretation: Performing Lab: Notes/Report: Source Facility: [place] [address] Ultrasound Report Signed Patient: NIDHI COOK MR#: [id number] : 1995 Acct:[id number] Age/Sex: 28 / F ADM Date: 03/01/24 Loc: US Attending Dr: Darien Ojeda D.O. Ordering Physician: Darien Ojeda D.O. Date of Service: 03/01/24 Procedure(s): US OB placenta Accession Number(s): [id number] cc: Darien Ojeda D.O.; Gal Ambrocio M.D. [place] [id number] Patient Name: NIDHI COOK MRN: [id number] date: 1995 Sex: F Assigned Patient Location: Current Patient Location: Accession/Order Number: [id number] Exam Date: 03/01/2024 11:03 Report Date: 03/02/2024 [...] M.D. Signed By: 03/02/24625 DD/ 2 TD/TT: Machine Burrer: [place] [address] Ultrasound Report Signed Patient: CATHERINE COOK MR#: [id number] : 1995 Acct:[id number] Age/Sex: 28 / F ADM Date: 03/01/24 Loc: US Attending Dr: Darien Ojeda D.O. Ordering Physician: Darien Ojeda D.O. Date of Service: 03/01/24 Procedure(s): US OB placenta Accession Number(s): [id number] cc: Darien Ojeda D.O. ; Gal Ambrocio M.D. [place] [address] Patient Name: NIDHI COOK MRN: [id number] date: 1995 Sex: F Assigned Patient Location: Current Patient Location: Accession/Order Number: [id number] Exam Date: 11:03 Report Date: 03/02/2024 06:23 At the request of: DARIEN OJEDA Procedure: US OB placenta EXAMINATION: US OB placenta, US OB cervical length HISTORY: Low Lying Placenta COMPARISON: Ultrasou nd OB anatomy 02/02/2024 FINDINGS: PLACENTA: Posterior fundal with lower margin 5.2 cm from internal os. Grade 0. CERVIX LENGTH: 4.1 c m, closed. HEART RATE: 142 bpm OTHER: Amniotic flui d is subjectively normal. US/US OB placenta IMPRESSION: 1. Single live intrauterine . 2. Posterior-fundal placenta which is no longer low-lying. Electronically authenticated by: VERN FARIAS Date: 03/02/2024 06:23 Dictated By: Vern Farias M.D. Signed By: 03/02/24625 DD/ 2 TD/TT: Machine Burrer: US OB cervical length Reviewed date:03/03/2024 01:51:22 PM Interpretation: Performing Lab: Notes/Report: Source Facility: [place] [address] Ultrasound Report Signed Patient: NIDHI COOK MR#: [id number] : 1995 Acct:[id number] Age/Sex: 28 / F ADM Date: 03/01/24 Loc: US Attending Dr: Darien Ojeda D.O. Ordering Physician: Darien Ojeda D.O. Date of Service: 03/01/24 Procedure(s): US OB cervical length Accession Number(s): [id number] cc: Darien Ojeda D.O.; Gal Ambrocio M.D. [place] [address] Patient Name: NIDHI COOK MRN: [id number] date: 1995 Sex: F Assigned Patient Location: Current Patient Location: Accession/Order Number: [id number] Exam Date: 03/01/2024 11:27 Report Date: 03/02/2024 [...] M.D. Signed By: 03/02/24625 DD/ 2 TD/TT: Machine Burrer: [place] [address] Ultrasound Report Signed Patient: CATHERINE COOK MR#: [id number] : 1995 Acct:[id number] Age/Sex: 28 / F ADM Date: 03/01/24 Loc: US Attending Dr: Darien Ojeda D.O. Ordering Physician: Darien Ojeda D.O. Date of Service: 03/01/24 Procedure(s): US OB cervical length Accession Number(s): [id number] cc: Darien Ojeda D.O. ; Gal Ambrocio M.D. [place] [id number] Patient Name: NIDHI COOK MRN: [id number] date: 1995 Sex: F Assigned Patient Location: US Current Patient Location: Accession/Order Number: [id number] Exam Date: 11:27 Report Date: 03/02/2024 06:23 At the request of: DARIEN OJEDA Procedure: US OB cervical length EXAMINATION: US OB placenta, US OB cervical length HISTORY: Low Lying Placenta COMPARISON: Ultrasou nd OB anatomy 02/02/2024 FINDINGS: PLACENTA: Posterior fundal with lower margin 5.2 cm from internal os. Grade 0. CERVIX LENGTH: 4.1 c m, closed. HEART RATE: 142 bpm OTHER: Amniotic flui d is subjectively normal. US/US OB cervical length IMPRESSION: 1. Single live intrauterine . 2. Posterior-fundal placenta which is no longer low-lying. Electronically authenticated by: VERN FARIAS Date: 03/02/2024 06:23 Dictated By: Vern Farias M.D. Signed By: 03/02/24625 DD/ 2 TD/TT: Machine Burrer: AFP, Serum, Open Spina Bifid a Reviewed date:01/20/2024 08:23:59 PM Interpretation: Performing Lab: Notes/Report: PREGNQNCY N N ULTRASOUND [id number] 3 15 N 1 Y 152 N N N N N White/ [facility] , Results Report . Test Results: *Screen Negative* . Gest. Age on Collection Date 16.7 . weeks Gestat. Age Based On Ultrasound . 15.4 on 01/08/2024 Recalculations are not recommended when gestational dating by LMP and ultrasound are within 10 days. [age] Race . Weight 152 . lbs Insulin Dep Diabetes No . Multiple Gestation No . AFP Value 37.1 . ng/mL AFP MoM 1.03 . OSBR [place] 1 [place] [address] . Interpretation Comment . detected by this test. This test does not screen for amniocentesis be offered to women age 35 and older. calculated is based on the gestational age provided. [facility] to discuss available options. The [place] can identify up to 80% of open neural tube defects. Interpretation: Screen Negative This result is screen negative for OSB. The AFP MoM Down Syndrome or Trisomy 18. If screening for Down Syndrome [employer] recommends Closed neural tube defects and some open defects may not be or Trisomy 18 is desired, contact Genetic Customer Comment: Comment . determined by [facility]. It has not been cleared or approved [address] [place], [place] [id number] Director For [facility] at [phone]. Gayla Latif, Ph.D., [facility] References: Available Upon Request. This test was developed and its performance characteristics OSBR - Open Spina Bifida Risk by the Food and Drug Administration. Abbreviation Definitions Performed at: [facility] RTP Multiples Of Median Cutoffs Vanessa 2.5 Black 2.8 IDD - Insulin Dep Diabetes Fur Puller: Uma Butler [facility], Phone: [phone] IDD 2.0 Twins 4.5 For further inquiries contact [facility] Performing Lab: see note [place] - [facility] HCV Antibody RFX to Quant PC R Reviewed date:12/03/2023 05:08:01 PM Interpretation: Performing Lab: Notes/Report: [facility] , HCV Ab Non Reactive Non Reactive Interpretation: Comment . individual), or other evidence exists to indicate HCV Not infected with HCV unless early or acute infection is suspected (which may be delayed in an immunocompromised infection. Performing Lab: see note [place] - [facility] LB HIV Ab/p24 Ag with Reflex Reviewed date:12/03/2023 05:08:00 PM Interpretation: Performing Lab: Notes/Report: [facility] , HIV Ab/p24 Ag Screen Non Reactive Non Reactive detected. There is no laboratory evidence of HIV infection. Performed at: [address] [phone] HIV Negative HIV-1/HIV-2 antibodies and HIV-1 p24 antigen were NOT Fur Puller: Jn Nielson PhD, Phone: [phone] Performing Lab: see note - [facility] LB RUBELLA AB IGG Reviewed date:12/03/2023 05:08:00 PM Interpretation: Performing Lab: Notes/Report: [facility] , Rubella Antibodies, IgG 3.99 Immune > 0.99 index Equivocal 0.90 - 0.99 Immune >0.99 Non-immune <0.90 Performing Lab: see note - [facility] LB BOX TEST SENT OUT Reviewed date:12/03/2023 05:08:01 PM Interpretation: Performing Lab: Notes/Report: [facility] , BOX Test Sent Out 12/01/23 Performing Lab: see note [facility] LB CBC AUTO DIFF Reviewed date:06/23/2024 09:54:03 AM Interpretation: Performing Lab: Notes/Report: [facility] , White Blood Count 9.4 4.0-11.0 10 3/uL Red Blood Count 2.97 4.20-5.40 10 6/uL Hemoglobin 9.5 12.0-16.0 g/dL Hematocrit 28.7 36.0-48.0 % Mean Corpuscular Volume 96.6 81.0-99.0 fL Mean Corpuscular Hemoglobin 32.0 26.7-34.0 pg Mean Corpuscular HGB Conc 33.1 29.9-35.2 g/dL Red Cell Distribution Width 13.2 11.0-15.0 % Platelet Count 180 150-450 10 3/uL Mean Platelet Volume 11.1 9.5-13.5 fL Neutrophils Percent Auto 65.7 43.0-75.0 % Lymphocytes Percent Auto 21.7 20.5-60.0 % Monocytes Percent Auto 9.9 1.7-12.0 % Eosinophils Percent Auto 2.1 0.9-7.0 % Basophils Percent Auto 0.4 0.2-2.0 % Immature Granulocytes Pct Auto 0.2 0.0-0.5 % Neutrophils Absolute Auto 6.1 1.4-6.5 10 3/uL Lymphocytes Absolute Auto 2.0 1.2-3.8 10 3/uL Monocytes Absolute Auto 0.9 0.3-0.8 10 3/uL Eosinophils Absolute Auto 0.2 0.0-0.7 10 3/uL Basophils Absolute Auto 0.0 0.0-0.1 10 3/uL Immature Granulocytes Abs Auto 0.02 0.00-0.03 10 3/uL Performing Lab: see note ML - [facility] LB UA RANDOM W or MICROSCOPIC Reviewed date:06/20/2024 08:53:42 PM Interpretation: Performing Lab: Notes/Report: [facility] , Color Urine YELLOW YELLOW Clarity Urine SL CLOUDY CLEAR Specific M[place]o Urine 1.025 1.005-1.025 pH Urine 6.0 5.0-9.0 Protein Urine TRACE NEG/TRACE mg/dL Glucose Urine UA NEGATIVE NEGATIVE mg/dL Bilirubin Urine NEGATIVE NEGATIVE Ketones Urine NEGATIVE NEGATIVE mg/dL Blood Urine MODERATE NEGATIVE Nitrite Urine NEGATIVE NEGATIVE Urobilinogen Urine 0.2 0.2-1.0 EU/dL Leukocyte Esterase Urine MODERATE NEGATIVE WBC Urine 20-50 NONE SEEN #/HPF RBC Urine 20-50 0-2 #/HPF Bacteria Urine MODERATE NONE SEEN #/HPF Mucus Urine TRACE NONE SEEN Squamous Epithelial Cell Urine MODERATE NONE/RARE #/LPF Crystals Seen? None Seen None Seen #/HPF Cast Seen? NONE SEEN NONE SEEN #/LPF Urine Culture Indicated YES-LC Performing Lab: see note ML - [facility] LB DRUG SCREEN RAPID (URINE) Reviewed date:06/20/2024 08:53:42 PM Interpretation: Performing Lab: Notes/Report: [facility] , Cannabinoid Screen Urine NEGATIVE NEGATIVE Phencyclidine Screen Urine NEGATIVE NEGATIVE Cocaine Screen Urine NEGATIVE NEGATIVE Methamphetamines Screen Urine NEGATIVE NEGATIVE Opiate Screen Urine NEGATIVE NEGATIVE Amphetamine Screen Urine NEGATIVE NEGATIVE Benzodiazepines Screen Urine NEGATIVE NEGATIVE Tricyclic Antidepressant Urine NEGATIVE NEGATIVE Methadone Screen Urine NEGATIVE NEGATIVE Barbiturates Screen Urine NEGATIVE NEGATIVE Oxycodone Screen Urine NEGATIVE NEGATIVE Buprenorphine Screen Urine NEGATIVE NEGATIVE MTD (Methadone): 200 ng/mL BUP (Buprenorphine): 10 ng/mL PCP (Phencyclidine): 25 ng/mL CORNELIUS (Cocaine): 150 ng/mL BAR (Barbiturates): 200 ng/mL DRUG CLASS TEST SYSTEM CUT-OFF CONCENTRATIONS ARE BZO (Benzodiazepines): 150 ng/mL THC (Cannabinoids): 50 ng/mL OPI (Opiates): 100 ng/mL FOLLOWS: OXY (Oxycodone): 100 ng/mL mAMP (Methamphetamine): 500 ng/mL AMP (Amphetamine): 500 ng/mL TCA (Trycyclic Antidepressants): 300 ng/mL Performing Lab: see note ML - [facility] LB Reason For Referral No Information Medications Medication SIG (Take, Route, Fr equency, [...] Problem Status W/U Status Risk Notes Problem 341789030 Atypical squamous cells of undetermined significance on cytologic smear of cervix (ASC-US) (R87.610) Active confirmed Problem Anxiety (70101100) Anxiety (F41.9) Active confirmed Problem Insomnia (174920028) Insomnia (G47.00) Active confirmed Problem Serous otitis media (60720680) Serous otitis media (H65.90) Active confirmed Problem Major depression (127473113) Major depression (F32.9) Active confirmed Vital Signs Temperature 99.2 degrees Fahrenheit 08/09/2024 Blood pressure diastolic 64 mm Hg 08/19/2024 Height 64 in 08/19/2024 Blood pressure systolic 112 mm Hg 08/19/2024 Weight 161 lbs 08/19/2024 BMI 27.63 kg/m2 08/19/2024 Encounters Encounter Location Date Provider Diagnosis [place] [id number] [facility] [place] [address] 06/26/2024 Augustine Ambrocio Insomnia G47.00 [facility] [address] [place] [address] 07/04/2024 Augustine Combsy [facility] [address] [place] [address] 08/05/2024 Augustine Combsy [facility] [address] [facility] [place] [address] 08/09/2024 Augustine Combsy [facility] [address] [facility] [place] [address] 08/09/2024 Augustine Hoy Serous otitis media H65.90 and Bilateral serous otitis media H65.93 [facility] [address] [place] [address] 08/19/2024 Augustine Hoy Serous otitis media H65.90 and ANDREA (secretory otitis media), bilateral H65.93 [facility] [address] [facility] [place] [address] 07/29/2024 Augustine Hoy Acute otitis media, unspecified otitis media type H66.90 and Otalgia, unspecified laterality H92.09 Assessments Encounter Date Diagnosis (ICD Code) Assessment Notes Treatment Notes Treatment Clinical Notes Section Notes 07/29/2024 Acute otitis media, unspecified otitis media type (ICD-10 - H66.90) You have been prescribed antibiotics for otitis media. Antibiotics may bother your stomach, so try taking them with a light meal (unless instructed otherwise by your pharmacist). It is important to take them until they are finished. You can use [id number] acetaminophen or ibuprofen if needed for pain. You have been prescribed antibiotics. You should be extra vigilant about hand washing or using hand biofuels research scientist gel. You should follow up with your Primary Care Physician or return to clinic if not improving in the next 3-5 days. 08/09/2024 Serous otitis media (ICD-10 - H65.90) 08/09/2024 Bilateral serous otitis media (ICD-10 - H65.93) 08/19/2024 Serous otitis media (ICD-10 - H65.90) 08/19/2024 ANDREA (secretory otitis media), bilateral (ICD-10 - H65.93) 06/26/2024 Insomnia (ICD-10 - G47.00) 07/29/2024 Otalgia, unspecified laterality (ICD-10 - H92.09) Plan Of Treatment No Information Insurance Providers Payer Name Payer Address Payer Phone Subscriber Number Group Number Insured Name Patient Relationship to Insured Coverage Start Date Coverage End Date [employer] [place] [employer] [address] [place] [address] [id number] Nidhi Cook Self - patient is the insured Medical (General) History Surgical History Surgery Date(Month/Year) 2 c sections
--- OUTSIDE RECORDS SUMMARY | 2024-11-27 12:25 | XMS_ITS | CCD ---
Author Organization [facility] Care Team Providers Care Brancher Name Role Phone Veronica Ambrocio Primary Care Physician [phone] NGUYỄN, DR SAFIA Pichardo Admitting Unavailable NGUYỄN, DR SAFIA Pichardo Attending Unavailable KATHERINE ., DR MARTIN Primary Care Unavailable WEST, DR SAFIA Pichardo Consulting Unavailable NGUYỄN, DR SAFIA Pichardo Admitting Unavailable WEST, DR SAFIA Pichardo Attending Unavailable HOY ., DR MARTIN Primary Care Unavailable WEST, DR SAFIA Pichardo Consulting Unavailable KATHERINE ., DR MARTIN Admitting Unavailable GISSELLEY ., DR MARTIN Attending Unavailable HOY ., DR MARTIN Primary Care Unavailable HOY ., DR MARTIN Consulting Unavailable Veronica Ambrocio MD Primary Care Provider [phone] Veronica Ambrocio MD Primary Care Provider [phone] AIDA SESAY Attending Unavailable DARIEN OJEDA Attending Unavailable AIDA SESAY Attending Unavailable LYNETTE, DARIEN Attending Unavailable AIDA SESAY Attending Unavailable AGUSTIN PITTMAN Attending Unavailable AGUSTIN PITTMAN Attending Unavailable DARIEN OJEDA Attending Unavailable DARIEN OJEDA Attending Unavailable DARIEN OJEDA Attending Unavailable AIDA SESAY Attending Unavailable AIDA SESAY Attending Unavailable DARIEN OJEDA Attending Unavailable Medications Current Medications Medication Drug Class(es) Dates Sig (Normalized) Sig (Original) acetaminophen 325 mg / oxyCODONE hydrochloride 5 mg oral tablet (2 sources) Opioid Agonist Start: 06-23-2024 take 1 tablet by mouth every six hours oxyCODONE-acetamin ophen (Percocet) 5-325 MG tablet Take 1 tablet by mouth every 6 (six) hours 06/23/2024 Active ibuprofen 800 mg oral tablet (8 sources) Nonsteroidal Anti-inflammatory Drug Start: 06-23-2024 End: 11-27-2024 take 1 tablet by mouth every eight hours ibuprofen 800 MG tablet Take 800 mg by mouth every 8 (eight) hours 06/23/2024 11/27/2024 Discontinued nitrofurantoin, macrocrystals 25 mg / nitrofurantoin, monohydrate 75 mg oral capsule (1 source) Nitrofuran Antibacterial Start: 11-27-2024 End: 12-04-2024 take 1 capsule by mouth in the morning nitrofurantoin, macrocrystal-monoh ydrate, (Macrobid) 100 MG capsule Indications: Burning with urination Take 1 capsule (100 mg) by mouth in the morning and 1 capsule (100 mg) before bedtime. Do all this for 7 days. 14 capsule 11/27/2024 12/04/2024 Active MV-Min-Fe Fum-FA-DHA ( 1 PO) (20 sources) End: 11-27-2024 MV-Min-Fe Fum-FA-DHA ( 1 PO) Take by mouth 11/27/2024 Discontinued MV-Min- Fe Fum-FA-DHA ( 1 PO) Take by mouth Active Completed/Discontinued Medications Medication Drug Class(es) Dates Sig (Normalized) Sig (Original) azithromycin 250 mg oral tablet (5 sources) Macrolide Antimicrobial Start: 04-03-2024 End: 04-25-2024 azithromycin (Zithromax Z-Justin) 250 MG tablet Indications: Sinus congestion As directed 6 tablet 04/03/2024 04/25/2024 Discontinued Problems Active Problems Problem Classification Problem Date Documented Date Episodic/Chronic Genitourinary symptoms and ill-defined conditions (1 source) Scalding pain on urination ; Translations: [Dysuria] 11-27-2024 Episodic Immunizations and screening for infectious disease (2 sources) Exposure to sexually transmissible disorder; Translations: [Contact with and (suspected) exposure to infections with a predominantly sexual mode of transmission] 01-08-2024 Episodic Mood disorders (2 sources) Mood disorder 09-22-2021 Chronic Other acquired deformities (3 sources) Deformity of metatarsal; Translations: [Unspecified acquired deformity of right lower leg] 11-06-2024 Episodic Other aftercare (2 sources) Postoperative visit; Translations: [Encounter for other specified surgical aftercare] 06-27-2024 Episodic Other and unspecified benign neoplasm (1 source) Melanocytic nevus; Translations: [Melanocytic nevi, unspecified] Onset: 2 Episodic Other complications of (2 sources) size does not accord with dates; Translations: [Uterine size-date discrepancy, unspecified trimester] 05-16-2024 Episodic Other connective tissue disease (3 sources) Capsulitis of metatarsophalangeal joint of right foot; Translations: [Other enthesopathy of right foot and ankle] 11-06-2024 Episodic Other connective tissue disease (3 sources) Pain in right foot; Translations: [Pain in right foot] 11-06-2024 Episodic Other female genital disorders (2 sources) Vaginal discharge; Translations: [Other specified noninflammatory disorders of vagina] 01-08-2024 Episodic Other nervous system disorders (3 sources) Skin sensation disturbance; Translations: [Unspecified disturbances of skin sensation] Onset: 2 Episodic Other and delivery including normal (16 [...] sources) COUGH, UNSPECIFIED; Translations: [COUGH, UNSPECIFIED] Onset: 2 Unclassified (1 source) CONTACT W/AND (SUSP) EXPOS COVID-19; Translations: [CONTACT W/AND (SUSP) EXPOS COVID-19] Onset: 2 Viral infection (3 sources) Verruca plantaris; Translations: [Plantar wart] 11-06-2024 Episodic Past or Other Problems Problem Classification Problem Date Documented Da te Episodic/Chronic Residual codes; unclassified (2 sources) Gestation period, 11 weeks; Translations: [11 weeks gestation of ] 12-11-2023 Episodic Unclassified (1 source) COUGH, UNSPECIFIED; Translations: [COUGH, UNSPECIFIED] Onset: 03-31-2022 Results Test Name Value Interpretation Reference Range Facility Urinalysis macro (dipstick) panel (U)on 11-27-2024 Bilirubin, UA Negative Negative - 4(70) +++ mg/dL [facility] Blood, UA Positive Negative - 50 Zenon/mcL [facility] Clarity, UA Clear [facility] re Color, UA Yellow [facility] e Glucose, UA Negative Negative - 1999(110) ++++ mg/dL [facility] Interpretation and review of laboratory results Abnormal [facility] Ketones, UA Negative Negative - 160(16) ++++ mg/dL [facility] Leukocytes, UA Positive Negative - 500+++ Viral/mcL [facility] Nitrite, UA Negative Negative - Positive [facility] pH, UA 6 5 - 9 [facility] e Protein, UA Positive Negative - 1999(20) ++++ mg/dL [facility] Spec Grav, UA 1.03 1 - 1.03 [facility] Urobilinogen, UA 1.0 0.2 - 12 mg/dL [facility] e ALL CBC WITH AUTO DIFFon BASOPHILS ABSOLUTE AUTO 0 [facility] Basophils/100 WBC (Bld) 0.3 % 0.2 - 2.0 % [facility] Eosinophils/100 WBC (Bld) 0.7 % Low 0.9 - 7.0 % [facility] Erythrocyte distribution width (RBC) [Ratio] 13 % 11.0 - 15.0 % [facility] Hematocrit (Bld) [Volume fraction] 34.2 % Low 36.0 - 48.0 % [facility] Hem[facility] (Bld) [Mass/Vol] 11.8 g/dL Low 12.0 - 16.0 g/dL [facility] IMMATURE GRANULOCYTES ABS AUTO 0.03 [facility] Immature granulocytes/100 WBC (Bld) 0.3 % 0.0 - 0.5 % [facility] Interpretation and review of laboratory results Abnormal [facility] LYMPHOCYTES ABSOLUTE AUTO 1.7 [facility] Lymphocytes/100 WBC (Bld) 18.5 % Low 20.5 - 60.0 % [facility] MCH (RBC) [Entitic mass] 32.2 pg 26.7 - 34.0 pg [facility] MCHC (RBC) [Mass/Vol] 34.5 g/dL 29.9 - 35.2 g/dL [facility] MCV (RBC) [Entitic vol] 93.4 fL 81.0 - 99.0 fL [facility] MONOCYTES ABSOLUTE AUTO 0.8 [facility] Monocytes/100 WBC (Bld) 8.3 % 1.7 - 12.0 % [facility] NEUTROPHILS ABSOLUTE AUTO 6.5 [facility] Neutrophils/100 WBC (Bld) 71.9 % 43.0 - 75.0 % [facility] Platelet mean volume (Bld) [Entitic vol] 10.9 fL 9.5 - 13.5 fL [facility] EO # 0.1 [facility] e [facility] PLT 193 [facility] e TBH RBC 3.66 Low [facility] e TB WBC 9.1 [facility] Ur[facility]ysis macro (dipstick) panel (U)on 06-18-2024 Bilirubin, UA Negative Negative - 4(70) +++ mg/dL [facility] Blood, UA Positive Negative - 50 Zenon/mcL [facility] Comment on above: trace Clarity, UA Clear [facility] re Color, UA Yellow [facility] e Glucose, UA Negative Negative - 1999(110) ++++ mg/dL [facility] Interpretation and review of laboratory results Abnormal [facility] Ketones, UA Negative Negative - 160(16) ++++ mg/dL [facility] Leukocytes, UA Moderate Negative - 500+++ Viral/mcL [facility] Nitrite, UA Negative Negative - Positive [facility] pH, UA 6 5 - 9 [facility] e Protein, UA Negative Negative - 1999(20) ++++ mg/dL [facility] Spec Grav, UA 1.015 1 - 1.03 [facility] Urobilinogen, UA 0.2 0.2 - 12 mg/dL [facility] ALL MISCELLANEOUS TESTon MISCELLANEOUS TEST COMMENT . [facility] Comment on above: Test Ordered: [id number] Strep Gp B Culture+Rflx Strep Gp B Culture+Rflx Positive [A ] CB Reference Range: Negative Centers for Disease Control and Prevention (CDC) and [place] [employer] Gynec[employer] (ACOG) guidelines [...] at high risk for anaphylaxis. Performed at: [address] [id number] [employer] Operator: Jn Nielson PhD, Phone: [phone] GROUP B STREP [id number] CULTURE, GROUP B STREP WITH SUSCEPTIBILITY [facility] Urinalysis macro (dipstick) panel (U)on 06-04-2024 Bilirubin, UA Negative Negative - 4(70) +++ mg/dL [facility] Blood, UA Negative Negative - 50 Zenon/mcL [facility] Clarity, UA Clear [facility] re Color, UA Yellow [facility] Glucose, UA Negative Negative - 1999(110) ++++ mg/dL [facility] Interpretation and review of laboratory results Abnormal [facility] Ketones, UA Negative Negative - 160(16) ++++ mg/dL [facility] Leukocytes, UA Positive Negative - 500+++ Viral/mcL [facility] Comment on above: small Nitrite, UA Negative Negative - Positive [facility] pH, UA 6.5 5 - 9 [facility] e Protein, UA Negative Negative - 1999(20) ++++ mg/dL [facility] Spec Grav, UA 1.01 1 - 1.03 [facility] Urobilinogen, UA 0.2 0.2 - 12 mg/dL [facility] US OB GROWTHon 06-03-[address] [address] Ultrasound Report Signed Patient: NIDHI COOK MR#: [id number] : 1995 Acct:[id number] Age/Sex: 29 / F ADM Date: 06/03/24 Loc: US Attending Dr: Aida Sesay Ordering Physician: Aida Sesay Date of Service: 06/03/24 Procedure(s): US OB growth Accession Number(s): [id number] cc: Aida Sesay; Veronica Ambrocio M.D. The [address] [address] Patient Name: NIDHI COOK MRN: [id number] date: 1995 Sex: F Assigned Patient Location: US Current Patient Location: US Accession/Order Number: [id number] Exam Date: 06/03/2024 09:00 Report Date: 06/03/2024 [...] M.D. Signed By: 06/03/241912 DD/ 09 TD/TT: Healthcare Market Consultant: [facility] Radiology, Radiologist, - 06/03/2024 [place] [address] Ultrasound Report Signed Patient: NIDHI COOK MR#: [id number] : 1995 Acct:[id number] Age/Sex: 29 / F ADM Date: 06/03/24 Loc: US Attending Dr: Aida Sesay Ordering Physician: Aida Sesay Date of Service: 06/03/24 Procedure(s): US OB growth Accession Number(s): [id number] cc: Aida Sesay; Veronica Ambrocio M.D. The [address] [address] Patient Name: NIDHI COOK MRN: [id number] date: 1995 Sex: F Assigned Patient Location: US Current Patient Location: US Accession/Order Number: [id number] Exam Date: 06/03/2024 09:00 Report Date: 06/03/2024 [...] Growth assessment: Size is appropriate for dates. US/ OB growth IMPRESSION: 1. Single live intrauterine gestation with cardiac activity. Gestational age based on today's ultrasound is 35 weeks 0 days. There has been appropriate growth when compared to the original dating ultrasound. 2. CHATO is within normal limits measuring 13.8 cm. Electronically authenticated by: REBA MCKEON Date: 06/03/2024 19:10 Dictated By: Reba Mckeon M.D. Signed By: 06/03/241912 DD/ 09 TD/TT: Healthcare Market Consultant: [facility] Radiology Study observation (narrative) [facility] OB GROWTHOrdered By: Shaina ologyannick Radiology on 06-03-2024 [facility] Work Phone: Urinalysis macro (dipstick) panel (U)on 05-16-2024 Bilirubin, UA Negative Negative - 4(70) +++ mg/dL [facility] Blood, UA Negative Negative - 50 Zenon/mcL [facility] Clarity, UA Clear [facility] re Color, UA Yellow [facility] e Glucose, UA Negative Negative - 1999(110) ++++ mg/dL [facility] Interpretation and review of laboratory results Abnormal [facility] Healthcare Ketones, UA Negative Negative - 160(16) ++++ mg/dL [facility] Leukocytes, UA Many Negative - 500+++ Viral/mcL [facility] Healthcare Nitrite, UA Negative Negative - Positive [facility] pH, UA 7 5 - 9 [facility] Protein, UA Trace Negative - 1999(20) ++++ mg/dL [facility] Spec Grav, UA 1.025 1 - 1.03 [facility] Urobilinogen, UA 1.0 0.2 - 12 mg/dL [facility] Urinalysis macro (dipstick) panel (U)on 04-25-2024 Bilirubin, UA Negative Negative - 4(70) +++ mg/dL [facility] Blood, UA Negative Negative - 50 Zenon/mcL [facility] Healthcare Clarity, UA Clear [facility] re Color, UA Yellow [facility] e Glucose, UA Negative Negative - 1999(110) ++++ mg/dL [facility] Interpretation and review of laboratory results Abnormal [facility] Ketones, UA Negative Negative - 160(16) ++++ mg/dL [facility] Leukocytes, UA Positive Negative - 500+++ Viral/mcL [facility] Comment on above: small Nitrite, UA Negative Negative - Positive [facility] pH, UA 6 5 - 9 [facility] Protein, UA Positive Negative - 1999(20) ++++ mg/dL [facility] Comment on above: 30 Spec Grav, UA 1.025 1 - 1.03 [facility] Urobilinogen, UA 1.0 0.2 - 12 mg/dL [facility] Urinalysis macro (dipstick) panel (U)on 04-03-2024 Bilirubin, UA Negative Negative - 4(70) +++ mg/dL [facility] Blood, UA Negative Negative - 50 Zenon/mcL [facility] Healthcare Clarity, UA Clear [facility] re Color, UA Yellow [facility] Glucose, UA Negative Negative - 1999(110) ++++ mg/dL [facility] Interpretation and review of laboratory results Abnormal [facility] Ketones, UA Negative Negative - 160(16) ++++ mg/dL [facility] Leukocytes, UA Trace Negative - 500+++ Viral/mcL [facility] Nitrite, UA Negative Negative - Positive [facility] pH, UA 6 5 - 9 [facility] Protein, UA Negative Negative - 2000(20) ++++ mg/dL [facility] Spec Grav, UA 1.02 1 - 1.03 [facility] Urobilinogen, UA 0.2 0.2 - 12 mg/dL [facility] e ALL CBC WITH AUTO DIFFon BASOPHILS ABSOLUTE AUTO 0 [facility] Basophils/100 WBC (Bld) 0.4 % 0.2 - 2.0 % [facility] Eosinophils/100 WBC (Bld) 1.1 % 0.9 - 7.0 % [facility] Erythrocyte distribution width (RBC) [Ratio] 12.6 % 11.0 - 15.0 % [facility] Hematocrit (Bld) [Volume fraction] 34.9 % Low 36.0 - 48.0 % [facility] Hemoglobin (Bld) [Mass/Vol] 11.8 g/dL Low 12.0 - 16.0 g/dL [facility] IMMATURE GRANULOCYTES ABS AUTO 0.06 High [facility] Immature granulocytes/100 WBC (Bld) 0.6 % High 0.0 - 0.5 % [facility] Interpretation and review of laboratory results Abnormal [facility] LYMPHOCYTES ABSOLUTE AUTO 1.9 [facility] Lymphocytes/100 WBC (Bld) 20.6 % 20.5 - 60.0 % [facility] MCH (RBC) [Entitic mass] 32.9 pg 26.7 - 34.0 pg [facility] MCHC (RBC) [Mass/Vol] 33.8 g/dL 29.9 - 35.2 g/dL [facility] MCV (RBC) [Entitic vol] 97.2 fL 81.0 - 99.0 fL [facility] MONOCYTES ABSOLUTE AUTO 0.6 [facility] Monocytes/100 WBC (Bld) 6.7 % 1.7 - 12.0 % [facility] NEUTROPHILS ABSOLUTE AUTO 6.7 High [facility] Neutrophils/100 WBC (Bld) 70.6 % 43.0 - 75.0 % [facility] Platelet mean volume (Bld) [Entitic vol] 10.5 fL 9.5 - 13.5 fL [facility] are TB EO # 0.1 [facility] TB PLT 208 [facility] TB RBC 3.59 Low [facility] TB WBC 9.4 [facility] Urinalysis macro (dipstick) panel (U)on 03-06-2024 Bilirubin, UA Negative Negative - 4(70) +++ mg/dL [facility] Blood, UA Negative Negative - 50 Zenon/mcL [facility] Clarity, UA Clear [facility] re Color, UA Yellow [facility] Glucose, UA Negative Negative - 1999(110) ++++ mg/dL [facility] Healthcare Interpretation and review of laboratory results Abnormal [facility] Healthcare Ketones, UA Negative Negative - 160(16) ++++ mg/dL [facility] Healthcare Leukocytes, UA Moderate Negative - 500+++ Viral/mcL [facility] Healthcare Nitrite, UA Negative Negative - Positive [facility] Healthcare pH, UA 7 5 - 9 [facility] Protein, UA Negative Negative - 1999(20) ++++ mg/dL [facility] Healthcare Spec Grav, UA 1.025 1 - 1.03 [facility] Health care Urobilinogen, UA 0.2 0.2 - 12 mg/dL [facility] Urinalysis macro (dipstick) panel (U)on 02-06-2024 Bilirubin, UA Negative Negative - 4(70) +++ mg/dL [facility] Healthcare Blood, UA Negative Negative - 50 Zenon/mcL [facility] Clarity, UA Clear [facility] re Color, UA Yellow [facility] Glucose, UA Negative Negative - 1999(110) ++++ mg/dL [facility] Healthcare Interpretation and review of laboratory results Abnormal [facility] Healthcare Ketones, UA Negative Negative - 160(16) ++++ mg/dL [facility] Leukocytes, UA Trace Negative - 500+++ Viral/mcL [facility] Nitrite, UA Negative Negative - Positive [facility] Healthcare pH, UA 6.5 5 - 9 [facility] Protein, UA Negative Negative - 1999(20) ++++ mg/dL [facility] Spec Grav, UA 1.025 1 - 1.03 [facility] Urobilinogen, UA 1.0 0.2 - 12 mg/[facility] AFP, SERUM, OPEN SPINA BIFID Aon 01-19-2024 AFP MOM 1.03 . [facility] AFP VALUE 37.1 ng/mL . [facility] COMMENT: Comment . [facility] Comment on above: Gayla Latif , Ph.D., [facility] Director References: Available Upon Request. Multiples Of Median Cutoffs For AFP Elevations Vanessa 2.5 Black 2.8 IDD 2.0 Twins 4.5 Abbreviation Definitions IDD - Insulin Dep Diabetes OSBR - Open Spina Bifida Risk For further inquiries contact [employer] at [phone]. This test was developed and its performance characteristics determined by [employer]. It has not been cleared or approved by the Food and Drug Administration. Performed at: [facility] [address] [id number] [employer] Operator: Uma Butler [facility], Phone: [phone] GEST. AGE ON COLLECTION DATE 16.7 . weeks [facility] GESTAT. AGE BASED ON Ultrasound . [facility] Comment on above: 15.4 on 01/08/2024 Recalculations are not recommended when gestational dating by LMP and ultrasound are within 10 days. INSULIN DEP DIABETES No . [facility] [employer] Comment . [facility] Sage espinoza Comment on above: Interpretation: [...] Customer Services to discuss available options. The [place] [employer] recommends amniocentesis be offered to women age 35 and older. [age] [facility] MULTIPLE GESTATION No . [facility] [place] [id number] . YON espinoza RACE . [facility] RESULTS Report . [facility] TEST RESULTS: Negative . [facility] WEIGHT 152 . lbs [facility] PREGNQNCY N N ULTRASOUND [id number] 3 15 N 1 Y 152 N N N N N White/ [facility] IGP,APTIMA HPV,AGE GDLNon AGE GDLN ACOG TESTING Note . [facility] Comment on above: TESTS RESULT FLAG UN ITS REF RANGE LAB Clinician Provided Cytology Information Source.............Cervix No. of containers..01 ThinPrep Vial Age Algo ACOG Gisela... FLAG LEGEND: L-Low Normal,H-High Normal,LL-Alert Low,HH-Alert High <-Panic Low,>-Panic High,A-Abnormal,AA-Critical Abnormal Performed at: 01 =[address] [address] Chayito Suarez MD, HPV APTIMA Negative Negative [facility] Comment on above: This nucleic acid am plification test detects fourteen high- risk HPV types (16,18,31,33,35,39,45,51,52,56,58,59,66,68) without differentiation. Performed at: =[address] [id number] [employer] Operator: Chayito Suarez MD, Phone: [phone] Performed at: [address] [id number] [employer] Operator: Chayito Suarez MD, Phone: [phone] IGP, APTIMA HPV, RFX 16/18,45 Note . [facility] Comment on above: TESTS RESULT FLAG UN ITS REF RANGE LAB DIAGNOSIS: 02 NEGATIVE FOR INTRAEPITHELIAL LESION OR MALIGNANCY. Specimen adequacy: 02 Satisfactory for evaluation. No endocervical component is identified. Performed by: 02 Tracy Sykes [employer] (ASCP) . 02 Note: Note 02 The [...] High,A-Abnormal,AA-Critical Abnormal Performed at: 02 [facility] [address], [place] [address] Chayito Suarez MD, SPATULA-ALONE CERVIX [facility] macro (dipstick) panel (U)on 01-08-2024 Bilirubin, UA Negative Negative - 4(70) +++ mg/dL [facility] Blood, UA Positive Negative - 50 Zenon/mcL [facility] Comment on above: trace-itact Clarity, UA Clear [facility] re Color, UA Yellow [facility] Health[facility] e Glucose, UA Negative Negative - 1999(110) ++++ mg/dL [facility] Interpretation and review of laboratory results Abnormal [facility] Ketones, UA Negative Negative - 160(16) ++++ mg/dL [facility] Leukocytes, UA Negative Negative - 500+++ Viral/mcL [facility] Nitrite, UA Negative Negative - Positive [facility] pH, UA 6.0 5 - 9 [facility] Protein, UA Negative Negative - 1999(20) ++++ mg/dL [facility] Healthcare Spec Grav, UA 1.015 1 - 1.03 [facility] Urobilinogen, UA 0.2 0.2 - 12 mg/dL [facility] Urinalysis macro (dipstick) panel (U)on 12-11-2023 Bilirubin, UA Negative Negative - 4(70) +++ mg/dL [facility] Blood, UA Negative Negative - 50 Zenon/mcL [facility] Clarity, UA Clear [facility] Healthca re Color, UA Yellow [facility] Glucose, UA Negative Negative - 1999(110) ++++ mg/dL [facility] Interpretation and review of laboratory results Abnormal [facility] Ketones, UA Negative Negative - 160(16) ++++ mg/dL [facility] Leukocytes, UA Positive Negative - 500+++ Viral/mcL [facility] Comment on above: small Nitrite, UA Negative Negative - Positive [facility] pH, UA 7.0 5 - 9 [facility] Health[facility] Protein, UA Negative Negative - 1999(20) ++++ mg/dL [facility] Healthcare Spec Grav, UA 1.025 1 - 1.03 [facility] Urobilinogen, UA 0.2 0.2 - 12 mg/dL [facility]-17 SARS-CoV-2 (COVID-19) RNA LYNDSEY+probe Ql (Unsp spec) Not detected Normal NOT DETECTED [facility] Comment on above: Result Comment: This test is not yet approved or cleared by the [place] FDA. When there are no FDA-approved or cleared tests available, and other criteria are met, FDA can make tests available under an emergency access mechanism called an Emergency Use Authorization (EUA). The EUA for this test is supported by the Cook Manager of Health and Human Service's (HHS's) [...] consistent with SARS-CoV-2. Performed By: #### C VDTB #### [facility] [address] [place] [address] Dr. Radha Rucker INFLUENZA A AND B [facility] 03-31 [facility] SEE BELOW Normal [facility] Comment on above: Result Comment: Nega tive for Flu A protein angiten. Infection due to Flu A cannot be ruled out. Flu A angiten in the sample may be below the detection limit of the test. Performed By: #### I NFLUAB #### [facility] [address] [place] [address] Dr. [facility] SEE BEL[facility] Normal [facility] Comment on above: Result Comment: Nega tive for Flu B protein antigen. Infection due to Flu B cannot be ruled out. Flu B antigen in the sample may be below the detection limit of the test. Performed By: #### I NFLUAB #### [facility] [address] [place] [address] Dr. Radha Rucker INFLUENZA A AG Negative Normal NEGATIVE SEE COMMENT [facility] Comment on above: Performed By: #### I NFLUAB #### [facility] [address] [place] [address] Dr. Radha Rucker INFLUENZA B AG Negative Normal NEGATIVE SEE COMMENT [facility] Comment on above: Performed By: #### I NFLUAB #### [facility] [address] [place] [address] Dr. Radha Rucker INTERNAL CONTROLS Within Normal Limits Normal Wi thin Normal Limits [facility] Comment on above: Performed By: #### I NFLUAB #### [facility] [address] [address] [address] Radha Rucker General Surgery Office/Clini c [...] 09:55 EDT Pathology Noteon 11-01-2021 Pathology Note [id number]:127 [facility] Ambulatory Visit Summaryon 0 10-27-2021 Ambulatory Visit Summary NIDHI COOK :1995 Visit Date:10/27/2021 Ambulatory Visit Instructions Your Care Team Attending Physician - YANIRA DIAMOND, Philippe Ramirez Primary Care Physician Gianna Ambrocio MD, Veronica Procedures Performed Tonsillectomy. Allergies No Known Allergies No Known Medication Allergies Problems Ongoing - Any problem that you are currently receiving treatment for. BMI 24.0-24.9, adult Changing nevus Disturbance of skin sensation Mood disorder [facility] Pre-Certification Formon Pre-Certification Form [id number] 1.00CD:127 [facility] Ambulatory Visit Summaryon 0 10-06-2021 Ambulatory Visit Summary NIDHI COOK :1995 Visit Date:10/06/2021 Ambulatory Visit Instructions Your Care Team Attending Physician - YANIRA DIAMOND, Philippe Ramirez Primary Care Physician Gianna Ambrocio MD, Veronica Procedures Performed Tonsillectomy. Discharge Vitals Heart Rate (Peripheral) 72 Respiratory Rate 16 Blood Pressure 106/66 Height 162.5 cm Height 162.5 cm Weight 64.0 kg Weight 64 kg BMI 24.24 What to do next Scheduled Follow-Up Appointments Monday 1:40 PM EDT With: Philippe MCGOWAN MD Where: General Surgery Yanira/[facility] [place] [facility] Physician Referralon 022 Physician Referral [id number]:127 [facility] Vital Signs Date Time Vital Sign Value Performing Clinician Facility 11-27-2024 10:02-0400 Body mass index (BMI) [Ratio] 23.65 kg/m2 Kristi Turpin NP Work Phone: [facility] 11-27-2024 10:02-0400 Body weight 62.51 kg Kristi Turpin [employer] Work Phone: [facility] 11-27-2024 10:02-0400 Diastolic blood pressure 78 mm[Hg] Kristi Turpin [employer] Work Phone: [facility] 11-27-2024 10:02-0400 Systolic blood pressure 104 mm[Hg] Kristi Turpin [employer] Work Phone: [facility] 11-21-2024 16:14-0400 Body height 162.6 cm Agustin Pittman DPM Work Phone: [facility] 11-21-2024 16:14-0400 Body mass index (BMI) [Ratio] 24.55 kg/m2 Agustin Pittman DPM Work Phone: [facility] 11-21-2024 16:14-0400 Body weight 64.86 kg Agustin Pittman DPM Work Phone: [facility] 11-21-2024 16:14-0400 Respiratory rate 16 /min Agustin Pittman DPM Work Phone: [facility] 11-06-2024 15:54-0400 Body height 162.6 cm Agustin Pittman DPM Work Phone: [facility] 11-06-2024 15:54-0400 Body mass index (BMI) [Ratio] 24.55 kg/m2 Agustin Pittman DPM Work Phone: [facility] 11-06-2024 15:54-0400 Body weight 64.86 kg Agustin Pittman DPM Work Phone: [facility] 11-06-2024 15:54-0400 Respiratory rate 16 /min Agustin Pittman DPM Work Phone: [facility] 06-27-2024 09:53-0400 Body mass index (BMI) [Ratio] 28.49 kg/m2 Aida Sesay PA Work Phone: [facility] 06-27-2024 09:53-0400 Body weight 75.3 kg Aida Cassopolis PA Work Phone: [facility] 06-27-2024 09:53-0400 Diastolic blood pressure 72 mm[Hg] Aida Ksenia PA Work Phone: [facility] 06-27-2024 09:53-0400 Systolic blood pressure 116 mm[Hg] Aida Cassopolis PA Work Phone: [facility] 06-18-2024 09:10-0500 Body mass index (BMI) [Ratio] 29.87 kg/m2 Darien Lynette DO Work Phone: [facility] 06-18-2024 09:10-0500 Body weight 78.93 kg Darien Lynette DO Work Phone: [facility] 06-18-2024 09:10-0500 Diastolic blood pressure 70 mm[Hg] Darien Lynette DO Work Phone: [facility] 06-18-2024 09:10-0500 Systolic blood pressure 110 mm[Hg] Darien Lynette DO Work Phone: [facility] 06-11-2024 09:56-0500 Body mass index (BMI) [Ratio] 29.87 kg/m2 Aida Ksenia PA Work Phone: [facility] 06-11-2024 09:56-0500 Body weight 78.93 kg Aida Ksenia PA Work Phone: [facility] 06-11-2024 09:56-0500 Diastolic blood pressure 70 mm[Hg] Aida Ksenia PA Work Phone: [facility] 06-11-2024 09:56-0500 Systolic blood pressure 108 mm[Hg] Aida Ksenia PA Work Phone: [facility] 06-04-2024 13:44-0500 Body mass index (BMI) [Ratio] 29.7 kg/m2 Darien Lynette DO Work Phone: [facility] 06-04-2024 13:44-0500 Body weight 78.47 kg Darien Lynette DO Work Phone: [facility] 06-04-2024 13:44-0500 Diastolic blood pressure 72 mm[Hg] Darien Lynette DO Work Phone: [facility] 06-04-2024 13:44-0500 Systolic blood pressure 110 mm[Hg] Darien Lynette DO Work Phone: [facility] 05-16-2024 08:35-0500 Body mass index (BMI) [Ratio] 29.21 kg/m2 Aida Ksenia PA Work Phone: [facility] 05-16-2024 08:35-0500 Body weight 77.2 kg Aida Ksenia PA Work Phone: [facility] 05-16-2024 08:35-0500 Diastolic blood pressure 62 mm[Hg] Aida Ksenia PA Work Phone: [facility] 05-16-2024 08:35-0500 Systolic blood pressure 98 mm[Hg] Aida Cassopolis PA Work Phone: [facility] 04-25-2024 09:02-0500 Body mass index (BMI) [Ratio] 28.84 kg/m2 Darien Lynette DO Work Phone: [facility] 04-25-2024 09:02-0500 Body weight 76.2 kg Darien Lynette DO Work Phone: [facility] 04-25-2024 09:02-0500 Diastolic blood pressure 60 mm[Hg] Darien Lynette DO Work Phone: [facility] 04-25-2024 09:02-0500 Systolic blood pressure 102 mm[Hg] Darien Lynette DO Work Phone: [facility] 04-03-2024 11:27-0500 Body mass index (BMI) [Ratio] 27.66 kg/m2 Aida Ksenia PA Work Phone: [facility] 04-03-2024 11:27-0500 Body weight 73.08 kg Aida Ksenia PA Work Phone: [facility] 04-03-2024 11:27-0500 Diastolic blood pressure 70 mm[Hg] Aida Ksenia PA Work Phone: [facility] 04-03-2024 11:27-0500 Systolic blood pressure 120 mm[Hg] Aida Cassopolis PA Work Phone: [facility] 03-06-2024 09:26-0500 Body mass index (BMI) [Ratio] 27.29 kg/m2 Aida Ksenia PA Work Phone: [facility] 03-06-2024 09:26-0500 Body weight 72.12 kg Aida Ksenia PA Work Phone: [facility] 03-06-2024 09:26-0500 Diastolic blood pressure 68 mm[Hg] Aida Ksenia PA Work Phone: [facility] 03-06-2024 09:26-0500 Systolic blood pressure 110 mm[Hg] Aida Ksenia PA Work Phone: [facility] 02-06-2024 10:23-0400 Body mass index (BMI) [Ratio] 26.78 kg/m2 Darien Lynette DO Work Phone: [facility] 02-06-2024 10:23-0400 Body weight 70.76 kg Darien Lynette DO Work Phone: [facility] 02-06-2024 10:23-0400 Diastolic blood pressure 60 mm[Hg] Darien Lynette DO Work Phone: [facility] 02-06-2024 10:23-0400 Systolic blood pressure 108 mm[Hg] Darien Lynette DO Work Phone: [facility] 01-08-2024 10:31-0400 Body mass index (BMI) [Ratio] 26.16 kg/m2 Darien Lynette DO Work Phone: [facility] 01-08-2024 10:31-0400 Body weight 69.13 kg Darien Lynette DO Work Phone: [facility] 01-08-2024 10:31-0400 Diastolic blood pressure 60 mm[Hg] Darien Lynette DO Work Phone: [facility] 01-08-2024 10:31-0400 Systolic blood pressure 104 mm[Hg] Darien Lynette DO Work Phone: [facility] 12-11-2023 11:26-0400 Body mass index (BMI) [Ratio] 25.58 kg/m2 Darien Lynette DO Work Phone: [facility] 12-11-2023 11:26-0400 Body weight 67.59 kg Darien Lynette DO Work Phone: [facility] 12-11-2023 11:26-0400 Diastolic blood pressure 58 mm[Hg] Darien Lynette DO Work Phone: [facility] 12-11-2023 11:26-0400 Systolic blood pressure 100 mm[Hg] Darien Lynette DO Work Phone: [facility] 10-06-2021 15:25-0400 Blood Pressure Location Philippe MCGOWAN General Surgery [place] 10-06-2021 15:25-0400 Diastolic blood pressure 66 mm[Hg] Philippe MCGOWAN General Surgery [place] 10-06-2021 15:25-0400 Heart rate 72 /min Philippe MCGOWAN General Surgery [place] 10-06-2021 15:25-0400 Respiratory rate 16 /min Philippe MCGOWAN General Surgery [place] 10-06-2021 15:25-0400 Systolic blood pressure 106 mm[Hg] Philippe MCGOWAN General Surgery [place] Encounters Encounter Date Encounter Type Care Provider Facility Start: 11-27-2024 End: 11-27-2024 Bamboo flowsheet [facility] Turpin NP [facility] Start: 11-27-2024 End: 11-27-2024 Bamboo flowsheet Kristi Turpin NP Work Phone: [facility] Evy OBRICHARD Start: 11-27-2024 End: 11-27-2024 Patient encounter procedure Kristi Turpin NP Work Phone: [facility] Work Phone: Start: 11-27-2024 End: 11-27-2024 Periodic preventive med est patient 18-39 yrs Kristi Turpin NP Work Phone: [facility] Evy MAJOR Comment on above: Well woman exam with routine gynecological exam; Burning with urination Start: 11-21-2024 End: 11-21-2024 ambulatory AGUSTIN PITTMAN Not Available Start: 11-21-2024 End: 11-21-2024 Office outpatient visit 15 minutes Agustin Pittman DPM Work Phone: [facility] Comment on above: Metatarsal deformity , right (Primary Dx); Capsulitis of metatarsophalangeal (MTP) joint of right foot; Verruca plantaris; Foot pain, right Start: 11-06-2024 End: 11-06-2024 Office outpatient new 30 minutes Agustin Pittman DPM Work Phone: [facility] Comment on above: Metatarsal deformity , right (Primary Dx); Capsulitis of metatarsophalangeal (MTP) joint of right foot; Verruca plantaris; Foot pain, right Start: 11-06-2024 End: 11-06-2024 ambulatory AGUSTIN PITTMAN Not Available Start: 11-06-2024 End: 11-06-2024 Bamboo flowsheet Agustin Pittman DPM Work Phone: [facility] Start: 11-06-2024 End: 11-06-2024 Bamboo flowsheet Agustin Pittman DPM Work Phone: [facility] Start: 06-27-2024 End: 06-27-2024 Bamboo flowsheet Aida MAYES Work Phone: [facility] Start: 06-27-2024 End: 06-27-2024 Bamboo flowsheet Aida MAYES Work Phone: [facility] Start: 06-27-2024 End: 06-27-2024 Postop follow up visit related to original px Aida MAYES Work Phone: [facility] Comment on above: Postoperative visit; S/P section Start: 06-27-2024 End: 06-27-2024 ambulatory AIDA SESAY Not Available Start: 06-20-2024 End: 06-20-2024 Clinisync Result Encounter Darien Lynette DO Work Phone: [facility] External Department Unsolicited Start: 06-20-2024 End: 06-20-2024 Clinisync Result Encounter Darien Lynette DO Work Phone: [facility] External Department Unsolicited Start: 06-18-2024 End: 06-18-2024 Bamboo flowsheet Darien Lynette DO Work Phone: [facility] Start: 06-18-2024 End: 06-18-2024 Bamboo flowsheet Darien Lynette DO Work Phone: [facility] Start: 06-18-2024 End: 06-18-2024 Office [...] Result Encounter Darien Lynette DO Work Phone: [facility] External Department Unsolicited Start: 06-04-2024 End: 06-04-2024 Office outpatient visit 15 minutes Darien Lynette DO Work Phone: [facility] Comment on above: Third trimester preg anaya; 35 weeks gestation of Start: 06-04-2024 End: 06-04-2024 ambulatory DARIEN LYNETTE Not Available Start: 06-03-2024 End: 06-03-2024 Clinisync Result Encounter Aida MAYES Work Phone: [facility] External Department Unsolicited Start: 06-03-2024 End: 06-03-2024 [...] Work Phone: [facility] Unsolicited Start: 03-20-2024 End: 03-20-2024 Clinisync Result Encounter Darien Lynette DO Work Phone: [facility] Unsolicited Start: 03-06-2024 End: 03-06-2024 [...] encounter procedure Darien Lynette DO Work Phone: [facility] Start: 01-08-2024 End: 01-08-2024 Periodic preventive med est patient 18-39 yrs Darien Lynette DO Work Phone: [facility] [...] 12-11-2023 ambulatory DARIEN LYNETTE Not Available Start: 06-09-[address] SAFIA ADRIAN Facilit y:[facility] Start: 03-31-2022 End: 03-31-[address] VERONICA AMBROCIO . Facility:[facility] Start: 10-27-2021 End: 10-27-2021 Patient encounter procedure Philippe MCGOWAN General Surgery Nill/Said [place] Start: 10-06-2021 End: 10-06-2021 Patient encounter procedure Philippe R NILL General Surgery Nill/Said [place] Start: 06-28-2021 End: 10-21-[address] SAFIA ADRIAN Facility:[facility] Procedures Date Procedure Procedure Detail Performing Clinician Start: 11-27-2024 Urnls dip stick/tabl et rgnt non-auto w/o micrscp Kristi Turpin [employer] Work Phone: Start: 06-20-2024 ALL CBC WITH AUTO DIFF Darien Lynette DO Work Phone: Start: 06-18-2024 Urnls dip stick/tabl et rgnt [...] w/o micrscp Darien Lynette DO Work Phone: H/O: section S/P sectio n Aida MAYES Work Phone: Tonsillectomy Philippe MCGOWAN Plan of Treatment Date Care Activity Detail Author Start: 12-01-2025 End: 12-01-2025 Patient encounter procedure 12/01/2025 11:00 AM EDT Procedure Visit YON MAJOR [address] [place] [address] Aida Sesay PA [address] [place] [address] YON MAJOR Start: 12-12-2024 End: 12-12-2024 Patient encounter procedure 12/12/2024 4:00 PM EDT Office Visit [facility] [address] [facility] [address] [place] [address] Agustin Pittman DPM [address] [facility] [address] [place] [address] [facility] Start: 11-27-2024 End: 11-27-2024 Patient encounter procedure YON MAJOR Comment on above: Arrived Start: 11-18-2024 End: 11-18-2024 Patient encounter procedure 11/18/2024 10:00 AM EDT Procedure Visit [facility] [address] [place] [phone] Kristi Turpin NP [address] [place] [phone] [facility] Start: 11-06-2024 End: 11-06-2024 Patient encounter procedure 11/06/2024 3:40 PM EDT Office Visit [facility] [address] [place] [phone] Agustin Pittman DPM [address] [address] Arrived [facility] Comment on above: Arrived Start: 08-01-2024 End: 08-01-2024 ambulatory 08/01/2024 9:30 AM EDT Visit [facility] [address] [place] [address] Aida Sesay PA [address] [place], [place] [phone] [facility] Start: 06-27-2024 End: 06-27-2024 Patient encounter procedure [facility] Comment on above: Arrived Start: 06-18-2024 End: 06-18-2024 Patient encounter procedure [...] AM EST Routine [facility] [address] [facility] [place] [phone] Darien Ojeda, DO [address] [place] [address] [facility] Start: 05-30-2024 End: 05-30-2024 Professional / ancillary services management 05/30/2024 11:00 AM EST Ancillary Procedure [facility] [address] [place] [phone] [facility] Start: 05-16-2024 End: 05-16-2025 [...] mellitus screening Expected: 03/06/2024 (Approximate), Expires: 03/06/2025 [facility] Work Phone: Comment on above: Expected: 03/06/2024 [...] anatomic survey Expected: 01/08/2024 (Approximate), Expires: 01/07/2025 [facility] Comment on above: Expected: 01/08/2024 (Approximate), Expires: 01/07/2025 Start: 01-08-2024 End: 01-08-2024 Patient encounter procedure [facility] Comment on above: Arrived Bacteria identified in Urine by Culture Urine culture Microbiology Routine Burning with urination Ordered: 11/27/2024 [facility] Comment on above: Ordered: 11/27/2024 CHLAMYDIA TRACHOMATI S (GENITO/STI) CHLAMYDIA TRACHOMATIS (GENITO/STI) Lab Routine Exposure to STD Ordered: 01/08/2024 [facility] Comment on above: Ordered: 01/08/2024 Cytology Cervical or vaginal smear or scraping study Pap Smear Pathology and Cytology Routine Well woman exam with routine gynecological exam Ordered: 01/08/2024 [facility] Comment on above: Ordered: 01/08/2024 Cytology Cervical or vaginal smear or scraping study Pap Smear Pathology and Cytology Routine Well woman exam with routine gynecological exam Ordered: 11/27/2024 [facility] Work Phone: Comment on above: Ordered: 11/27/2024 Human papilloma viru s DNA [Presence] in Unspecified specimen by Probe with amplification HPV DNA probe, amplified Microbiology Routine Well woman exam with routine gynecological exam Ordered: 01/08/2024 [facility] Comment on above: Ordered: 01/08/2024 Human papilloma viru s DNA [Presence] in Unspecified specimen by Probe with amplification HPV DNA probe, amplified Microbiology Routine Well woman exam with routine gynecological exam Ordered: 11/27/2024 [facility] Comment on above: Ordered: 11/27/2024 Neisseria gonorrhoea e DNA [Presence] in Unspecified specimen by LYNDSEY with probe detection Neisseria gonorrhea DNA probe, direct Lab Routine Exposure to STD Ordered: 01/08/2024 [facility] Comment on above: Ordered: 01/08/2024 SURESWAB(R) ADVANCED VAGINITIS PLUS, TMA SURESWAB(R) ADVANCED VAGINITIS PLUS, TMA Pathology and Cytology Routine Vaginal discharge Ordered: 01/08/2024 [facility] Work Phone: Comment on above: Ordered: 01/08/2024 Payers Date Payer Category Payer Medicaid [employer] [place] [id number] 2022-Present [address] [place] [address] [id number] 2022 Private Health Insurance [employer]ICAID [id number] 2022 Medicaid [id number] 1995 Unknown [id number]. 593 1993 Unknown [id number]. 593 1993 Unknown [id number] 2.16.840.1.807255.3.579.2. 593 1993 Unknown [id number] 2.16.840.1.902149.3.579.2. 1259 1993 Unknown [id number] 2.16.840.1.919949.3.579.2. 9 1993 Unknown [id number] 2.16.840.1.048515.3.579.2. 1259 1993 Unknown [id number] 2.16.840.1.609792.3.579.2. 9 1993 Unknown [id number] 2.16.840.1.494216.3.579.2. 9 1993 Unknown [id number] 2.16.840.1.263540.3.579.2. 9 1993 Unknown [id number] 2.16.840.1.480231.3.579.2. 9 1993 Unknown [id number] 2.16.840.1.389770.3.579.2. 9 1993 Unknown [id number] 2.16.840.1.960153.3.579.2. 1259 1993 Unknown [id number] 2.16.840.1.731083.3.579.2. 9 1993 Unknown [id number] 2.16.840.1.180583.3.579.2. 9 1993 Unknown [id number] 2.16.840.1.183645.3.579.2. 9 1993 Unknown [id number] 2.16.840.1.115088.3.579.2. 9 1959 Self-pay [id number] 1961 Unknown [id number] Social History Date Type Detail Facility Start: 10-06-2021 End: 11-30-2022 Tobacco smoking status Never smoked tobacco (finding) [facility] Tobacco smoking status Never Gener al [facility] Start: 05-08-2023 End: 11-21-2024 Sex Assigned At Female [facility] Start: 11-30-2022 Tobacco use and exposure Smokeless tobacco non-user [facility] Start: 01-08-2024 End: 11-27-2024 Alcoholic beverage intake Lifetime non-drinker (finding) [facility] Start: 05-08-2023 End: 11-21-2024 History of Social function [facility] Start: 10-06-2023 [facility] Start: 1995 Sex assigned at Female [facility] Start: 10-26-2022 Gender identity Identifies as female gender (finding) [facility] Functional Status Date Assessment Result Facility 10-06-2021 Functional Status N/A General [facility] Clinical Notes 10-06-2021 to 11-27-2024 Kristi Turpin NP - 11/27/2024 10:00 AM Mira Pittman DPM - 11/21/2024 4:10 PM Mira Pittman DPM - 11/06/2024 3:40 PM GERBER Yanes - 06/27/2024 9:40 AM EDT Note Date & Type Note Facility 11-27-2024 History of Present illness Narrative Reason for [...] Past Surgical History: Procedure Laterality Date SECTION, CLASSIC 06/20/2024 SECTION, LOW TRANSVERSE 2020 OTHER SURGICAL HISTORY [...] nursing note reviewed. Exam conducted with a clerical warehouseman present. Vitals: Estimated body mass index is 23.65 kg/m as calculated from the following: Height as of 11/21/24: 5' 4 . Weight as of this [...] and sensitivity. Orders Placed This Encounter Procedures HPV DNA probe, amplified POCT urinalysis dipstick manually resulted Follow Up: Patient is to return in one year for annual unless needed otherwise. Documented by Giuliana Walker LPN on behalf of: Kristi Turpin NP documented in this encounter [facility] 11-21-2024 History of Present illness Narrative Patient: Nidhi Cook : 1995 PCP: Veronica Ambrocio MD SUBJECTIVE Patient presents today for [...] procedure including high reoccurence rate, infection, pain and consent given. Application of DSD post procedure. Patient [...] for the devices. The patient is ambulatory may benefit functionally for this device. It may be used for the following conditions as noted per EMR. Agustin Pittman DPM documented in this encounter [facility] 11-06-2024 History of Present illness Narrative Patient: Nidhi Cook : 1995 PCP: Veronica Ambrocio MD SUBJECTIVE This is a 29 y.o. female that presents today for a chief complaint of pain to the plantar aspect of her right foot for the past month and states it up to an 8/10 has tried different shoes with minimal improvement. States painful with ambulation and denies any trauma Patient also has painful lesion to the right 3rd toe that is been present for the past few months and has tried [id number]-[id number] wart treatments with negative improvement. Allergies: No Known Allergies Past Medical History: [...] Ankle ROM less than 10 degrees b/l. Positive pain on palpation to right 3rd MPJ capsule with negative Ronaldo test Positive pain on palpation to right 3rd toe lesion Plantar flexed right 3rd metatarsal XRAY: US: DIAGNOSTIC ULTRASOUND REPORT: Verbal order for ultrasound today The 3rdMPJ capsule of the right foot was examined with a 12MHz linear probe in the transverse and sagital planes on the capsular regions of the MPJ. Images obtained. FINDINGS: Ultrasound exam demonstrates capsulitis/inflammation and a hypoechoic signal at plantar capsule on a series of sagittal and transverse images. The plantar plate examined as well with plantar joint capsule intact. IMPRESSION: Ultrasound findings indicated capsulitis of the right 3rdMPJ. ASSESSMENT 1. Metatarsal deformity, right 2. Capsulitis of metatarsophalangeal (MTP) joint of right foot 3. Verruca plantaris 4. Foot pain, right PLAN Application of salinocaine acid medication to lesion/lesions located at right foot Informed pt of risks and benefits of procedure including high reoccurence rate, infection, pain and consent given. Application of DSD post procedure. Patient to continue with oral anti - inflammatories as needed for pain and recommended OTC medications such as tylenol or Ibuprofen Pre-certify for inserts Reviewed ultrasound today with patient Pt was given steroid injection to the medial and lateral capsular ligaments of the right 2 3rd MPJ under US guidance with visualization of injected fluid into area of concern per imaging. Injection consisted of a 2:1 mixture of xylocaine 2%plain and kenalog 10 for a total of 3ccs. Informed pt of risks and benefits of procedure including infection,damage or rupture to soft tissue structures and steroid flare. Pt understood and consented. This is the patients 1st injection Agustin Pittman DPM documented in this encounter [facility] 06-27-2024 History of Present illness Narrative Reason for Appointment: Patient ID: Nidhi Cook is a 29 y.o. female who presents for Post-op Visit (Pt present today for post operative c/s visit. Pt delivered c/s on 06/20/2024.) Patient presents today for Post Follow Up appointment. and 1 Week Post Op Follow Up appointment. MEDICATIONS Current Outpatient Medications Medication Instructions ibuprofen 800 mg, Every 8 hours oxyCODONE-acetaminophen (Percocet) 5-325 MG tablet 1 tablet, Every 6 hours MV-Min-Fe Fum-FA-DHA ( 1 PO) Take by [...] Past Surgical History: Procedure Laterality Date SECTION, CLASSIC 06/20/2024 SECTION, LOW TRANSVERSE 2020 OTHER SURGICAL HISTORY [...] breath sounds. Abdominal: Palpations: Abdomen is soft. Comments: Pfannenstiel incision healing well, mild ecchymosis with steri strips in place Musculoskeletal: General: Normal range of motion. Neurological: [...] 01/30/23: 5' 4 . Weight as of 06/18/24: 174 lb. BP: No LMP recorded. ASSESSMENT & PLAN ICD-10-CM 1. Postoperative visit Z48.89 2. S/P section Z98.891 Patient presents today for a one week postop section check. Patient is doing well with minor complaints of pain. Incision has been noted as healing well with no signs and symptoms of infection. Follow Up: Patient is to return in 5 weeks for 6 week evaluation. Documented by Liyah Menendez MA on behalf of: GERBER Dorsey documented in this encounter [facility] 06-18-2024 History of Present illness Narrative Reason [...] nursing note reviewed. Exam conducted with a clerical warehouseman present. Vitals: Estimated body mass index is [...] Darien Ojeda DO documented in this encounter [facility] 06-11-2024 History of Present illness Narrative Reason [...] of: GERBER Dorsey documented in this encounter [facility] 06-04-2024 History of Present illness Narrative Reason [...] nursing note reviewed. Exam conducted with a clerical warehouseman present. Vitals: Estimated body mass index is [...] Darien Ojeda DO documented in this encounter [facility] 05-16-2024 History of Present illness Narrative Reason [...] of: GERBER Dorsey documented in this encounter [facility] 04-25-2024 History of Present illness Narrative Reason [...] nursing note reviewed. Exam conducted with a clerical warehouseman present. Vitals: Estimated body mass index is [...] Darien Ojeda DO documented in this encounter [facility] 04-03-2024 History of Present illness Narrative Reason [...] and congestion will be traveling over the [place] Holiday. She is afebrile and other olguin and well appearing and Lung sounds clear throughout. Prescription sent for azithromycin should symptoms increase over the holiday. Orders Placed This Encounter Procedures POCT urinalysis dipstick manually resulted Follow Up: Patient is to return to office in 2 week for routine OB appointment. Documented by GERBER Dorsey on behalf of: GERBER Dorsey documented in this encounter [facility] 03-06-2024 History of Present illness Narrative Reason [...] of: GERBER Dorsey documented in this encounter [facility] 02-06-2024 History of Present illness Narrative Reason [...] nursing note reviewed. Exam conducted with a clerical warehouseman present. Vitals: Estimated body mass index is [...] Darien Ojeda DO documented in this encounter [facility] 01-08-2024 History of Present illness Narrative Reason [...] nursing note reviewed. Exam conducted with a clerical warehouseman present. Vitals: Estimated body mass index is [...] obtained without difficulty and patient was given [facility] order to have obtained. Discussed baby [...] Darien Ojeda DO documented in this encounter [facility] 12-11-2023 History of Present illness Narrative Reason [...] nursing note reviewed. Exam conducted with a clerical warehouseman present. Vitals: Estimated body mass index is [...] or undercooked meat, and stay away from [facility]. Patient has been consulted regarding any [...] Aida Sesay PA-C documented in this encounter [facility] 10-06-2021 Note Chief Complaint consultation for nevus [...] Use:., 10/06/2021 Family History Cardiac arrhythmia: Father. [facility] Comment on above: Result Comment: Elec tronically Signed By: Philippe MCGOWAN MD\.br\Date and Time Signed: 10/06/21 16:57 EDT Evaluation + Plan note Future Appointments Appointment Date:10/27/2021 01:40:00 PM Scheduled Provider:Philippe MCGOWAN MD Location:[facility] Appointment Type: Procedure 30 General Surgery [place] Evaluation note Diagnosis 19 weeks gestation of Second trimester state, incidental [facility] Diagnosis Second trimester state, incidental 23 weeks gestation of Diabetes mellitus screening Screening for diabetes mellitus documented in this encounter [facility]* Diagnosis 11 weeks gestation [...] [facility] Diagnosis Postoperative visit S/P section Other postprocedural status [facility] Diagnosis Metatarsal deformity, right- Primary Capsulitis of metatarsophalangeal (MTP) joint of right foot Verruca plantaris Plantar wart Foot pain, right Pain in soft tissues of limb [facility] Diagnosis Well woman exam with routine gynecological exam Routine gynecological examination Burning with urination Dysuria documented in this encounter [facility] Narrative No data available for this section General Surgery [place] [facility] Discharge instructions No data available for this section General Surgery [place] Progress note No data available for this section General Surgery [place] Summary Purpose Family History No Family History Records FoundNo Family History Records FoundNo Family History Records Found Advance Directives No Advanced Directives Records FoundNo Advanced Directives Records FoundNo Advanced Directives Records Found Additional Source Comments Care Team (unrecognized sect ion and content) Brancher Relationship Specialty Start Date End Date Veronica Ambrocio MD [address] [place] [phone] PCP - General Family Medicine 12/05/22 Brancher Relationship Specialty Start Date End Date Veronica Ambrocio MD [address] [facility] [place] [phone] PCP - General Family Medicine 12/05/22 Brancher Relationship Specialty Start Date End Date Veronica Ambrocio MD [address] [facility] [place] [phone] PCP - General Family Medicine 12/05/22 Brancher Relationship Specialty Start Date End Date Veronica Ambrocoi MD [address] [phone] PCP - General Family Medicine 12/05/22 Brancher Relationship Specialty Start Date End Date Veronica Ambrocio MD [address] [phone] PCP - General Family Medicine 12/05/22 Brancher Relationship Specialty Start Date End Date Veronica Ambrocio MD [address] [phone] PCP - General Family Medicine 12/05/22 Brancher Relationship Specialty Start Date End Date Veronica Ambrocio MD [address] [facility] [place] [phone] PCP - General Family Medicine 12/05/22 Brancher Relationship Specialty Start Date End Date Veronica Ambrocio MD [address] [facility] [place] [phone] PCP - General Family Medicine 12/05/22 Brancher Relationship Specialty Start Date End Date Veronica Ambrocio MD [address] [facility] [place] [phone] PCP - General Family Medicine 12/05/22 Brancher Relationship Specialty Start Date End Date Veronica Ambrocio MD [address] [facility] [place] [phone] PCP - General Family Medicine 12/05/22 INFORMATION SOURCE (unrecogn ized section and content) DATE CREATED AUTHOR [facility]20[facility] DATE CREATED AUTHOR AUTHOR'S ORGANIZ ATION 06/10/2022 [facility] DATE CREATED AUTHOR AUTHOR'S ORGANIZ ATION 11/24/2024 [facility] EPIC Reason for Visit (unrecogniz ed section and content) Reason Comments Routine Visit Reason Comments [facility] Visit Routine Visit STI Screening Reason Comments Post-op Visit Pt present today for post operative c/s visit. Pt delivered c/s on 06/20/2024. Reason Comments Foot Pain Reason Comments Follow-up Reason Comments [facility] Visit FOR RECORDS PERTAINING TO PATIENTS WHO ARE [...] BE BASED ON THE PRIMARY CLINICAL RECORDS. [employer] provides no warranty or guarantee of the accuracy or completeness of information in this document.
[2024-11-29 19:08] LABS: Age Gdln ACOG Testing Note (.); IGP, Aptima HPV, rfx 16/18,45 Note (.)
== END 2024-11-27 12:19 | disposition home or self-care (01) ==
LOC: LAB 12:18
PROVIDERS: PCP Family Medicine; Visit Provider Nurse Practitioner Family
DX: Z01.419 Encounter for gynecological examination (general) (routine) without abnormal findings (principal)
CPT/HCPCS: 87624; 88175